=== PATIENT | female | born 1950 | race Caucasian/White ===

== ENCOUNTER → 2018-02-06 10:18 | Outpatient (CLI) | payer MEDICARE, BC, SELFPAY ==
--- NOTE | 2018-02-06 10:29 | XR_ITS ---
XR foot RT min 3V HISTORY: ITS.REASON: RIGHT FOOT PAIN ORDERING PHYSICIAN: Tj Sweeney MD PATIENT AGE: 67 years COMPARISON: None FINDINGS: No fracture or dislocation. No lytic or blastic change. There is normal mineralization.. The joint spaces are well-preserved. No significant degenerative/arthritic changes. No erosive changes evident. There is mild generalized osteopenia. There is a small accessory navicular bone. There is a tiny spur of the calcaneus at insertion of plantar tendon. IMPRESSION: Negative, no acute finding
== END ==
PROVIDERS: PCP Family Medicine; Visit Provider Family Medicine
DX: M79.671 Pain in right foot (principal)
CPT/HCPCS: 73630

== ENCOUNTER → 2018-04-29 09:22 | Outpatient (POV) | payer MEDICARE, BC, SELFPAY | PROVIDERS: Family Provider Family Medicine; PCP Family Medicine; Visit Provider Dermatology | DX: Z00.00 Encounter for general adult medical examination without abnormal findings (principal) ==

== ENCOUNTER → 2018-10-14 14:29 | Outpatient (CLI) | payer MEDICARE, BC, SELFPAY ==
--- NOTE | 2018-10-14 14:48 | XR_ITS ---
XR chest 2V HISTORY: Shortness of breath ITS.REASON: SOB ORDERING PHYSICIAN: Christianne Rios PATIENT AGE: 67 years COMPARISON: 09/06/2008 FINDINGS: Unremarkable cardiovascular structures. There is some increased density in the right hilum may be related to overlapping vessel and may be confirmed with follow-up as the patient is slightly rotated. The remaining lungs are clear. No acute bony anomalies. IMPRESSION: Mild prominence of the right hilum possibly due to vascular overlap. Consider follow-up chest radiograph to confirm otherwise negative
== END ==
PROVIDERS: PCP Family Medicine; Visit Provider Nurse Practitioner
DX: R07.89 Other chest pain (principal); R06.02 Shortness of breath
CPT/HCPCS: 71046; 93005

== ENCOUNTER → 2019-01-28 12:41 | Outpatient (CLI) | payer MEDICARE, BC, SELFPAY ==
--- NOTE | 2019-01-28 12:49 | CA_ITS ---
PROCEDURE: 2-D M-mode and color Doppler study INDICATIONS FOR THE TEST: Chest pain COPD Heart Murmur Tobacco Smokingex Palpitations Fatigue Syncope Edema+ Hypertension Diabetes Mellitus+ Rheumatic Fever SOB CROWLEY+Obesity+Hyperlipidemia Family History HD Additional History TDS R/T BODY HABITUS PATIENT INFORMATION HEIGHT: 67 WEIGHT:239 GENDER: Female B/P:130/70 2-D/M-MODE INTERPRETATION: 2-D MEASUREMENTS OBSERVED VALUES IN CMS Right Ventricular Dimension (RVDd) 2.8 Interventricular Septum (Thickness)(IVsd) 1.0 Left Ventricular Internal Dimensions(LVIDd) 4.8 Left Ventricular Posterior Wall (Thickness)(LVPWd) 1.0 Aortic Root 2.4 Aortic Cusp Separation 2.1 Left Atrial Dimensions (LAD) 3.7 2D 1. Left atrium is mildly enlarged, left ventricle is normal size, left ventricle wall thickness is upper limit of the normal, there is preserved left ventricular systolic function, visually estimated ejection fraction 55% with no regional wall motion abnormality. 2. The right atrium and right ventricle are mildly enlarged with normal contractility. 3. The aortic valve is minimally thickened and fibrosed. 4. The mitral valve has mitral calcification, leaflets are minimally thickened. 5. The pulmonic valve is poorly visualized. 6. The tricuspid valve is grossly normal. 7. No significant pericardial effusion noted. DOPPLER INTERROGATION: Doppler interrogation of the aortic, mitral and tricuspid valvular presence of mild mitral and tricuspid regurgitation, tricuspid regurgitation jet velocity is inadequate for calculation of the right ventricular systolic pressure, grade 1 diastolic dysfunction seen with tissue Doppler evidence of raised left atrial pressure. Inferior vena cava is not well visualized. CONCLUSION: 1. Mildly enlarged left atrium, normal left ventricular size, visually estimated ejection fraction 55% with no regional wall motion abnormality, grade 1 diastolic dysfunction seen with tissue Doppler evidence of raised left atrial pressure. 2. Mildly enlarged right ventricle with normal contractility. 3. Mild mitral and tricuspid regurgitation. 4. No significant pericardial effusion noted.
== END ==
PROVIDERS: PCP Family Medicine; Visit Provider Physician Assistant
DX: R06.09 Other forms of dyspnea (principal)
CPT/HCPCS: 93306

== ENCOUNTER → 2019-05-11 08:27 | Outpatient (POV) | payer MEDICARE, BC, SELFPAY | PROVIDERS: PCP Physician Assistant; Visit Provider Nurse Practitioner Family | DX: Z00.00 Encounter for general adult medical examination without abnormal findings (principal) ==

== ENCOUNTER → 2019-06-09 08:40 | Outpatient (POV) | payer MEDICARE, BC, SELFPAY | PROVIDERS: Visit Provider Dermatology | DX: Z00.00 Encounter for general adult medical examination without abnormal findings (principal) ==

== ENCOUNTER → 2019-07-29 11:42 | Outpatient (CLI) | payer MEDICARE, BC, SELFPAY ==
--- NOTE | 2019-07-29 11:47 | XR_ITS ---
PROCEDURE: XR ORTHOPANTOGRAM CLINICAL INDICATION: JAW PAIN Right jaw pain COMPARISON: None FINDINGS: No fracture or dislocation. No lytic or blastic change. No evidence of TMJ dislocation. There is some decrease in the TMJ joint space on the right. It is uncertain whether this is technical or a true finding. Early osteoarthritic change is a consideration and may be confirmed with CT. IMPRESSION: Slight decrease in the TMJ joint space on the right which could be due to early osteoarthritic change in may be confirmed with CT Dictated by: Sabino Burdick MD 07/29/2019 13:21 Electronically signed by Sabino Burdick MD in [place] 07/29/2019 13:21
== END ==
PROVIDERS: PCP Family Medicine; Visit Provider Physician Assistant
DX: R68.84 Jaw pain (principal)
CPT/HCPCS: 70355

== ENCOUNTER → 2021-05-13 15:45 | Outpatient (REF) | payer MEDICARE, BC, SELFPAY | LOC: LAB 15:45 | PROVIDERS: Visit Provider Family Medicine | DX: N39.0 Urinary tract infection, site not specified (principal) | CPT/HCPCS: 87086 ==

== ENCOUNTER → 2021-07-10 11:10 | Outpatient (CLI) | payer MEDICARE, BC, SELFPAY ==
--- NOTE | 2021-07-10 11:22 | XR_ITS ---
PROCEDURE: XR SACRUM COCCYX MIN 2V CLINICAL INDICATION: SORE TO SIT COMPARISON: No exams were available for comparison FINDINGS: No fracture or dislocation. No lytic or blastic change. There is normal mineralization. There is osteosclerosis of the inferior aspect of the SI joints with spurring consistent with osteoarthritic change. No obvious effusion. Mild osteoarthritis of the hips. Other findings:None. 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
== END ==
PROVIDERS: PCP Family Medicine; Visit Provider Family Medicine
DX: M53.3 Sacrococcygeal disorders, not elsewhere classified (principal)
CPT/HCPCS: 72220

== ENCOUNTER → 2021-10-09 14:04 | Outpatient (CLI) | payer MEDICARE, BC, SELFPAY ==
--- NOTE | 2021-10-09 14:21 | US_ITS ---
FINAL REPORT TECHNIQUE: Limited sonographic imaging of the back soft tissues was obtained. CLINICAL HISTORY: MASS-- small palp areas -- prob lipomas FINDINGS: Multiple, well-circumscribed, hypoechoic foci are seen in the subcutaneous fat of the back measuring up to 3 cm in greatest dimension favored to represent lipomas. IMPRESSION: Probable subcutaneous lipomas. Reviewed, Interpreted and Dictated by Juanjose Cano MD Transcribed by Modesta Spain Authenticated by Juanjose Cano MD on 10/09/2021 04:28:02 PM [facility]
== END ==
PROVIDERS: PCP Family Medicine; Visit Provider Physician Assistant
DX: M79.89 Other specified soft tissue disorders (principal)
CPT/HCPCS: 76800

== ENCOUNTER → 2021-10-21 08:10 | Outpatient (CLI) | payer MEDICARE, BC, SELFPAY ==
[2021-10-21 09:35] LABS: Chloride 106 mmol/L (98-107); Sodium 140 mmol/L (136-145)
[2021-10-21 09:36] LABS: Potassium 4.1 mmoL/L (3.5-5.1)
[2021-10-21 09:38] LABS: Blood Urea Nitrogen 19 mg/dl (7-17); Estimated Glomerular Filt Rate 62 ml/min (>60); GFR (African American) 75 ML/MIN (>60)
[2021-10-21 09:39] LABS: Anion Gap 11.1 mEq/L (5-15); Calcium 8.3 mg/dl (8.4-10.2); Carbon Dioxide 27 mmol/L (22.0-30.0); Glucose 127 mg/dl (74-100)
== END ==
PROVIDERS: Visit Provider Surgery
DX: D17.1 Benign lipomatous neoplasm of skin and subcutaneous tissue of trunk (principal); Z01.812 Encounter for preprocedural laboratory examination; Z11.52 Encounter for screening for COVID-19
CPT/HCPCS: 36415; 80048; C9803; U0003; U0005

== ENCOUNTER 2021-10-23 05:58 | Day surgery (SDC) | payer MEDICARE, BC, SELFPAY ==
[2021-10-20 08:34] VITALS: BMI 37.3
[2021-10-23] VITALS (9 sets, daily range): BP systolic 153–202; BP diastolic 71–97; PULSE 71–88; RESP 14–18; TEMP 36.3–36.7; O2SAT 94–98
--- NOTE | 2021-10-23 07:08 | HMH.ANESCL ---
[facility] Anesthesia Checklist - Patient Identification Patient Identification: Arm Band - Structural Data Admitted From: Home Planned Operative Procedure/s: Excision lipoma L. flank Consent for Planned Operative Procedure(s) Verified: Yes - NPO Status Verified Time NPO: 00:00 - Additional verifications Anesthesia Reactions: No Hx Blood Transfusions: No Blood Transfusion Reaction: No - Airway Assessment C-Spine Mobility Assessed: Yes TMJ Mobility Assessed: Yes Dentition: Good Dentition - Neurological Assessment Level of Consciousness: Awake Hx Seizures: No Numbness or tingling in extremities: No - Anesthesia Plan Anesthesia Risk discussed: Yes Anesthesia Plan: Verified ASA Class: III Anesthesia Type: General [facility] History I have reviewed the patient's past medical history: Yes Medical History: Reports:: Cancer (skin), Diabetes Mellitus Type 2, Hyperlipidemia, Hypertension Denies:: Diabetes Mellitus Type 1, Internal Pacemaker, MRSA, Seizures *Have you ever received a pneumonia vaccine?: Yes *Have you received a flu vaccine this season?: No Other Medical History: Reports: Hypothyroidism. Denies: Blood Transfusion Reaction Anesthesia experience/problems:: None Laterality Cases: Bilateral: Arthroscopy Knee, Arthroscopy Shoulder Other Surgeries: No: Pacemaker Amputation: No Fractures: Yes - *Social History Last grade of school completed: High school graduate Smoking Status: Never smoker Alcohol Intake: never Substance Use Type: denies use *Occupational Status:: retired Housing: house Household Members: spouse *Travel in the last 8 weeks: None Family Hx:: No significant family history
--- NOTE | 2021-10-23 08:19 | P.OP_ITS ---
Date of procedure: 10/23/21 Pre-op Diagnosis:: Lipomas on the right lower back Post-op Diagnosis:: Same Procedure performed:: Excision of lipomas, subcutaneous, from the right lower back (excisional length approximately 3 to 4 cm) with intermediate complex closure Surgeon:: Scott Steele MD CAPPER MACHINE OPERATOR:: Stacy Wilkerson, Other Anesthesia: LMA Estimated blood loss (mL): 5 Clinical Note:: Patient is a 70-year-old female referred by Rosa Souza for lipoma on the back. Patient states that she has had multiple lipomas in various locations. These have usually been asymptomatic. She has had lipoma on the right lower back near the lumbar area for about 5 or 6 years. Initially this had been asymptomatic but has increased in size and becomes symptomatic. She underwent ultrasound which reveals findings of multiple well-circumscribed hypoechoic foci in the subcutaneous fat measuring up to 3 cm favored to represent lipomas. She was seen and examined in the office. On the right lower back there was a palpable somewhat tender small lipoma measuring about 3 cm. Initially I was unable to identify any additional lipomas. She wished to have at least this area excised. In the preoperative area I reexamined her and there were a couple of other probable lipomas which she wished to have excised. These were marked in the preoperative area. Operative findings:: The mid lipoma was relatively well-circumscribed but small. The other 2, lateral and medial were consistent with very subtle subcutaneous lipomas. Operative note:: Patient was taken to the operating room. She was positioned in supine position. General anesthesia was induced via LMA. She was positioned in left lateral decubitus position. The area was prepped and draped. Attention was first turned to the mid lipoma which was most symptomatic and most palpable. Skin was marked with a skin marker. Transverse incision was made. Dissection was carried down through subcutaneous tissues. Relatively well-circumscribed lipoma fatty tissue was encountered. This was dissected free from surrounding structures using mostly blunt dissection with some use of electrocautery. It was sent off as specimen. Similar incision was made in the more lateral lesion. Dissection was carried down through subcutaneous tissues. Somewhat poorly differentiated lipomatous tissue was encountered and dissected free. Wound exploration revealed no evidence of any definite residual lipoma. Similarly in the more medial location there was a subtle palpable irregularity. Incision was made. Dissection was carried down through subcutaneous tissues. A small nodule of relatively well-circumscribed lipomatous tissue was encountered. This was dissected free. This was however somewhat subtle and appeared similar to the surrounding adipose tissue. There is no residual palpable lesion. This sent off as a specimen. Local anesthetic was infiltrated. Electrocautery was used for hemostasis in the 3 small incisions. Incisions were closed with interrupted subdermal 3-0 Vicryl followed by 4-0 Monocryl in a running subcuticular fashion. Steri-Strips and dressings were applied. Condition: stable Disposition: PACU Complications:: None immediately apparent
--- NOTE | 2021-10-23 08:21 | HMH.ANESI ---
[facility] Anesthesia Record Part I Intake, IV Amount: 450 Estimated blood loss (mL): 2 Urine output (mL): 0 Blood Pressure: 186/96 SaO2: 94 Pulse Rate: 77 Respiratory Rate: 18 Temperature: 98.1 F Patient is:: Drowsy Stable to PACU at:: 08:20
[2021-10-23 08:44] LABS: POC Glucose,Bedside 131 (70-110)
--- NOTE | 2021-10-23 08:57 | SUR.PHASEI ---
0849- detailed report called to ben louie in post op at this time. 0851- pt left in stable condition with ben fulton in post op.
[2022-04-19 10:58] LABS: POC Glucose,Bedside 137 (70-110)
== END 2021-10-23 09:21 | disposition home or self-care (01) ==
LOC: OR 05:59
PROVIDERS: PCP Family Medicine; Visit Provider Surgery
DX: D17.1 Benign lipomatous neoplasm of skin and subcutaneous tissue of trunk (principal); Z85.828 Personal history of other malignant neoplasm of skin; E11.9 Type 2 diabetes mellitus without complications; E78.5 Hyperlipidemia, unspecified; I10 Essential (primary) hypertension; E03.9 Hypothyroidism, unspecified; Z88.0 Allergy status to penicillin; Z88.8 Allergy status to other drugs, medicaments and biological substances; Z79.84 Long term (current) use of oral hypoglycemic drugs; Z79.899 Other long term (current) drug therapy
CPT/HCPCS: 11404; 12031; 82962; 88304; 96374

== ENCOUNTER → 2022-09-13 12:00 | Outpatient (CLI) | payer MEDICARE, BC, SELFPAY ==
--- NOTE | 2022-09-13 12:06 | XR_ITS ---
FINAL REPORT CLINICAL HISTORY: bron, concern for pneumonia, soa, productive cough COMPARISON: 10/14/2018 FINDINGS: TWO-VIEW CHEST The heart size is normal. The mediastinum is normal. There is a left base opacity consistent with pneumonia. There is no pneumothorax. IMPRESSION: Left base pneumonia. Reviewed, Interpreted and Dictated by Scott Davies III, MD Transcribed by Emelina Ayala Authenticated and [facility]
== END ==
PROVIDERS: PCP Family Medicine; Visit Provider Physician Assistant
DX: J40 Bronchitis, not specified as acute or chronic (principal)
CPT/HCPCS: 71046

== ENCOUNTER 2022-09-14 02:18 | Emergency (ER) | payer MEDICARE, BC, SELFPAY ==
[2022-09-14 02:19] VITALS: BP 194/102; PULSE 100; RESP 20; TEMP 36.6; O2SAT 95; BMI 33.3
[2022-09-14 02:29] VITALS: BP 194/102; PULSE 96; O2SAT 95
--- NOTE | 2022-09-14 02:39 | XR_ITS ---
PROCEDURE INFORMATION: Exam: XR Chest Exam date and time: 09/14/2022 2:59 AM Age: 71 years old Clinical indication: Shortness of breath; Additional info: SOA TECHNIQUE: Imaging protocol: Radiologic exam of the chest. Views: 1 view. COMPARISON: CR XR CHEST 2V 09/13/2022 12:11 PM FINDINGS: Lungs: There is mild elevation of the right hemidiaphragm, as before. There is improved clearing to the left lower lobe. A few minor streaky markings bilaterally are stable. The lungs appear otherwise clear. No focal areas of consolidation. Pleural spaces: No pleural effusions or appreciable adenopathy. Negative for pneumothorax. Heart/Mediastinum: Cardiac silhouette and pulmonary vasculature are within range of normal. Bones/joints: There is no evidence of acute fracture. IMPRESSION: Mild improved aeration to the left lower lobe since prior exam.
--- NOTE | 2022-09-14 02:40 | HMH.EDGENADL ---
Discharge Plan Disposition Patient Disposition: Home, Self-Care Condition: Good Prescriptions Prescriptions: New avqhrhjvwcvdkhq-uffelsvsn-LI [Bromfed DM] 2-30-10 mg/5 mL syrup 5 ml PO Q6H PRN (Reason: cold symptoms) Qty: 118 0RF No Action fluconazole 100 MG tablet 100 mg PO DAILY Rx Instructions: metoprolol succinate 50 MG tablet extended release 24 hr 50 mg PO DAILY Rx Instructions: levothyroxine 25 MCG tablet 25 mcg PO DAILY metformin 1,000 MG tablet 1,000 mg PO DAILY Rx Instructions: montelukast 10 MG tablet 10 mg PO PM lisinopril 40 MG tablet 40 mg PO DAILY rosuvastatin 5 MG tablet 5 mg PO DAILY levocetirizine 5 MG tablet 5 mg PO DAILY cholecalciferol (vitamin D3) 2,000 UNIT capsule 2,000 unit PO DAILY dulaglutide 1.5 MG/0.5 ML pen injector 1.5 mg SQ WEEKLY Referrals Follow up/Referrals: Tj Sweeney MD [Primary Care Provider] - See instructions Activity Restrictions/Add. Instructions Additional Instructions/Restrictions: Return for worsening difficulty breathing chest pain or any other concerns within the next 8 hours. Otherwise follow-up with Dr. Sweeney in the next few days Clinical Impressions Clinical Impression: Pneumonia Instructions Patient Instructions: Pneumonia-Adult Discharge ED Provider: Zeke Bonilla General Adult HPI General Chief complaint: Shortness of Breath/Dyspnea Stated complaint: SOA,cough,has pneumonia Time Seen by Provider: 09/14/22 02:20 Mode of Arrival: Ambulatory Source of Information: Patient Limitations: No Limitations Description of Symptoms (Recalled from ER Triage Doc. by RN): pt c/o SOA and coughing. pt diagnosed with pneumonia yesterday by pcp History of Present Illness HPI narrative: 71-year-old female presents with cough for 1 week. She was at her primary care physician Dr. Sweeney earlier today for persistent cough and hear crackles and diagnosed her with pneumonia. She has taken 1 dose of Levaquin today. No fever no chills. No abdominal pain nausea vomiting diarrhea. She recently took 1 week of steroids. Related Data Home Medications Medication Instructions Recorded Confirmed cholecalciferol (vitamin D3) 50 2,000 unit PO DAILY Supplement 05/26/19 11/14/21 mcg (2,000 unit) capsule dulaglutide 1.5 mg/0.5 mL 1.5 mg SQ WEEKLY Diabetes 05/26/19 11/14/21 subcutaneous pen injector fluconazole 100 mg tablet 100 mg PO DAILY Infection 05/26/19 11/14/21 levocetirizine 5 mg tablet 5 mg PO DAILY ALLERGIES 05/26/19 11/14/21 levothyroxine 25 mcg tablet 25 mcg PO DAILY HYPOTHYROIDISM 05/26/19 11/14/21 lisinopril 40 mg tablet 40 mg PO DAILY BLOOD PRESSURE 05/26/19 11/14/21 metformin 1,000 mg tablet 1,000 mg PO DAILY Diabetes 05/26/19 11/14/21 metoprolol succinate 50 mg 50 mg PO DAILY BLOOD PRESSURE 05/26/19 11/14/21 tablet,extended release 24 hr montelukast 10 mg tablet 10 mg PO PM ALLERGIES 05/26/19 11/14/21 rosuvastatin 5 mg tablet 5 mg PO DAILY Cholesterol 05/26/19 11/14/21 Previous Rx's Medication Instructions Recorded wbdobytemlvrghp-mgeydaauvqkzgwt-VB 5 ml PO Q6H PRN cold symptoms #118 09/14/22 2 mg-30 mg-10 mg/5 mL oral syrup mL (Bromfed DM) Allergies Allergy/AdvReac Type Severity Reaction Status Date / Time iodine [IODINE] Allergy Unknown Verified 11/14/21 10:43 Penicillins [PENICILLINS] Allergy Unknown Verified 11/14/21 10:43 theophylline [THEOPHYLLINE] Allergy Unknown Verified 11/14/21 10:43 valdecoxib [From Bextra] Allergy Verified 11/14/21 10:43 [facility] Disclaimer: The information contained in this section may have been updated after the patient was seen, as this information can be updated by other users. Social History Smoking Status: Never smoker alcohol intake: never substance use type: denies use current occupational status: retired Travel in the last 8 weeks: None household m
[2022-09-14 02:55] LABS: Basophils # 0.2 K/mm3 (0-0.2); Basophils % 1.1 % (0.1-2.0); Eosinophils # 0.9 K/mm3 (0.0-0.4); Eosinophils % 5.8 % (0.1-12.0); Hematocrit 41.6 % (37.0-47.0); Hemoglobin 12.8 g/dL (12.2-16.2); Lymphocytes # 4.2 K/mm3 (0.7-4.5); Lymphocytes % 27.2 % (10-50); Mean Corpuscular HGB Conc 30.9 g/dL (31.8-35.4); Mean Corpuscular Hemoglobin 27.6 pg (27.0-31.2); Mean Corpuscular Volume 89.3 fl (81-99); Mean Platelet Volume 7.6 fl (7.4-10.4); Monocytes # 0.8 K/mm3 (0.1-1.0); Monocytes % 5.2 % (1.7-9.3); Neutrophils # 9.2 K/mm3 (1.8-7.8); Neutrophils % 60.6 % (37.0-80.0); Platelet Count 574 K/mm3 (142-424); Red Blood Count 4.66 M/mm3 (4.20-5.40); Red Cell Distribution Width 14.6 % (11.5-17.5); White Blood Count 15.2 K/mm3 (4.8-10.8)
[2022-09-14 02:58] VITALS: BP 168/99; PULSE 94; O2SAT 95
[2022-09-14 02:58] LABS: VBG Base Excess -5.7 mmol/L (-2.4-2.3); VBG HCO3 20.8 mmol/L (23-30); VBG Oxygen Saturation 73.6 % (50-70); VBG PCO2 43.4 mmol/L (35-51); VBG PO2 41.7 mmol/L (28-40); VBG Total CO2 22.1 mmol/L (23-27)
[2022-09-14 03:00] LABS: Alanine Aminotransferase 30 U/L (12-78); Albumin Level 4.2 g/dl (3.5-5.0); Albumin/Globulin Ratio 1.4 (1.1-1.8); Alkaline Phosphatase 113 U/L (38-126); Anion Gap 7.2 mEq/L (5-15); Aspartate Amino Transferase 32 U/L (14-36); Bilirubin,Total 0.7 mg/dl (0.2-1.3); Blood Urea Nitrogen 16 mg/dl (7-17); Calcium 9.4 mg/dl (8.4-10.2); Carbon Dioxide 24 mmol/L (22.0-30.0); Chloride 107 mmol/L (98-107); Creatinine Clearance Estimated 76 mL/min (50-200); Estimated Glomerular Filt Rate 62 ml/min (>60); GFR (African American) 75 ML/MIN (>60); Globulin 2.9 g/dL (1.3-3.2); Glucose 204 mg/dl (74-100); Magnesium 1.6 mg/dl (1.6-2.3); Potassium 4.2 mmoL/L (3.5-5.1); Sodium 134 mmol/L (136-145); Total Protein,Serum 7.1 g/dl (6.3-8.2)
[2022-09-14 03:01] VITALS: PULSE 92; PULSE 95
[2022-09-14 03:03] LABS: MANUAL DIFFERENTIAL MANUAL DIFFERENTIAL (MANUAL DIFF)
[2022-09-14 03:10] LABS: NT Pro Brain Natriuretic Pep. 94.4 pg/mL (0-125)
[2022-09-14 03:51] VITALS: BP 178/101; PULSE 89; RESP 21; TEMP 36.7; O2SAT 93
[2022-09-14 04:05] LABS: Eosinophils % 5 % (0-3); Lymphocytes % 25 % (10-50); Monocytes % 6 % (2-9); Neutrophils % 62 % (42-76); Total Cells Counted 100
[2022-09-14 04:06] LABS: Platelet Estimate Normal; RBC Morphology Normal
== END 2022-09-14 03:56 | disposition home or self-care (01) ==
PROVIDERS: Emergency Provider Emergency Medicine; PCP Family Medicine
DX: J18.9 Pneumonia, unspecified organism (principal)
CPT/HCPCS: 71045; 80053; 82803; 83735; 83880; 85007; 85025; 96374; 99285

== ENCOUNTER → 2022-09-20 09:39 | Outpatient (CLI) | payer MEDICARE, BC, SELFPAY ==
--- NOTE | 2022-09-20 09:43 | XR_ITS ---
FINAL REPORT CLINICAL HISTORY: PNEUMONIA COMPARISON: 09/13/2022 FINDINGS: PA and lateral views of the chest were obtained. The cardiac and mediastinal silhouettes are within normal limits. The lungs are clear. There is no pleural effusion or pneumothorax. No acute osseous abnormality is identified. IMPRESSION: No radiographic evidence of acute cardiac or pulmonary disease. Reviewed, Interpreted and Dictated by Deepika Winston MD Transcribed by Brittany Gabriel Authenticated and [facility]
== END ==
PROVIDERS: PCP Family Medicine; Visit Provider Physician Assistant
DX: J18.9 Pneumonia, unspecified organism (principal)
CPT/HCPCS: 71046

== ENCOUNTER → 2022-11-20 08:06 | Outpatient (POV) | payer MEDICARE, BC, SELFPAY | PROVIDERS: Visit Provider Dermatology | DX: Z00.00 Encounter for general adult medical examination without abnormal findings (principal) ==

== ENCOUNTER → 2022-12-04 08:27 | Outpatient (POV) | payer MEDICARE, BC, SELFPAY | PROVIDERS: Visit Provider Dermatology | DX: Z00.00 Encounter for general adult medical examination without abnormal findings (principal) ==

== ENCOUNTER → 2022-12-10 15:23 | Outpatient (CLI) | payer MEDICARE, BC, SELFPAY ==
[2022-12-10 17:51] LABS: Basophils # 0.1 K/mm3 (0-0.2); Basophils % 0.6 % (0.1-2.0); Chloride 106 mmol/L (98-107); Eosinophils # 0.2 K/mm3 (0.0-0.4); Eosinophils % 2.3 % (0.1-12.0); Hematocrit 33.5 % (37.0-47.0); Hemoglobin 10.6 g/dL (12.2-16.2); Lymphocytes # 2.5 K/mm3 (0.7-4.5); Lymphocytes % 29.1 % (10-50); Mean Corpuscular HGB Conc 31.6 g/dL (31.8-35.4); Mean Corpuscular Hemoglobin 28.2 pg (27.0-31.2); Mean Corpuscular Volume 89.2 fl (81-99); Mean Platelet Volume 8.9 fl (7.4-10.4); Monocytes # 0.5 K/mm3 (0.1-1.0); Monocytes % 5.6 % (1.7-9.3); Neutrophils # 5.4 K/mm3 (1.8-7.8); Neutrophils % 62.5 % (37.0-80.0); Platelet Count 509 K/mm3 (142-424); Potassium 3.8 mmoL/L (3.5-5.1); Red Blood Count 3.76 M/mm3 (4.20-5.40); Red Cell Distribution Width 15.1 % (11.5-17.5); Sodium 141 mmol/L (136-145); White Blood Count 8.6 K/mm3 (4.8-10.8)
[2022-12-10 17:54] LABS: Alanine Aminotransferase 21 U/L (12-78); Albumin Level 3.8 g/dl (3.5-5.0); Albumin/Globulin Ratio 1.5 (1.1-1.8); Alkaline Phosphatase 102 U/L (38-126); Anion Gap 12.8 mEq/L (5-15); Aspartate Amino Transferase 32 U/L (14-36); Bilirubin,Total 0.2 mg/dl (0.2-1.3); Blood Urea Nitrogen 18 mg/dl (7-17); Calcium 8.6 mg/dl (8.4-10.2); Carbon Dioxide 26 mmol/L (22.0-30.0); Estimated Glomerular Filt Rate 62 ml/min (>60); GFR (African American) 75 ML/MIN (>60); Globulin 2.6 g/dL (1.3-3.2); Glucose 137 mg/dl (74-100); Total Protein,Serum 6.4 g/dl (6.3-8.2)
[2022-12-12 14:26] LABS: Anti-Centromere B Antibodies <0.2 AI (0.0-0.9); Anti-DNA (DS) Ab Qn 1 IU/mL (0-9); Anti-Jo-1 <0.2 AI (0.0-0.9); Anti-Smith Antibody <0.2 AI (0.0-0.9); Antichromatin Antibodies <0.2 AI (0.0-0.9); Antiscleroderma-70 Antibodies <0.2 AI (0.0-0.9); RNP Antibodies 0.2 AI (0.0-0.9); Sjogren's Anti-SS-A <0.2 AI (0.0-0.9); Sjogren's Anti-SS-B <0.2 AI (0.0-0.9)
== END ==
PROVIDERS: PCP Family Medicine; Visit Provider Student in an Organized Health Care Education/Training Program
DX: I77.6 Arteritis, unspecified (principal); R30.0 Dysuria; R21 Rash and other nonspecific skin eruption
CPT/HCPCS: 80053; 85025; 86225; 86235; 87086

== ENCOUNTER 2023-01-29 09:14 | Day surgery (SDC) | payer MEDICARE, BC, SELFPAY ==
[2023-01-25 14:27] VITALS: BMI 37.2
[2023-01-29 09:53] VITALS: BP 181/91; PULSE 74; RESP 17; TEMP 36.3; O2SAT 97
[2023-01-29 10:15] LABS: POC Glucose,Bedside 138 (70-110)
[2023-01-29 11:01] VITALS: BP 190/88; PULSE 80; RESP 18; O2SAT 100
[2023-01-29 11:06] VITALS: BP 182/86; PULSE 78; RESP 18; O2SAT 100
[2023-01-29 11:10] VITALS: BP 185/84; PULSE 77; RESP 18; O2SAT 100
[2023-01-29 11:29] VITALS: BP 168/81; PULSE 70; RESP 19; TEMP 36.2; O2SAT 98
== END 2023-01-29 11:35 | disposition home or self-care (01) ==
PROVIDERS: PCP Family Medicine; Visit Provider Ophthalmology
DX: E11.36 Type 2 diabetes mellitus with diabetic cataract (principal); H25.9 Unspecified age-related cataract
CPT/HCPCS: 66984; 82962; V2632

== ENCOUNTER 2023-02-12 07:19 | Day surgery (SDC) | payer MEDICARE, BC, SELFPAY ==
[2023-02-07 09:42] VITALS: BMI 36.1
[2023-02-12] VITALS (7 sets, daily range): BP systolic 136–153; BP diastolic 82–96; PULSE 73–78; RESP 16–18; TEMP 36.5; O2SAT 97–100
[2023-02-12 08:08] LABS: POC Glucose,Bedside 174 (70-110)
== END 2023-02-12 09:20 | disposition home or self-care (01) ==
PROVIDERS: PCP Family Medicine; Visit Provider Ophthalmology
DX: E11.36 Type 2 diabetes mellitus with diabetic cataract (principal); H25.9 Unspecified age-related cataract
CPT/HCPCS: 66982; 82962; V2632

== ENCOUNTER → 2023-04-30 10:06 | Outpatient (CLI) | payer MEDICARE, BC, SELFPAY ==
--- NOTE | 2023-04-30 10:16 | XR_ITS ---
FINAL REPORT CLINICAL HISTORY: ACUTE PAIN x 2 weeks FINDINGS: Three views of the right knee reveal no evidence of fracture or dislocation. The bony alignment is normal. There are mild degenerative changes. There is no evidence of joint effusion. No localized soft tissue abnormality is identified. IMPRESSION: Degenerative changes with no acute abnormality identified. Reviewed, Interpreted and Dictated by Scott Davies III, MD Transcribed by Maria Luisa Monreal Authenticated and [facility]
== END ==
PROVIDERS: PCP Family Medicine; Visit Provider Family Medicine
DX: M25.561 Pain in right knee (principal)
CPT/HCPCS: 73562

== ENCOUNTER → 2023-05-07 10:19 | Outpatient (CLI) | payer MEDICARE, BC, SELFPAY ==
--- NOTE | 2023-05-07 10:23 | MM_ITS ---
PROCEDURE INFORMATION: Exam: MG Bilateral Screening 3D Mammography Exam date and time: 05/07/2023 10:15 AM Age: 72 years old Clinical indication: Screening examination; No personal or family history of breast cancer TECHNIQUE: Imaging protocol: Bilateral Screening tomosynthesis and 2D mammography including computer-aided detection (CAD) when performed. COMPARISON: 1. MG DMDXUAVL DIG MAMM-DX UNI ADD VIEWS-LT 04/10/2016 2:39 PM 2. MG DMSB DIG MAMM-SCREEN KEEGAN 02/02/2016 8:41 AM FINDINGS: MAMMOGRAPHY: Breast composition: There are scattered areas of fibroglandular density. Mass: None. Architectural distortion: No new or suspicious distortion. Calcifications: No suspicious calcifications. Asymmetric density: None. Skin thickening: None. Axillary adenopathy: None. IMPRESSION: No mammographic evidence of malignancy. Annual screening is recommended unless otherwise clinically indicated. ASSESSMENT: BI-RADS Category 1: Negative
== END ==
PROVIDERS: PCP Family Medicine; Visit Provider Family Medicine
DX: Z12.31 Encounter for screening mammogram for malignant neoplasm of breast (principal)
CPT/HCPCS: 77063; 77067

== ENCOUNTER 2023-08-06 14:15 | Outpatient (POV) | payer MEDICARE, BC, SELFPAY | END 2023-08-06 23:59 | disposition home or self-care (01) | LOC: SC 14:15 | PROVIDERS: PCP Family Medicine; Visit Provider Dermatology | DX: Z00.00 Encounter for general adult medical examination without abnormal findings (principal) ==

== ENCOUNTER 2023-11-19 11:41 | Outpatient (CLI) | payer MEDICARE, BC, SELFPAY ==
--- NOTE | 2023-11-19 11:58 | ECG_ITS ---
APPROVED REPORT Exam: Resting ECG HR:69 bpm ECG Measurements Heart Rate 69 AXES WI 193 P 29 QRSd 90 QRS 2 QT 380 T 61 QTc 399 Conclusion SINUS RHYTHM LOW QRS VOLTAGE IN PRECORDIAL LEADS [QRS DEFLECTION < 1.0 mV IN CHEST LEADS] NONSPECIFIC ST & T-WAVE ABNORMALITY BORDERLINE ECG UNCONFIRMED REPORT Electronically signed by : Braydon Parikh MD 11/19/2023 20:37:51
[2023-11-19 13:05] LABS: Alanine Aminotransferase 20 U/L (12-78); Albumin Level 3.7 g/dl (3.5-5.0); Albumin/Globulin Ratio 1.5 (1.1-1.8); Alkaline Phosphatase 105 U/L (38-126); Anion Gap 10.3 mEq/L (5-15); Aspartate Amino Transferase 27 U/L (14-36); Bilirubin,Total 0.3 mg/dl (0.2-1.3); Blood Urea Nitrogen 20 mg/dl (7-17); Calcium 9.1 mg/dl (8.4-10.2); Carbon Dioxide 27 mmol/L (22.0-30.0); Chloride 108 mmol/L (98-107); Estimated Glomerular Filt Rate 62 ml/min (>60); GFR (African American) 75 ML/MIN (>60); Globulin 2.5 g/dL (1.3-3.2); Glucose 167 mg/dl (74-100); Potassium 4.3 mmoL/L (3.5-5.1); Sodium 141 mmol/L (136-145); Total Protein,Serum 6.2 g/dl (6.3-8.2)
[2023-11-19 13:41] LABS: 25-OH Vitamin D, Total 51.4 ng/mL (30-100)
[2023-11-19 14:02] LABS: Hemoglobin A1C 7.6 % (4.0-6.0)
== END 2023-11-19 23:59 | disposition home or self-care (01) ==
LOC: LAB 11:42
PROVIDERS: PCP Family Medicine; Visit Provider Family Medicine
DX: Z01.818 Encounter for other preprocedural examination (principal); E11.9 Type 2 diabetes mellitus without complications; E55.9 Vitamin D deficiency, unspecified; E78.2 Mixed hyperlipidemia; I10 Essential (primary) hypertension; Z68.36 Body mass index [BMI] 36.0-36.9, adult; Z79.84 Long term (current) use of oral hypoglycemic drugs; Z79.85 Long-term (current) use of injectable non-insulin antidiabetic drugs
CPT/HCPCS: 36415; 80053; 82306; 83036; 93005

== ENCOUNTER 2024-04-08 08:43 | Outpatient (CLI) | payer MEDICARE, SELFPAY | END 2024-04-08 23:59 | disposition home or self-care (01) | LOC: RAD 08:43 | PROVIDERS: PCP Family Medicine; Visit Provider Family Medicine | DX: M54.50 Low back pain, unspecified (principal) ==

== ENCOUNTER 2024-05-27 13:38 | Outpatient (POV) | payer MEDICARE, SELFPAY ==
--- NOTE | 2024-05-27 14:59 | A.OFFVIS_ITS ---
HPI Data of Consult Patient: new to practice Consult date: 05/27/24 Requesting Physician: Venecia Davidson APRN Primary Care Provider: Tj Sweeney MD Consult Narrative Reason for consult: Low back pain, right buttocks pain, leg pain History of present illness: Ms. Montes is a 73 year old female who presents today as a new patient. Today she rates her pain a 5 out of 10. Patient states she has pain throughout her low back, right buttocks area as well as legs and ankle. Patient states that she has been experiencing more pain in the right buttocks area since around August unrelated to any specific injury or trauma. Patient does state that it is worse with prolonged positioning such as sitting in certain chairs. She states it is right around her tailbone and describes it as an aching sensation. Patient does state this pain is more problematic than her overall low back and leg symptoms. Patient states that pain is worse with increased activity that she does have to stop and take breaks. Patient has tried conservative treatment including oral medications, heat and ice and topicals such as Voltaren. Patient states she has continued at home stretching exercise for longer than 12 weeks with no additional relief. Patient is interested in any help we may be able to provide. Patient does state that she has a history of fatty tumors and questions whether or not in her buttocks area of this is 1 of those. Her Rg has been reviewed and is appropriate. CC: Venecia Davidson APRN [facility] Disclaimer: The information contained in this section may have been updated after the patient was seen, as this information can be updated by other users. Medical History History of gastroesophageal reflux (GERD) Hyperlipidemia Hypertension Hypothyroid Skin cancer Type 2 diabetes mellitus Surgical History H/O tubal ligation History of arthroscopy of both knees History of cholecystectomy History of hysterectomy Hx of shoulder surgery Family History Other Family history of cerebral hemorrhage Family history of diabetes mellitus type II Family history of hypertension Family history of myocardial infarction Family hx of colon cancer Lung cancer Social History Smoking Status: Never smoker alcohol intake: never substance use type: denies use current occupational status: retired Travel in the last 8 weeks: None household members: spouse housing: house lives independently: No marital status: education level: high school service: No current occupational exposures/hazards: No caffeine: No special gerson needs: No agree to transfusion: No do you feel safe at home: Yes victim of physical abuse: No victim of emotional abuse: No victim of sexual abuse: No would you like helpful sources: No Review of Systems Review of Systems Review of systems:: pertinent systems reviewed and negative unless documented below Review of systems (narrative): Review of Systems: General: No recent weight changes, no fever, no sleep disturbances Respiratory: No cough, no shortness of air, no recurring pulmonary infections Cardiovascular/peripheral vascular: No chest pain, no palpitations, no edema, no shortness of breath Gastrointestinal: No new onset incontinence, normal bowel movements reported Genitourinary: No new onset incontinence Musculoskeletal: Low back pain, leg pain, ankle pain, right buttocks pain/tailbone pain Psychiatric: [Normal mood/affect] Neurological: [Denies weakness in extremities], [denies balance issues] Meds Home Medications and Allergies Home Medications ?Medication ?Instructions ?Recorded ?Confirmed ?Type cholecalciferol (vitamin D3) 50 2,000 unit PO DAILY Supplement 05/26/19 08/22/23 History mcg (2,000 unit) capsule dulaglutide 1.5 mg/0.5 mL 1.5 mg SQ WEEKLY Diabetes 05/26/19 08/22/23 History subcutaneous pen injector levocetirizine 5 mg tablet (Xyzal) 5 mg PO DAILY ALLERGIES 05/26/19 08/22/23 History levothyroxine 25 mcg tablet 25 mcg PO DAILY HYPOTHYROIDISM 05/26/19 08/22/23 History lisinopril 40 mg tablet 40 mg PO DAILY BLOOD PRESSURE 05/26/19 08/22/23 History montelukast 10 mg tablet 10 mg PO PM ALLERGIES 05/26/19 08/22/23 History (Singulair) amlodipine 5 mg tablet 5 mg PO DAILY bp 02/12/23 08/22/23 History Lactobacillus 1 cap PO DAILY 05/29/23 08/22/23 History acidophilus-Bifidobac.animalis 2.5 billion cell capsule (Daily Probiotic) metformin 500 mg tablet,extended 1,000 mg PO BID 05/29/23 08/22/23 History release 24 hr metoprolol succinate 200 mg mg PO 05/29/23 08/22/23 History tablet,extended release 24 hr prasterone (dhea) 25 mg capsule 25 mg PO DAILY #30 caps 05/29/23 08/22/23 Rx (DHEA) rosuvastatin 5 mg tablet (Crestor) 5 mg PO DAILY Cholesterol 05/29/23 08/22/23 History cefdinir 300 mg capsule 300 mg PO BID #20 caps 08/22/23 08/22/23 Rx triamcinolone acetonide 0.1 % 1 applic topical BID #15 grams 08/22/23 08/22/23 Rx topical cream New Prescriptions to Start Prescriptions: Allergies Allergy/AdvReac Type Severity Reaction Status Date / Time iodine [IODINE] Allergy Unknown Verified 08/22/23 15:25 Penicillins [PENICILLINS] Allergy Unknown Verified 08/22/23 15:25 theophylline [THEOPHYLLINE] Allergy Unknown Verified 08/22/23 15:25 valdecoxib [From Bextra] Allergy Verified 08/22/23 15:25 Objective Narrative: Physical Exam: General: Alert and oriented x3, no acute distress, pleasant and cooperative Lungs: Respirations even and unlabored, symmetrical chest expansion Eyes: PERRL Musculoskeletal: Flexion and extension of lumbar [spine] somewhat guarded secondary to pain, [antalgic gait noted] point tenderness along right sacrum/glute Neurological: Speech clear, no gross sensory deficit Assessment and Plan *Assessment and plan (1) Degenerative disc disease, lumbar: Status: Acute Category: Medical Code(s): M51.369 - Other intervertebral disc degeneration, lumbar region without mention of lumbar back pain or lower extremity pain (2) Lumbar radiculopathy: Status: Acute Category: Medical Code(s): M54.16 - Radiculopathy, lumbar region (3) Chronic buttock pain: Status: Acute Category: Medical Code(s): M79.18 - Myalgia, other site; G89.29 - Other chronic pain (4) Myofascial pain on right side: Status: Acute Category: Medical Code(s): M79.18 - Myalgia, other site (5) Spinal stenosis, lumbar region with neurogenic claudication: Status: Acute Category: Medical Code(s): M48.062 - Spinal stenosis, lumbar region with neurogenic claudication Plan Patient is experiencing significant pain in and around her right gluteal muscle with point tenderness with palpation. I did discuss with the patient that we can do a trigger point injection at this location. Risk and benefits were discussed with patient and she would like to proceed forward with this plan of care. Patient has tried and failed conservative therapy including continued at home stretching exercise for longer than 12 weeks. I did also discuss with patient I will order her compounded cream and in future she does have symptoms consistent with spinal stenosis with neurogenic claudication symptoms and she may be a beneficial candidate of a minimally invasive lumbar decompression procedure. We will follow-up with this at future visits. Patient will be scheduled for a trigger point injection of her right glute. This will be done without fluoroscopic guidance or ultrasound. Patient has been instructed to contact the clinic with any concerns before the next appointment. Dr. Landry has reviewed this note and agrees with this plan of care. This note was dictated using voice recognition software and make contain errors or omissions. All injections are used with Lidocaine or Bupivacaine and Depo Medrol.
[2024-05-27 15:51] VITALS: BP 144/73; PULSE 84; RESP 18; O2SAT 95; BMI 36.2
== END 2024-05-27 23:59 | disposition home or self-care (01) ==
LOC: SC.PAIN 13:39
PROVIDERS: PCP Family Medicine; Visit Provider Nurse Practitioner Family
DX: M79.18 Myalgia, other site; G89.29 Other chronic pain; M48.062 Spinal stenosis, lumbar region with neurogenic claudication; M51.16 Intervertebral disc disorders with radiculopathy, lumbar region
CPT/HCPCS: 99202; G0463

== ENCOUNTER 2024-06-26 08:33 | Day surgery (SDC) | payer MEDICARE, BC, SELFPAY ==
[2024-06-26 08:53] VITALS: BP 152/91; PULSE 80; RESP 16; TEMP 36.2; O2SAT 97; BMI 35.6
[2024-06-26] MEDS: BUPIVACAINE 0.25% 10ML INJ 25 MG IJ (08:55)
[2024-06-26] MEDS: LIDOCAINE 1% 5ML PF VIAL 5 ML (08:56)
[2024-06-26] MEDS: methylPREDNISolone ACETATE 80MG/ML VIAL 80 MG (08:56)
[2024-06-26 08:57] VITALS: BP 148/97; PULSE 86; RESP 18; O2SAT 96
[2024-06-26 08:58] VITALS: BP 148/97; PULSE 86; RESP 18; O2SAT 96
[2024-06-26 09:02] LABS: POC Glucose,Bedside 112 (70-110)
--- NOTE | 2024-06-26 09:02 | EXP.PAIN.PRO ---
Procedure Date: 06/26/24 Time: 09:02 Anesthesiologist:: Venecia Davidson APRN Complications:: None Pre-procedure Diagnosis:: Myofascial pain of sacrum and glutes, low back pain Post-procedure Diagnosis:: Same Indications for Procedure:: Patient is a pleasant 73-year-old female who presents today for trigger point injections of sacrum and glutes. Today she rates her pain an 8 out of 10. Patient denies any new trauma or injury. She does state that she has started to have a little bit more pain that does radiate up into her low back. She describes it as an aching, throbbing sensation. Patient states she is just been getting out her [employer] decorations. She does still state that she has significant pain in and around her buttocks area that is very tender to touch. Patient does states she has been using a roll-on topical and it does seem to help. Her Rg has been reviewed and is appropriate. Physical Exam: General: Alert and oriented x3, no acute distress, pleasant and cooperative Lungs: Respirations even and unlabored, symmetrical chest expansion Eyes: PERRL Musculoskeletal: Flexion and extension of lumbar [spine] somewhat guarded secondary to pain, [antalgic gait noted] extreme point tenderness around sacrum and bilateral glutes Neurological: Speech clear, no gross sensory deficit Procedure Details:: Patient did have noninvasive blood pressure monitor and pulse ox applied. Patient was laid in a prone position with a pillow under her abdomen and upper chest. The area around her sacrum was cleansed with chlorhexidine. With palpation areas of point tenderness were incrementally marked and then injected with a total of 10 mL of solution consisting of 2 ml Depo-Medrol 80 mg and 8 mL of lidocaine 1%. These were injected using a 25-gauge sterile needle. Needle was removed. Patient tolerated the procedure well with no complications. Plan and Disposition:: Patient tolerated her trigger point injections well with no complications and was discharged neurologically intact. Patient will return to clinic in 2 weeks for reevaluation of symptoms and plan of care. Patient has been instructed to contact the clinic with any concerns before the next appointment. Dr. Landry has reviewed this note and agrees with this plan of care. This note was dictated using voice recognition software and make contain errors or omissions. All injections are used with Lidocaine or Bupivacaine and Depo Medrol.
[2024-06-26 09:03] VITALS: BP 157/89; PULSE 78; RESP 16; O2SAT 97
== END 2024-06-26 09:03 | disposition home or self-care (01) ==
PROVIDERS: PCP Family Medicine; Visit Provider Nurse Practitioner Family
DX: M79.18 Myalgia, other site (principal); M54.50 Low back pain, unspecified
CPT/HCPCS: 20552; 82962; J1010

== ENCOUNTER 2024-07-10 15:24 | Outpatient (POV) | payer MEDICARE, BC, SELFPAY ==
[2024-07-10 15:26] VITALS: BP 194/95; PULSE 81; RESP 16; O2SAT 99; BMI 34.7
--- NOTE | 2024-07-10 16:08 | EXP.PAIN.SOA ---
[facility] Disclaimer: The information contained in this section may have been updated after the patient was seen, as this information can be updated by other users. Medical History History of gastroesophageal reflux (GERD) Hyperlipidemia Hypertension Hypothyroid Skin cancer Type 2 diabetes mellitus Surgical History H/O tubal ligation History of arthroscopy of both knees History of cholecystectomy History of hysterectomy Hx of shoulder surgery Family History Other Family history of cerebral hemorrhage Family history of diabetes mellitus type II Family history of hypertension Family history of myocardial infarction Family hx of colon cancer Lung cancer Social History Smoking Status: Never smoker alcohol intake: never substance use type: denies use current occupational status: other Travel in the last 8 weeks: None household members: spouse housing: house lives independently: No marital status: education level: high school service: No current occupational exposures/hazards: No caffeine: No special gerson needs: No agree to transfusion: No do you feel safe at home: Yes victim of physical abuse: No victim of emotional abuse: No victim of sexual abuse: No would you like helpful sources: No PM Subjective & Objective Subjective Subjective:: Patient is a pleasant 73-year-old female who presents today for follow-up of trigger point injections of her sacrum and glutes on 06/26/2024. Today she rates her pain a 6 out of 10. She states that she did have at least 50% improvement following these injections and feels like it is still helping. She does state that she has been able to sit now for longer periods of time on her tailbone without having the severe pain like what it had been. Today she does state that most of her pain is all related to her upper low back. She describes it as an aching, throbbing sensation that is worse with certain movements. She does state that pain does interfere with her ability perform activities of daily living such as cooking and cleaning. Patient is interested in additional injection therapy. Patient has tried and failed conservative therapy including continued at home stretching exercise for longer than 12 weeks. Patient does state that the methocarbamol that she got from her doctor did cause itching and rash so she did discontinue this. Her Rg has been reviewed and is appropriate. Review of Systems: General: No recent weight changes, no fever, no sleep disturbances Respiratory: No cough, no shortness of air, no recurring pulmonary infections Cardiovascular/peripheral vascular: No chest pain, no palpitations, no edema, no shortness of breath Gastrointestinal: No new onset incontinence, normal bowel movements reported Genitourinary: No new onset incontinence Musculoskeletal: Low back pain Psychiatric: [Normal mood/affect] Neurological: [Denies weakness in extremities], [denies balance issues] Pain at rest (0-10 scale): 6 Objective Objective:: Physical Exam: General: Alert and oriented x3, no acute distress, pleasant and cooperative Lungs: Respirations even and unlabored, symmetrical chest expansion Eyes: PERRL Musculoskeletal: Flexion and extension of lumbar [spine] somewhat guarded secondary to pain, [antalgic gait noted] positive Kemps test Neurological: Speech clear, no gross sensory deficit Has patient had previous pain injection?: Yes Percent improvement in pain since last injection: 50% Conservative treatment options previously tried: Home exercise plan Length of treatment: Longer than 12 weeks Meds Home Medications and Allergies Home Medications ?Medication ?Instructions ?Recorded ?Confirmed ?Type cholecalciferol (vitamin D3) 50 2,000 unit PO DAILY Supplement 05/26/19 07/10/24 History mcg (2,000 unit) capsule dulaglutide 1.5 mg/0.5 mL 1.5 mg SQ WEEKLY Diabetes 05/26/19 07/10/24 History subcutaneous pen injector levocetirizine 5 mg tablet (Xyzal) 5 mg PO DAILY ALLERGIES 05/26/19 07/10/24 History levothyroxine 25 mcg tablet 25 mcg PO DAILY HYPOTHYROIDISM 05/26/19 07/10/24 History lisinopril 40 mg tablet 40 mg PO DAILY BLOOD PRESSURE 05/26/19 07/10/24 History montelukast 10 mg tablet 10 mg PO PM ALLERGIES 05/26/19 07/10/24 History (Singulair) amlodipine 5 mg tablet 5 mg PO DAILY bp 02/12/23 07/10/24 History Lactobacillus 1 cap PO DAILY 05/29/23 07/10/24 History acidophilus-Bifidobac.animalis 2.5 billion cell capsule (Daily Probiotic) metformin 500 mg tablet,extended 1,000 mg PO BID 05/29/23 07/10/24 History release 24 hr metoprolol succinate 200 mg 200 mg PO DAILY BLOOD PRESSURE 05/29/23 07/10/24 History tablet,extended release 24 hr prasterone (dhea) 25 mg capsule 25 mg PO DAILY #30 caps 05/29/23 07/10/24 Rx (DHEA) rosuvastatin 5 mg tablet (Crestor) 5 mg PO DAILY Cholesterol 05/29/23 07/10/24 History cefdinir 300 mg capsule 300 mg PO BID #20 caps 08/22/23 07/10/24 Rx triamcinolone acetonide 0.1 % 1 applic topical BID #15 grams 08/22/23 07/10/24 Rx topical cream New Prescriptions to Start Prescriptions: Allergies Allergy/AdvReac Type Severity Reaction Status Date / Time iodine (IODINE) Allergy Unknown Verified 08/22/23 15:25 Penicillins (PENICILLINS) Allergy Unknown Verified 08/22/23 15:25 theophylline (THEOPHYLLINE) Allergy Unknown Verified 08/22/23 15:25 valdecoxib (From Bextra) Allergy Verified 08/22/23 15:25 Assessment and Plan *Assessment and plan (1) Degenerative disc disease, lumbar: Status: Acute Category: Medical Code(s): M51.369 - Other intervertebral disc degeneration, lumbar region without mention of lumbar back pain or lower extremity pain (2) Lumbar facet arthropathy: Status: Acute Category: Medical Code(s): M47.816 - Spondylosis without myelopathy or radiculopathy, lumbar region Plan Patient is experiencing worsening pain in her low back with limited range of motion and a positive Kemps test. I did discuss with patient that I do believe she would benefit from lumbar medial branch block bilaterally. Risk and benefits were discussed with the patient and she would like to proceed forward with this plan of care. Patient has tried and failed conservative therapy including oral medications, heat and ice, topicals, at home stretching exercise for longer than 12 weeks in between injections. Patient will be scheduled for her first lumbar medial branch block. I did counselor supervisor her if she does get significant relief with this diagnostic block we will plan on repeating it with the plan to proceed forward with a lumbar RFA at a later date. Patient agrees with this plan of care. Patient will be submitted for her first lumbar diagnostic medial branch block bilaterally L4-L5 and L5-S1 under fluoroscopy. Patient did have her latest lumbar MRI at [facility] and we will send for a copy of this. MRI lumbar spine [facility] May 11, 2024 Findings: There is degenerative grade 1 L4-L5 and L5-S1 anterolisthesis T12-L1: No canal or foraminal stenosis. L1-L2: Maintained disc height without herniation or bulge. No canal or foraminal stenosis. Mild facet arthrosis L2-L3: Maintained disc height and symmetric disc bulge results in mild bilateral foraminal stenosis. No canal stenosis. Mild facet arthrosis. L3-L4: Maintained disc height with annular fissuring and asymmetric right disc bulge resulting in mild to moderate right and mild left foraminal stenosis. No canal stenosis. Mild facet arthrosis. L4-L5: Maintained disc height with disc space unroofing due to anterior listhesis and asymmetric left disc bulge. Moderate facet arthrosis with ligamentum flavum thickening and bony hypertrophy. Disc and facet hypertrophic change result in mild bilateral foraminal stenosis no canal stenosis. L5-S1 maintained disc height with disc space unroofing due to anterior listhesis. Superimposed right foraminal disc herniation with possible contact of the exiting right L5 nerve with no roots displacement/deformity. Advanced right and moderate left facet arthrosis with ligamentum flavum thickening and bony hypertrophy. Disc and facet hypertrophic changes result in mild right foraminal stenosis. No canal or left foraminal stenosis. Patient has been instructed to contact the clinic with any concerns before the next appointment. Dr. Landry has reviewed this note and agrees with this plan of care. This note was dictated using voice recognition software and make contain errors or omissions. All injections are used with Lidocaine, Bupivacaine and Depo Medrol. Occasionally urine drug screen is needed to verify patient's compliance with our office pain contract. This is ordered based off specific treatments related to chronic pain with the potential to abuse certain medications.
== END 2024-07-10 23:59 | disposition home or self-care (01) ==
LOC: SC.PAIN 15:25
PROVIDERS: PCP Family Medicine; Visit Provider Nurse Practitioner Family
DX: M51.369 Other intervertebral disc degeneration, lumbar region without mention of lumbar back pain or lower extremity pain (principal); M47.816 Spondylosis without myelopathy or radiculopathy, lumbar region; Z73.89 Other problems related to life management difficulty; Z79.899 Other long term (current) drug therapy
CPT/HCPCS: 99212; G0463

== ENCOUNTER 2024-08-04 09:33 | Day surgery (SDC) | payer MEDICARE, BC, SELFPAY ==
[2024-08-04 09:49] VITALS: BP 192/88; PULSE 84; RESP 18; TEMP 36.9; O2SAT 98; BMI 34.8
[2024-08-04] MEDS: methylPREDNISolone ACETATE 80MG/ML VIAL 80 MG (09:59)
[2024-08-04] MEDS: BUPIVACAINE 0.25% 10ML INJ 25 MG IJ (09:59)
[2024-08-04] MEDS: LIDOCAINE 1% 5ML PF VIAL 5 ML (09:59)
--- NOTE | 2024-08-04 10:42 | P.PCN_ITS ---
Procedure Date: 08/04/24 Time: 09:10 Anesthesiologist:: Zack Mackey CRNA Complications:: None Pre-procedure Diagnosis:: Degenerative disc lumbar spine multilevels. Lumbar radiculopathy. Lumbar facet arthropathy. Lumbar spondylosis. Post-procedure Diagnosis:: Same. Indications for Procedure:: Patient is a very pleasant 73-year-old female who comes our clinic today for ROUND ONE of lumbar medial branch blocks/facet injections bilateral L4-5, L5-S1 level. Patient describes low lumbar back pain as constant, dull, aching. She reports having difficulty with lumbar flexion, extension, left and right rotation. She rates her pain 7/10. Procedure Details:: Informed consent was obtained and the risk and benefits of the procedure was explained to the patient. Patient was taken to the procedure room where noninvasive monitors were placed, including noninvasive blood pressure cuff as well as pulse oximeter. The area over the lumbar spine was cleansed using chlorhexidine as a cleansing solution. I anesthetized the skin and subcutaneous tissues with 1% Lidocaine. I placed 22-gauge spinal needles into the facet joint/ medial branches of L4-L5, and L5-S1] bilaterally. Needle placement was confirmed with fluoroscopy. After confirmation of needle placement, each site was injected with 1 mL of 1% lidocaine and 0.25 % Marcaine and 10 mg of Depo- Medrol. A total of 80 mg of depo medrol was used for bilateral medial branch blocks of L4-L5, and L5-S1] bilaterally. Patient tolerated the procedure without difficulty. There were no complications. Plan and Disposition:: Patient was discharged without incident.
[2024-08-04 10:49] VITALS: BP 156/85; PULSE 79; RESP 18; O2SAT 97
== END 2024-08-04 10:50 | disposition home or self-care (01) ==
PROVIDERS: PCP Family Medicine; Visit Provider Nurse Anesthetist, Certified Registered
DX: M47.816 Spondylosis without myelopathy or radiculopathy, lumbar region (principal); M51.362 Other intervertebral disc degeneration, lumbar region with discogenic back pain and lower extremity pain
CPT/HCPCS: 64493; 64494; J1010

== ENCOUNTER 2024-08-17 08:38 | Outpatient (POV) | payer MEDICARE, BC, SELFPAY ==
--- NOTE | 2024-08-17 09:06 | A.OFFVIS_ITS ---
[facility] Disclaimer: The information contained in this section may have been updated after the patient was seen, as this information can be updated by other users. Medical History History of gastroesophageal reflux (GERD) Hyperlipidemia Hypertension Hypothyroid Skin cancer Type 2 diabetes mellitus Surgical History H/O tubal ligation History of arthroscopy of both knees History of cholecystectomy History of hysterectomy Hx of shoulder surgery Family History Other Family history of cerebral hemorrhage Family history of diabetes mellitus type II Family history of hypertension Family history of myocardial infarction Family hx of colon cancer Lung cancer Social History Smoking Status: Never smoker alcohol intake: never substance use type: denies use current occupational status: other Travel in the last 8 weeks: None household members: spouse housing: house lives independently: No marital status: education level: high school service: No current occupational exposures/hazards: No caffeine: No special gerson needs: No agree to transfusion: No do you feel safe at home: Yes victim of physical abuse: No victim of emotional abuse: No victim of sexual abuse: No would you like helpful sources: No Have you lived/traveled outside [place] in past 30 days?: No Contact w/someone who lives/traveled outside [place] past 30 days?: No Exposure to someone with infectious disease in past 14 days?: No Do you have a fever (greater than 100.4 F or 38 C)?: No Have you tested positive for COVID-19: No Exposed to someone with COVID-19 in past 14 days?: No Do you have a sore throat?: No Do you have a cough?: No Do you have any weakness?: No Do you have any diarrhea?: No Are you experiencing any unusual bleeding?: No Do you have any muscle aches/pain?: No Do you have any abdominal pain?: No Are you experiencing loss of taste or smell?: No PM Subjective & Objective Subjective Subjective:: Patient is a pleasant 73-year-old female who presents today for follow-up of her first lumbar medial branch block L4-L5 and L5-S1 on 08/04/2024. Today she rates her pain a 0 out of 10. Patient denies any new trauma or injury. She does state that she has had at least 80% improvement following This injection and feels like it still helping. She states she has been able to move around easier with overall decreased pain and improved function. Her Rg has been reviewed and is appropriate. Review of Systems: General: No recent weight changes, no fever, no sleep disturbances Respiratory: No cough, no shortness of air, no recurring pulmonary infections Cardiovascular/peripheral vascular: No chest pain, no palpitations, no edema, no shortness of breath Gastrointestinal: No new onset incontinence, normal bowel movements reported Genitourinary: No new onset incontinence Musculoskeletal: Low back pain Psychiatric: [Normal mood/affect] Neurological: [Denies weakness in extremities], [denies balance issues] Pain at rest (0-10 scale): 0 Objective Objective:: Physical Exam: General: Alert and oriented x3, no acute distress, pleasant and cooperative Lungs: Respirations even and unlabored, symmetrical chest expansion Eyes: PERRL Musculoskeletal: Flexion and extension of lumbar [spine] somewhat guarded secondary to pain, [antalgic gait noted] Neurological: Speech clear, no gross sensory deficit Has patient had previous pain injection?: Yes Percent improvement in pain since last injection: 80% Conservative treatment options previously tried: Home exercise plan Length of treatment: Longer than 12 weeks Meds Home Medications and Allergies Home Medications ?Medication ?Instructions ?Recorded ?Confirmed ?Type cholecalciferol (vitamin D3) 50 2,000 unit PO DAILY Supplement 05/26/19 08/04/24 History mcg (2,000 unit) capsule dulaglutide 1.5 mg/0.5 mL 1.5 mg SQ WEEKLY Diabetes 05/26/19 08/04/24 History subcutaneous pen injector levocetirizine 5 mg tablet (Xyzal) 5 mg PO DAILY ALLERGIES 05/26/19 08/04/24 History levothyroxine 25 mcg tablet 25 mcg PO DAILY HYPOTHYROIDISM 05/26/19 08/04/24 History lisinopril 40 mg tablet 40 mg PO DAILY BLOOD PRESSURE 05/26/19 08/04/24 History montelukast 10 mg tablet 10 mg PO PM ALLERGIES 05/26/19 08/04/24 History (Singulair) amlodipine 5 mg tablet 5 mg PO DAILY bp 02/12/23 08/04/24 History Lactobacillus 1 cap PO DAILY 05/29/23 08/04/24 History acidophilus-Bifidobac.animalis 2.5 billion cell capsule (Daily Probiotic) metformin 500 mg tablet,extended 1,000 mg PO BID 05/29/23 08/04/24 History release 24 hr metoprolol succinate 200 mg 200 mg PO DAILY BLOOD PRESSURE 05/29/23 08/04/24 History tablet,extended release 24 hr prasterone (dhea) 25 mg capsule 25 mg PO DAILY #30 caps 05/29/23 08/04/24 Rx (DHEA) rosuvastatin 5 mg tablet (Crestor) 5 mg PO DAILY Cholesterol 05/29/23 08/04/24 History New Prescriptions to Start Prescriptions: Allergies Allergy/AdvReac Type Severity Reaction Status Date / Time iodine (IODINE) Allergy Unknown Rash Verified 08/04/24 09:48 Penicillins (PENICILLINS) Allergy Unknown Rash Verified 08/04/24 09:48 theophylline (THEOPHYLLINE) Allergy Unknown Anaphylaxis Verified 08/04/24 09:48 valdecoxib (From Bextra) Allergy Anaphylaxis Verified 08/04/24 09:48 Assessment and Plan *Assessment and plan (1) Lumbar facet arthropathy: Status: Acute Category: Medical Code(s): M47.816 - Spondylosis without myelopathy or radiculopathy, lumbar region (2) Degenerative disc disease, lumbar: Status: Acute Category: Medical Code(s): M51.369 - Other intervertebral disc degeneration, lumbar region without mention of lumbar back pain or lower extremity pain Plan Patient has had significant improvement following this injection and does not require any additional injection therapy at this time. Patient will return to clinic in 1 month. Patient has been instructed to contact the clinic with any concerns before the next appointment. Dr. Landry has reviewed this note and agrees with this plan of care. This note was dictated using voice recognition software and make contain errors or omissions. All injections are used with Lidocaine, Bupivacaine and Depo Medrol. Occasionally urine drug screen is needed to verify patient's compliance with our office pain contract. This is ordered based off specific treatments related to chronic pain with the potential to abuse certain medications.
[2024-08-17 09:25] VITALS: BP 168/80; PULSE 73; RESP 18; O2SAT 98; BMI 34.8
== END 2024-08-17 23:59 | disposition home or self-care (01) ==
LOC: SC.PAIN 08:41
PROVIDERS: PCP Family Medicine; Visit Provider Nurse Practitioner Family
DX: M47.816 Spondylosis without myelopathy or radiculopathy, lumbar region (principal); M51.369 Other intervertebral disc degeneration, lumbar region without mention of lumbar back pain or lower extremity pain
CPT/HCPCS: 99212; G0463

== ENCOUNTER 2024-09-18 14:30 | Outpatient (POV) | payer MEDICARE, BC, SELFPAY ==
--- NOTE | 2024-09-18 14:52 | A.OFFVIS_ITS ---
[facility] Disclaimer: The information contained in this section may have been updated after the patient was seen, as this information can be updated by other users. Medical History History of gastroesophageal reflux (GERD) Hyperlipidemia Hypertension Hypothyroid Skin cancer Type 2 diabetes mellitus Surgical History H/O tubal ligation History of arthroscopy of both knees History of cholecystectomy History of hysterectomy Hx of shoulder surgery Family History Other Family history of cerebral hemorrhage Family history of diabetes mellitus type II Family history of hypertension Family history of myocardial infarction Family hx of colon cancer Lung cancer Social History Smoking Status: Never smoker alcohol intake: never substance use type: denies use current occupational status: other Travel in the last 8 weeks: None household members: spouse housing: house lives independently: No marital status: education level: high school service: No current occupational exposures/hazards: No caffeine: No special gerson needs: No agree to transfusion: No do you feel safe at home: Yes victim of physical abuse: No victim of emotional abuse: No victim of sexual abuse: No would you like helpful sources: No PM Subjective & Objective Subjective Subjective:: Patient is a pleasant 73-year-old female who presents today for 1 month follow- up. Today she rates her pain a 0 out of 10. She states that she is still done extremely well following her first lumbar medial branch block. She does make mention however that she did have a fall in [facility] about 2 weeks ago. Patient states that she was walking to their vehicle however felt like her brain was acting as if she was running and then when she went to reach out for the car mirror she had missed gauged causing her to fall. She states that she ended up hitting her head and had a knot that formed. Patient states that she did not end up going and being checked out and that it has decreased in size and that she does not feel like she has had any significant injury however she does state that having that sensation that her mind and body or acting differently has happened on another occasion as well. Patient states that she is not seeing any neurologist in the past. Her Rg has been reviewed and is appropriate. Pain at rest (0-10 scale): 0 Objective Objective:: Physical Exam: General: Alert and oriented x3, no acute distress, pleasant and cooperative Lungs: Respirations even and unlabored, symmetrical chest expansion Eyes: PERRL Musculoskeletal: Flexion and extension of lumbar [spine] within normal limits Neurological: Speech clear, no gross sensory deficit Has patient had previous pain injection?: No Conservative treatment options previously tried: Home exercise plan Length of treatment: Longer than 12 weeks Meds Home Medications and Allergies Home Medications ?Medication ?Instructions ?Recorded ?Confirmed ?Type cholecalciferol (vitamin D3) 50 2,000 unit PO DAILY Supplement 05/26/19 08/17/24 History mcg (2,000 unit) capsule dulaglutide 1.5 mg/0.5 mL 1.5 mg SQ WEEKLY Diabetes 05/26/19 08/17/24 History subcutaneous pen injector levocetirizine 5 mg tablet (Xyzal) 5 mg PO DAILY ALLERGIES 05/26/19 08/17/24 History levothyroxine 25 mcg tablet 25 mcg PO DAILY HYPOTHYROIDISM 05/26/19 08/17/24 History lisinopril 40 mg tablet 40 mg PO DAILY BLOOD PRESSURE 05/26/19 08/17/24 History montelukast 10 mg tablet 10 mg PO PM ALLERGIES 05/26/19 08/17/24 History (Singulair) amlodipine 5 mg tablet 5 mg PO DAILY bp 02/12/23 08/17/24 History Lactobacillus 1 cap PO DAILY 05/29/23 08/17/24 History acidophilus-Bifidobac.animalis 2.5 billion cell capsule (Daily Probiotic) metformin 500 mg tablet,extended 1,000 mg PO BID 05/29/23 08/17/24 History release 24 hr metoprolol succinate 200 mg 200 mg PO DAILY BLOOD PRESSURE 05/29/23 08/17/24 History tablet,extended release 24 hr prasterone (dhea) 25 mg capsule 25 mg PO DAILY #30 caps 05/29/23 08/17/24 Rx (DHEA) rosuvastatin 5 mg tablet (Crestor) 5 mg PO DAILY Cholesterol 05/29/23 08/17/24 History New Prescriptions to Start Prescriptions: Allergies Allergy/AdvReac Type Severity Reaction Status Date / Time iodine (IODINE) Allergy Unknown Rash Verified 08/04/24 09:48 Penicillins (PENICILLINS) Allergy Unknown Rash Verified 08/04/24 09:48 theophylline (THEOPHYLLINE) Allergy Unknown Anaphylaxis Verified 08/04/24 09:48 valdecoxib (From Bextra) Allergy Anaphylaxis Verified 08/04/24 09:48 Assessment and Plan *Assessment and plan (1) Lumbar facet arthropathy: Status: Acute Category: Medical Code(s): M47.816 - Spondylosis without myelopathy or radiculopathy, lumbar region (2) Spinal stenosis, lumbar region with neurogenic claudication: Status: Acute Category: Medical Code(s): M48.062 - Spinal stenosis, lumbar region with neurogenic claudication (3) Degenerative disc disease, lumbar: Status: Acute Category: Medical Code(s): M51.369 - Other intervertebral disc degeneration, lumbar region without mention of lumbar back pain or lower extremity pain Plan Patient continues to do well with her first lumbar medial branch block and does not require any additional interventions. I did review over with the patient regarding any increased pressure or vision changes following her injury. She denied both however does state that she has had headaches however they have not been as severe compared to the day of the fall. Due to the fact that she has had these sensations before and feeling like something may be going I will send her for referral to Dr. Mcneal for evaluation. I did family and marriage counsellor her that most likely they will be looking at doing some advanced imaging. Patient acknowledges understanding agrees with plan of care. Patient will return to clinic in 3 months for reevaluation of symptoms and plan of care. Patient has been instructed to contact the clinic with any concerns before the next appointment. Dr. Landry has reviewed this note and agrees with this plan of care. This note was dictated using voice recognition software and make contain errors or omissions. All injections are used with Lidocaine, Bupivacaine and Depo Medrol. Occasionally urine drug screen is needed to verify patient's compliance with our office pain contract. This is ordered based off specific treatments related to chronic pain with the potential to abuse certain medications.
[2024-09-18 15:20] VITALS: BP 150/79; PULSE 78; RESP 18; O2SAT 94; BMI 36.0
== END 2024-09-18 23:59 | disposition home or self-care (01) ==
LOC: SC.PAIN 14:32
PROVIDERS: PCP Family Medicine; Visit Provider Nurse Practitioner Family
DX: M47.816 Spondylosis without myelopathy or radiculopathy, lumbar region (principal); M48.062 Spinal stenosis, lumbar region with neurogenic claudication; M51.369 Other intervertebral disc degeneration, lumbar region without mention of lumbar back pain or lower extremity pain
CPT/HCPCS: 99212; G0463

== ENCOUNTER 2024-11-02 09:42 | Outpatient (CLI) | payer MEDICARE, BC, SELFPAY ==
--- OUTSIDE RECORDS SUMMARY | 2024-11-02 09:45 | XMS_ITS ---
Author Organization Unknown Allergies, Adverse Reactions and Alerts Date IsAllergic OnsetDate Allergen Reaction Type Severity Alessandro rgyCode Legacyallergictoid ReactionCode ReactionCodeSystemID 08/19 00:00 :00 1 BEXTRA hypervent ilate Side Effec ts 08/19 00:00 :00 1 SLO-BID GYROCAPS 08/19 00:00 :00 1 Penicilli n 08/17 00:00 :00 1 BEXTRA hypervent ilate Side Effec ts 08/17 00:00 :00 1 SLO-BID GYROCAPS 08/17 00:00 :00 1 Penicilli n 07/17 00:00 :00 1 BEXTRA hypervent ilate Side Effec ts 07/17 00:00 :00 1 SLO-BID GYROCAPS 07/17 00:00 :00 1 Penicilli n 07/13 00:00 :00 1 BEXTRA hypervent ilate Side Effec ts 07/13 00:00 :00 1 SLO-BID GYROCAPS 07/13 00:00 :00 1 Penicilli n 07/09 00:00 :00 1 BEXTRA hypervent ilate Side Effec ts 07/09 00:00 :00 1 SLO-BID GYROCAPS 07/09 00:00 :00 1 Penicilli n 06/26 00:00 :00 1 BEXTRA hypervent ilate Side Effec ts 06/26 00:00 :00 1 SLO-BID GYROCAPS 06/26 00:00 :00 1 Penicilli n 06/26 00:00 :00 1 BEXTRA hypervent ilate Side Effec ts 06/26 00:00 :00 1 SLO-BID GYROCAPS 06/26 00:00 :00 1 Penicilli n 06/26 00:00 :00 1 BEXTRA hypervent ilate Side Effec ts 06/26 00:00 :00 1 SLO-BID GYROCAPS 06/26 00:00 :00 1 Penicilli n 05/18 00:00 :00 1 BEXTRA hypervent ilate Side Effec ts 05/18 00:00 :00 1 SLO-BID GYROCAPS 05/18 00:00 :00 1 Penicilli n 05/11 00:00 :00 1 BEXTRA hypervent ilate Side Effec ts 05/11 00:00 :00 1 SLO-BID GYROCAPS 05/11 00:00 :00 1 Penicilli n 05/06 00:00 :00 1 BEXTRA hypervent ilate Side Effec ts 05/06 00:00 :00 1 SLO-BID GYROCAPS 05/06 00:00 :00 1 Penicilli n 04/28 00:00 :00 1 BEXTRA hypervent ilate Side Effec ts 04/28 00:00 :00 1 SLO-BID GYROCAPS 04/28 00:00 :00 1 Penicilli n 04/11 00:00 :00 1 BEXTRA hypervent ilate Side Effec ts 04/11 00:00 :00 1 SLO-BID GYROCAPS 04/11 00:00 :00 1 Penicilli n 03/31 00:00 :00 1 BEXTRA hypervent ilate Side Effec ts 03/31 00:00 :00 1 SLO-BID GYROCAPS 03/31 00:00 :00 1 Penicilli n 03/19 00:00 :00 1 BEXTRA hypervent ilate Side Effec ts 03/19 00:00 :00 1 SLO-BID GYROCAPS 03/19 00:00 :00 1 Penicilli n 03/17 00:00 :00 1 BEXTRA hypervent ilate Side Effec ts 03/17 00:00 :00 1 SLO-BID GYROCAPS 03/17 00:00 :00 1 Penicilli n 01/23 00:00 :00 1 BEXTRA hypervent ilate Side Effec ts 01/23 00:00 :00 1 SLO-BID GYROCAPS 01/23 00:00 :00 1 Penicilli n 01/23 00:00 :00 1 BEXTRA hypervent ilate Side Effec ts 01/23 00:00 :00 1 SLO-BID GYROCAPS 01/23 00:00 :00 1 Penicilli n 01/23 00:00 :00 1 BEXTRA hypervent ilate Side Effec ts 01/23 00:00 :00 1 SLO-BID GYROCAPS 01/23 00:00 :00 1 Penicilli n 01/19 00:00 :00 1 BEXTRA hypervent ilate Side Effec ts 01/19 00:00 :00 1 SLO-BID GYROCAPS 01/19 00:00 :00 1 Penicilli n 01/16 00:00 :00 1 BEXTRA hypervent ilate Side Effec ts 01/16 00:00 :00 1 SLO-BID GYROCAPS 01/16 00:00 :00 1 Penicilli n 01/12 00:00 :00 1 BEXTRA hypervent ilate Side Effec ts 01/12 00:00 :00 1 SLO-BID GYROCAPS 01/12 00:00 :00 1 Penicilli n 01/12 00:00 :00 1 BEXTRA hypervent ilate Side Effec ts 01/12 00:00 :00 1 SLO-BID GYROCAPS 01/12 00:00 :00 1 Penicilli n 01/12 00:00 :00 1 BEXTRA hypervent ilate Side Effec ts 01/12 00:00 :00 1 SLO-BID GYROCAPS 01/12 00:00 :00 1 Penicilli n 11/20 00:00 :00 1 BEXTRA hypervent ilate Side Effec ts 11/20 00:00 :00 1 SLO-BID GYROCAPS 11/20 00:00 :00 1 Penicilli n 11/18 00:00 :00 1 BEXTRA hypervent ilate Side Effec ts 11/18 00:00 :00 1 SLO-BID GYROCAPS 11/18 00:00 :00 1 Penicilli n 11/17 00:00 :00 1 BEXTRA hypervent ilate Side Effec ts 11/17 00:00 :00 1 SLO-BID GYROCAPS 11/17 00:00 :00 1 Penicilli n 10/31 00:00 :00 1 BEXTRA hypervent ilate Side Effec ts 10/31 00:00 :00 1 SLO-BID GYROCAPS 10/31 00:00 :00 1 Penicilli n 10/30 00:00 :00 1 BEXTRA hypervent ilate Side Effec ts 10/30 00:00 :00 1 SLO-BID GYROCAPS 10/30 00:00 :00 1 Penicilli n 10/29 00:00 :00 1 BEXTRA hypervent ilate Side Effec ts 10/29 00:00 :00 1 SLO-BID GYROCAPS 10/29 00:00 :00 1 Penicilli n
--- NOTE | 2024-11-02 09:59 | ECG_ITS ---
APPROVED REPORT Exam: Resting ECG HR:82 bpm ECG Measurements Heart Rate 82 AXES OH 325 P 240 QRSd 91 QRS -9 QT 384 T 47 QTc 422 Conclusion ELECTRONIC ATRIAL PACEMAKER LOW QRS VOLTAGE IN PRECORDIAL LEADS [QRS DEFLECTION < 1.0 mV IN CHEST LEADS] POSSIBLE ANTERIOR MYOCARDIAL INFARCTION , PROBABLY OLD [30 ms Q WAVE IN V3/V4, OR R < 0.2 mV IN V4] ABNORMAL RHYTHM ECG UNCONFIRMED REPORT Electronically signed by : Braydon Parikh MD 11/03/2024 08:49:31
[2024-11-02 10:31] LABS: Basophils # 0.1 K/mm3 (0-0.2); Basophils % 0.7 % (0.1-2.0); Eosinophils # 0.2 K/mm3 (0.0-0.4); Eosinophils % 1.8 % (0.1-12.0); Hematocrit 36.4 % (37.0-47.0); Hemoglobin 11.2 g/dL (12.2-16.2); Lymphocytes # 2.8 K/mm3 (0.7-4.5); Lymphocytes % 34.3 % (10-50); Mean Corpuscular HGB Conc 30.8 g/dL (31.8-35.4); Mean Corpuscular Hemoglobin 27.3 pg (27.0-31.2); Mean Corpuscular Volume 88.6 fl (81-99); Mean Platelet Volume 8.2 fl (7.4-10.4); Monocytes # 0.5 K/mm3 (0.1-1.0); Monocytes % 6.3 % (1.7-9.3); Neutrophils # 4.7 K/mm3 (1.8-7.8); Neutrophils % 56.5 % (37.0-80.0); Nucleated Red Blood Cells # 0 10^3/uL; Nucleated Red Blood Cells % 0 %; Platelet Count 481 K/mm3 (142-424); Red Blood Count 4.11 M/mm3 (4.20-5.40); Red Cell Distribution Width 13.7 % (11.5-17.5); Red Cell Distribution Width-SD 44.5 fL; White Blood Count 8.3 K/mm3 (4.8-10.8)
[2024-11-02 10:49] LABS: Albumin Level 3.7 g/dl (3.5-5.0); Chloride 103 mmol/L (98-107); Potassium 3.7 mmoL/L (3.5-5.1); Sodium 142 mmol/L (136-145)
[2024-11-02 10:52] LABS: Alanine Aminotransferase 25 U/L (12-78); Albumin/Globulin Ratio 1.3 (1.1-1.8); Alkaline Phosphatase 117 U/L (38-126); Aspartate Amino Transferase 35 U/L (14-36); Bilirubin,Total 0.3 mg/dl (0.2-1.3); Blood Urea Nitrogen 11 mg/dl (7-17); Estimated Glomerular Filt Rate 71 ml/min (>60); GFR (African American) 85 ML/MIN (>60); Globulin 2.9 g/dL (1.3-3.2); Glucose 125 mg/dl (74-100); Total Protein,Serum 6.6 g/dl (6.3-8.2)
[2024-11-02 10:53] LABS: Calcium 8.8 mg/dl (8.4-10.2)
[2024-11-02 11:09] LABS: Anion Gap 14.7 mEq/L (5-15); Carbon Dioxide 28 mmol/L (22.0-30.0)
== END 2024-11-02 23:59 | disposition home or self-care (01) ==
LOC: RT 09:43
PROVIDERS: PCP Family Medicine; Visit Provider Family Medicine
DX: Z01.818 Encounter for other preprocedural examination (principal); R94.31 Abnormal electrocardiogram [ECG] [EKG]
CPT/HCPCS: 36415; 80053; 85025; 93005

== ENCOUNTER 2024-11-09 15:17 | Outpatient (CLI) | payer MEDICARE, BC, SELFPAY ==
--- NOTE | 2024-11-09 15:29 | ECG_ITS ---
APPROVED REPORT Exam: Resting ECG HR:84 bpm ECG Measurements Heart Rate 84 AXES MN 184 P 36 QRSd 90 QRS 21 QT 378 T 67 QTc 420 Conclusion SINUS RHYTHM LOW QRS VOLTAGE IN PRECORDIAL LEADS [QRS DEFLECTION < 1.0 mV IN CHEST LEADS] NONSPECIFIC ST & T-WAVE ABNORMALITY BORDERLINE ECG UNCONFIRMED REPORT Electronically signed by : Braydon Parikh MD 11/10/2024 08:41:43
== END 2024-11-09 23:59 | disposition home or self-care (01) ==
LOC: RT 15:19
PROVIDERS: PCP Family Medicine; Visit Provider Family Medicine
DX: R94.31 Abnormal electrocardiogram [ECG] [EKG] (principal)
CPT/HCPCS: 93005

== ENCOUNTER 2024-12-13 09:13 | Emergency (ER) | payer MEDICARE, BC, SELFPAY ==
[2024-12-13] VITALS (12 sets, daily range): BP systolic 124–165; BP diastolic 67–118; PULSE 76–86; RESP 16–17; TEMP 36.4–36.9; O2SAT 91–99; BMI 34.3
--- NOTE | 2024-12-13 09:22 | ECG_ITS ---
APPROVED REPORT Exam: Resting ECG HR:84 bpm ECG Measurements Heart Rate 84 AXES ID 83 P 222 QRSd 97 QRS 13 QT 386 T 167 QTc 426 Conclusion Sinus rhythm with some motion artifact, no acute STEMI - nonspecific ST changes not changed from prior Electronically signed by : NUBIA GARZA, 12/15/2024 19:58:27
--- NOTE | 2024-12-13 09:33 | HMH.EDGENADL ---
Discharge Plan Disposition Patient Disposition: Home, Self-Care Condition: Good Prescriptions Prescriptions: New ondansetron 4 mg tablet,disintegrating 4 mg PO Q8H PRN (Reason: nausea and vomiting) 4 Days Qty: 12 0RF cefdinir 300 mg capsule 300 mg PO BID 10 Days Qty: 20 0RF fluconazole 150 mg tablet 150 mg PO Q3D Qty: 2 0RF Rx Instructions: may repeat second dose 72 hrs after first dose if symptoms persist No Action metoprolol succinate 200 mg tablet extended release 24 hr 200 mg PO DAILY metformin 500 mg tablet extended release 24 hr 1,000 mg PO BID Daily Probiotic 2.5 billion cell capsule 1 cap PO DAILY prasterone (DHEA) [DHEA] 25 mg capsule 25 mg PO DAILY Qty: 30 6RF levothyroxine 25 MCG tablet 25 mcg PO DAILY montelukast [Singulair] 10 MG tablet 10 mg PO PM lisinopril 40 MG tablet 40 mg PO DAILY levocetirizine [Xyzal] 5 MG tablet 5 mg PO DAILY cholecalciferol (vitamin D3) 2,000 UNIT capsule 2,000 unit PO DAILY dulaglutide 1.5 MG/0.5 ML pen injector 1.5 mg SQ WEEKLY rosuvastatin [Crestor] 5 mg tablet 5 mg PO DAILY amlodipine 5 mg tablet 5 mg PO DAILY Referrals Follow up/Referrals: Tj Sweeney MD [Primary Care Provider] - See instructions Clinical Impressions Clinical Impression: Gastroenteritis, Hypomagnesemia, MEGHAN (acute kidney injury), UTI (urinary tract infection) Stand Alone Forms Stand Alone Forms: Work/School Release Instructions Patient Instructions: DI for Diarrhea and Traveler's Diarrhea -- Adult, DI for Nausea -- Adult Print Language Print Language: [place] Discharge ED Provider: Venecia Ye General Adult HPI General Chief complaint: Nausea/Vomiting/Diarrhea Stated complaint: V/D, Weakness Time Seen by Provider: 12/13/24 09:23 Mode of Arrival: Ambulatory Source of Information: Patient Description of Symptoms (Recalled from ER Triage Doc. by RN): pt presents to the ED with vomiting and diarrhea that's been going on for the past 2 days. pt reports when she goes to the bathroom it's nothing but water . pt denies any abdominal pain. History of Present Illness HPI narrative: This patient is a 74-year-old female with a history of hypertension, hyperlipidemia, diabetes, GERD, hypothyroidism presenting to the emergency department for evaluation with concern for nausea, vomiting, and diarrhea for the last 2 days. Emesis is nonbloody and nonbilious, diarrhea is nonbloody and melanotic. She states there is nothing but water. She denies any associated pain. No fevers, cough, congestion, shortness of breath, or urinary symptoms. She is on the Ozempic but notes she has been on that for very long time without any recent changes Related Data Home Medications ?Medication ?Instructions ?Recorded ?Confirmed cholecalciferol (vitamin D3) 50 2,000 unit PO DAILY Supplement 05/26/19 09/18/24 mcg (2,000 unit) capsule dulaglutide 1.5 mg/0.5 mL 1.5 mg SQ WEEKLY Diabetes 05/26/19 09/18/24 subcutaneous pen injector levocetirizine 5 mg tablet (Xyzal) 5 mg PO DAILY ALLERGIES 05/26/19 09/18/24 levothyroxine 25 mcg tablet 25 mcg PO DAILY HYPOTHYROIDISM 05/26/19 09/18/24 lisinopril 40 mg tablet 40 mg PO DAILY BLOOD PRESSURE 05/26/19 09/18/24 montelukast 10 mg tablet 10 mg PO PM ALLERGIES 05/26/19 09/18/24 (Singulair) amlodipine 5 mg tablet 5 mg PO DAILY bp 02/12/23 09/18/24 Lactobacillus 1 cap PO DAILY 05/29/23 09/18/24 acidophilus-Bifidobac.animalis 2.5 billion cell capsule (Daily Probiotic) metformin 500 mg tablet,extended 1,000 mg PO BID 05/29/23 09/18/24 release 24 hr metoprolol succinate 200 mg 200 mg PO DAILY BLOOD PRESSURE 05/29/23 09/18/24 tablet,extended release 24 hr rosuvastatin 5 mg tablet (Crestor) 5 mg PO DAILY Cholesterol 05/29/23 09/18/24 Previous Rx's ?Medication ?Instructions ?Recorded prasterone (DHEA) 25 mg capsule 25 mg PO DAILY #30 caps 05/29/23 (DHEA) cefdinir 300 mg capsule 300 mg PO BID 10 days #20 caps 12/13/24 fluconazole 150 mg tablet 150 mg PO Q3D 2 doses #2 tabs 12/13/24 ondansetron 4 mg disintegrating 4 mg PO Q8H PRN nausea and 12/13/24 tablet vomiting 4 days #12 tabs Allergies Allergy/AdvReac Type Severity Reaction Status Date / Time iodine (IODINE) Allergy Unknown Rash Verified 08/04/24 09:48 Penicillins (PENICILLINS) Allergy Unknown Rash Verified 08/04/24 09:48 theophylline (THEOPHYLLINE) Allergy Unknown Anaphylaxis Verified 08/04/24 09:48 valdecoxib (From Bextra) Allergy Anaphylaxis Verified 08/04/24 09:48 [facility] Disclaimer: The information contained in this section may have been updated after the patient was seen, as this information can be updated by other users. Medical History Type 2 diabetes mellitus History of gastroesophageal reflux (GERD) Hypothyroid Skin cancer Hyperlipidemia Hypertension Surgical History H/O tubal ligation History of arthroscopy of both knees Hx of shoulder surgery History of hysterectomy History of cholecystectomy Family History Other Family history of cerebral hemorrhage Family history of diabetes mellitus type II Family history of hypertension Family history of myocardial infarction Family hx of colon cancer Lung cancer Social History Smoking Status: Never smoker alcohol intake: never substance use type: denies use current occupational status: other Travel in the last 8 weeks?: None household members: spouse housing: house lives independently: No marital status: education level: high school service: No current occupational exposures/hazards: No caffeine: No special gerson needs: No agree to transfusion: No do you feel safe at home: Yes victim of physical abuse: No victim of emotional abuse: No victim of sexual abuse: No would you like helpful sources: No Have you lived/traveled outside [place] in past 30 days?: No Contact w/someone who lives/traveled outside [place] past 30 days?: No Exposure to someone with infectious disease in past 14 days?: No Do you have a fever (greater than 100.4 F or 38 C)?: No Have you tested positive for COVID-19?: No Exposed to someone with COVID-19 in past 14 days?: No Do you have a sore throat?: No Do you have a cough?: No Do you have any weakness?: Yes Do you have any diarrhea?: Yes Are you experiencing any unusual bleeding?: No Do you have any muscle aches/pain?: No Do you have any abdominal pain?: No Are you experiencing loss of taste or smell?: No Other Medical History Have you received the Flu Vaccine for this season: No Have you received the Pneumonia Vaccine: Yes ROS Obtained: Yes All systems reviewed & no additional complaints except as documented Physical Exam General General appearance: alert and in no apparent distress Head Head exam: atraumatic and normocephalic Eye Eye exam: Present normal appearance, PERRL and EOMI ENT ENT exam: Present normal exam, normal oropharynx, mucous membranes moist and normal external ear exam Neck Neck exam: Present normal inspection, full ROM and trachea midline; Absent tenderness Chest Chest inspection: Present normal inspection and symmetric chest wall rise; Absent tenderness Respiratory Respiratory exam: Present normal lung sounds bilaterally; Absent respiratory distress, wheezes, stridor or accessory muscle use Cardiovascular Cardiovascular exam: Present regular rate and normal rhythm Abdominal Exam Abdominal exam: Present soft; Absent distention, tenderness or guarding Extremities Exam Extremities exam: Present normal inspection, full ROM and normal capillary refill; Absent tenderness or edema Back Exam Back exam: Present normal inspection and full ROM; Absent tenderness Neurological Exam Neurological exam: Present alert, oriented X3, CN II-XII intact and normal gait; Absent motor sensory deficit Psychiatric Psychiatric exam: Present normal affect and normal mood Skin Skin exam: Present warm and dry Medical Decision Making Medical Records Medical records reviewed: Yes I reviewed the patient's medical records. Screening: Per USPSTF and CDC recommendations, given the prevalence of disease in our region, it is our hospital?s policy to screen for HIV and viral Hepatitis for all patients aged 18 and over and those with ongoing risk factors. Rg Inquiry Pt receiving controlled substance: No Vital Signs: 12/13/24 09:18 12/13/24 09:21 12/13/24 09:21 Temperature 97.6 F Temperature Source Oral Pulse Rate 84 82 Pulse Rate [Right] 84 Respiratory Rate 17 Blood Pressure 163/97 H 165/94 H Blood Pressure [Right Arm] 163/97 H Blood Pressure Mean [Right Arm] 119 Blood Pressure Source Blood Pressure Source [Right Arm] Automatic Cuff Blood Pressure Position Blood Pressure Position [Right Arm] Supine 02 Sat by Pulse Oximetry 97 96 99 Oxygen Delivery Method Room Air 12/13/24 09:25 12/13/24 09:30 12/13/24 09:30 Temperature 97.6 F Temperature Source Oral Pulse Rate 84 86 Pulse Rate [Right] Respiratory Rate 17 Blood Pressure 163/97 H 124/83 Blood Pressure [Right Arm] Blood Pressure Mean [Right Arm] Blood Pressure Source Automatic Cuff Blood Pressure Source [Right Arm] Blood Pressure Position Supine Blood Pressure Position [Right Arm] 02 Sat by Pulse Oximetry 96 96 96 Oxygen Delivery Method Room Air Room Air 12/13/24 10:00 12/13/24 10:30 12/13/24 11:00 Temperature Temperature Source Pulse Rate 79 86 80 Pulse Rate [Right] Respiratory Rate Blood Pressure 136/70 140/75 148/82 H Blood Pressure [Right Arm] Blood Pressure Mean [Right Arm] Blood Pressure Source Blood Pressure Source [Right Arm] Blood Pressure Position Blood Pressure Position [Right Arm] 02 Sat by Pulse Oximetry 91 L 96 91 L Oxygen Delivery Method Room Air 12/13/24 11:30 12/13/24 11:54 12/13/24 12:00 Temperature Temperature Source Pulse Rate 77 79 78 Pulse Rate [Right] Respiratory Rate Blood Pressure 135/118 H 136/72 128/67 Blood Pressure [Right Arm] Blood Pressure Mean [Right Arm] Blood Pressure Source Blood Pressure Source [Right Arm] Blood Pressure Position Blood Pressure Position [Right Arm] 02 Sat by Pulse Oximetry 98 97 95 Oxygen Delivery Method 12/13/24 12:30 12/13/24 13:38 Temperature 98.4 F Temperature Source Oral Pulse Rate 78 76 Pulse Rate [Right] Respiratory Rate 16 Blood Pressure 136/74 125/86 Blood Pressure [Right Arm] Blood Pressure Mean [Right Arm] Blood Pressure Source Automatic Cuff Blood Pressure Source [Right Arm] Blood Pressure Position Supine Blood Pressure Position [Right Arm] 02 Sat by Pulse Oximetry 92 L Oxygen Delivery Method Room Air Room Air Lab Data Lab results reviewed: Yes I reviewed the patient's lab results. Lab Results 12/13/24 09:24: WBC 11.2 H, RBC 4.72, Hgb 12.9, Hct 40.8, MCV 86.4, MCH 27.3, MCHC 31.6 L, RDW 14.1, Plt Count 456 H, MPV 9.0, Neut % (Auto) 65.2, Lymph % (Auto) 25.2, [place] % (Auto) 8.4, Eos % (Auto) 0.4, Baso % (Auto) 0.4, Neut # (Auto) 7.3, Lymph # (Auto) 2.8, [place] # (Auto) 0.9, Eos # (Auto) 0.0, Baso # (Auto) 0.1, Sodium 136, Potassium 4.4, Chloride 104, Carbon Dioxide 19 L, Anion Gap 17.4 H, BUN 16, Creatinine 1.10 H, Estimated Creat Clear 66, Estimated GFR 49 L, Est GFR ( Amer) 59, Glucose 213 H, Calcium 8.9, Magnesium 1.3 L, Total Bilirubin 0.8, AST 68 H, ALT 33, Alkaline Phosphatase 66, Total Protein 8.1, Albumin 4.8, Globulin 3.3 H, Albumin/Globulin Ratio 1.5, Lipase 145 12/13/24 10:18: Urine Color Dark yellow, Urine Appearance Cloudy, Urine pH 6.0, Ur Specific [place] >= 1.030, Urine Protein 3+ A, Urine Glucose (UA) Negative, Urine Ketones Negative, Urine Blood Trace-i, Urine Nitrate Positive A, Urine Bilirubin 2+ A, Urine Urobilinogen 0.2, Ur Leukocyte Esterase Negative, Urine RBC Occasional, Urine WBC 5-10, Ur Squamous Epith Cells 5-10, Urine Bacteria 4+, Urine Mucus 3+ 12/13/24 09:24 12/13/24 09:24 Orders (Tests/Meds): ED MEDICATIONS Discontinued Medications Generic Name Dose Route Start Last Admin Trade Name Freq PRN Reason Stop Dose Admin Lactated Ringer's 1,000 mls @ 999 mls/hr 12/13/24 09:32 12/13/24 09:42 Lactated Ringer's 1000 Ml Bag IV 12/13/24 10:32 999 mls/hr .Q1H1M ONE Administration Magnesium Sulfate 2 gm in 50 mls @ 50 mls/hr 12/13/24 10:28 12/13/24 10:36 Magnesium Sulfate 2gm/50ml Premix IV 12/13/24 11:27 50 mls/hr ONCE ONE Administration Ceftriaxone Sodium 2 gm/ 100 mls @ 200 mls/hr 12/13/24 12:38 12/13/24 13:11 Sodium Chloride IV 12/13/24 13:07 200 mls/hr ONCE ONE Administration Iopamidol 75 ml 12/13/24 11:11 12/13/24 11:12 Iopamidol-370 (76%);100ml Bottle IV 12/13/24 11:12 75 ml ONCE ONE Administration Ondansetron HCl 4 mg 12/13/24 09:32 12/13/24 09:42 Ondansetron 4mg/2ml Vial IV 12/13/24 09:33 4 mg ONCE ONE Administration Sodium Chloride 10 ml 12/13/24 11:11 12/13/24 11:12 Sodium Chloride 0.9% 10ml Syr (Rad Only) IV 01/12/25 11:10 10 ml NEEDED PRN Administration Maintain IV Site ORDERS Category Date Time Status CT abdomen pelvis w con Stat Cat Scan 12/13/24 10:36 Completed Complete Blood Count Auto Diff Stat Lab 12/13/24 09:24 Completed Comprehensive Metabolic Panel Stat Lab 12/13/24 09:24 Completed Lipase Stat Lab 12/13/24 09:24 Completed MAG [Magnesium] Stat Lab 12/13/24 09:24 Completed UA [Urinalysis and Microscopic] Stat Lab 12/13/24 10:18 Completed Urine Culture Stat Micro 12/13/24 10:18 Results ECG Data Tracing #1: I reviewed this ECG and interpreted as documented below: Normal sinus rhythm with a ventricular rate of [address] changes concerning for ischemia. No significant change from prior ECG. Normal intervals ECG initial impression date: 12/13/24 ECG initial impression time: 09:28 Medical Decision Narrative: In summary, this patient is a 74-year-old female presenting to the Emergency Department for evaluation of nausea, vomiting, and diarrhea for 2 days. Differential diagnoses considered include but are not limited to bacterial gastroenteritis, viral gastroenteritis, colitis, dehydration, electrolyte derangements, MEGHAN. Ruling out the most morbid conditions drove assessment. It should be noted patient's history includes obesity, hypertension hyperlipidemia, diabetes which may or may not be at goal therapy. This complicates all aspects of care by increasing patient's risk for morbidity. I reviewed patient's past medical records and noted evaluations by pain management for degenerative disc disease as well as prior history of hysterectomy and cholecystectomy. On exam, the patient is lying in bed in no acute distress. She is nontoxic-appearing with reassuring vital signs and cardiac telemetry. Abdominal exam is benign with no localizable tenderness. Doubt surgical intra-abdominal pathology. I favor infectious gastroenteritis based on history and symptoms. Workup included CBC, CMP, lipase, magnesium, diarrhea panel, urinalysis, EKG, CT scan of the abdomen and pelvis with IV contrast. Patient was given a bolus of IV fluids as well as IV Zofran. I independently interpreted CT prior to the radiologist read and noted fluid filled bowel without obstruction, likely enteritis. Please see their read for final interpretation. Labs were obtained that demonstrated mild leukocytosis, very mild MEGHAN, hypomagnesemia for which IV replacement was ordered. Patient was also given IV fluid resuscitation. she was closely monitored on cardiac telemetry while receiving IV magmesium repletion. Urinalysis is concerning for infection, but vital signs are all normal so I do not feel that she needs any concern for sepsis criteria at this time. She was treated with IV Rocephin. Patient tolerated this well. On multiple subsequent reassessments, she is feeling better and is able to tolerate oral intake and symptoms are overall very improved. She is unable to provide a stool sample here in the emergency department because diarrhea has seemingly resolved. It felt she is appropriate for discharge home with prescription for Zofran and cefdinir to treat UTI and nausea/vomiting. Strict return precautions were given as well as instructions for close follow-up with her PCP for recheck of her labs and for monitoring Critical Care Critical Care Time Critical Care Time: Yes Attestation: On 12/13/24, the high probability of a clinically significant, sudden or life threatening deterioration of the following system(s) required my full and direct attention, intervention and personal management. The time I documented below is in addition to time spent performing reported procedures but includes the following listed in this critical care notation. Total Time Total Critical Care Time: 35
[2024-12-13] MEDS: LACTATED RINGERS 1000ML 1,000 ML 999 ML IV (09:42)
[2024-12-13] MEDS: ONDANSETRON 4MG/2ML VIAL 4 MG IV (09:42)
[2024-12-13 09:59] LABS: Basophils # 0.1 K/mm3 (0-0.2); Basophils % 0.4 % (0.1-2.0); Eosinophils % 0.4 % (0.1-12.0); Hematocrit 40.8 % (37.0-47.0); Hemoglobin 12.9 g/dL (12.2-16.2); Immature Granulocytes # 0.05 10^3uL; Immature Granulocytes % 0.4 %; Lymphocytes # 2.8 K/mm3 (0.7-4.5); Lymphocytes % 25.2 % (10-50); Mean Corpuscular HGB Conc 31.6 g/dL (31.8-35.4); Mean Corpuscular Hemoglobin 27.3 pg (27.0-31.2); Mean Corpuscular Volume 86.4 fl (81-99); Monocytes # 0.9 K/mm3 (0.1-1.0); Monocytes % 8.4 % (1.7-9.3); Neutrophils # 7.3 K/mm3 (1.8-7.8); Neutrophils % 65.2 % (37.0-80.0); Nucleated Red Blood Cells # 0 10^3/uL; Nucleated Red Blood Cells % 0 %; Platelet Count 456 K/mm3 (142-424); Red Blood Count 4.72 M/mm3 (4.20-5.40); Red Cell Distribution Width 14.1 % (11.5-17.5); Red Cell Distribution Width-SD 44.8 fL; White Blood Count 11.2 K/mm3 (4.8-10.8)
[2024-12-13 10:07] LABS: Albumin Level 4.8 g/dl (3.5-5.0); Chloride 104 mmol/L (98-107); Potassium 4.4 mmoL/L (3.5-5.1); Sodium 136 mmol/L (136-145)
[2024-12-13 10:09] LABS: Alanine Aminotransferase 33 U/L (12-78); Anion Gap 17.4 mEq/L (5-15); Aspartate Amino Transferase 68 U/L (14-36); Blood Urea Nitrogen 16 mg/dl (7-17); Carbon Dioxide 19 mmol/L (22.0-30.0); Creatinine Clearance Estimated 66 mL/min (50-200); Estimated Glomerular Filt Rate 49 ml/min (>60); GFR (African American) 59 ML/MIN (>60)
[2024-12-13 10:10] LABS: Albumin/Globulin Ratio 1.5 (1.1-1.8); Alkaline Phosphatase 66 U/L (38-126); Bilirubin,Total 0.8 mg/dl (0.2-1.3); Calcium 8.9 mg/dl (8.4-10.2); Globulin 3.3 g/dL (1.3-3.2); Glucose 213 mg/dl (74-100); Lipase 145 U/L (23-300); Magnesium 1.3 mg/dl (1.6-2.3); Total Protein,Serum 8.1 g/dl (6.3-8.2)
[2024-12-13 10:26] LABS: Microscopic, Urine URINE MICROSCOPIC (MICROSCOPIC)
[2024-12-13 10:28] LABS: Blood, Urine TRACE-I (Negative); Glucose,Urine (UA) Negative (Negative); Ketones,Urine Negative (Negative); Leukocyte Esterase,Urine Negative (Negative); Nitrate,Urine POSITIVE (Negative); Protein,Urine 3+ (Negative); Specific Gravity, Urine >= 1.030 (1.005-1.030); Urobilinogen,Urine 0.2 EU/dl (0.2)
[2024-12-13 10:32] LABS: Appearance,Urine Cloudy (Clear); Bilirubin,Urine 2+ (Negative); Color,Urine Dark Yellow (Yellow)
[2024-12-13] MEDS: MAGNESIUM SULFATE IN WATER 2 GM/50 ML PIGGYBACK IV (10:36)
--- NOTE | 2024-12-13 10:36 | CT_ITS ---
PROCEDURE INFORMATION: Exam: CT Abdomen And Pelvis With Contrast Exam date and time: 12/13/2024 11:10 AM Age: 74 years old Clinical indication: Nausea and vomiting; Additional info: Nausea/vomiting/diarrhea TECHNIQUE: Imaging protocol: Computed tomography of the abdomen and pelvis with contrast. Radiation optimization: All CT scans at this facility use at least one of these dose optimization techniques: automated exposure control; mA and/or kV adjustment per patient size (includes targeted exams where dose is matched to clinical indication); or iterative reconstruction. Contrast material: ISOVUE; Contrast volume: 75 ml; Contrast route: IV; COMPARISON: CT ABDOMEN PELVIS W CON 05/01/2019 1:21 PM FINDINGS: Lungs: Lung bases are unremarkable. Coronary arteries: There is mild atherosclerotic calcification of the coronary arteries. Liver: No focal hepatic lesions. Gallbladder and biliary ducts: There has been a cholecystectomy. Pancreas: No peripancreatic fluid stranding. No main pancreatic ductal dilation. Spleen: Multiple splenic granulomas. No splenomegaly. Adrenal glands: The adrenal glands are normal. Kidneys and ureters: Nephrograms are symmetric. No nephrolithiasis or hydroureteronephrosis on either side. No solid lesions Stomach and bowel: Scattered colonic diverticula without acute inflammatory change. There is mild fluid distension of small bowel loops and ascending colon without discrete transition point. Findings can be attributable to enterocolitis in the appropriate clinical context. Appendix: A normal appendix is identified. Intraperitoneal space: There is no evidence of free intraperitoneal or pelvic fluid. Vasculature: Portal vein is patent. The aorta demonstrates mild atherosclerotic calcification. Major aortic branches are patent. Lymph nodes: Calcified mediastinal and hilar lymph nodes suggest prior granulomatous exposure. No evidence of retroperitoneal or mesenteric lymphadenopathy. Urinary bladder: Urinary bladder is unremarkable. Reproductive: Status post hysterectomy. Bones/joints: No acute osseous abnormality. Soft tissues: There is near simulated lead terminating in the left piriformis muscle. IMPRESSION: There is mild fluid distension of small bowel loops and ascending colon without discrete transition point. Findings can be attributable to enterocolitis in the appropriate clinical context.
[2024-12-13] MEDS: SODIUM CHLORIDE 0.9% 10ML SYR (RAD ONLY) 10 ML IV (11:12)
[2024-12-13] MEDS: IOPAMIDOL-370 (76%);100ML BOTTLE 75 ML IV (11:12)
[2024-12-13 12:23] LABS: RBC,Urine Occasional #/hpf (0-3)
[2024-12-13 12:24] LABS: Bacteria,Urine 4+ /lpf; Mucus,Urine 3+ /lpf
--- NOTE | 2024-12-13 12:51 | PC.NURSE ---
per no blood cultures needed for pt prior to abx administration
[2024-12-13] MEDS: CEFTRIAXONE SODIUM 2 GM in 0.9 % SODIUM CHLORIDE 100 ML IV (13:11)
== END 2024-12-13 13:39 | disposition home or self-care (01) ==
PROVIDERS: Emergency Provider Emergency Medicine; PCP Family Medicine
DX: N39.0 Urinary tract infection, site not specified (principal); R11.2 Nausea with vomiting, unspecified; K52.9 Noninfective gastroenteritis and colitis, unspecified; E83.42 Hypomagnesemia; N17.9 Acute kidney failure, unspecified; E11.65 Type 2 diabetes mellitus with hyperglycemia; Z79.85 Long-term (current) use of injectable non-insulin antidiabetic drugs; Z79.84 Long term (current) use of oral hypoglycemic drugs
CPT/HCPCS: 74177; 80053; 81001; 83690; 83735; 85025; 87086; 87088; 87186; 93005; 96361; 96365; 96367; 96375; 99285; J0696; J2405; J3475; J7120; Q9967

== ENCOUNTER 2024-12-17 21:10 | Emergency (ER) | payer MEDICARE, BC, SELFPAY ==
[2024-12-17 21:32] VITALS: BP 133/59; PULSE 63; RESP 18; TEMP 36.5; O2SAT 98; BMI 33.1
--- NOTE | 2024-12-17 21:33 | CT_ITS ---
PROCEDURE INFORMATION: Exam: CT Abdomen And Pelvis Without Contrast Exam date and time: 12/17/2024 9:48 PM Age: 74 years old Clinical indication: Other: Eval bladder distention/hydro TECHNIQUE: Imaging protocol: Computed tomography of the abdomen and pelvis without contrast. Radiation optimization: All CT scans at this facility use at least one of these dose optimization techniques: automated exposure control; mA and/or kV adjustment per patient size (includes targeted exams where dose is matched to clinical indication); or iterative reconstruction. COMPARISON: 1. CT ABDOMEN PELVIS W CON 12/13/2024 11:[address] ABDOMEN PELVIS W CON 05/01/2019 1:21 PM FINDINGS: Lungs: Lung bases are clear. Liver: Normal. No mass. Gallbladder and biliary ducts: Status post cholecystectomy. No evident bile duct dilatation allowing for prior cholecystectomy. Pancreas: Normal. No ductal dilation. Spleen: Normal. No splenomegaly. Adrenal glands: Normal. No mass. Kidneys and ureters: Normal. No hydronephrosis. Stomach and bowel: Unremarkable. No obstruction. No mucosal thickening. Appendix: Appendix is normal. No evidence of appendicitis. Intraperitoneal space: Unremarkable. No free air. No significant fluid collection. Vasculature: Unremarkable. No abdominal aortic aneurysm. Lymph nodes: Unremarkable. No enlarged lymph nodes. Urinary bladder: Bladder is completely collapsed which limits assessment. Reproductive: Hysterectomy. Bones/joints: Unremarkable. No acute fracture. Soft tissues: Unremarkable. IMPRESSION: No acute findings.
--- NOTE | 2024-12-17 21:40 | PC.NURSE ---
attempted bladded scan at bed side. Unable to view bladder.
--- NOTE | 2024-12-17 22:00 | ED_ITS ---
Discharge Plan Disposition Patient Disposition: Xfer Short-Term Hosp Prescriptions Prescriptions: No Action metoprolol succinate 200 mg tablet extended release 24 hr 200 mg PO DAILY metformin 500 mg tablet extended release 24 hr 1,000 mg PO BID Daily Probiotic 2.5 billion cell capsule 1 cap PO DAILY prasterone (DHEA) [DHEA] 25 mg capsule 25 mg PO DAILY Qty: 30 6RF levothyroxine 25 MCG tablet 25 mcg PO DAILY montelukast [Singulair] 10 MG tablet 10 mg PO PM lisinopril 40 MG tablet 40 mg PO DAILY levocetirizine [Xyzal] 5 MG tablet 5 mg PO DAILY cholecalciferol (vitamin D3) 2,000 UNIT capsule 2,000 unit PO DAILY dulaglutide 1.5 MG/0.5 ML pen injector 1.5 mg SQ WEEKLY rosuvastatin [Crestor] 5 mg tablet 5 mg PO DAILY ondansetron 4 mg tablet,disintegrating 4 mg PO Q8H PRN (Reason: nausea and vomiting) 4 Days Qty: 12 0RF cefdinir 300 mg capsule 300 mg PO BID 10 Days Qty: 20 0RF fluconazole 150 mg tablet 150 mg PO Q3D Qty: 2 0RF Rx Instructions: may repeat second dose 72 hrs after first dose if symptoms persist amlodipine 5 mg tablet 5 mg PO DAILY Referrals Follow up/Referrals: Tj Sweeney MD [Primary Care Provider, Medical] - See instructions Clinical Impressions Clinical Impression: Anuria Acute renal failure Qualifiers: Acute renal failure type: unspecified Qualified Code(s): N17.9 - Acute kidney failure, unspecified Stand Alone Forms Stand Alone Forms: Transfer Record - ED Instructions Patient Instructions: DI for Urinary Tract Infection (UTI), DI for Urinary Tract Infection in Children Print Language Print Language: Mongolian Discharge ED Provider: Issa Flores General Adult HPI <Issa Flores MD - Last Filed: 12/18/24 00:10> General Chief complaint: Urogenital-Female Stated complaint: V/D,weakness,Unable to pee for 3 days Time Seen by Provider: 12/17/24 21:14 Mode of Arrival: Ambulatory Source of Information: Patient Description of Symptoms (Recalled from ER Triage Doc. by RN): Pt presents to the ed for evaluation of c/o unable to urinate for three days. PT states she was recently dx with an MEGHAN and stomach bug on 12/13/2024. Pt stated that she had a bowel movement this am, feces was formed and normal for her just a small amount. PT stated she had bladder surgery 3 weeks ago and they removed mesh and sling from her bladder. PT stated her PCP advised her to stop her HTN meds. PT walked into room per self with daughter present. PT denies pain in abd or back. History of Present Illness HPI narrative: This is a 74-year-old female with a history of recurrent UTIs and recent bladder surgery 3 weeks ago where mesh and sling were removed. States that she was also diagnosed with an MEGHAN and a GI bug on 12/13. States that she has not urinated in the last 3 days. States that she has been eating and drinking normally. States that she is being currently treated for UTI but cannot remember the name of the antibiotic. Related Data Home Medications ?Medication ?Instructions ?Recorded ?Confirmed cholecalciferol (vitamin D3) 50 2,000 unit PO DAILY Espino pplement 05/26/19 09/18/24 mcg (2,000 unit) capsule dulaglutide 1.5 mg/0.5 mL 1.5 mg SQ WEEKLY Diabetes 09/18/24 subcutaneous pen injector levocetirizine 5 mg tablet (Xyzal) 5 mg PO DAILY ALLER GIES 05/26/19 09/18/24 levothyroxine 25 mcg tablet 25 mcg PO DAILY HYPOTHYROI DISM 05/26/19 09/18/24 lisinopril 40 mg tablet 40 mg PO DAILY BLOOD PRESSUR E 05/26/19 09/18/24 montelukast 10 mg tablet 10 mg PO PM ALLERGIES 09/18/24 (Singulair) amlodipine 5 mg tablet 5 mg PO DAILY bp 02/12/23 Lactobacillus 1 cap PO DAILY 05/29/2308/23 acidophilus-Bifidobac.animalis 2.5 billion cell capsule (Daily Probiotic) metformin 500 mg tablet,extended 1,000 mg PO BID 05/2909/18/24 release 24 hr metoprolol succinate 200 mg 200 mg PO DAILY BLOOD PRES SURE 05/29/23 09/18/24 tablet,extended release 24 hr rosuvastatin 5 mg tablet (Crestor) 5 mg PO DAILY Jaclyn sterol 05/29/23 09/18/24 Previous Rx's ?Medication ?Instructions ?Recorded prasterone (DHEA) 25 mg capsule 25 mg PO DAILY #30 cap s 05/29/23 (DHEA) cefdinir 300 mg capsule 300 mg PO BID 10 days #20 ca ps 12/13/24 fluconazole 150 mg tablet 150 mg PO Q3D 2 doses #2 tab s 12/13/24 ondansetron 4 mg disintegrating 4 mg PO Q8H PRN nausea and 12/13/24 tablet vomiting 4 days #12 tabs Allergies Allergy/AdvReac Type Severity Reaction Status Date / Time iodine (IODINE) Allergy Unknown Rash Verified 08/04/24 09:48 Penicillins (PENICILLINS) Allergy Unknown Rash Verified 08/04/24 09:48 theophylline (THEOPHYLLINE) Allergy Unknown Anaphylaxis Verified 08/04/24 09:48 valdecoxib (From Bextra) Allergy Anaphylaxis Verified 08/04/24 09:48 PFS <Issa Flores MD - Last Filed: 12/18/24 00:10> [facility] Disclaimer: The information contained in this section may have been updated after the patient was seen, as this information can be updated by other users. Medical History Type 2 diabetes mellitus History of gastroesophageal reflux (GERD) Hypothyroid Skin cancer Hyperlipidemia Hypertension Surgical History H/O tubal ligation History of arthroscopy of both knees Hx of shoulder surgery History of hysterectomy History of cholecystectomy Family History Other Family history of cerebral hemorrhage Family history of diabetes mellitus type II Family history of hypertension Family history of myocardial infarction Family hx of colon cancer Lung cancer Social History Smoking Status: Never smoker alcohol intake: never substance use type: denies use current occupational status: other Travel in the last 8 weeks?: None household members: spouse housing: house lives independently: No marital status: education level: high school service: No current occupational exposures/hazards: No caffeine: No special gerson needs: No agree to transfusion: No do you feel safe at home: Yes victim of physical abuse: No victim of emotional abuse: No victim of sexual abuse: No would you like helpful sources: No Have you lived/traveled outside [place] in past 30 days?: No Contact w/someone who lives/traveled outside US past 30 days?: No Exposure to someone with infectious disease in past 14 days?: No Do you have a fever (greater than 100.4 F or 38 C)?: No Have you tested positive for COVID-19?: No Exposed to someone with COVID-19 in past 14 days?: No Do you have a sore throat?: No Do you have a cough?: No Do you have any weakness?: Yes Do you have any diarrhea?: Yes Are you experiencing any unusual bleeding?: No Do you have any muscle aches/pain?: No Do you have any abdominal pain?: No Are you experiencing loss of taste or smell?: No Other Medical History Have you received the Flu Vaccine for this season: No Have you received the Pneumonia Vaccine: Yes <Issa Flores MD - Last Filed: 12/18/24 00:10> ROS Obtained: Yes All systems reviewed & no additional complaints except as documented Physical Exam <Issa Flores MD - Last Filed: 12/18/24 00:10> General General appearance: alert and in no apparent distress Head Head exam: atraumatic Eye Eye exam: Present normal appearance, PERRL and EOMI Neck Neck exam: Present normal inspection and full ROM Chest Chest inspection: Present symmetric chest wall rise Respiratory Respiratory exam: Present normal lung sounds bilaterally; Absent respiratory distress Cardiovascular Cardiovascular exam: Present regular rate and normal rhythm Abdominal Exam Abdominal exam: Present soft; Absent distention Extremities Exam Extremities exam: Present normal inspection Neurological Exam Neurological exam: Present alert and oriented X3 Psychiatric Psychiatric exam: Present normal affect and normal mood Skin Skin exam: Present warm and dry Medical Decision Making <Issa Flores MD - Last Filed: 12/18/24 00:10> Medical Records Medical records reviewed: Yes I reviewed the patient's medical records. Screening: Per USPSTF and CDC recommendations, given the prevalence of disease in our region, it is our hospital?s policy to screen for HIV and viral Hepatitis for all patients aged 18 and over and those with ongoing risk factors. MR Comment: Emergency department visit from 12/13/2024 notable for presentation with gastroenteritis and a very mild MEGHAN with a creatinine of 1.1. Also hypomagnesemic. Given IV repletion and urinalysis consistent with UTI. Treated with ceftriaxone and discharged with cefdinir. Rg Inquiry Pt receiving controlled substance: No Vital Signs: 12/17/24 21:32 12/17/24 22:11 12/17/24 22:31 Temperature 97.7 F Temperature Source Oral Pulse Rate 53 L 79 Pulse Rate [Right] 63 Respiratory Rate 18 14 17 Blood Pressure 123/50 L 98/60 L Blood Pressure [Right Arm] 133/59 L Blood Pressure Mean [Right Arm] 83 02 Sat by Pulse Oximetry 98 100 97 Oxygen Delivery Method Room Air Room Air 12/17/24 22:51 12/17/24 23:01 12/17/24 23:30 Temperature Temperature Source Pulse Rate 55 L 79 62 Pulse Rate [Right] Respiratory Rate 25 H 18 16 Blood Pressure 112/59 L 136/65 162/70 H Blood Pressure [Right Arm] Blood Pressure Mean [Right Arm] 02 Sat by Pulse Oximetry 97 99 99 Oxygen Delivery Method Lab Data Lab Results 12/17/24 22:08: WBC 7.2, RBC 4.28, Hgb 11.7 L, Hct 35.7 L, MCV 83.4, MCH 27.3, MCHC 32.8, RDW 14.4, Plt Count 367, MPV 9.3, Neut % (Auto) 34.6 L, Lymph % (Auto) 55.3 H, Christian % (Auto) 7.8, Eos % (Auto) 1.4, Baso % (Auto) 0.6, Neut # (Auto) 2.5, Lymph # (Auto) 4.0, Christian # (Auto) 0.6, Eos # (Auto) 0.1, Baso # (Auto) 0.0, Sodium 136, Potassium 3.2 L, Chloride 106, Carbon Dioxide 11 L, A nion Gap 22.2 H, BUN 43 H, Creatinine 6.80 H, Estimated Creat Clear 10, E stimated GFR 6 L*, Est GFR ( Amer) 7 L*, Glucose 144 H, Calcium 7.9 L, P hosphorus 7.4 H, Magnesium 1.5 L, Total Bilirubin 0.6, AST 65 H, ALT 41, Alkaline Phosphatase 85, Total Protein 7.0, Albumin 3.9, Globulin 3.1, Albumin/Globulin Ratio 1.3 12/17/24 22:08 12/17/24 22:08 Orders (Tests/Meds): ED MEDICATIONS Discontinued Medications Generic Name Dose Route Start Last Admin Trade Name Keke PRN Reason Stop Dose Admin Lactated Ringer's 1,000 mls @ 999 mls/hr 12/17/24 22:48 12/17/24 22:56 Lactated Ringer's 1000 Ml Bag IV 12/17/24 23:48 999 mls/hr .Q1H1M ONE Administration ORDERS Category Date Time Status CT abdomen pelvis wo con Stat Cat Scan 12/17/24 21:33 Completed POCUS Point of Care (ER Only) Stat Exams 12/17/24 21:26 Taken CBC w/Auto Diff [Complete Blood Count Auto Diff] Stat Lab 12/17/24 22:08 Completed CMP [Comprehensive Metabolic Panel] Stat Lab 12/17/24 22:08 Completed Magnesium Stat Lab 12/17/24 22:08 Completed Phosphorous Stat Lab 12/17/24 22:08 Completed Urinalysis and Microscopic Stat Lab 12/17/24 21:34 Ordered ECG Data Tracing #1: I reviewed this ECG and interpreted as documented below: Independently interpreted by me, revealing of normal sinus rhythm at a rate of 80 with frequent PVCs and trigeminy, QTc 404, normal axis, no STEMI Medical Decision Narrative: In summary, this 74-year-old female with a past medical history of recurrent UTIs, recent bladder surgery where mesh and sling removed presents to the emergency department today with no urination for the last 3 days. On initial evaluation patient is afebrile, he medically stable, nontoxic-appearing. Differential diagnosis includes but is not limited to urinary retention, UTI, renal failure. Based on these concerns, I ordered CBC, CMP, urinalysis, CT abdomen pelvis without IV contrast. Considered obtaining it with IV contrast, however given concern for worsening MEGHAN and sole purpose to identify urinary retention, this was felt unnecessary. I had attempted to visualize bladder with [id number] ultrasound however was unable to. EKG was obtained because it appeared patient was throwing PVCs in the pattern of trigeminy on canoe inspector. ECG personally interpreted as noted above. Patient received 1 L of lactated Ringer's for treatment. Labs personally reviewed demonstrate unremarkable CBC, mild hypokalemia at 3.2, worsening MEGHAN with a creatinine of 6.8, hypocalcemia at 7.9, hypomagnesemia at 1.5. CT imaging personally interpreted demonstrates no acute intra-abdominal pathology. Could not visualize bladder. This is highly concerning for acute renal failure. Patient is anuric. Discussed patient's case and presentation with printing equipment mechanic apprentice Dr. Fink with [facility] who agreed the patient should be transferred for further care. At the time of shift change, callback from hospitalist to accept the patient was pending. Care handed off to Dr. Navarro at about 12 AM. See transfer of care below. <Nilsa Navarro MD - Last Filed: 12/18/24 00:53> Vital Signs: 12/17/24 21:32 12/17/24 22:11 12/17/24 22:31 Temperature 97.7 F Temperature Source Oral Pulse Rate 53 L 79 Pulse Rate [Right] 63 Respiratory Rate 18 14 17 Blood Pressure 123/50 L 98/60 L Blood Pressure [Right Arm] 133/59 L Blood Pressure Mean [Right Arm] 83 02 Sat by Pulse Oximetry 98 100 97 Oxygen Delivery Method Room Air Room Air 12/17/24 22:51 12/17/24 23:01 12/17/24 23:30 Temperature Temperature Source Pulse Rate 55 L 79 62 Pulse Rate [Right] Respiratory Rate 25 H 18 16 Blood Pressure 112/59 L 136/65 162/70 H Blood Pressure [Right Arm] Blood Pressure Mean [Right Arm] 02 Sat by Pulse Oximetry 97 99 99 Oxygen Delivery Method Lab Data Lab Results 12/17/24 22:08: WBC 7.2, RBC 4.28, Hgb 11.7 L, Hct 35.7 L, MCV 83.4, MCH 27.3, MCHC 32.8, RDW 14.4, Plt Count 367, MPV 9.3, Neut % (Auto) 34.6 L, Lymph % (Auto) 55.3 H, Christian % (Auto) 7.8, Eos % (Auto) 1.4, Baso % (Auto) 0.6, Neut # (Auto) 2.5, Lymph # (Auto) 4.0, Christian # (Auto) 0.6, Eos # (Auto) 0.1, Baso # (Auto) 0.0, Sodium 136, Potassium 3.2 L, Chloride 106, Carbon Dioxide 11 L, A nion Gap 22.2 H, BUN 43 H, Creatinine 6.80 H, Estimated Creat Clear 10, E stimated GFR 6 L*, Est GFR ( Amer) 7 L*, Glucose 144 H, Calcium 7.9 L, P hosphorus 7.4 H, Magnesium 1.5 L, Total Bilirubin 0.6, AST 65 H, ALT 41, Alkaline Phosphatase 85, Total Protein 7.0, Albumin 3.9, Globulin 3.1, Albumin/Globulin Ratio 1.3 Orders (Tests/Meds): ED MEDICATIONS Discontinued Medications Generic Name Dose Route Start Last Admin Trade Name Freq PRN Reason Stop Dose Admin Lactated Ringer's 1,000 mls @ 999 mls/hr 12/17/24 22:48 12/17/24 22:56 Lactated Ringer's 1000 Ml Bag IV 12/17/24 23:48 999 mls/hr .Q1H1M ONE Administration ORDERS Category Date Time Status CT abdomen pelvis wo con Stat Cat Scan 12/17/24 21:33 Completed POCUS Point of Care (ER Only) Stat Exams 12/17/24 21:26 Taken CBC w/Auto Diff [Complete Blood Count Auto Diff] Stat Lab 12/17/24 22:08 Completed CMP [Comprehensive Metabolic Panel] Stat Lab 12/17/24 22:08 Completed Magnesium Stat Lab 12/17/24 22:08 Completed Phosphorous Stat Lab 12/17/24 22:08 Completed Urinalysis and Microscopic Stat Lab 12/17/24 21:34 Ordered Medical Decision Narrative: In summary, this 74-year-old female with a past medical history of recurrent UTIs, recent bladder surgery where mesh and sling removed presents to the emergency department today with no urination for the last 3 days. On initial evaluation patient is afebrile, he medically stable, nontoxic-appearing. Differential diagnosis includes but is not limited to urinary retention, UTI, renal failure. Based on these concerns, I ordered CBC, CMP, urinalysis, CT abdomen pelvis without IV contrast. Considered obtaining it with IV contrast, however given concern for worsening MEGHAN and sole purpose to identify urinary retention, this was felt unnecessary. I had attempted to visualize bladder with [id number] ultrasound however was unable to. EKG was obtained because it appeared patient was throwing PVCs in the pattern of trigeminy on canoe inspector. ECG personally interpreted as noted above. Patient received 1 L of lactated Ringer's for treatment. Labs personally reviewed demonstrate unremarkable CBC, mild hypokalemia at 3.2, worsening MEGHAN with a creatinine of 6.8, hypocalcemia at 7.9, hypomagnesemia at 1.5. CT imaging personally interpreted demonstrates no acute intra-abdominal pathology. Could not visualize bladder. This is highly concerning for acute renal failure. Patient is anuric. Discussed patient's case and presentation with printing equipment mechanic apprentice Dr. Fink with [facility] who agreed the patient should be transferred for further care. At the time of shift change, callback from hospitalist to accept the patient was pending. Care handed off to Dr. Navarro at about 12 AM. See transfer of care below. Work: Upon my assumption of care patient is currently stable, I agree with the assessment and plan from Dr. Flores. Significant concern for patient's new renal failure and anuria. Patient has still not made any urine in the ER. When I assumed care of this patient, I was awaiting a callback from the [facility] hospitalist. I spoke with Sandee MAGALLANES with the hospitalist service. We reviewed patient's recent course of illness and acute presentation today as well as her current labs and anuria. She graciously accepted the patient for admission to [facility] under Dr. Harvey. Bed assignment was provided. Patient is appropriate for transfer via ALS for continued cardiac monitoring given her PVCs every 4th or 5th beat on the monitor at this time. Blood pressure has improved. She was assessed immediately prior to transfer and air remains patent and patient is hemodynamically stable. Patient transferred in stable condition via ALS ambulance to [facility]. Critical Care <Issa Flores MD - Last Filed: 12/18/24 00:10> Critical Care Time Critical Care Time: No <Nilsa Navarro MD - Last Filed: 12/18/24 00:53> Critical Care Time Critical Care Time: No
--- NOTE | 2024-12-17 22:05 | ECG_ITS ---
APPROVED REPORT Exam: Resting ECG HR:80 bpm ECG Measurements Heart Rate 80 AXES OK 193 P 76 QRSd 101 QRS -4 QT 368 T 143 QTc 404 Conclusion ELECTRONIC ATRIAL PACEMAKER LOW QRS VOLTAGE IN PRECORDIAL LEADS [QRS DEFLECTION < 1.0 mV IN CHEST LEADS] POSSIBLE ANTERIOR MYOCARDIAL INFARCTION , PROBABLY OLD [30 ms Q WAVE IN V3/V4, OR R < 0.2 mV IN V4] MODERATE T-WAVE ABNORMALITY, CONSIDER LATERAL ISCHEMIA [-0.1+ mV T-WAVE IN I/aVL/V5/V6] ABNORMAL ECG Pacemaker with frequent PVCs Electronically signed by : SEDA QUINTERO, 12/19/2024 12:35:34
[2024-12-17 22:11] VITALS: BP 123/50; PULSE 53; RESP 14; O2SAT 100
[2024-12-17 22:18] LABS: Basophils % 0.6 % (0.1-2.0); Eosinophils # 0.1 Kmm3 (0.0-0.4); Eosinophils % 1.4 % (0.1-12.0); Hematocrit 35.7 % (37.0-47.0); Hemoglobin 11.7 g/dL (12.2-16.2); Immature Granulocytes # 0.02 10^3uL; Immature Granulocytes % 0.3 %; Lymphocytes % 55.3 % (10-50); Mean Corpuscular HGB Conc 32.8 g/dL (31.8-35.4); Mean Corpuscular Hemoglobin 27.3 pg (27.0-31.2); Mean Corpuscular Volume 83.4 fl (81-99); Mean Platelet Volume 9.3 fl (7.4-10.4); Monocytes # 0.6 K/mm3 (0.1-1.0); Monocytes % 7.8 % (1.7-9.3); Neutrophils # 2.5 K/mm3 (1.8-7.8); Neutrophils % 34.6 % (37.0-80.0); Nucleated Red Blood Cells # 0 10^3/uL; Nucleated Red Blood Cells % 0 %; Platelet Count 367 K/mm3 (142-424); Red Blood Count 4.28 M/mm3 (4.20-5.40); Red Cell Distribution Width 14.4 % (11.5-17.5); Red Cell Distribution Width-SD 43.7 fL; White Blood Count 7.2 K/mm3 (4.8-10.8)
[2024-12-17 22:31] VITALS: BP 98/60; PULSE 79; RESP 17; O2SAT 97
[2024-12-17 22:34] LABS: Alanine Aminotransferase 41 U/L (12-78); Albumin Level 3.9 g/dl (3.5-5.0); Albumin/Globulin Ratio 1.3 (1.1-1.8); Alkaline Phosphatase 85 U/L (38-126); Anion Gap 22.2 mEq/L (5-15); Aspartate Amino Transferase 65 U/L (14-36); Bilirubin,Total 0.6 mg/dl (0.2-1.3); Blood Urea Nitrogen 43 mg/dl (7-17); Calcium 7.9 mg/dl (8.4-10.2); Carbon Dioxide 11 mmol/L (22.0-30.0); Chloride 106 mmol/L (98-107); Creatinine Clearance Estimated 10 mL/min (50-200); Estimated Glomerular Filt Rate 6 ml/min (>60); GFR (African American) 7 ML/MIN (>60); Globulin 3.1 g/dL (1.3-3.2); Glucose 144 mg/dl (74-100); Magnesium 1.5 mg/dl (1.6-2.3); Potassium 3.2 mmoL/L (3.5-5.1); Sodium 136 mmol/L (136-145)
--- NOTE | 2024-12-17 22:49 | PC.NURSE ---
[id number] MD Mark notified of creatine of 6.8, BUN 43
[2024-12-17 22:51] VITALS: BP 112/59; PULSE 55; RESP 25; O2SAT 97
[2024-12-17] MEDS: LACTATED RINGERS 1000ML 1,000 ML 999 ML IV (22:56)
[2024-12-17 22:58] LABS: Phosphorous 7.4 mg/dl (2.5-4.5)
[2024-12-17 23:01] VITALS: BP 136/65; PULSE 79; RESP 18; O2SAT 99
[2024-12-17 23:30] VITALS: BP 162/70; PULSE 62; RESP 16; O2SAT 99
[2024-12-18 00:59] VITALS: BP 121/58; PULSE 54; RESP 19; O2SAT 100
--- NOTE | 2024-12-18 00:59 | PC.NURSE ---
EMS has been called for transfer.
[2024-12-18 01:00] VITALS: BP 119/54; PULSE 77; RESP 23; O2SAT 100
--- NOTE | 2024-12-18 01:00 | PC.NURSE ---
Report called to Harmony POOL at [facility].
[2024-12-18 01:01] LABS: Appearance,Urine CLOUDY (Clear); Blood, Urine 1+ (Negative); Color,Urine YELLOW (Yellow); Glucose,Urine (UA) Negative (Negative); Ketones,Urine TRACE (Negative); Leukocyte Esterase,Urine 2+ (Negative); Microscopic, Urine URINE MICROSCOPIC (MICROSCOPIC); Nitrate,Urine Negative (Negative); PH,Urine 5.5 (5.0-8.5); Protein,Urine 1+ (Negative); Specific Gravity, Urine >= 1.030 (1.005-1.030); Urobilinogen,Urine 0.2 EU/dl (0.2)
[2024-12-18 01:06] LABS: Bilirubin,Urine 1+ (Negative)
[2024-12-18 01:08] LABS: WBC,Urine TNTC #/hpf (0-3)
[2024-12-18 01:18] VITALS: BP 119/54; PULSE 78; RESP 18; TEMP 36.6; O2SAT 100
--- NOTE | 2024-12-20 09:03 | PC.NURSE ---
urine culture completed, no growth. ntd
== END 2024-12-18 01:19 | disposition short-term general hospital (02) ==
PROVIDERS: Emergency Provider Student in an Organized Health Care Education/Training Program; PCP Family Medicine
DX: N17.9 Acute kidney failure, unspecified (principal); R53.1 Weakness
CPT/HCPCS: 74176; 80053; 81001; 83735; 84100; 85025; 87086; 93005; 96360; 99285; J7120

== ENCOUNTER 2024-12-28 13:23 | Outpatient (POV) | payer MEDICARE, BC, SELFPAY ==
--- OUTSIDE RECORDS SUMMARY | 2024-11-16 09:38 | XMS_ITS | Encounter Summary ---
Author Organization [facility] [place] [address] Care Team Providers Care Architecture Internship Name Role Phone Tj Sweeney MD Primary Care Provider + [phone] Reason for Visit * Auth/Cert/Inpt Specialty Diagnoses / Procedures Referred By Tangela torres Referred To Contact Diagnoses Complication of implanted vaginal mesh, initial encounter Complication of implanted vaginal mesh, initial encounter [T85.9XXA] Procedures LA RMVL/REVJ SLING STRESS INCONTINENCE LA CYSTOURETHROSCOPY Bladder Mesh Excision, Cystoscopy . Referral ID Status Reason Start Date Expiration Date Visits Re quested Visits Authorized [id number] 1 1 Encounter Details Date Type Department Care Team (Latest Contact Info) Description 11/16/2024 9:38 AM EDT - 11/16/2024 4:08 PM EDT Hospital Encounter [facility] SAME DAY SURGERY [address] [place] [address] Shahnaz Hess MD [address] [place] [id number] Complication of implanted vaginal mesh, initial encounter; Exposure of implanted vaginal mesh, subsequent encounter Discharge Disposition: Home or Self Care Social History Tobacco Use Types Packs/Day Years Used Date Smoking Tobacco: Former Cigarettes Smokeless Tobacco: Never Alcohol Use Standard Drinks/Week Comments Not Currently 0 (1 standard drink = 0.6 oz pur e alcohol) Sexually Active Control Partners Comments Not Currently Comments No Sex and Gender Information Value Date Recorded Sex Assigned at Not on file Legal Sex Female 10:23 AM EST Gender Identity Not on file Sexual Orientation Not on file documented as of this encounter Last Filed Vital Signs Vital Sign Reading Time Taken Comments Blood Pressure 167/81 11/16/2024 3:56 PM EDT Pulse 76 11/16/2024 3:56 PM EDT Temperature 36.1 C (96.9 F) 11/16/2024 3:56 PM EDT Respiratory Rate 14 11/16/2024 3:56 PM EDT Oxygen Saturation 95% 11/16/2024 3:56 PM EDT Inhaled Oxygen Concentration - - Weight 94.8 kg (209 lb) 11/16/2024 10:28 AM EDT Height 162.6 cm (5' 4 ) 11/16/2024 10:28 AM EDT Body Mass Index 35.87 11/16/2024 10:28 AM EDT documented in this encounter Discharge Instructions * Discharge Instructions* Omar Davison MD - 11/16/2024 7:39 AM EDT Images from the original note were not included. [facility] Shahnaz Hess MD FACOG Rosa Cook PA-C [address] [place] [address], [phone] Thank you for allowing us to care for you! It was a pleasure taking care of you during [facility] surgery[facility]! Dr. Hodge and her team are always available for any questions or concerns after your surgery. As always, you can reach our staff during normal business hours by using the [employer] experience to send us an email at: [email or web address] FOLLOW UP APPOINTMENTS Upon leaving the hospital, you should call [phone] during normal business hours to schedule follow-up appointments. You will need to be seen for the following: If you go home with a catheter, call to schedule a nurse visit in the office in 2 days (or, if yoursurgery is on a , catheter removal would be the following Saturday) Six-week follow-up with Rosa Cook PA-C (Dr. Hodge's Physician Physical Testing Supervisor) WHAT MEDICATIONS CAN I TAKE? After surgery you may resume your regular home medications. WHAT ARE MY POST SURGERY RESTRICTIONS? You can: Walk up/down steps (hold onto railing to avoid falls) Go for short walks on a smooth surface Light activity/stretches Ride as a passenger in the car Shower Do NOT: (These restrictions apply for 6 weeks post op or until we clear you at your post op exam, unless noted differently below) Do NOT lift anything heavier than 10-15 lbs (a gallon of milk weighs about 9 lbs) No cleaning/no laundry/no vacuuming Do NOT sit in a bath tub/pool/ocean Do NOT have vaginal intercourse until your doctor tells you it is permitted Do NOT insert anything into your vagina or rectum including tampons or suppositories Exception: If you were using vaginal estrogen prior to surgery, please resume this 1 week after surgery (it is safe to insert it into the vagina using a pea- sized amount on your finger; do not use plastic applicator!) Do NOT drive a car or heavy machinery until you are no longer taking narcotic pain medication and your pain is well-controlled so that you can slam on the brake if necessary (typically patients can drive within a week after surgery as long as you meet this criteria) Speak with your physician about any other restrictions and limitations. A FEW THINGS TO REMEMBER: You should discuss with your doctor when to return to work. It is normal to have a vaginal discharge with blood for up to 6 weeks after surgery. The discharge may appear as small amounts of bright red or dark brown blood. It can also become a yellow-green color. The amount of discharge should gradually decrease with time. Some of the stitches will dissolve over time. It is normal to see suture or knots come out of the vagina over the next few weeks as these dissolve and fall out. WHAT SHOULD I EAT? To decrease post-operative nausea, try to eat small frequent meals. Eat foods high in protein such as meat, fish, eggs, and dairy products. Consider taking a single multivitamin, which you can buy [email or web address]. Drink lots of fluids - about EIGHT 8-oz glasses of water each day. CONSTIPATION It is normal not to have a bowel movement for 4-5 days after surgery. However, when you do have a bowel movement, we want you to have a regular, soft daily bowel movement. Upon discharge from the hospital you will be given prescriptions for stool softeners with instructions from your doctor. PLEASECONTINUE MIRALAX TWICE DAILY, AND ADD ADDITIONAL COLACE TWICE DAILY. IF YOU HAVE NOT HAD A BOWEL MOVEMENT IN 4-5 DAYS, ADD SENNA 1-2 TIMES DAILY NEEDED TO MAINTAIN SOFT BOWEL MOVEMENTS. Other waysto help promote soft bowel movements include: Prunes/apple/raisins or other high-fiber foods Metamucil or Citrucel: one heaping tablespoon in 8oz of water twice per day Milk of magnesia, to be taken at bedtime following the directions on the label Be sure to drink at least 8 glasses of water/fluids per day -If you have problems with constipation and no bowel movement for 5-7 days after surgery and you are uncomfortable or concerned-- please call the office. -AVOID the use of rectal suppositories or enemas. -Your first few bowel movements will likely be very runny. If this occurs, slowly decrease the colace to once a day or every other day for a week. Continue to decrease slowly until bowel movements remain soft but not runny. If you stop your stool softeners all at once, you may become very constipated. WHAT ABOUT PAIN MEDICATIONS? You will be sent home with ibuprofen 600 mg tablets (unless contraindicated) and stronger pain medications containing small amounts of narcotic pain killers. Some things to remember: Unless you have a medical condition that prohibits you from taking Motrin (ibuprofen) or NSAIDs (such as kidney disease, stomach ulcers, taking blood thinners, or other condition specified by your PCP) or Tylenol (acetaminophen) (such as active liver disease), pain can often be managed well by taking scheduled doses of Motrin (ibuprofen) and Tylenol rather than waiting for the pain to get worse. If you do not have any medical conditions that prohibit you from taking the above medications, we recommend taking these medications on a scheduled basis for the first week after surgery. For instance: You can take ibuprofen 600 mg every 6 hours and Tylenol 1000 mg every 6 hours (alternate by taking ibuprofen 600 mg, then 3 hours later take tylenol 1000 mg, then 3 hours later take ibuprofen 600 mg, and so on). DO NOT TAKE MORE THAN THE RECOMMENDED DOSES. DO NOT USE MORE THAN ONE NSAID AT A TIME (such as celecoxib (Celebrex), naproxyn (Naprosyn), ibuprofen (Motrin or Advil), aspirin, or other non-steroidal anti-inflammatory medication). If your narcotic pain medication contains acetaminophen (Tylenol), DO NOT take additional tylenol Take your pain medications when you first begin feeling discomfort. Don't wait until your pain is intense to take your medications. When used as directed, you will not become addicted to the pain medications. The narcotic pain medications we send you home with may cause nausea or constipation. As you heal from surgery, you may find that you feel better when you don't take those medications. If Tylenol or Motrin relieves the pain, use those medications instead. Don't drive while taking narcotic pain medications. HOW DO I TAKE CARE OF MY INCISION? Showers (NO tub baths) are preferred for 6 weeks after surgery. If you have an abdominal incision, it is ok for this to get wet, but do not soak in a tub. If the incision appears dirty or caked, you may clean it with hydrogen peroxide on a cotton swab. You may have small plastic bandages called Steri-strips across the incision. There is no need to worry if these fall off. If they begin to curl atthe edges, simply trim with scissors. If you have had vaginal surgery, showers (NO tub baths) are preferred for 6 weeks after surgery. You may use a mild soap (such as Dove sensitive skin) and water to GENTLY clean the OUTSIDE of the vagina. DO NOT douche, insert tampons, insert suppositories, or other vaginal creams/inserts after vaginal surgery. WHAT ABOUT THE BLADDER CATHETER? It is very common to go home from the hospital with a catheter in your bladder. The surgery your doctor performed tends to cause swelling around the opening to the bladder, making it difficult for you to pass urine. If this is the case, you will be given instructions in the hospital on the care of the catheter, and will be told when to come back to the office for catheter removal (usually within 1 to 7 days). It is not unusual for it to take a few weeks for your bladder to return to normal though. The nurse in the hospital will make sure you are comfortable with your catheter before you go home. After the catheter is removed, try to urinate on a regular basis. A good way to do this is to try to urinate every 3-4 hours during the day. By urinating on a scheduled basis you may prevent bladder spasms. You do not have to wake up during the night to do this drill. WHAT SHOULD I WATCH OUT FOR? There are several warning signs you should watch for: FEVER GREATER THAN 100.4??F LEG PAIN OR SWELLING SHORTNESS OF BREATH CHEST PAIN SHAKING CHILLS SEVERE PAIN NAUSEA WITH VOMITING PROBLEMS WITH YOUR INCISION SUCH REDNESS OR DISCHARGE VAGINAL BLEEDING HEAVIER THAN WHAT WAS A HEAVY MENSTRUAL CYCLE INCREASE IN VAGINAL DISCHARGE, ESPECIALLY WITH A STRONG ODOR INABILITY TO URINATE For questions or concerns, please call: (7:30 a.m. to 4:00 p.m. Saturday-Saturday) [facility] For non-life threatening emergencies only outside of normal business hours, please call the above number and follow prompts for the triage nurse. They will forward any urgent matters to the doctor carlos. For any life-threatening emergencies call [phone]. +++++++++++++++++++++++++++++++++++++++++++++++++++++++++++++++++++ [facility] Discharge Instructions - Following Anesthesia We appreciate the opportunity to care for you today! Here are a few reminders as you head home: A responsible adult, 18 years or older must be in attendance until tomorrow morning. Rest quietly today. May resume usual diet as tolerated or as directed by your surgeon. Do not drive or operate any machinery until tomorrow morning or as instructed. Do not make any legal or important decisions for the next 24 hours. Do not drink alcoholic beverages or take sleeping pills for 24 hours unless otherwise directed. If you received a nerve block for post-operative pain control, protect your blocked arm/leg. It maybe numb. Carefully pad your limb to prevent pressure sores and other injuries. Be careful with applying cold/warm to the blocked limb. Numbness will alter the sensation of the limb and could damage your skin if you cannot correctly feel the temperature. If you have questions or concerns regarding your anesthesia experience, please call our office at . Get Well Soon! [facility] +++++++++++++++++++++++++++++++++++++++++++++++++++++++++++++++++++ documented in this encounter Medications at Time of Discharge albuterol (PROVENTIL HFA; VENTOLIN HFA) 90 mcg/actuation Inhl HFA Aerosol Inhaler Inhale 2 Puffs into the lungs as needed for Other. PRN was given when she had pneumonia back in October 12- pt states she has not needed to use it amLODIPine (NORVASC) 5 mg Oral Tablet Take 5 mg by mouth every morning. 06/24/2023 diclofenac (VOLTAREN) 1 % Top Gel Apply 2 g topically 4 times daily. PRN levocetirizine (XYZAL) 5 mg Oral Tablet Take 5 mg by mouth. 05/26/2019 LEVOthyroxine (SYNTHROID) 25 mcg Oral Tablet Take 25 mcg by mouth daily. lisinopriL (PRINIVIL;ZESTR IL) 40 mg Oral Tablet Take 40 mg by mouth. 05/26/2019 metFORMIN (GLUCOPHAGE XR) 500 mg Oral ER 24 hr tablet Take 500 mg by mouth 4 times daily (before meals and nightly). 2 tablets morning 2 tablets bedtime 07/31/2023 metoprolol succinate (TOPROL-XL) 200 mg Oral Tablet Sustained Release 24 hr Take 200 mg by mouth nightly. 08/16/2023 montelukast (SINGULAIR) 10 mg Oral Tablet Take 10 mg by mouth. 05/26/2019 rosuvastatin (CRESTOR) 5 mg Oral Tablet Take 5 mg by mouth. 05/26/2019 acetaminophen (TYLENOL) 500 mg Oral Tablet Take 500 mg by mouth every 4 hours as needed for Pain. clindamycin (CLEOCIN) 2 % Vagl Cream Place 4g intravaginally at night for 3 weeks followed by maintenance therapy twice/week x 6 months. 40 g 5 09/11/2024 clobetasoL (TEMOVATE) 0.05 % Top CreamIndication s:Vulvar dermatitis,Lich en sclerosus Apply fingertip amount to affected areas (outside of vagina on vulvar skin, not inside) nightly for 4 weeks, then every other night for 4 weeks, then 2-3 times per week for 4 weeks. 60 g 1 06/08/2024 docusate sodium (COLACE) 100 mg Oral Capsule Take 1 Capsule by mouth 2 times daily. 60 Capsule 2 11/16/2024 estradioL (ESTRACE) 0.01 % (0.1 mg/gram) Vagl CreamIndication s:Vaginal atrophy Apply pea-sized amount using fingertip into the vagina (or as instructed) nightly x 2 weeks, then use 2-3 x per week. 42.5 g 2 09/08/2024 ondansetron (ZOFRAN-ODT) 4 mg Oral Tablet, Rapid Dissolve Take 1 Tablet by mouth every 6 hours as needed for Nausea. 30 Tablet 11/16/2024 oxyCODONE (ROXICODONE) 5 mg Oral Tablet Take 1 Tablet by mouth every 6 hours as needed for Major Surgery/Trauma (G89.18). 10 Tablet 11/16/2024 OZEMPIC 2 mg/dose (8 mg/3 mL) SubQ Pen Injector INJECT 2MG SUBCUTANEOUSLY ONCE WEEKLY (EVERY 7 DAYS) 07/30/2024 polyethylene glycol (GLYCOLAX) 17 gram/dose Oral Powder Begin Miralax, 17 g (1 capful) PO mixed in your favorite drink once a day beginning 1 week prior to surgery, after surgery drink this twice a day for 2 weeks 595 g 11/11/2024 senna (SENOKOT) 8.6 mg Oral Tablet Take 1 Tablet by mouth daily as needed for Constipation. 30 Tablet 1 11/16/2024 ibuprofen (ADVIL;MOTRIN) 600 mg Oral Tablet Take 1 Tablet by mouth every 6 hours as needed for Pain for up to 30 days. 60 Tablet 1 11/16/2024 documented as of this encounter Ordered Prescriptions Prescription Sig Dispense Quantity Refills Last Filled Start Date End Date ondansetron (ZOFRAN-ODT) 4 mg Oral Tablet, Rapid Dissolve Take 1 Tablet by mouth every 6 hours as needed for Nausea. 30 Tablet 11/16/2024 senna (SENOKOT) 8.6 mg Oral Tablet Take 1 Tablet by mouth daily as needed for Constipation. 30 Tablet 1 11/16/2024 oxyCODONE (ROXICODONE) 5 mg Oral Tablet Take 1 Tablet by mouth every 6 hours as needed for Major Surgery/Traum a (G89.18). 10 Tablet 11/16/2024 docusate sodium (COLACE) 100 mg Oral Capsule Take 1 Capsule by mouth 2 times daily. 60 Capsule 2 11/16/2024 ibuprofen (ADVIL;MOTRIN) 600 mg Oral Tablet Take 1 Tablet by mouth every 6 hours as needed for Pain for up to 30 days. 60 Tablet 1 11/16/2024 documented in this encounter Discharge Disposition Disposition Code Departure Means Destination Comment s Home or Self Care Car Home documented in this encounter H&P Notes * Praneeth Stubbs NP - 11/16/2024 9:[address] [facility] History and Physical Name: [facility] ADDRESS: [address] [place] [address] : 1950 AGE: 74 y.o. Assessment: Complication of implanted vaginal mesh, initial encounter [T85.9XXA] Plan: Procedure(s): Bladder Mesh Excision, Cystoscopy . per Shahnaz Hess MD Admitting Physician: Shahnaz Hess MD Date of Admit: 11/16/2024 Subjective SUBJECTIVE Chief Complaint: Complication of implanted vaginal mesh, initial encounter [T85.9XXA] History of Present Illness: Patient is a 74 y.o. female with Complication of implanted vaginal mesh, initial encounter [T85.9XXA] who presents for surgical intervention. 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 Diabetes mellitus (HCC) Diverticulitis Diverticulosis Fibromyalgia History of colonic polyps Hyperlipidemia Hypertension Irritable bowel syndrome OAB (overactive bladder) Pneumonia Sleep apnea no machine Thyroid disease Urinary incontinence Urinary tract infection Past Surgical History: Procedure Laterality Date BLADDER SURGERY Bladder tuck and Bladder tumor removal BLADDER SURGERY N/A 12/12/2023 Full Interstim Implant; Surgeon: Shahnaz Hess MD; Location: [facility] MA[facility] OR; Service: Urogynecology BREAST SURGERY Left Breast Cyst removal CHOLECYSTECTOMY COLONOSCOPY FOOT SURGERY Bilateral heel spur removal HYSTERECTOMY ovaries left KNEE SURGERY bilateral anthroscopy SHOULDER SURGERY Left broken ball joint, Rt- rotator cuff repair TUBAL LIGATION Prior to Admission medications Medication Sig Start Date End Date Taking? Authorizing Provider albuterol (PROVENTIL HFA; VENTOLIN HFA) 90 mcg/actuation Inhl HFA Aerosol Inhaler Inhale 2 Puffs into the lungs as needed for Other. PRN was given when she had pneumonia back in October 12- pt states she has not needed to use it Yes Provider, Historical amLODIPine (NORVASC) 5 mg Oral Tablet Take 5 mg by mouth every morning. 06/24/23 Yes Provider, Historical diclofenac (VOLTAREN) 1 % Top Gel Apply 2 g topically 4 times daily. PRN Yes Provider, Historical levocetirizine (XYZAL) 5 mg Oral Tablet Take 5 mg by mouth. 05/26/19 Yes Provider, Historical LEVOthyroxine (SYNTHROID) 25 mcg Oral Tablet Take 25 mcg by mouth daily. Yes Provider, Historical lisinopriL (PRINIVIL;ZESTRIL) 40 mg Oral Tablet Take 40 mg by mouth. 05/26/19 Yes Provider, Historical metFORMIN (GLUCOPHAGE XR) 500 mg Oral ER 24 hr tablet Take 500 mg by mouth 4 times daily (before meals and nightly). 2 tablets morning 2 tablets bedtime 07/31/23 Yes Provider, Historical metoprolol succinate (TOPROL-XL) 200 mg Oral Tablet Sustained Release 24 hr Take 200 mg by mouth nightly. 08/16/23 Yes Provider, Historical montelukast (SINGULAIR) 10 mg Oral Tablet Take 10 mg by mouth. 05/26/19 Yes Provider, Historical OZEMPIC 2 mg/dose (8 mg/3 mL) SubQ Pen Injector INJECT 2MG SUBCUTANEOUSLY ONCE WEEKLY (EVERY 7 DAYS) 07/30/24 Yes Provider, Historical rosuvastatin (CRESTOR) 5 mg Oral Tablet Take 5 mg by mouth. 05/26/19 Yes Provider, Historical clindamycin (CLEOCIN) 2 % Vagl Cream Place 4g intravaginally at night for 3 weeks followed by maintenance therapy twice/week x 6 months. Patient not taking: Reported on 11/06/2024 09/11/24 Evangelina Cook PA-C clobetasoL (TEMOVATE) 0.05 % Top Cream Apply fingertip amount to affected areas (outside of vagina on vulvar skin, not inside) nightly for 4 weeks, then every other night for 4 weeks, then 2-3 times per week for 4 weeks. Patient not taking: Reported on 11/06/2024 06/08/24 Evangelina Cook PA-C estradioL (ESTRACE) 0.01 % (0.1 mg/gram) Vagl Cream Apply pea-sized amount using fingertip into thevagina (or as instructed) nightly x 2 weeks, then use 2-3 x per week. Patient not taking: Reported on 11/06/2024 09/08/24 Evangelina Cook PA-C polyethylene glycol (GLYCOLAX) 17 gram/dose Oral Powder Begin Miralax, 17 g (1 capful) PO mixed in your favorite drink once a day beginning 1 week prior to surgery, after surgery drink this twice a day for 2 weeks 11/11/24 Shahnaz Hess MD Allergies Allergen Reactions Cefdinir Hives Iodine Other (See Comments) Penicillins Other (See Comments) Theophylline Other (See Comments) Valdecoxib Other (See Comments) Social History Socioeconomic History Marital status: Spouse name: None Number of children: None Years of education: None Highest education level: None Tobacco Use Smoking status: Former Types: Cigarettes Smokeless tobacco: Never Vaping Use Vaping status: Never Used Substance and Sexual Activity Alcohol use: Not Currently Drug use: Never Sexual activity: Not Currently Family History Problem Relation Age of Onset Other (shingles) Mother Anesth Problems Mother High Blood Pressure Father Aneurysm Father Hypertension Father Cancer Maternal Grandmother Active Hospital Problems Diagnosis *Complication of implanted vaginal mesh, initial encounter Blood pressure 149/90, pulse 105, temperature 97.2 ??F (36.2 ??C), temperature source Forehead, resp. rate 20, height 5' 4 (1.626 m), weight 206 lb (93.4 kg), SpO2 97%, not currently .Pain: 0/10 Review of Systems: The listed systems were reviewed and reveal the following in addition to any already discussed in the HPI: Review of Systems Constitutional: Negative. Negative for chills and fever. HENT: Negative for congestion, ear discharge, ear pain, hearing loss, nosebleeds and sore throat. Eyes: Negative for blurred vision, double vision, pain, discharge and redness. Respiratory: Negative. Negative for cough, hemoptysis, sputum production, shortness of breath and wheezing. Cardiovascular: Negative for chest pain, palpitations, orthopnea and leg swelling. Gastrointestinal: Negative. Genitourinary: Positive for frequency. Negative for dysuria, flank pain, hematuria and urgency. 10/14/[address] Hess. Has persistent OAB/UUI and difficulty emptying her bladder. Denies any pain or changes. 12/11/2024 had Full Interstim Implant per Shahnaz Hess MD Musculoskeletal: Negative. Skin: Negative. Negative for itching and rash. Endo/Heme/Allergies: Negative. Psychiatric/Behavioral: Negative for depression. The patient is nervous/anxious. Objective OBJECTIVE Physical Exam: Body mass index is 35.36 kg/m??. Body surface area is 1.98 meters squared. Physical Exam Vitals and nursing note reviewed. Exam conducted with a senior electrical designer present. Constitutional: General: She is not in acute distress. Appearance: Normal appearance. She is well-developed. She is not ill-appearing, toxic-appearing or diaphoretic. HENT: Head: Normocephalic and atraumatic. Nose: Nose normal. No congestion or rhinorrhea. Mouth/Throat: Mouth: Mucous membranes are moist. Pharynx: Oropharynx is clear. No oropharyngeal exudate or posterior oropharyngeal erythema. Eyes: General: No scleral icterus. Right eye: No discharge. Left eye: No discharge. Conjunctiva/sclera: Conjunctivae normal. Pupils: Pupils are equal, round, and reactive to light. Neck: Thyroid: No thyromegaly. Vascular: No JVD. Trachea: No tracheal deviation. Cardiovascular: Rate and Rhythm: Normal rate and regular rhythm. Pulses: Normal pulses. Heart sounds: Normal heart sounds. No murmur heard. No friction rub. No gallop. Pulmonary: Effort: Pulmonary effort is normal. No respiratory distress. Breath sounds: Normal breath sounds. No stridor. No wheezing, rhonchi or rales. Chest: Chest wall: No tenderness. Abdominal: General: Bowel sounds are normal. There is no distension. Palpations: Abdomen is soft. Tenderness: There is no abdominal tenderness. There is no guarding. Genitourinary: Comments: Deferred Musculoskeletal: General: No tenderness or deformity. Normal range of motion. Cervical back: Normal range of motion and neck supple. Lymphadenopathy: Cervical: No cervical adenopathy. Skin: General: Skin is warm and dry. Capillary Refill: Capillary refill takes less than 2 seconds. Coloration: Skin is not pale. Findings: No erythema or rash. Neurological: General: No focal deficit present. Mental Status: She is alert and oriented to person, place, and time. Mental status is at baseline. Cranial Nerves: No cranial nerve deficit. Sensory: No sensory deficit. Motor: No weakness. Coordination: Coordination normal. Gait: Gait normal. Psychiatric: Mood and Affect: Mood normal. Behavior: Behavior normal. Thought Content: Thought content normal. Labs:Reviewed Radiology: EKG:[facility] Test Date: 2023-12-12 Pat Name: JACKY OCHOA Department: DEPID Room: [facility] Gender: Female Oracle Forms Developer: Nakul : 1950 Requested By: JUAN ADORNO Order Number: [id number] Reading MD: Rogers Moore Measurements Intervals [place] Rate: 68 P: 33 LA: 189 QRS: 6 QRSD: 98 T: 45 QT: 394 QTc: 422 Interpretive Statements SINUS RHYTHM LOW QRS VOLTAGE IN PRECORDIAL LEADS PRWP Electronically Signed On 12-12-2023 10:09:03 EDT by Rogers Stubbs NP 11/16/2024 Cosigned by Sabino Tai MD at 11/17/2024 9:01 AM EDT documented in this encounter Procedure Notes * Shahnaz Hess MD - 11/16/2024 1:00 PM EDT Images from the original note were not included. OPERATIVE NOTE Jacky Ochoa November 16, 2024 Body mass index is 35.87 kg/m??. PRE-OP DIAGNOSIS: Complication of implanted vaginal mesh, initial encounter [T85.9XXA] POST-OP DIAGNOSIS: Complication of implanted vaginal mesh, initial encounter [T85.9XXA] PROCEDURE(S): Procedure(s): Bladder Mesh Excision, Cystoscopy . SURGEON(S): Surgeons and Role: * Shahnaz Hess MD - Primary LOGISTICS OPERATIONS MANAGER(S): OR staff ANESTHESIA: General SPECIMENS: ID Type Source Tests Collected by Time Destination 1 : mesh Arts Administrator Vagina PATHOLOGY TISSUE REQUEST Shahnaz Hess MD 11/16/2024 1248 IMPLANTS: * No implants in log * EBL: 5 mL FINDINGS: Exposed mesh with calcifications present in the bilateral anterolateral vaginal sulci at the level of the bladder neck. The mesh coursed toward the obturator foramina bilaterally in the typical fashion of a transobturator sling. Intra-operative cystoscopy demonstrated normal appearing bladder mucosa and no concerning tumors, stones, lesions or foreign bodies were identified. No injury present within the bladder or urethra. Normal appearing trigone with bilateral ureteral orifices. There was vigorous efflux of urine from the bilateral ureteral orifices. Complications: None DISPOSITION: Taken to PACU in good condition INDICATIONS: Jacky Ochoa is a 74 y.o. female with urinary retention with overflow incontinence and history of mesh sling. Based on UDE findings and prior treatments which were unsuccessful in resolving her retention, I recommended moving forward with excision of her mesh sling. She was counseled on the risks, benefits and alternatives to surgery and written informed consent was obtained in the office. Please see office note for full details of counseling. DESCRIPTION OF PROCEDURE: The patient was brought to the operating room. Oral pyridium was previously administered in the pre-operative bay. General anesthesia was induced without difficulty. A time out was completed and confirmed the correct patient and procedure. She was placed in the dorsal lithotomy position in [facility]. She was prepped and draped in the normal sterile fashion. A Naranjo catheter was placed in the bladder. 1% Lidocaine with dilute epinephrine was injected in the vaginal mucosa around the erosions. A 1 mmmargin of vaginal mucosa was excised around each erosion. A horizontal incision was then made connecting the two areas of erosion. The vaginal epithelium around the erosions was grasped with Allis clamps, elevated and dissected free from the underlying tissue and mesh with sharp and blunt dissection. An Adson was used to bluntly dissect the mesh free from the underlying tissue in the midline. This mesh was then transected to the right of the midline. The right sided mesh was grasped with an Allis clamp and dissected free about 2 cm laterally with sharp and blunt dissection. The mesh was the cut free as laterally as possible. The mesh sling was similarly dissected free 3-4 cm on the left. The Naranjo catheter was removed and cystourethroscopy was performed with the findings noted above. The vaginal epithelium was closed with 2-0 Vicryl in a running-locked fashion. All counts were correct times two. The patient tolerated the procedure without difficulty. She was taken to the recoveryroom in good condition. Shahnaz Hess MD Date: 11/16/2024 * Shahnaz Hess MD - 11/16/2024 12:56 PM EDT [facility] OPERATIVE/PROCEDURE NOTE Jacky Ochoa November 16, 2024 Body mass index is 35.87 kg/m??. PRE-OP DIAGNOSIS: Complication of implanted vaginal mesh, initial encounter [T85.9XXA] POST-OP DIAGNOSIS: Complication of implanted vaginal mesh, initial encounter [T85.9XXA] PROCEDURE(S): Procedure(s): Bladder Mesh Excision, Cystoscopy . SURGEON(S): Surgeons and Role: * Shahnaz Hess MD - Primary LOGISTICS OPERATIONS MANAGER(S): OR staff ANESTHESIA: General SPECIMENS: ID Type Source Tests Collected by Time Destination 1 : mesh Arts Administrator Vagina PATHOLOGY TISSUE REQUEST Shahnaz Hess MD 11/16/2024 1248 ESTIMATED BLOOD LOSS (mls): 5 *EBL MUST be documented as a numeric value FINDINGS: Exposed mesh with calcifications present in the bilateral anterolateral vaginal sulci at the level of the bladder neck. The mesh coursed toward the obturator foramina bilaterally in the typical fashion of a transobturator sling. Intra-operative cystoscopy demonstrated normal appearing bladder mucosa and no concerning tumors, stones, lesions or foreign bodies were identified. No injury present within the bladder or urethra. Normal appearing trigone with bilateral ureteral orifices. There was vigorous efflux of urine from the bilateral ureteral orifices. OTHER INFO: none DISPOSITION/POST PROC COURSE: stable to recovery Shanhaz Hess MD Date: 11/16/2024 documented in this encounter Nursing Notes * Cindy Walker RN - 11/06/2024 10:11 AM EDT Images from the original note were not included. PREPARING FOR YOUR SURGERY Date of Surgery: 11/16/24 Time of Surgery: Your surgeon???s office will notify you of your scheduled arrival time. Medications on the Day of Surgery Take the following medications on the morning of surgery: inhaler, metoprolol, amlodipine, synthroid Medications to hold prior to surgery; Verify with your doctor for possibly discontinuing the following medications: blood thinners, aspirin, anti-inflammatories, or supplements. Do not take any DIMAS inhibitors (ends in PRIL ) or angiotensin receptor blockers (ends in SARTAN )on the day of surgery Hold Dulaglutide (Trulicity), Exenatide ER (Bydureon DCise), Semaglutide (Ozempic, Wegovy), and tirzepatide (Mounjaro or Zepbound) 7 days prior to surgery. [facility] DIABETIC INSTRUCTIONS-ORAL MEDS: Day before Surgery:Take all diabetic meds as usual unless your doctor gives you other instructions. and Do not take any oral medications the morning of surgery. Food, Drinks, Tobacco Do not eat any food after midnight. This includes gum, mints, candy, chewing tobacco, and dip. Unless otherwise instructed by your surgeon, you may consume water, Gatorade, Powerade, black coffee/tea(no milk, no cream/creamers, no sugar) up to two hours prior to your scheduled arrival time. No exceptions or substitutions to these restrictions. Do not smoke, vape, or use any type of tobacco or marijuana products within 24 hours prior to surgery. Smoking will also slow your rate of healing. It is advised that you do not smoke during the healing process. No alcohol 24 hours prior to surgery. Video Manager It is important to have a Video Manager, someone who is 18 years or older, to accompany you and remain in the facility for the duration of your surgery. This person should be available for the Perioperative Team, which includes your surgeon, to communicate with before, during and after your surgery. Because you are receiving anesthesia, someone is needed to drive you home and remain with you for at least 24 hours after surgery to make sure you are safe during that time We also recommend that no children be present on the day of surgery. If you have a concern, please reach out to our department [phone]. Hygiene [place] your teeth and gargle the morning of surgery. Shower the morning of surgery or the night before. Do not wear makeup (including eye makeup) lotion, powder, deodorant, perfume, or cologne. Do not shave the operative extremity or near the operative area. Remove nail togolese prior to surgery. This includes artificial nails and gel nail togolese. Personal Items Wear clean, simple, loose-fitting clothing (no jeans) and sturdy shoes (no flip flops, slides or crocs) to the hospital. Do not bring unnecessary valuables with you. It is policy that [facility] does not assume responsibility for lost, stolen or broken personal items that are brought in. Exceptions may be consideredfor items which are considered necessary for your healthcare. These items will be formally documented. Remove all jewelry prior to surgery to prevent injury. We will not tape wedding rings/bands If you have dentures, they may need to be removed before going into the operating room. We will have a case for them. Glasses and contacts will need to be removed prior to surgery. Please bring a case for them. Bring with You Bring a copy of your Living Will and/or Durable Power of Maternity Floor Supervisor for Healthcare. Notify the Surgeon Notify your surgeon if you develop any illness (fever, cold, cough, sore throat, nausea, vomiting, skin rashes etc.) between now and surgery time Notify your surgeon and Pre-admission testing ([phone]) if you have any changes in your healthconditions or if any new medications are ordered between now and surgery.. Questions or Concerns? If you have any questions or concerns, feel free to call the Pre-Admission testing department at [phone]. We want to make sure you feel safe and have an excellent experience while you are here. Do not reply to this message through [employer] as it may not be answered promptly. Same Day [facility] [place] at [phone]; [facility]: Main Entrance 1A, stop at front end developer designer and you will be sent to [address], [facility] [place] [address]. DOORS OPEN AT 6:00 AM SAT-SAT AND 6:30 AM ON SATURDAY Surgical Site Infections FAQs What is a Surgical Site Infection (SSI)? A surgical site infection is an infection that occurs after surgery in the part of the body where the surgery took place. Most patients who have surgery do not develop an infection. However, infections develop in about 1 to 3 out of every 100 patients who have surgery. Some of the common symptoms of a surgical site infection are: Redness and pain around the area where you had surgery Drainage of cloudy fluid from your surgical wound. Fever Can SSIs be treated? Yes. Most surgical site infections can be treated with antibiotics. The antibiotic given to you depends on the bacteria (germs) causing the infection. Sometimes patients with SSIs also need another surgery to treat the infection. What are some of the things that hospitals are doing to prevent SSIs? To prevent SSIs, doctors, nurses, and other healthcare providers: Clean their hands and arms up to their elbows with an antiseptic agent just before the surgery. Clean their hands with soap and water or an alcohol-based hand rub before and after caring for eachpatient. May remove some of your hair immediately before your surgery using electric clippers if the hair isin the same area where the procedure will occur. They should not shave you with a razor. Wear special hair covers, masks, gowns, and gloves during surgery to keep the surgery area clean. Give you antibiotics before your surgery starts. In most cases, you should get antibiotics within 60 minutes before the surgery starts and the antibiotics should be stopped within 24 hours after surgery. Clean the skin at the site of your surgery with a special soap that kills germs. What can I do to help prevent SSIs? Before your surgery: Tell your doctor about other medical problems you may have. Health problems such as allergies, diabetes, and obesity could affect your surgery and your treatment. Quit smoking. Patients who smoke get more infections. Talk to your doctor about how you can quit before your surgery. Do not shave near where you will have surgery. Shaving with a razor can irritate your skin and makeit easier to develop an infection. At the time of your surgery: Speak up if someone tries to shave you with a razor before surgery. Ask why you need to be shaved and talk with your surgeon if you have any concerns. Ask if you will get antibiotics before surgery. After your surgery: Make sure that your healthcare providers clean their hands before examining you, either with soap and water or an alcohol-based hand rub. If you do not see your providers clean their hands, please ask them to do so. Family and friends who visit you should not touch the surgical wound or dressings. Family and friends should clean their hands with soap and water or an alcohol- based hand rub beforeand after visiting you. If you do not see them clean their hands, ask them to clean their hands. What do I need to do when I go home from the hospital? Before you go home, your doctor or nurse should explain everything you need to know about taking care of your wound. Make sure you understand how to care for your wound before you leave the hospital. Always clean your hands before and after caring for your wound. Before you go home, make sure you know who to contact if you have questions or problems after you get home. If you have any symptoms of an infection, such as redness and pain at the surgery site, drainage, or fever, call your doctor immediately. If you have additional questions, please ask your doctor or nurse. Developed and co-sponsored by The Society for Healthcare Epidemiology of [place] (WELLS); InfectiousDiseases Society of [place] (IDSA); [place] [facility] [employer]; Association for Professionals inInfection Control and Epidemiology (APIC); Centers for Disease Control and Prevention (CDC); and The Joint Commission. This information is not intended to replace advice given to you by your health care provider. Make sure you discuss any questions you have with your health care provider. , ANESTHESIA - COMMON SIDE EFFECTS (if present, these should resolve within 24 hours) TIREDNESS SHIVERING DIZZINESS DRY MOUTH MILD NAUSEA/VOMITING SORE THROAT OR HOARSENESS MILD PAIN OR DISCOMFORT IS NORMAL CALL THE SURGEON DAY OR NIGHT You have nausea or vomiting that doesn???t go away by the next morning. You experience severe pain not relieved by suggested medications. Thank you for letting us care for you. documented in this encounter Plan of Treatment Upcoming Encounters Date Type Department Care Team (Late st Contact Info) Description 12/29/2024 1:00 PM EDT Office Visit [facility] [address] [id number] Evangelina Cook PA-C [address] [place] [address] documented as of this encounter Procedures Procedure Name Priority Date/Time Associated Diagnosis Comments SCANNED RHYTHM STRIPS 11/17/2024 9:05 AM EDT GLUCOSE METER POC Routine 11/16/2024 1:2 5 PM EDT PATHOLOGY TISSUE REQUEST Routine 025 12:48 PM EDT Complication of implanted vaginal mesh, initial encounter LA CYSTOURETHROSCOPY 11/16/2024 12:07 PM EDT Complication of implanted vaginal mesh, initial encounter Special Needs sk [place] RMVL/REVJ SLING STRESS INCONTINENCE 11/16/2024 12:07 PM EDT Complication of implanted vaginal mesh, initial encounter Special Needs sk GLUCOSE METER POC Routine 11/16/2024 10:08 AM EDT documented in this encounter Results * SCANNED RHYTHM STRIPS (11/17/2024 9:05 AM EDT) Anatomical Region Laterality Modality Other 11/17/2024 9:05 AM EDT us Unknown Provider IMG ECG ORDERABLES Final Result * (ABNORMAL) GLUCOSE METER POC (11/16/2024 1:25 PM EDT) Glucose Meter POC 134(H) 70 - 100 mg/dL 11/16/2024 1:27 PM EDT [facility] Sample Type Capillary 11/16/2024 1:27 PM EDT [facility] Patient Status Non-Critical Patient 11/16/2024 1:27 PM EDT [facility] Blood BLOOD SPECIMEN / Unknown 11/16/2024 1:25 PM EDT 11/16/2024 1:27 PM EDT Shahnaz Hess MD POINT OF CARE TEST ORDE JALEELDORIE Final Result [facility] [address] [place] [address] * PATHOLOGY TISSUE REQUEST (11/16/2024 12:48 PM EDT) Pathologist [facility] CASE REPORT Surgical Pathology Case: [id number] Authorizing Provider: Shahnaz Hess MD Collected: 11/16/2024 1248 Ordering Location: [facility] SURGERY Received: 11/16/2024 1937 Pathologist: Jaqueline Huang MD Specimen: Vagina, mesh 11/17/2024 3:45 PM EDT [facility] FINAL DIAGNOSIS Mesh, removal: - Gross examination only. 11/17/2024 3:45 PM EDT [facility] at 1545 EDT GROSS DESCRIPTION The specimen is received in form, labeled with the patient's name, medical record number, and mesh . It consists of 3 irregular fragments of blue mesh material with adherent, embedded pink-purple tissue, ranging from 0.7 x 0.5 x 0.2 cm to 2.4 x 0.6 x 0.2 cm. No sections are submitted for intraoperative consultation. RENETTA Turner PA([facility]) 11/17/2024 11/17/2024 3:45 PM EDT [facility] EMBEDDED IMAGES 11/17/2024 3:45 PM EDT [facility] Arts Administrator VAGINAL STRUCTURE / Unknown 11/16/2024 12:48 PM EDT 11/16/2024 7:37 PM EDT Shahnaz Hess MD PATHOLOGY ORDERABLES Fi nal Result [facility] [address] [place] [id number] * (ABNORMAL) GLUCOSE METER POC (11/16/2024 10:08 AM EDT) Glucose Meter POC 175(H) 70 - 100 mg/dL 11/16/2024 10:09 AM EDT [facility] Sample Type Capillary 11/16/2024 10:09 AM EDT [facility] Patient Status Non-Critical Patient 11/16/2024 10:09 AM EDT [facility] Blood BLOOD SPECIMEN / Unknown 11/16/2024 10:08 AM EDT 11/16/2024 10:09 AM EDT Shahnaz Hess MD POINT OF CARE TEST ORDE RABLES Final Result Performing Organization Address City/[facility] Co de Phone Number [facility] [address] [place] [id number] documented in this encounter Visit Diagnoses Diagnosis Complication of implanted vaginal mesh, initial encounter- Primary Complication of implanted vaginal mesh, initial encounter Exposure of implanted vaginal mesh, subsequent encounter documented in this encounter Admitting Diagnoses Diagnosis Complication of implanted vaginal mesh, initial encounter documented in this encounter Administered Medications Inactive Administered Medications - up to 1 most recent administrations Medication Order MAR Action Action Date Dose Rate Site acetaminophen (TYLENOL) tablet 1,000 mg 1,000 mg, Oral, PREPROCEDURE, 1 dose, Starting on Sat11/16/24 at 1004, Until Sat11/16/24 at 1105, Coanalgesic, Do not give if patient received acetaminophen within the last 6 hours Maximum adult dose of acetaminophen is 4000 mg from all sources in 24 hours., Pre-op (Holding/SDS Meds) Given 11/16/2024 11:05 AM EDT 1,000 mg aprepitant (EMEND) capsule 40 mg 40 mg, Oral, ONCE PREPROCEDURE, 1 dose, On Sat11/16/24 at 1015, Pre-op (Holding/SDS Meds) Given 11/16/2024 11:05 AM EDT 40 mg dimenhyDRINATE (DRAMAMINE) 12.5-25 mg in sodium chloride 0.9% injection 12.5-25 mg, Intravenous, PRN, Starting on Sat11/16/24 at 1257, Until Sat11/16/24 at 2013, Nausea, Third Line Antiemetic, For persistent nausea unrelieved by other antiemetics. Begin with lowest dose unless otherwise directed. Give remainder of dose if nausea unrelieved in 20 minutes. May give total of two doses if needed. dilute each 50 mg with 10 mL 0.9% saline for IV use, PACU droPERidol (INAPSINE) injection 0.625 mg 0.625 mg, Intravenous, PRN, Starting on Sat11/16/24 at 1257, Until Sat11/16/24 at 2013, Nausea, First Line Antiemetic, If unable to give Zofran. Give second dose if nausea unrelieved in 10 minutes. May give total of two doses if needed., PACU fentaNYL (SUBLIMAZE) injection 25 mcg 25 mcg, Intravenous, EVERY 5 MIN PRN, Starting on Sat11/16/24 at 1257, Until Sat11/16/24 at 2013, Pain, For initial pain. Maximum dose not to exceed 100 mcg., PACU Given 11/16/2024 1:41 PM EDT 25 mcg HYDROmorphone (DILAUDID) injection 0.5 mg 0.5 mg, Intravenous, EVERY 10 MIN PRN, 4 doses, Starting on Sat11/16/24 at 1257, Until Sat11/16/24 at 2013, Breakthrough Pain, Do not exceed 2 mg in one hour unless otherwise ordered by the Anesthesia Coordinator For pain unrelieved by fentanyl or oral opioid, PACU Given 11/16/2024 2:32 PM EDT 0.25 mg insulin aspart U-100 (NovoLOG) injection 1-10 Units 1-10 Units, Subcutaneous, PREPROCEDURE, 1 dose, Starting on Sat11/16/24 at 1030, Until Sat11/16/24 at 1105, Other, Pre-op Hyperglycemia Correction, Type 2 DM weighing at least 80kg: FSBS Correction 121-149 1 unit 150-199 2 units 200-250 4 units 251-300 6 units 301-350 8 units 351-400 10 units Greater than 400___notify anesthesiologist Waste Sort Code = BLACK RCRA Hazardous Waste Container, Pre-op (Holding/SDS Meds) Given 11/16/2024 11:05 AM EDT 2 Units Left Arm lactated ringers infusion Intravenous, at 50 mL/hr, PREPROCEDURE CONTINUOUS, Starting on Sat11/16/24 at 1004, Until Sat11/16/24 at 2013, To be given in SDS/Pre-op Holding Area, Pre-op (Holding/SDS Meds) New Bag 11/16/2024 12:11 PM EDT meperidine (DEMEROL) injection (PF) 12.5 mg 12.5 mg, Intravenous, ONCE PRN, 1 dose, Starting on Sat11/16/24 at 1257, Until Sat11/16/24 at 2013, Shivering, Shivering, unless otherwise ordered by Anesthesia Coordinator, PACU metoprolol succinate ER (TOPROL-XL) XL tablet 200 mg 200 mg, Oral, DAILY, 1 dose, First dose on Sat11/16/24 at 1330, May divide tablets in half; do not crush or chew., PACU Given 11/16/2024 1:28 PM EDT 200 mg ondansetron (ZOFRAN) injection 4 mg 4 mg, Intravenous, ONCE PRN, 1 dose, Starting on Sat11/16/24 at 1257, Until Sat11/16/24 at 2013, Nausea, First Line Antiemetic, Do not give if patient received granisetron (Kytril) or ondansetron (Zofran) within 4 hours., PACU ondansetron (ZOFRAN-ODT) disintegrating tablet 8 mg 8 mg, Oral, ONCE PRN, 1 dose, Starting on Sat11/16/24 at 1257, Until Sat11/16/24 at 2013, Nausea, First Line Antiemetic, Do not give if patient received granisetron (Kytril) or ondansetron (Zofran) within 4 hours., PACU oxyCODONE (ROXICODONE) immediate release tablet 5 mg 5 mg, Oral, EVERY 1 HOUR PRN, Starting on Sat11/16/24 at 1257, Until Sat11/16/24 at 2013, Pain, When tolerating oral intake. Maximum dose not to exceed 10 mg unless otherwise directed by the Anesthesia Coordinator., PACU Given 11/16/2024 2:35 PM EDT 5 mg phenazopyridine (PYRIDIUM) tablet 200 mg 200 mg, Oral, ONCE, 1 dose, On Sat11/16/24 at 1015, 1 tab po when patient is checked in with small sip of water., Pre-op (Nursing), Dx: 1. Complication of implanted vaginal mesh, initial encounter 2. Exposure of implanted vaginal mesh, subsequent encounterIndications:Complicati on of implanted vaginal mesh, initial encounter,Exposure of implanted vaginal mesh, subsequent encounter Given 11/16/2024 11:05 AM EDT 200 mg promethazine (PHENERGAN) 12.5 mg in sodium chloride 0.9% 10 mL injection 12.5 mg, Intravenous, PRN, Starting on Sat11/16/24 at 1257, Until Sat11/16/24 at 2013, Nausea, Second Line Antiemetic, For nausea unrelieved by droperidol or pre-op antiemetic. Begin with lowest dose unless otherwise directed. Give remainder of dose if nausea unrelieved in 20 minutes. Not to exceed 25 mg in one hour unless otherwise ordered by Anesthesia Coordinator. VESICANT , PACU promethazine (PHENERGAN) 6.25 mg in sodium chloride 0.9% 10 mL injection 6.25 mg, Intravenous, PRN, Starting on Sat11/16/24 at 1257, Until Sat11/16/24 at 2013, Nausea, Second Line Antiemetic, For nausea unrelieved by droperidol or pre-op antiemetic. Begin with lowest dose unless otherwise directed. Give remainder of dose if nausea unrelieved in 20 minutes. Not to exceed 25 mg in one hour unless otherwise ordered by Anesthesia Coordinator. VESICANT , PACU documented in this encounter Discontinued Medications Medication Sig Discontinue Reason Start Date End Da te fluconazole (DIFLUCAN) 100 mg Oral Tablet Take 100 mg by mouth. DELETE-Therapy completed 05/26/2019 11/06/2024 TRULICITY 1.5 mg/0.5 mL SubQ Pen Injector INJECT CONTENTS OF 1 SYRINGE WEEKLY DIRECTED DELETE-Therapy completed 11/06/2024 cefUROXime (CEFTIN) 500 mg Oral Tablet DELETE-Therapy completed 08/06/2023 11/06/2024 cefdinir (OMNICEF) 300 mg Oral Capsule DELETE-Therapy completed 08/22/2023 11/06/2024 ibuprofen (ADVIL;MOTRIN) 600 mg Oral Tablet DELETE-Therapy completed 06/17/2023 11/06/2024 ciprofloxacin HCl (CIPRO) 250 mg Oral Tablet DELETE-Therapy completed 06/04/2023 11/06/2024 triamcinolone (KENALOG) 0.1 % Top Cream DELETE-Therapy completed 08/22/2023 11/06/2024 Cholecalciferol, Vitamin D3, 50 mcg (2,000 unit) Oral Capsule Take 2,000 Units by mouth. DELETE-Therapy completed 05/26/2019 11/06/2024 documented as of this encounter Historical Medications * This list may reflect changes made after this encounter. acetaminophen (TYLENOL) 500 mg Oral Tablet Take 500 mg by mouth every 4 hours as needed for Pain. added in this encounter Active and Recently Administered Medications Times are shown in EDT. Scheduled Medication Order 11/14/2024 11/15/2024 11/16/2024 acetaminophen (TYLENOL) tablet 1,000 mg 1,000 mg, Oral, ONCE, 1 dose, On Sat11/16/24 at 1300, Do not give if patient received acetaminophen within the last 6 hours Maximum adult dose of acetaminophen is 4000 mg from all sources in 24 hours., PACU 1300 (Not Given - Pr ovider: Allyson Clay RN - Reason: Contraindicated - Comment: Pt recieved pre-op) aprepitant (EMEND) capsule 40 mg (COMPLETED) 40 mg, Oral, ONCE PREPROCEDURE, 1 dose, On Sat11/16/24 at 1015, Pre-op (Holding/SDS Meds) 1105 (Given - Provid er: Brenna Griffith RN) clindamycin in 5 % dextrose (CLEOCIN) IVPB 900 mg (COMPLETED) 900 mg, Intravenous, ONCE, 1 dose, On Sat11/16/24 at 1015, Administer over 60 Minutes, Reason for Therapy: Surgical Prophylaxis 1211 (Given - Provid er: Mario Vazquez CRNA) gentamicin (GARAMYCIN) 360 mg in dextrose 5% 100 mL IVPB (COMPLETED) 360 mg (rounded from 351 mg = 5 mg/kg 70.2 kg Adjusted weight), Intravenous, ONCE, 1 dose, On Sat11/16/24 at 1015, Administer over 60 Minutes, Reason for Therapy: Surgical Prophylaxis 1224 (New Bag - Prov ider: Mario Vazquez CRNA) metoprolol succinate ER (TOPROL-XL) XL tablet 200 mg (COMPLETED) 200 mg, Oral, DAILY, 1 dose, First dose on Sat11/16/24 at 1330, May divide tablets in half; do not crush or chew., PACU 1328 (Given - Provid er: Allyson Clay RN) phenazopyridine (PYRIDIUM) tablet 200 mg (COMPLETED) 200 mg, Oral, ONCE, 1 dose, On Sat11/16/24 at 1015, 1 tab po when patient is checked in with small sip of water., Pre-op (Nursing), Dx: 1. Complication of implanted vaginal mesh, initial encounter 2. Exposure of implanted vaginal mesh, subsequent encounter 1105 (Given - Provid er: Brenna Griffith RN) PRN Medication Order 11/14/2024 11/15/2024 11/16/2024 acetaminophen (TYLENOL) tablet 1,000 mg (COMPLETED) 1,000 mg, Oral, PREPROCEDURE, 1 dose, Starting on Sat11/16/24 at 1004, Until Sat11/16/24 at 1105, Coanalgesic, Do not give if patient received acetaminophen within the last 6 hours Maximum adult dose of acetaminophen is 4000 mg from all sources in 24 hours., Pre-op (Holding/SDS Meds) 1105 (Given - Provid er: Brenna Griffith RN) dimenhyDRINATE (DRAMAMINE) 12.5-25 mg in sodium chloride 0.9% injection 12.5-25 mg, Intravenous, PRN, Starting on Sat11/16/24 at 1257, Until Sat11/16/24 at 2013, Nausea, Third Line Antiemetic, For persistent nausea unrelieved by other antiemetics. Begin with lowest dose unless otherwise directed. Give remainder of dose if nausea unrelieved in 20 minutes. May give total of two doses if needed. dilute each 50 mg with 10 mL 0.9% saline for IV use, PACU droPERidol (INAPSINE) injection 0.625 mg 0.625 mg, Intravenous, PRN, Starting on Sat11/16/24 at 1257, Until Sat11/16/24 at 2013, Nausea, First Line Antiemetic, If unable to give Zofran. Give second dose if nausea unrelieved in 10 minutes. May give total of two doses if needed., PACU fentaNYL (SUBLIMAZE) injection 25 mcg 25 mcg, Intravenous, EVERY 5 MIN PRN, Starting on Sat11/16/24 at 1257, Until Sat11/16/24 at 2013, Pain, For initial pain. Maximum dose not to exceed 100 mcg., PACU 1320 (Given - Provid er: Allyson Clay RN)1330 (Given - Provider: Allyson Clay RN)1336 (Given - Provider: Allyson Clay RN)1341 (Given - Provider: Allyson Clay RN) HYDROmorphone (DILAUDID) injection 0.5 mg 0.5 mg, Intravenous, EVERY 10 MIN PRN, 4 doses, Starting on Sat11/16/24 at 1257, Until Sat11/16/24 at 2013, Breakthrough Pain, Do not exceed 2 mg in one hour unless otherwise ordered by the Anesthesia Coordinator For pain unrelieved by fentanyl or oral opioid, PACU 1405 (Given - Provid er: Allyson Clay RN)1432 (Given - Provider: Nahomi Madison RN - Comment: Guarded spo2) insulin aspart U-100 (NovoLOG) injection 1-10 Units (COMPLETED) 1-10 Units, Subcutaneous, PREPROCEDURE, 1 dose, Starting on Sat11/16/24 at 1030, Until Sat11/16/24 at 1105, Other, Pre-op Hyperglycemia Correction, Type 2 DM weighing at least 80kg: FSBS Correction 121-149 1 unit 150-199 2 units 200-250 4 units 251-300 6 units 301-350 8 units 351-400 10 units Greater than 400___notify anesthesiologist Waste Sort Code = BLACK RCRA Hazardous Waste Container, Pre-op (Holding/SDS Meds) 1105 (Given - Provid er: Brenna Griffith RN) labetaloL (NORMODYNE) injection 10 mg 10 mg, Intravenous, EVERY 10 MIN PRN, 2 doses, Starting on Sat11/16/24 at 1314, Until Sat11/16/24 at 2013, High Blood Pressure, for SBP >180 or DBP > 100, Blood Pressure options: SBP greater than (>) 180, PACU lactated ringers infusion Intravenous, at 50 mL/hr, PREPROCEDURE CONTINUOUS, Starting on Sat11/16/24 at 1004, Until Sat11/16/24 at 2013, To be given in SDS/Pre-op Holding Area, Pre-op (Holding/SDS Meds) 1104 (New Bag - Prov ider: Brenna Griffith RN)1210 (IV Paused - Provider: Mario Vazquez CRNA - Comment: Switch to gravity)1211 (New Bag - Provider: Mario Vazquez CRNA)1258 (Anesthesia Volume Adjustment - Provider: Mario Vazquez CRNA)1552 (Stopped - Provider: Marsha Day RN - Comment: [Order ends at this time. Document the following action when infusion is complete: Stopped]) lidocaine-EPINEPHrine 1 %-1:100,000 injection (CANCELED) INTRAPROCEDURE, Starting on Sat11/16/24 at 1248, Until Sat11/16/24 at 1614, Intra-op 1248 (Given - Provid er: Shahnaz Hess MD) meperidine (DEMEROL) injection (PF) 12.5 mg 12.5 mg, Intravenous, ONCE PRN, 1 dose, Starting on Sat11/16/24 at 1257, Until Sat11/16/24 at 2014, Shivering, Shivering, unless otherwise ordered by Anesthesia Coordinator, PACU ondansetron (ZOFRAN) injection 4 mg(Linked Group 1) 4 mg, Intravenous, ONCE PRN, 1 dose, Starting on Sat11/16/24 at 1257, Until Sat11/16/24 at 2013, Nausea, First Line Antiemetic, Do not give if patient received granisetron (Kytril) or ondansetron (Zofran) within 4 hours., PACU ondansetron (ZOFRAN-ODT) disintegrating tablet 8 mg(Linked Group 1) 8 mg, Oral, ONCE PRN, 1 dose, Starting on Sat11/16/24 at 1257, Until Sat11/16/24 at 2013, Nausea, First Line Antiemetic, Do not give if patient received granisetron (Kytril) or ondansetron (Zofran) within 4 hours., PACU oxyCODONE (ROXICODONE) immediate release tablet 5 mg 5 mg, Oral, EVERY 1 HOUR PRN, Starting on Sat11/16/24 at 1257, Until Sat11/16/24 at 2013, Pain, When tolerating oral intake. Maximum dose not to exceed 10 mg unless otherwise directed by the Anesthesia Coordinator., PACU 1335 (Given - Provid er: Allyson Clay RN)1435 (Given - Provider: Nahomi Madison RN) promethazine (PHENERGAN) 12.5 mg in sodium chloride 0.9% 10 mL injection(Linked Group 2) 12.5 mg, Intravenous, PRN, Starting on Sat11/16/24 at 1257, Until Sat11/16/24 at 2013, Nausea, Second Line Antiemetic, For nausea unrelieved by droperidol or pre-op antiemetic. Begin with lowest dose unless otherwise directed. Give remainder of dose if nausea unrelieved in 20 minutes. Not to exceed 25 mg in one hour unless otherwise ordered by Anesthesia Coordinator. VESICANT , PACU promethazine (PHENERGAN) 6.25 mg in sodium chloride 0.9% 10 mL injection(Linked Group 2) 6.25 mg, Intravenous, PRN, Starting on Sat11/16/24 at 1257, Until Sat11/16/24 at 2013, Nausea, Second Line Antiemetic, For nausea unrelieved by droperidol or pre-op antiemetic. Begin with lowest dose unless otherwise directed. Give remainder of dose if nausea unrelieved in 20 minutes. Not to exceed 25 mg in one hour unless otherwise ordered by Anesthesia Coordinator. VESICANT , PACU Linked Groups Order Group 1: ondansetron (ZOFRAN) injection 4 mgJump to med 4 mg, Intravenous, ONCE PRN, 1 dose, Starting on Sat11/16/24 at 1257, Until Sat11/16/24 at 2013, Nausea, First Line Antiemetic, Do not give if patient received granisetron (Kytril) or ondansetron (Zofran) within 4 hours., PACU Or ondansetron (ZOFRAN-ODT) disintegrating tablet 8 mgJump to med 8 mg, Oral, ONCE PRN, 1 dose, Starting on Sat11/16/24 at 1257, Until Sat11/16/24 at 2013, Nausea, First Line Antiemetic, Do not give if patient received granisetron (Kytril) or ondansetron (Zofran) within 4 hours., PACU Group 2: promethazine (PHENERGAN) 6.25 mg in sodium chloride 0.9% 10 mL injectionJump to med 6.25 mg, Intravenous, PRN, Starting on Sat11/16/24 at 1257, Until Sat11/16/24 at 2013, Nausea, Second Line Antiemetic, For nausea unrelieved by droperidol or pre-op antiemetic. Begin with lowest dose unless otherwise directed. Give remainder of dose if nausea unrelieved in 20 minutes. Not to exceed 25 mg in one hour unless otherwise ordered by Anesthesia Coordinator. VESICANT , PACU Or promethazine (PHENERGAN) 12.5 mg in sodium chloride 0.9% 10 mL injectionJump to med 12.5 mg, Intravenous, PRN, Starting on Sat11/16/24 at 1257, Until Sat11/16/24 at 2013, Nausea, Second Line Antiemetic, For nausea unrelieved by droperidol or pre-op antiemetic. Begin with lowest dose unless otherwise directed. Give remainder of dose if nausea unrelieved in 20 minutes. Not to exceed 25 mg in one hour unless otherwise ordered by Anesthesia Coordinator. VESICANT , PACU documented in this encounter Orders Medications Ordered That Calos ht Not Have Been Administered Count Last Ordered Date First Ordered Date acetaminophen (TYLENOL) tablet 1,000 mg 1 0 11/16/2024 ceFAZolin (ANCEF) IVPB 2 g 1 11/16/2024 clindamycin in 5 % dextrose (CLEOCIN) IVPB 900 mg 1 11/16/2024 dimenhyDRINATE (DRAMAMINE) 1 2.5-25 mg in sodium chloride 0.9% injection 1 11/16/2024 droPERidol (INAPSINE) injection 0.625 mg 1 11/16/2024 gentamicin (GARAMYCIN) 360 m g in dextrose 5% 100 mL IVPB 1 11/16/2024 labetaloL (NORMODYNE) injection 10 mg 1 lidocaine-EPINEPHrine 1 %-1: 100,000 injection 1 11/16/2024 meperidine (DEMEROL) injecti on (PF) 12.5 mg 1 11/16/2024 ondansetron (ZOFRAN) injection 4 mg 1 11/16 ondansetron (ZOFRAN-ODT) dis integrating tablet 8 mg 1 11/16/2024 promethazine (PHENERGAN) 12. 5 mg in sodium chloride 0.9% 10 mL injection 1 11/16/2024 promethazine (PHENERGAN) 6.2 5 mg in sodium chloride 0.9% 10 mL injection 1 11/16/2024 Discharge Count Last Ordered Date First Orde red Date DISCHARGE PATIENT 1 11/16/2024 documented in this encounter Care Teams Architecture Internship Relationship Specialty Start Date End Date Tj Sweeney MD [address] [place] [id number] PCP - General Family Medicine 12/05/23 documented as of this encounter
--- OUTSIDE RECORDS SUMMARY | 2024-11-16 12:00 | XMS_ITS | Encounter Summary ---
Author Organization [place] [address] Care Team Providers Care Deputy Program Manager Name Role Phone Tj Sweeney MD Primary Care Provider + [phone] Reason for Visit * Auth/Cert/Inpt Specialty Diagnoses / Procedures Referred By Tangela torres Referred To Contact Diagnoses Complication of implanted vaginal mesh, initial encounter Complication of implanted vaginal mesh, initial encounter [T85.9XXA] Procedures [place] RMVL/REVJ SLING STRESS INCONTINENCE [place] CYSTOURETHROSCOPY Bladder Mesh Excision, Cystoscopy . Referral ID Status Reason Start Date Expiration Date Visits Re quested Visits Authorized [id number] 1 1 Encounter Details Date Type Department Care Team (Late st Contact Info) Description 11/16/2024 12:00 PM EDT - 11/16/2024 1:05 PM EDT Surgery [facility] PERIOP [address] [place] [address] Shahnaz Hess MD [address] [place] [address] [id number] REMOVAL OF VAGINAL SLING OR MESH (TOT-TRANSOBTURATOR [...] from the original note were not included. [facility] Shahnaz Hess MD [facility] PA-C [address] [place] [address], [id number] Thank you for allowing us to care for you! It was a [facility] taking care of you during [facility]! Dr. Hodge and her team are always available for any questions or concerns after your surgery. As always, you can reach our staff during normal business hours by using the [employer] experience to send us an email at: [email or web address] FOLLOW UP APPOINTMENTS Upon leaving the hospital, you should call [phone] during normal business hours to schedule follow-up appointments. You will need to be seen for the following: If you go home with a catheter, call to schedule a nurse visit in the office in 2 days (or, if yoursurgery is on a , catheter removal would be the following Saturday) Six-week follow-up with Rosa Cook PA-C (Dr. Hodge's Physician Clinical Engineer) WHAT MEDICATIONS CAN I TAKE? After surgery [...] a single multivitamin, which you can buy [employer]. Drink lots of fluids - about EIGHT [...] call: (7:30 a.m. to 4:00 p.m. Saturday-Saturday) [facility] For non-life threatening emergencies only outside of normal business hours, please call the above number and follow prompts for the triage nurse. They will forward any urgent matters to the doctor carlos. For any life-threatening emergencies call [phone]. +++++++++++++++++++++++++++++++++++++++++++++++++++++++++++++++++++ [facility] Discharge Instructions - Following Anesthesia We [...] our office at . Get Well Soon! [place] Anesthesia +++++++++++++++++++++++++++++++++++++++++++++++++++++++++++++++++++ documented in this encounter Medications [...] NP - 11/16/2024 9:[address] [facility] History and Physical Name: [facility] ADDRESS: [address] [place] [address] [place] [address] : 1950 AGE: 74 y.o. Assessment: Complication [...] nursing note reviewed. Exam conducted with a ammunition officer present. Constitutional: General: She is not in [...] Thought Content: Thought content normal. Labs:Reviewed Radiology: EKG:[facility] Test Date: 2023-12-12 Pat Name: [facility] Department: DEPID Room: [facility] Gender: Female Nutrition Therapist: Nakul : 1950 Requested By: JUAN ADORNO Order Number: [id number] Reading MD: Rogers Moore Measurements Intervals Aurora Rate: 68 P: 33 TN: 189 QRS: 6 QRSD: 98 T: 45 [...] Role: * Shahnaz Hess MD - Primary TAX MANAGER CPA(S): OR staff ANESTHESIA: General SPECIMENS: ID Type Source Tests Collected by Time Destination 1 : mesh Belt Worker Vagina PATHOLOGY TISSUE REQUEST Shahnaz Hess MD [...] placed in the dorsal lithotomy position in [facility]. She was prepped and draped in the [...] Hess MD - 11/16/2024 12:56 PM EDT [facility] OPERATIVE/PROCEDURE NOTE Randi Montes November 16, 2024 Body mass index is 35.87 kg/m??. PRE-OP DIAGNOSIS: Complication of implanted vaginal mesh, initial encounter [T85.9XXA] POST-OP DIAGNOSIS: Complication of implanted vaginal mesh, initial encounter [T85.9XXA] PROCEDURE(S): Procedure(s): Bladder Mesh Excision, Cystoscopy . SURGEON(S): Surgeons and Role: * Shahnaz Hess MD - Primary TAX MANAGER CPA(S): OR staff ANESTHESIA: General SPECIMENS: ID Type Source Tests Collected by Time Destination 1 : mesh Belt Worker Vagina PATHOLOGY TISSUE REQUEST Shahnaz Hess MD [...] or Zepbound) 7 days prior to surgery. [facility] DIABETIC INSTRUCTIONS-ORAL MEDS: Day before Surgery:Take [...] No alcohol 24 hours prior to surgery. Whizzer It is important to have a Whizzer, someone who is 18 years or older, [...] concern, please reach out to our department [phone]. Hygiene [place] your teeth and gargle the morning of surgery. Shower the morning of surgery or the night before. Do not wear makeup (including eye makeup) lotion, powder, deodorant, perfume, or cologne. Do not shave the operative extremity or near the operative area. Remove nail portuguese prior to surgery. This includes artificial nails and gel nail portuguese. Personal Items Wear clean, simple, loose-fitting clothing (no jeans) and sturdy shoes (no flip flops, slides or crocs) to the hospital. Do not bring unnecessary valuables with you. It is policy that [facility] does not assume responsibility for lost, stolen [...] your Living Will and/or Durable Power of Dividend Deposit Entry Clerk for Healthcare. Notify the Surgeon Notify your surgeon if you develop any illness (fever, cold, cough, sore throat, nausea, vomiting, skin rashes etc.) between now and surgery time Notify your surgeon and Pre-admission testing ([phone]) if you have any changes in your healthconditions or if any new medications are ordered between now and surgery.. Questions or Concerns? If you have any questions or concerns, feel free to call the Pre-Admission testing department at [phone]. We want to make sure you feel safe and have an excellent experience while you are here. Do not reply to this message through [employer] as it may not be answered promptly. Same Day Surgery Unit - [facility] at [phone]; FTT: Main Entrance 1A, stop at manager front and you will be sent to [address] [phone]. DOORS OPEN AT 6:00 AM SAT-SAT AND [...] [place] (WELLS); InfectiousDiseases Society of [place] (IDSA); [facility]; Association for Professionals inInfection Control [...] 1:00 PM EDT Office Visit [facility] [address] [phone] Evangelina Cook PA-C [address] [place] [address] documented as of this encounter Procedures Procedure Name Priority Date/Time Associated Diagnosis Comments SCANNED RHYTHM STRIPS 11/17/2024 9:05 AM EDT GLUCOSE METER POC Routine 11/16/2024 1:2 5 PM EDT PATHOLOGY TISSUE REQUEST Routine 025 12:48 PM EDT Complication of implanted vaginal mesh, initial encounter TN CYSTOURETHROSCOPY 11/16/2024 12:07 PM EDT Complication of implanted vaginal mesh, initial encounter Special Needs sk [place] RMVL/REVJ SLING STRESS INCONTINENCE 11/16/2024 12:07 PM [...] - 100 mg/dL 11/16/2024 1:27 PM EDT [facility] Sample Type Capillary 11/16/2024 1:27 PM EDT [facility] Patient Status Non-Critical Patient 11/16/2024 1:27 PM EDT [facility] Blood BLOOD SPECIMEN / Unknown 11/16/2024 1:25 PM EDT 11/16/2024 1:27 PM EDT Shahnaz Hess MD POINT OF CARE TEST ORDMarv SCARLETT Final Result [facility] [address] [place] [address] * PATHOLOGY TISSUE REQUEST (11/16/2024 12:48 PM EDT) CASE REPORT Surgical Pathology Case: [id number] Authorizing Provider: Shahnaz Hess MD Collected: 11/16/2024 1248 Ordering Location: FTT SURGERY Received: 11/16/2024 193 Pathologist: Jaqueline Huang MD Specimen: Vagina, mesh 11/17/2024 3:45 PM EDT [facility] FINAL DIAGNOSIS Mesh, removal: - Gross examination only. 11/17/2024 3:45 PM EDT [facility] at 1545 EDT GROSS DESCRIPTION The [...] Turner, SONA(ASCP) 11/17/2024 11/17/2024 3:45 PM EDT [facility] EMBEDDED IMAGES 11/17/2024 3:45 PM EDT [facility] Belt Worker VAGINAL STRUCTURE / Unknown 11/16/2024 12:48 PM EDT 11/16/2024 7:37 PM EDT Shahnaz Hess MD PATHOLOGY ORDERABLES Fi nal Result Performing Organization Address [facility] [place] [address] * (ABNORMAL) GLUCOSE METER POC (11/16/2024 10:08 AM EDT) Glucose Meter POC 175(H) 70 - 100 mg/dL 11/16/2024 10:09 AM EDT [facility] Sample Type Capillary 11/16/2024 10:09 AM EDT [facility] Patient Status Non-Critical Patient 11/16/2024 10:09 AM EDT [facility] Blood BLOOD SPECIMEN / Unknown 11/16/2024 10:08 AM EDT 11/16/2024 10:09 AM EDT Shahnaz Hess MD POINT OF CARE TEST ORDE RABDORIE Final Result Performing Organization Address City/[facility]/ZIP Co de Phone Number [facility] [address] [place] [address] documented in this encounter Visit Diagnoses [...] 11/16/2024 documented in this encounter Care Teams Deputy Program Manager Relationship Specialty Start Date End Date Tj Sweeney MD [address] [place] [address] [place] [phone] PCP - General Family Medicine 12/05/23 documented as of this encounter
--- OUTSIDE RECORDS SUMMARY | 2024-11-16 12:11 | XMS_ITS | Encounter Summary ---
Author Organization [place] [address] Care Team Providers Care Soil Specialist Name Role Phone Tj Sweeney MD Primary Care Provider + [phone] Reason for Visit * Auth/Cert/Inpt Specialty Diagnoses / Procedures Referred By Tangela torres Referred To Contact Diagnoses Complication of implanted vaginal mesh, initial encounter Complication of implanted vaginal mesh, initial encounter [T85.9XXA] Procedures [place] RMVL/REVJ SLING STRESS INCONTINENCE [place] CYSTOURETHROSCOPY Bladder Mesh Excision, Cystoscopy . Referral ID Status Reason Start Date Expiration Date Visits Re quested Visits Authorized [id number] 1 1 Encounter Details Date Type Department Care Team (Late st Contact Info) Description 11/16/2024 12:11 PM EDT Anesthesia Event [facility] PERIOP [address] 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 Additional [...] * PAT Pre Evaluation for Anesthesia - Dima Sky APRN - 11/09/2024 4:31 PM EDT [...] Weekly dosing Diabetes mellitus: type 2 Anemia HOTEL YARDPERSON (+) 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 Additional [...] 1:00 PM EDT Office Visit [facility] [address] [address] Evangelina Cook PA-C [address] [place] [address] documented as of this encounter Procedures Procedure Name Priority Date/Time Associated Diagnosis Comments INTRAOP AIRWAY PLACEMENT Routine 11/16/2024 12:20 PM EDT documented in this encounter Results * INTRAOP AIRWAY PLACEMENT (11/16/2024 12:20 PM EDT) Narrative [facility] - 11/16/2024 12:20 PM EDT [...] Insertion attempts: 1 us Omar Davison MD [place] ANESTHESIA Final Result [facility] [address] [phone] documented in this encounter Visit Diagnoses Not [...] mg documented in this encounter Care Teams Soil Specialist Relationship Specialty Start Date End Date Tj Sweeney MD [address] [place] [phone] PCP - General Family Medicine 12/05/23 documented as of this encounter
--- OUTSIDE RECORDS SUMMARY | 2024-12-08 11:30 | XMS_ITS ---
Author Organization [facility] Address [address] [place] [id number] Care Team Providers Care [employer] Engineer Name Role Phone Tj Sweeney Primary Care Provider Meron Smith Unavailable [phone] Allergies Allergen (clinical drug ingredient) Drug/Non Drug Allergy documented on EMR Reaction Allergy Type Onset Date Status BEXTRA (uncoded) hyperventilate Allergy Active SLO-BID GYROCAPS (uncoded) Unknown Allergy Active cefdinir Cefdinir skin itching Drug Allergy Acti ve Penicillin Unknown Drug Allergy Active Results Component Value Reference Range Notes CBC Fingerstick (in house) Reviewed date:12/08/2024 04:11:04 PM Interpretation: Performing Lab: Notes/Report: wbc 7.8 3.5 - 10 lym 42.7 15 - 50 mid 6.4 2 - 15 gran 50.9 35 - 80 rbc 4.10 3.5 - 5.5 hgb 11.2 11.5 - 16.5 hct 34.9 35 - 55 mcv 85.2 75 - 100 mch 27.3 25 - 35 mchc 32.0 31 - 38 plat 391 100 - 400 REASON FOR VISIT cough Medications Medication SIG (Take, Route, Frequency, Duration) Notes Start Date End Date Status Ozempic (2 MG/DOSE) 8 MG/3ML 2 mg Subcut aneous once weekly 05/18/2024 Active Metoprolol Succinate ER 200 MG 1 tablet Orally Once a day for 90 days Active Benzonatate 200 MG 1 capsule as needed Orally tid prn 12/08/2024 Active Albuterol Sulfate HFA 108 (90 Base) MCG/ACT 1 puff Inhalation tid 12/08/2024 A ctive ADVOCATE GLUCOSE METER NON-SPEAKING [id number] - 02/12/2019 Active amLODIPine Besylate 5 MG 1 tab(s) orally once a day for 90 days Active Lisinopril 40 MG 1 tab(s) orally once a day Active Levothyroxine Sodium 25 MCG 1 tab(s) ora lly once a day for 90 days Active Vitamin B12 1000 MCG 1 tablet Orally Onc e a day 08/17/2024 Active Triamcinolone Acetonide 0.1 % 1 application Externally Two times a day 07/09/2024 Active Montelukast Sodium 10 MG 1 tablet Orally Once a day for 90 days Active Levocetirizine Dihydrochloride 5 MG 1 tablet in the evening Orally Once a day for 90 days Active metFORMIN HCl ER 500 MG TAKE 2 TABLETS B Y MOUTH TWICE DAILY Orally twice daily for 90 days Active Rosuvastatin Calcium 5 MG 1 tab(s) orall y once a day for 90 days Active Triamcinolone Acetonide 0.1 % 1 application Externally Twice a day 06/26/2024 Active Ibuprofen 600 MG TAKE 1 TABLET BY ZULEIMA TH FOUR TIMES DAILY NEEDED for 15 Active ADVOCATE TEST STRIPS - 02/12/2019 Active Voltaren 1 % 2 g applied topicall y 4 times a day, prn Active Albuterol Sulfate HFA 108 (90 Base) MCG/ACT 2 puff(s) inhaled tid and q2h prn 09/04/2022 Active Problems Problem Type SNOMED Code ICD Code Onset Dates Problem Status W/U Status Risk Notes Problem Chronic bronchitis (J42) Active confirmed Vital Signs Blood pressure systolic 130 mm Hg 12/09/19 25 Blood pressure diastolic 88 mm Hg 025 Heart Rate 75 /min 12/08/2024 Height 64 in 12/08/2024 Weight 204.6 lbs 12/08/2024 BMI 35.12 kg/m2 12/08/2024 Encounters Encounter Location Date Provider Diagnosis [facility] [address] [place], [place] [id number] 12/08/2024 Meron Smith Chronic bronchitis J42 Assessments Encounter Date Diagnosis (ICD Code) Assessment Notes Treatment Notes Treatment Clinical Notes Section Notes 12/08/2024 Chronic bronchitis (ICD-10 - J42) to start with inhaler tid and prn until cough resolved fluids, rest, supportive measures for fever/symptom relief Plan Of Treatment Medication Medication Name Sig Start Date Stop Date Notes Benzonatate 200 MG 1 capsule as needed Orally tid prn 12/08/2024 Albuterol Sulfate HFA 108 (9 0 Base) MCG/ACT 1 puff Inhalation tid 12/08/2024 Treatment Notes Assessment Notes Chronic bronchitis to start with inhale r tid and prn until cough resolved fluids, rest, supportive measures for fever/symptom relief Next Appt Details Follow Up: prn, Reason: Provider Name:Tj Dior ry, 01/06/2025 10:30:00 AM, [address], [address], [place], [place], [phone], Progress Notes * Randi MONTESDOB: [birth year] (74 yo F)Acc No.[id number]:12/08/2024 Progress Notes Patient: Randi TERESA Provider: ALTON Matute :1950 A ge:74 Y S ex:Female Date:12/08/2024 Address:[address] [place], [place] [address], [id number] Pcp:Tj Sweeney Subjective: * Chief Complaints: * 1 . Cough. * HPI: E NT/respiratory: 74 year old female presents with c/o cough P t presents today with c/o cough for several weeks. Pt sts that she produces yellow and white sputum when she can get it up out of her chest. Pt sts that she has taken Coricidin and cough pills. Pt sts that the pills helpedbut she ran out of them. Pt sts that she has a fluttering sound in her left ear at times. c/o rhinorrhea. c/o chest congestion. c/o dizziness. Denies : sore throat. D enies : nasal congestion. D enies : Fever. D enies : ear pain. D enies : facial pain/pressure. D enies : Short of Breath. D enies : headache. D enies : body aches. * ROS: D ERMATOLOGY: no R aniyah. n o H spencer. G ASTROENTEROLOGY: no N ausea. n o V omiting. U ROLOGY: no D ifficulty urinating. n o B lood in urine. * Medical History: H ypertension, Type 2 Diabetes, Hyperlipidemia, Migraine Headache, Fibromyalgia, Irritable Bowel Syndrome, Diverticulosis, Diverticulitis, Colon Polyps, Hypothyroidism, Declines Flu and Pneumonia Vaccines, 06/2018, LT Side of Nose Basal cell carinoma, S/P MOHS Procedure, 05/2018, Vitamin D deficiency, Vitamin B 12 deficiency, intrinsic factor Ab negative. * Surgical History: B ilateral Heel Spur Removal , Bilateral Knee , Cholecystectomy , Partial Hysterectomy, [facility] , LT Creast Cyst Removal , Bladder Tack x 4 , LT Shoulder- Broke Ball Joint, [facility] [place] , RT Shoulder Rotator Cuff Tear Repair , Bladder Tumor Removal, Dr. 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 * Hospitalization/Major Diagno stic Procedure: R T Broken Wrist- [facility] ER 05/09/2013. * Family History: F ather: , hypertension, cerebral aneurysm of brain. M other: alive, Shingles.?Siblings: diabetes, hypertension. 4 brother(s) , 1 sister(s) . 1 son(s) , 2 daughter(s) - healthy. . * Social History: C URRENT TOBACCO USE S moking Status: Patient does NOT smoke. C affeine: yes, frequency: 32 oz a day. Exercise: no. Marital Status: . Alcohol: no. Sexually active: yes. * Medications: T aking ADVOCATE GLUCOSE METER NON-SPEAKING [id number] - , Taking ADVOCATE TEST STRIPS - , Taking Albuterol Sulfate HFA 108 (90 Base) MCG/ACT Aerosol Solution 2 puff(s) inhaled tid and q2h prn , Taking Voltaren 1 % Gel 2 g applied topically 4 times a day, prn , Taking Ibuprofen 600 MG Tablet TAKE 1 TABLET BY MOUTH FOUR TIMES DAILY NEEDED , Taking Triamcinolone Acetonide 0.1 % Cream 1 application Externally Twice a day , Taking Triamcinolone Acetonide 0.1 % Cream 1 application Externally Two times a day , Taking Levocetirizine Dihydrochloride 5 MG Tablet 1 tablet in the evening Orally Once a day , Taking Montelukast Sodium 10 MG Tablet 1 tablet Orally Once a day , Taking Rosuvastatin Calcium 5 MG Tablet 1 tab(s) orally once a day , Taking metFORMIN HCl ER 500 MG Tablet Extended Release 24 Hour TAKE 2 TABLETS BY MOUTH TWICE DAILY Orally twice daily , Taking Levothyroxine Sodium 25 MCG Tablet 1 tab(s) orally once a day , Taking Lisinopril 40 MG Tablet 1 tab(s) orally once a day , Taking Vitamin B12 1000 MCG Tablet Extended Release 1 tablet Orally Once a day , Taking amLODIPine Besylate 5 MG Tablet 1 tab(s) orally once a day , Taking Metoprolol Succinate ER 200 MG Tablet Extended Release 24 Hour 1 tablet Orally Once a day , Taking Ozempic (2 MG/DOSE) 8 MG/3ML Solution Pen-injector 2 mg Subcutaneous once weekly , Discontinued Cefdinir 300 MG Capsule 1 cap(s) Orally Two times a day , Medication List reviewed and reconciled with the patient * Allergies: P enicillin, SLO-BID GYROCAPS, BEXTRA: hyperventilate - Side Effects, Cefdinir: skin itching. Objective: * Vitals: W t: 204.6, Temp: 97.4, BP: 130/88, HR: 75, O2 Sat: 98% on RA, Nurse: MARQUITA, Ht: 64, BMI:35.12. * Examination: G eneral Examination: General Appearance: N AD , appears healthy , alert , pleasant; congested cough. HEENT: s clera and conjunctiva clear, PERRLA, TM's normal, translucent; ear canals appear normal . Oral cavity: m ucosa moist and WNL , no erythema. Neck: s upple , no lymphadenopathy. Heart: R RR. Lungs: C TAB A&P; congested cough. Neurologic Exam: a lert and oriented. ? Assessment: * Assessment: 1. C hronic bronchitis - J42 (Primary) Plan: * Treatment: Value Reference Range w bc 7.8 3.5 - 10 * l ym 42.7 15 - 50 * m id 6.4 2 - 15 * g ran 50.9 35 - 80 * r bc 4.10 3.5 - 5.5 * h gb 11.2 11.5 - 16.5 * h ct 34.9 35 - 55 * m cv 85.2 75 - 100 * m ch 27.3 25 - 35 * m chc 32.0 31 - 38 * p lat 391 100 - 400 * Erika Thomas 12/08/2024 04: 10:54 PM > results reviewed w/ pt in office Notes: to start with inhaler tid and prn until cough resolved fluids, rest, supportive measures forfever/symptom relief?? * Procedure Codes: G 2211 Complex e/[place], [address] CAPILLARY BLOOD DRAW, 21277 CBC WITH AUTO DIFF * Follow Up: p rn * Billing Information: * Visit Code: 31817 Office Visit, Est Pt., Level 3. * Procedure Codes: G2211 Complex e/[place]. [address] CAPILLARY BLOOD DRAW. 14951 CBC WITH AUTO DIFF. * Electronic signature of Smiley Smith APRN on 12/28/2024 at 01:46 PM EDT Sign off status: Pending * Provider: ALOTN Matute Date: 0 12/08/2024 Generated for Brock chapman/See/eTransmitting on: 0 12/28/2024 01:46 PM EDT History and Physical Notes * HPI (History of Present Illness) Category Sub-Category Detail Notes Category Not es ENT/respiratory sore throat facial pain/pressure ear pain Short of Breath cough Pt presents today wi th c/o cough for several weeks. Pt sts that she produces yellow and white sputum when she can get it up out of her chest. Pt sts that she has taken Coricidin and cough pills. Pt sts that the pills helpedbut she ran out of them. Pt sts that she has a fluttering sound in her left ear at times Fever headache chest congestion rhinorrhea nasal congestion dizziness body aches Examination Category Sub-Category Detail Notes Category Not es General Examination HEENT: sclera and c onjunctiva clear, PERRLA, TM's normal, translucent; ear canals appear normal Heart: RRR Lungs: CTAB A&P; congested cough General Appearance: NAD , appears health y , alert , pleasant; congested cough Neurologic Exam: alert and oriented Neck: supple , no lymphade nopathy Oral cavity: mucosa moist and WNL , no erythema
--- OUTSIDE RECORDS SUMMARY | 2024-12-16 05:00 | XMS_ITS ---
Author Organization [facility] Address [address] [place] [id number] Care Team Providers Care Edger Liner Name Role Phone Tj Sweeney Primary Care [...] 44 Performing Lab: Notes/Report: Test performed by [facility] , [address], [place] [address] Chapincito Branch MD, Novelty Twister Tender CLIA: [id number] Sodium 135 135-145 mmol/L Potassium 3.5 3.5-5.3 [...] Interpretation:1.7 Performing Lab: Notes/Report: Test performed by [facility], [address] , [address], [place] [address] Chapincito Branch MD, Novelty Twister Tender CLIA: [id number] Magnesium 1.7 1.6-2.4 mg/dL REASON FOR VISIT [...] prn 09/04/2022 Active ADVOCATE GLUCOSE METER NON-SPEAKING BF1171V - 02/12/2019 Active Metoprolol Succinate ER 200 MG 1 tablet Orally Once a day for 90 days Active Ozempic (2 MG/DOSE) 8 MG/3ML 2 mg Subcut aneous once weekly 05/18/2024 Active Problems Problem Type SNOMED Code ICD Code Onset Dates Problem Status W/U Status Risk Notes Problem 852434227 Hypomagnesemia (E83.42) Active confirmed Problem 61263843 Type 2 diabetes mellitus with other specified complication, unspecified whether longterm insulin use (E11.69) Active confirmed Problem 132829613 BMI 33.0-33.9,ad ult (Z68.33) Active confirmed Vital Signs Blood pressure systolic 102 mm Hg 12/17/19 25 Blood pressure diastolic 58 mm Hg 025 Heart Rate 78 /min 12/16/2024 Height 64 in 12/16/2024 Weight 195 lbs 12/16/2024 BMI 33.47 kg/m2 12/16/2024 Encounters Encounter Location Date Provider Diagnosis [facility] [address] [id number] 12/16/2024 Tj Sweeney Acute diarrhea R19.7 ; Hypomagnesemia E83.42 ; Nausea R11.0 ; Type 2 diabetes mellitus with other specified complication, unspecified whether longterm insulin use E11.69 ; Lumbar pain M54.50 and BMI 33.0-33.9,adult Z68.33 Assessments Encounter Date Diagnosis (ICD Code) Assessment Notes Treatment Notes Treatment Clinical Notes Section Notes 12/16/2024 Acute diarrhea (ICD-10 - R19.7) dehydration precautions discussed clear liquids and advance as tolerated 12/16/2024 Hypomagnesemia (ICD-10 - E83.42) 12/16/2024 Nausea (ICD-10 - R11.0) 12/16/2024 Type 2 diabetes mellitus with other specified complication, unspecified whether termite control technician insulin use (ICD-10 - E11.69) 12/16/2024 Lumbar [...] Week, Reason: Provider Name:Tj Dior ry, 01/06/2025 10:30:00 AM, [address], [address], [place], [place], [id number], Medications Administered Medication Instructions Date of Administration Dosage Notes Zofran 12/16/2024 4 mg Progress Notes * Randi MONTESDOB: [birth year] (74 yo F)Acc No.[id number]:12/16/2024 Progress Notes Patient: Randi TERESA Provider: Claudine Sweeney M.D. :1950 A ge:74 Y S ex:Female Date:12/16/2024 Address:[address] [place], [place] [address] [id number] Subjective: * Chief Complaints: * 1 . 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 * Hospitalization/Major Diagno stic Procedure: R T Broken Wrist- [facility] ER 05/09/2013. * Family History: F ather: [...] Medications: T aking ADVOCATE GLUCOSE METER NON-SPEAKING [id number] - , Taking ADVOCATE TEST STRIPS - [...] mellitus with other specified complication, unspecified whether longterm insulin use - E11.69 5 . L umbar pain - M54.50 6 . B MN 33.0-33.9,adult - Z68.33 Plan: * Treatment: Value [...] G 2211 Complex e/[place], [address] CBC WITH AUTO DIFF, J2405 INJECTION ONDANSETRON HCL PER 1 MG, 60237 ADMINISTRATION OF INJECTION, G8752 MOST RECENT SYSTOLIC BP < 140MM HG, G8754 MOST RECENT DIASTOLIC BP < 90MM HG * Follow Up: 1 Week * Billing Information: * Visit Code: 28989 Office Visit, Est Pt., Level 4. Modifiers: 25 * Procedure Codes: G2211 Complex e/[place]. [address] CBC WITH AUTO DIFF. J2405 INJECTION ONDANSETRON HCL PER 1 MG. 05507 ADMINISTRATION OF INJECTION. G8752 MOST RECENT SYSTOLIC BP < 140MM HG. G8754 MOST RECENT DIASTOLIC BP < 90MM HG. * Electronic signature of Yamilex Sweeney MD on 12/28/2024 at 01:47 PM EDT Sign off status: Pending * Provider: Claudine Sweeney M.D. Date: 0 12/16/2024 Generated for Brock chapman/See/Omayraitting on: 0 12/28/2024 01:47 PM EDT History and Physical Notes * [...]
--- OUTSIDE RECORDS SUMMARY | 2024-12-23 07:15 | XMS_ITS ---
Author Organization [facility] Address [address] [place] [id number] Care Team Providers Care Customer Engineer Name Role Phone Tj Sweeney Primary [...] 45 Performing Lab: Notes/Report: Test performed by [facility], [address] , [address], [place] [address] Chapincito Branch MD, Body Team Member CLIA: [id number] Sodium 143 135-145 mmol/L Potassium 4.8 3.5-5.3 [...] - 02/12/2019 Active ADVOCATE GLUCOSE METER NON-SPEAKING [id number] - 02/12/2019 Active Problems Problem Type SNOMED Code ICD Code Onset Dates Problem Status W/U Status Risk Notes Problem [id number] Anemia, unspecified type (D64.9) Active confirmed Vital Signs Blood pressure systolic 144 mm Hg 12/24/19 25 Blood pressure diastolic 88 mm Hg 025 Heart Rate 82 /min 12/23/2024 Height 64 in 12/23/2024 Weight 205 lbs 12/23/2024 BMI 35.18 kg/m2 12/23/2024 Encounters Encounter Location Date Provider Diagnosis [facility] [address] [facility] [address] [place] [id number] 12/23/2024 Tj Sweeney MEGHAN (acute kidney injury) [...] 2 Weeks, Reason: Provider Name:Tj ng, 01/06/2025 10:30:00 AM, [address] [facility], [address], [place], [id number], Progress Notes * Randi MONTESDOB: [birth year] (74 yo F)Acc No.[id number]:12/23/2024 Patient: Randi TERESA Provider: Claudine Sweeney M.D. :1950 A ge:74 Y S ex:Female Date:12/23/2024 Address:[address] [place], [place] [address], [id number] Subjective: * Chief Complaints: * 1 . 1 week f/u. 2. due for Mammogram, Bone Density screening and colonoscopy.. * HPI: G astroenterology: 74 year old female presents with c/o Nausea P t states symptoms have improved. 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 * Hospitalization/Major Diagno stic Procedure: R T Broken Wrist- [facility] ER 05/09/2013. * Family History: F ather: [...] Medications: T aking ADVOCATE GLUCOSE METER NON-SPEAKING [id number] - , Taking ADVOCATE TEST STRIPS - [...] (Collection Date & Time - 12/23/2024)?Enterococcus faecalis* WilliamErika 12/25/2024 09:5 0:54 AM EDT > see phone encounter 4.?Essential hypertension? Change Lisinopril Tablet, 40 MG, 1/2 tab(s), orally, once a day.??5.?Type 2 diabetes mellitus without complication, without long-term current use of insulin ? Continue Ozempic (2 MG/DOSE) Solution Pen-injector, 8 MG/3ML, 2 mg, Subcutaneous, once weekly.?? * Procedure Codes: G 2211 Complex e/[place], [address] CBC WITH AUTO DIFF * Follow Up: 2 Weeks * Billing Information: * Visit Code: 82512 Office Visit, Est Pt., Level 4. * Procedure Codes: G2211 Complex e/[place]. [address] CBC WITH AUTO DIFF. * Electronic signature of Yamilex Sweeney MD on 12/28/2024 at 01:46 PM EDT Sign off status: Pending * Provider: Claudine Sweeney M.D. Date: 0 12/23/2024 Generated for Bucki ng/Fajennieg/eTransmitting on: 0 12/28/2024 01:46 PM EDT History and Physical Notes * HPI (History of Present Illness) Category Sub-Category Detail Notes Category Not es Gastroenterology Nausea Pt states sympt oms have improved. Pt was taken to [facility] and transported to [facility] where she was admitted 12/18-12/21/2024 for kidney failure. Pt states she was given IVF Examination Category Sub-Category Detail Notes Category Not es General Examination Heart: RSR Lungs: clear to auscultatio n General Appearance: NAD
--- OUTSIDE RECORDS SUMMARY | 2024-12-24 13:39 | XMS_ITS | Continuity of Care Document ---
Author Organization [facility] Phone Care Team Providers Care Computer Education Teacher Name Role Phone JABIER BEARD Unavailable SHAYLA ROSAS Primary Attending MILAGROS BAKER Unavailable SHAYLA ROSAS Admitting FRANK KELLEY Unavailable FRANK KELLEY Primary Care ALLERGIES AND ADVERSE REACTIONS ALLERGIES AND ADVERSE REACTIONS Code System Allergy Substance Adverse Reaction Date Reaction (Severity) Comment Status Reported By Updated [place] [id number] SNOMED CT Penicillins Rash (Severe) active Patient [id number] on December 18, 2024 7:50:16 AM UTC ASSESSMENTS Acute renal failure with oliguria ; PROBLEMS PATIENT PROBLEMS Code Description/Comments Category Status Upda isaac By [id number] Acute renal failure with oliguria ac tive [id number] on December 18, 2024 7:30:51 AM UTC RESULTS Patient: DON Angela Date of : [birth year] LABORATORY RESULTS ORDER 100: GLUCOSE BEDSIDE T ESTING (LOINC: 88911-1) ORDER DATE: December 18, 2024 7:22:00 AM [facility] Specimen Source: WHOLE BLOOD Specimen Type: Whole blood s ample PERFORMING LAB: [address] [id number] Result Comment: December 18, 2024 7:30:00 AM UT Test performed by: [id number] ; Instrument: [id number] Final Result Date: December 18, 2024 7:30:00 AM [facility] LOINC TEST FLAG [place]ULT [place] [address]-4 Glucose [Mass/volume] in Capillary blood by Glucometer H 134 mg/dl 70 mg/dl - 105 mg/dl December 18, 2024 7:30:00 AM UT ORDER 800: COMP METABOLIC PA VIKTOR (LOINC: 45822-8) ORDER DATE: December 18, 2024 7:31:00 AM UT Specimen Source: PLASMA Specimen Type: Plasma specim en PERFORMING LAB: [address] [id number] Result Comment: Final Result Date: December 18, 2024 9:20:00 AM UT (TECH: ARR) LOINC TEST FLAG RESULT REFERENCE RANGE UPDA ISAAC BY 2951-2 Sodium [Moles/volume ] in Serum or Plasma N 136 mmol/L 136 mmol/L - 145 mmol/L December 18, 2024 9:20:00 AM UTC (TECH: ARR) 2823-3 Potassium [Moles/volume] in Serum or Plasma LL 2.5 mmol/L 3.6 mmol/L - 5.0 mmol/L December 18, 2024 9:20:00 AM UTC (TECH: ARR) 2075-0 Chloride [Moles/volu me] in Serum or Plasma N 103 mmol/L 98 mmol/L - 107 mmol/L December 18, 2024 9:20:00 AM UTC (TECH: ARR) 8-9 Carbon dioxide, tota l [Moles/volume] in Serum or Plasma L 17.4 mmol/L 21.0 mmol/L - 32.0 mmol/L December 18, 2024 9:20:00 AM UTC (TECH: ARR) 71174-8 Anion gap in Blood N 18.1 M 2024 9:20:00 AM UTC (TECH: ARR) 2345-7 Glucose [Mass/volume ] in Serum or Plasma N 119 mg/dl 70 mg/dl - 120 mg/dl December 18, 2024 9:20:00 AM UTC (TECH: ARR) 6299-2 Urea nitrogen [Mass/volume] in Blood H 49 mg/dL 7 mg/dL - 18 mg/dL December 18, 2024 9:20:00 AM UTC (TECH: ARR) 43704-3 Creatinine [Moles/volume] in Blood HH 6.8 mg/dL 0.6 mg/dL - 1.3 mg/dL December 18, 2024 9:20:00 AM UTC (TECH: ARR) 85577-7 Glomerular filtratio n rate/1.73 sq M.predicted by Creatinine-based formula (MDRD) L 6 mlpermin 60 mlpermin December 18, 2024 9:20:00 AM UT (TECH: ARR) 55122-0 Osmolality of Serum or Plasma by calculated by sum of electrolytes N 297 mosm/kg 275 mosm/kg - 301 mosm/kg December 18, 2024 9:20:00 AM UT (TECH: ARR) 2885-2 Protein [Mass/volume ] in Serum or Plasma N 6.5 g/dl 6.4 g/dl - 8.2 g/dl December 18, 2024 9:20:00 AM UT (TECH: ARR) 1751-7 Albumin [Mass/volume ] in Serum or Plasma L 2.9 g/dl 3.4 g/dl - 5.0 g/dl December 18, 2024 9:20:00 AM UT (TECH: ARR) 2336-6 Globulin [Mass/volum e] in Serum N 3.6 December 18, 2024 9:20:00 AM UT (TECH: ARR) 1759-0 Albumin/Globulin [Ma ss Ratio] in Serum or Plasma N 0.8 0.7 - 2 December 18, 2024 9:20:00 AM UT (TECH: ARR) 22196-8 Calcium [Mass/volume ] in Serum or Plasma L 8.1 mg/dl 8.5 mg/dl - 10.5 mg/dl December 18, 2024 9:20:00 AM UT (TECH: ARR) 1975-2 Bilirubin.total [Mass/volume] in Serum or Plasma N 0.20 mg/dL 0.10 mg/dL - 1.00 mg/dL December 18, 2024 9:20:00 AM UT (TECH: ARR) 1920-8 Aspartate aminotransferase [Enzymatic activity/volume] in Serum or Plasma H 39 U/L 0 U/L - 37 U/L December 18, 2024 9:20:00 AM UT (TECH: ARR) 1742-6 Alanine aminotransferase [Enzymatic activity/volume] in Serum or Plasma N 35 U/L 0 U/L - 65 U/L December 18, 2024 9:20:00 AM UT (TECH: ARR) 6768-6 Alkaline phosphatase [Enzymatic activity/volume] in Serum or Plasma N 102 U/L 46 U/L - 116 U/L December 18, 2024 9:20:00 AM UTC (TECH: ARR) ORDER 900: HEMOGLOBIN A1C (L OINC: 4548-4) ORDER DATE: December 18, 2024 7:31:00 AM UTC Specimen Source: WHOLE BLOOD Specimen Type: Whole blood s ample PERFORMING LAB: [address] [id number] Result Comment: Final Result Date: December 18, 2024 9:20:00 AM UTC (TECH: ARR) LOINC TEST FLAG RESULT REFERENCE RANGE UPDA ISAAC BY 4548-4 Hemoglobin A1c/Hemoglobin.total in Blood H 7.2 % 3.8 % - 5.6 % December 18, 2024 9:20:00 AM UTC (TECH: ARR) ORDER 1000: LIPID PANEL (JOSE NC: 63234-2) ORDER DATE: December 18, 2024 7:31:00 AM UTC Specimen Source: PLASMA Specimen Type: Plasma specim en PERFORMING LAB: [address] [id number] Result Comment: Final Result Date: December 18, 2024 9:20:00 AM UTC (TECH: ARR) LOINC TEST FLAG RESULT REFERENCE RANGE UPDA ISAAC BY 2571-8 Triglyceride [Mass/volume] in Serum or Plasma N 195 mg/dl 30 mg/dl - 200 mg/dl December 18, 2024 9:20:00 AM UTC (TECH: ARR) 2093-3 Cholesterol [Mass/volume] in Serum or Plasma N 93 mg/dl 0 mg/dl - 200 mg/dl December 18, 2024 9:20:00 AM UTC (TECH: ARR) 90010-1 Cholesterol in HDL [Mass or Moles/volume] in Serum or Plasma L 31 mg/dL 40 mg/dL - 104 mg/dL December 18, 2024 9:20:00 AM UTC (TECH: ARR) 22752-9 Cholesterol in LDL [Mass/volume] in Serum or Plasma by calculation N 23 mg/dL 0 mg/dL - 130 mg/dL December 18, 2024 9:20:00 AM UTC (TECH: ARR) ORDER 1100: MAGNESIUM (LOINC : 71760-2) ORDER DATE: December 18, 2024 7:31:00 AM UTC Specimen Source: PLASMA Specimen Type: Plasma specim en PERFORMING LAB: [address] [id number] Result Comment: Final Result Date: December 18, 2024 9:20:00 AM UTC (TECH: ARR) LOINC TEST FLAG [place] [address]-4 Magnesium [Mass/volume] in Serum or Plasma L 1.5 MG/DL 1.8 MG/DL - 2.4 MG/DL December 18, 2024 9:20:00 AM UTC (TECH: ARR) ORDER 1200: PHOSPHOROUS (JOSE NC: 2777-1) ORDER DATE: December 18, 2024 7:31:00 AM UTC Specimen Source: PLASMA Specimen Type: Plasma specim en PERFORMING LAB: [address] [id number] Result Comment: Final Result Date: December 18, 2024 9:20:00 AM UTC (TECH: ARR) LOINC TEST FLAG RESULT REFERENCE RANGE UPDA ISAAC BY 2777-1 Phosphate [Mass/volume] in Serum or Plasma H 5.3 mg/dl 2.5 mg/dl - 4.9 mg/dl December 18, 2024 9:20:00 AM UTC (TECH: ARR) ORDER 1301: CBC AUTO W DIFF (LOINC: 89539-0) ORDER DATE: December 18, 2024 7:31:00 AM UTC Specimen Source: EDTA Specimen Type: Blood specime n with EDTA PERFORMING LAB: [address] [id number] Result Comment: Final Result Date: December 18, 2024 8:48:00 AM UTC (TECH: ME) LOINC TEST FLAG RESULT REFERENCE RANGE UPDA ISAAC BY 6690-2 Leukocytes [#/volume] in Blood by Automated count N 7.5 K/ul 4.0 K/ul - 10.5 K/ul December 18, 2024 8:48:00 AM UTC (TECH: ME) 789-8 Erythrocytes [#/volume] in Blood by Automated count L 4.1 M/mm3 4.2 M/mm3 - 6.4 M/mm3 December 18, 2024 8:48:00 AM UTC (TECH: ME) 718-7 Hemoglobin [Mass/volume] in Blood L 10.9 gm/dl 12.5 gm/dl - 16.0 gm/dl December 18, 2024 8:48:00 AM UTC ([facility]) 69016-3 Hematocrit [Volume Fraction] of Blood L 33.6 % 37.0 % - 47.0 % December 18, 2024 8:48:00 AM UTC ([facility]) 787-2 Erythrocyte mean corpuscular volume [Entitic volume] by Automated count N 83.0 fl 78 fl - 100 fl December 18, 2024 8:48:00 AM UTC ([facility]: [employer]) 785-6 Erythrocyte mean corpuscular hemoglobin [Entitic mass] by Automated count L 26.9 pg 27 pg - 31 pg December 18, 2024 8:48:00 AM UTC ([facility]: [employer]) 786-4 Erythrocyte mean corpuscular hemoglobin concentration [Mass/volume] by Automated count N 32.4 g/dl 32 g/dl - 36 g/dl December 18, 2024 8:48:00 AM UTC ([facility]) 03872-1 Erythrocyte distribution width [Ratio] H 14.2 % 11.5 % - 14.0 % December 18, 2024 8:48:00 AM UTC ([facility]) 777-3 Platelets [#/volume] in Blood by Automated count N 308 K/ul 150 K/ul - 450 K/ul December 18, 2024 8:48:00 AM UT ([facility]: [employer]) 98033-9 Platelet mean volume [Entitic volume] in Blood by Automated count N 9.3 fl 6 fl - 9.5 fl December 18, 2024 8:48:00 AM UTC ([employer]) 99571-7 Neutrophils/100 leukocytes in Blood N 48.7 % 43 % - 65 % December 18, 2024 8:48:00 AM UTC ([facility]: [employer]) 736-9 Lymphocytes/100 leukocytes in Blood by Automated count N 42.1 % 20.5 % - 45.5 % December 18, 2024 8:48:00 AM UTC ([facility]: [employer]) 5905-5 Monocytes/100 leukocytes in Blood by Automated count N 7.5 % 5.5 % - 11.7 % December 18, 2024 8:48:00 AM UTC (TECH: [employer]) 713-8 Eosinophils/100 leukocytes in Blood by Automated count N 1.2 % 0.9 % - 2.9 % December 18, 2024 8:48:00 AM UTC (TECH: [place]) 706-2 Basophils/100 leukocytes in Blood by Automated count N 0.4 % 0.2 % - 1.0 % December 18, 2024 8:48:00 AM UTC (TECH: [place]) 08268-7 Immature granulocytes/100 leukocytes in Blood by Automated count N 0.1 % 0.0 % - 0.8 % December 18, 2024 8:48:00 AM UTC (TECH: [place]) 00794-7 Nucleated cells [#/volume] in Blood N 0.0 % December 18, 2024 8:48:00 AM UTC (TECH: [employer]) 65876-2 Neutrophils [#/volume] in Blood N 3.6 K/uL 2.2 K/uL - 4.8 K/uL December 18, 2024 8:48:00 AM UTC (TECH: [place]) 731-0 Lymphocytes [#/volume] in Blood by Automated count H 3.2 CELL/MCL 1.3 CELL/MCL - 2.9 CELL/MCL December 18, 2024 8:48:00 AM UTC (TECH: [employer]) 742-7 Monocytes [#/volume] in Blood by Automated count N 0.6 CELL/MCL 0.3 CELL/MCL - 0.8 CELL/MCL December 18, 2024 8:48:00 AM UTC (TECH: [employer]) 711-2 Eosinophils [#/volume] in Blood by Automated count N 0.1 CELL/MCL 0 CELL/MCL - 0.2 CELL/MCL December 18, 2024 8:48:00 AM UTC (TECH: [employer]) 704-7 Basophils [#/volume] in Blood by Automated count N 0.0 CELL/MCL 0.0 CELL/MCL - 1.0 CELL/MCL December 18, 2024 8:48:00 AM UTC (TECH: [employer]) 54025-4 Immature granulocytes [#/volume] in Blood N 0.01 K/ul December 18, 2024 8:48:00 AM UTC (TECH: [place]) 13475-6 Nucleated cells [#/volume] in Blood N 0.00 K/uL December 18, 2024 8:48:00 AM UTC (TECH: [place]) 92660-7 Manual Differential panel - Blood N NO December 18, 2024 8:48:00 AM UTC (TECH: ME) ORDER 1302: CBC AUTO W DIFF (LOINC: 23269-0) ORDER DATE: December 18, 2024 7:31:00 AM UTC Specimen Source: EDTA Specimen Type: Blood specime n with EDTA PERFORMING LAB: [address] [id number] Result Comment: Final Result Date: December 19, 2024 9:59:00 AM UTC (TECH: CRM) LOINC TEST FLAG RESULT REFERENCE RANGE UPDA ISAAC BY 6690-2 Leukocytes [#/volume] in Blood by Automated count N 4.6 K/ul 4.0 K/ul - 10.5 K/ul December 19, 2024 9:59:00 AM UTC (TECH: CRM) 789-8 Erythrocytes [#/volume] in Blood by Automated count L 3.4 M/mm3 4.2 M/mm3 - 6.4 M/mm3 December 19, 2024 9:59:00 AM UTC (TECH: CRM) 718-7 Hemoglobin [Mass/volume] in Blood L 9.2 gm/dl 12.5 gm/dl - 16.0 gm/dl December 19, 2024 9:59:00 AM UTC (TECH: CRM) 72772-8 Hematocrit [Volume Fraction] of Blood L 28.0 % 37.0 % - 47.0 % December 19, 2024 9:59:00 AM UTC (TECH: CRM) 787-2 Erythrocyte mean corpuscular volume [Entitic volume] by Automated count N 81.4 fl 78 fl - 100 fl December 19, 2024 9:59:00 AM UTC (TECH: CRM) 785-6 Erythrocyte mean corpuscular hemoglobin [Entitic mass] by Automated count L 26.7 pg 27 pg - 31 pg December 19, 2024 9:59:00 AM UTC (TECH: CRM) 786-4 Erythrocyte mean corpuscular hemoglobin concentration [Mass/volume] by Automated count N 32.9 g/dl 32 g/dl - 36 g/dl December 19, 2024 9:59:00 AM UTC (TECH: CRM) 76473-4 Erythrocyte distribution width [Ratio] H 14.3 % 11.5 % - 14.0 % December 19, 2024 9:59:00 AM UTC (TECH: CRM) 777-3 Platelets [#/volume] in Blood by Automated count N 260 K/ul 150 K/ul - 450 K/ul December 19, 2024 9:59:00 AM UTC (TECH: CRM) 17854-5 Platelet mean volume [Entitic volume] in Blood by Automated count N 8.9 fl 6 fl - 9.5 fl December 19, 2024 9:59:00 AM UTC (TECH: CRM) 25050-2 Neutrophils/100 leukocytes in Blood L 29.5 % 43 % - 65 % December 19, 2024 9:59:00 AM UTC (TECH: CRM) 736-9 Lymphocytes/100 leukocytes in Blood by Automated count H 58.7 % 20.5 % - 45.5 % December 19, 2024 9:59:00 AM UTC (TECH: [employer]) 5905-5 Monocytes/100 leukocytes in Blood by Automated count N 8.5 % 5.5 % - 11.7 % December 19, 2024 9:59:00 AM UTC (TECH: [employer]) 713-8 Eosinophils/100 leukocytes in Blood by Automated count N 2.4 % 0.9 % - 2.9 % December 19, 2024 9:59:00 AM UTC (TECH: CRM) 706-2 Basophils/100 leukocytes in Blood by Automated count N 0.7 % 0.2 % - 1.0 % December 19, 2024 9:59:00 AM UTC (TECH: [employer]) 26083-0 Immature granulocytes/100 leukocytes in Blood by Automated count N 0.2 % 0.0 % - 0.8 % December 19, 2024 9:59:00 AM UTC (TECH: [employer]) 36295-0 Nucleated cells [#/volume] in Blood N 0.0 % December 19, 2024 9:59:00 AM UTC (TECH: CRM) 87819-5 Neutrophils [#/volume] in Blood L 1.4 K/uL 2.2 K/uL - 4.8 K/uL December 19, 2024 9:59:00 AM UTC (TECH: CRM) 731-0 Lymphocytes [#/volume] in Blood by Automated count N 2.7 CELL/MCL 1.3 CELL/MCL - 2.9 CELL/MCL December 19, 2024 9:59:00 AM UTC (TECH: CRM) 742-7 Monocytes [#/volume] in Blood by Automated count N 0.4 CELL/MCL 0.3 CELL/MCL - 0.8 CELL/MCL December 19, 2024 9:59:00 AM UTC (TECH: CRM) 711-2 Eosinophils [#/volume] in Blood by Automated count N 0.1 CELL/MCL 0 CELL/MCL - 0.2 CELL/MCL December 19, 2024 9:59:00 AM UTC (TECH: CRM) 704-7 Basophils [#/volume] in Blood by Automated count N 0.0 CELL/MCL 0.0 CELL/MCL - 1.0 CELL/MCL December 19, 2024 9:59:00 AM UTC (TECH: CRM) 61013-0 Immature granulocytes [#/volume] in Blood N 0.01 K/ul December 19, 2024 9:59:00 AM UTC (TECH: CRM) 64860-3 Nucleated cells [#/volume] in Blood N 0.00 K/uL December 19, 2024 9:59:00 AM UTC (TECH: CRM) 20787-4 Manual Differential panel - Blood N YES December 19, 2024 9:59:00 AM UTC (TECH: CRM) 37388-6 Neutrophils.segmente d/100 leukocytes in Blood by Automated count L 31 % 42 % - 76 % December 19, 2024 9:59:00 AM UTC (TECH: CRM) 736-9 Lymphocytes/100 leukocytes in Blood by Automated count H 56 % 15 % - 41 % December 19, 2024 9:59:00 AM UTC (TECH: CRM) 5905-5 Monocytes/100 leukocytes in Blood by Automated count N 9 % 2 % - 9 % December 19, 2024 9:59:00 AM UTC (TECH: CRM) 713-8 Eosinophils/100 leukocytes in Blood by Automated count N 3 % 0 % - 3 % December 19, 2024 9:59:00 AM UTC (TECH: CRM) 79850-3 Lymphocytes Variant/100 leukocytes in Blood by Automated count N 1 December 19, 2024 9:59:00 AM UTC (TECH: CRM) 778-1 Platelets [#/volume] in Blood by Manual count N ADEQUATE ADEQUATE December 19, 2024 9:59:00 AM UTC (TECH: CRM) 05196-5 Erythrocytes [Morphology] in Blood by Automated count N NORMAL NORMAL December 19, 2024 9:59:00 AM UT (TECH: CRM) ORDER 1303: CBC AUTO W DIFF (LOINC: 53337-6) ORDER DATE: December 18, 2024 7:31:00 AM UT Specimen Source: EDTA Specimen Type: Blood specime n with EDTA PERFORMING LAB: [address] [id number] Result Comment: Final Result Date: December 20, 2024 9:22:00 AM UT (TECH: RR) LOINC TEST FLAG RESULT REFERENCE RANGE UPDA ISAAC BY 6690-2 Leukocytes [#/volume] in Blood by Automated count N 4.8 K/ul 4.0 K/ul - 10.5 K/ul December 20, 2024 9:22:00 AM UTC (TECH: RR) 789-8 Erythrocytes [#/volume] in Blood by Automated count L 3.4 M/mm3 4.2 M/mm3 - 6.4 M/mm3 December 20, 2024 9:22:00 AM UTC (TECH: RR) 718-7 Hemoglobin [Mass/volume] in Blood L 9.0 gm/dl 12.5 gm/dl - 16.0 gm/dl December 20, 2024 9:22:00 AM UTC (TECH: RR) 16053-0 Hematocrit [Volume Fraction] of Blood L 27.7 % 37.0 % - 47.0 % December 20, 2024 9:22:00 AM UTC (TECH: RR) 787-2 Erythrocyte mean corpuscular volume [Entitic volume] by Automated count N 82.4 fl 78 fl - 100 fl December 20, 2024 9:22:00 AM UTC (TECH: RR) 785-6 Erythrocyte mean corpuscular hemoglobin [Entitic mass] by Automated count L 26.8 pg 27 pg - 31 pg December 20, 2024 9:22:00 AM UTC (TECH: RR) 786-4 Erythrocyte mean corpuscular hemoglobin concentration [Mass/volume] by Automated count N 32.5 g/dl 32 g/dl - 36 g/dl December 20, 2024 9:22:00 AM UTC (TECH: RR) 81816-9 Erythrocyte distribution width [Ratio] H 14.3 % 11.5 % - 14.0 % December 20, 2024 9:22:00 AM UTC (TECH: RR) 777-3 Platelets [#/volume] in Blood by Automated count N 262 K/ul 150 K/ul - 450 K/ul December 20, 2024 9:22:00 AM UTC (TECH: RR) 85924-5 Platelet mean volume [Entitic volume] in Blood by Automated count N 8.9 fl 6 fl - 9.5 fl December 20, 2024 9:22:00 AM UTC (TECH: RR) 30811-3 Neutrophils/100 leukocytes in Blood L 32.2 % 43 % - 65 % December 20, 2024 9:22:00 AM UTC (TECH: RR) 736-9 Lymphocytes/100 leukocytes in Blood by Automated count H 56.0 % 20.5 % - 45.5 % December 20, 2024 9:22:00 AM UTC (TECH: RR) 5905-5 Monocytes/100 leukocytes in Blood by Automated count N 9.7 % 5.5 % - 11.7 % December 20, 2024 9:22:00 AM UTC (TECH: RR) 713-8 Eosinophils/100 leukocytes in Blood by Automated count N 1.9 % 0.9 % - 2.9 % December 20, 2024 9:22:00 AM UTC (TECH: RR) 706-2 Basophils/100 leukocytes in Blood by Automated count N 0.2 % 0.2 % - 1.0 % December 20, 2024 9:22:00 AM UTC (TECH: RR) 12696-7 Immature granulocytes/100 leukocytes in Blood by Automated count N 0.0 % 0.0 % - 0.8 % December 20, 2024 9:22:00 AM UTC (TECH: RR) 99255-5 Nucleated cells [#/volume] in Blood N 0.0 % December 20, 2024 9:22:00 AM UTC (TECH: RR) 37502-6 Neutrophils [#/volume] in Blood L 1.6 K/uL 2.2 K/uL - 4.8 K/uL December 20, 2024 9:22:00 AM UTC (TECH: RR) 731-0 Lymphocytes [#/volume] in Blood by Automated count N 2.7 CELL/MCL 1.3 CELL/MCL - 2.9 CELL/MCL December 20, 2024 9:22:00 AM UTC (TECH: RR) 742-7 Monocytes [#/volume] in Blood by Automated count N 0.5 CELL/MCL 0.3 CELL/MCL - 0.8 CELL/MCL December 20, 2024 9:22:00 AM UTC (TECH: RR) 711-2 Eosinophils [#/volume] in Blood by Automated count N 0.1 CELL/MCL 0 CELL/MCL - 0.2 CELL/MCL December 20, 2024 9:22:00 AM UTC (TECH: RR) 704-7 Basophils [#/volume] in Blood by Automated count N 0.0 CELL/MCL 0.0 CELL/MCL - 1.0 CELL/MCL December 20, 2024 9:22:00 AM UTC (TECH: RR) 06027-8 Immature granulocytes [#/volume] in Blood N 0.00 K/ul December 20, 2024 9:22:00 AM UTC (TECH: RR) 46223-6 Nucleated cells [#/volume] in Blood N 0.00 K/uL December 20, 2024 9:22:00 AM UT (TECH: RR) 42649-9 Manual Differential panel - Blood N NO December 20, 2024 9:22:00 AM UT (TECH: RR) ORDER 1402: MAGNESIUM (LOINC : 14934-5) ORDER DATE: December 18, 2024 7:31:00 AM UT Specimen Source: PLASMA Specimen Type: Plasma specim en PERFORMING LAB: [address] [id number] Result Comment: Final Result Date: December 19, 2024 9:26:00 AM UT (TECH: JNJ) LOINC TEST FLAG RESULT [place] [address]-2 Magnesium [Mass/volume] in Serum or Plasma L 1.4 MG/DL 1.8 MG/DL - 2.4 MG/DL December 19, 2024 9:26:00 AM UT (TECH: JNJ) ORDER 1403: MAGNESIUM (LOINC : 82121-0) ORDER DATE: December 18, 2024 7:31:00 AM UTC Specimen Source: PLASMA Specimen Type: Plasma specim en PERFORMING LAB: [address] [id number] Result Comment: Final Result Date: December 20, 2024 9:20:00 AM UTC (TECH: AH1) LOINC TEST FLAG [place]ULT [place] [address]-0 Magnesium [Mass/volume] in Serum or Plasma LL 1.3 MG/DL 1.8 MG/DL - 2.4 MG/DL December 20, 2024 9:20:00 AM UTC (TECH: AH1) ORDER 1502: PHOSPHOROUS (JOSE NC: 2777-1) ORDER DATE: December 18, 2024 7:31:00 AM UTC Specimen Source: PLASMA Specimen Type: Plasma specim en PERFORMING LAB: [address] [id number] Result Comment: Final Result Date: December 19, 2024 9:26:00 AM UTC (TECH: JNJ) LOINC TEST FLAG RESULT REFERENCE RANGE UPDA ISAAC BY 2777-1 Phosphate [Mass/volume] in Serum or Plasma N 3.4 mg/dl 2.5 mg/dl - 4.9 mg/dl December 19, 2024 9:26:00 AM UTC (TECH: JNJ) ORDER 1503: PHOSPHOROUS (JOSE NC: 2777-1) ORDER DATE: December 18, 2024 7:31:00 AM UTC Specimen Source: PLASMA Specimen Type: Plasma specim en PERFORMING LAB: [address] [id number] Result Comment: Final Result Date: December 20, 2024 9:20:00 AM UTC (TECH: AH1) LOINC TEST FLAG RESULT REFERENCE RANGE UPDA ISAAC BY 2777-1 Phosphate [Mass/volume] in Serum or Plasma N 2.7 mg/dl 2.5 mg/dl - 4.9 mg/dl December 20, 2024 9:20:00 AM UTC (TECH: AH1) ORDER 1700: URINALYSIS REFLE X MICROSCOPIC (LOINC: 28270-1) ORDER DATE: December 18, 2024 8:04:00 AM UTC Specimen Source: URINE Specimen Type: Urine specime n PERFORMING LAB: [facility] [address] [facility] [id number] Result Comment: Final Result Date: December 18, 2024 5:13:00 PM UTC (TECH: RMC) LOINC TEST FLAG RESULT REFERENCE RANGE UPDA ISAAC BY 5778-6 Color of Urine N YELLOW YELLOW November 212024 5:13:00 PM UTC (TECH: RMC) 5767-9 Appearance of Urine N CLEAR CLEAR December 18, 2024 5:13:00 PM UTC (TECH: RMC) 5792-7 Glucose [Mass/volume] in Urine by Test strip N norm NORMAL December 18, 2024 5:13:00 PM UTC (TECH: RMC) 07862-9 Bilirubin.total [Mass/volume] in Urine by Automated test strip N NEGATIVE NEGATIVE December 18, 2024 5:13:00 PM UTC (TECH: RMC) 5797-6 Ketones [Mass/volume] in Urine by Test strip N NEGATIVE NEGATIVE December 18, 2024 5:13:00 PM UTC (TECH: RMC) 2965-2 Specific gravity of Urine L 1.015 1.016 - 1.022 December 18, 2024 5:13:00 PM UTC (TECH: RMC) 58367-2 Erythrocytes [#/volume] in Urine by Automated test strip N NEGATIVE NEGATIVE December 18, 2024 5:13:00 PM UTC (TECH: RMC) 92782-5 pH of Urine by Automated test strip N 6 5 - 9 December 18 5:13:00 PM UTC (TECH: RMC) 03583-1 Protein [Presence] in Urine by Test strip 15 NEGATIVE December 18, 2024 5:13:00 PM UTC (TECH: RMC) 51896-2 Urobilinogen [Mass/volume] in Urine by Automated test strip N norm NORMAL December 18, 2024 5:13:00 PM UTC (TECH: RMC) 95405-4 Nitrate [Presence] in Urine N NEGATIVE NEGATIVE December 18, 2024 5:13:00 PM UTC (TECH: RMC) 44880-0 Leukocytes [#/volume] in Urine by Test strip N NEGATIVE NEGATIVE December 18, 2024 5:13:00 PM UTC (TECH: RMC) 93792-8 Urinalysis dipstick W Reflex Culture panel - Urine N NO December 18, 2024 5:13:00 PM UTC (TECH: RMC) 58422-1 Erythrocytes [#/area] in Urine sediment by Microscopy high power field N NONE SEEN NONE SEEN December 18, 2024 5:13:00 PM UTC (TECH: RMC) 5821-4 Leukocytes [#/area] in Urine sediment by Microscopy high power field N 1-5 NONE SEEN December 18, 2024 5:13:00 PM UTC (TECH: [facility]) 56361-7 Epithelial cells.squamous [#/area] in Urine sediment by Microscopy high power field N NONE SEEN NONE SEEN December 18, 2024 5:13:00 PM UTC (TECH: [facility]) 5769-5 Bacteria [#/area] in Urine sediment by Microscopy high power field N 1+ NONE SEEN December 18, 2024 5:13:00 PM UTC (TECH: [facility]) 86584-3 Hyaline casts [Presence] in Urine sediment by Light microscopy N 1-5 NONE SEEN December 18, 2024 5:13:00 PM UTC (TECH: [facility]) 69002-8 Coarse Granular Casts [#/area] in Urine sediment by Automated count N 0-2 NONE SEEN December 18, 2024 5:13:00 PM UTC (TECH: [facility]) ORDER 1800: RENAL FUNCTION P DARA (LOINC: 63388-9) ORDER DATE: December 18, 2024 8:04:00 AM UTC Specimen Source: PLASMA Specimen Type: Plasma specim en PERFORMING LAB: [address] [id number] Result Comment: Final Result Date: December 18, 2024 9:19:00 AM UT (TECH: ARR) LOINC TEST FLAG RESULT REFERENCE RANGE UPDA ISAAC BY 2951-2 Sodium [Moles/volume] in Serum or Plasma N 137 mmol/L 136 mmol/L - 145 mmol/L December 18, 2024 9:19:00 AM UTC (TECH: ARR) 2823-3 Potassium [Moles/volume] in Serum or Plasma LL 2.5 mmol/L 3.6 mmol/L - 5.0 mmol/L December 18, 2024 9:19:00 AM UTC (TECH: ARR) 2075-0 Chloride [Moles/volume] in Serum or Plasma N 104 mmol/L 98 mmol/L - 107 mmol/L December 18, 2024 9:19:00 AM UTC (TECH: ARR) 8-9 Carbon dioxide, total [Moles/volume] in Serum or Plasma L 17.0 mmol/L 21.0 mmol/L - 32.0 mmol/L December 18, 2024 9:19:00 AM UT (TECH: ARR) 02821-8 Anion gap in Blood N 18.5 M 2024 9:19:00 AM UTC (TECH: ARR) 2345-7 Glucose [Mass/volume] in Serum or Plasma N 119 mg/dl 70 mg/dl - 120 mg/dl December 18, 2024 9:19:00 AM UT (TECH: ARR) 6299-2 Urea nitrogen [Mass/volume] in Blood H 47 mg/dL 7 mg/dL - 18 mg/dL December 18, 2024 9:19:00 AM UT (TECH: ARR) 37077-6 Creatinine [Moles/volume] in Blood HH 6.8 mg/dL 0.6 mg/dL - 1.3 mg/dL December 18, 2024 9:19:00 AM UT (TECH: ARR) 1751-7 Albumin [Mass/volume] in Serum or Plasma L 2.9 g/dl 3.4 g/dl - 5.0 g/dl December 18, 2024 9:19:00 AM UT (TECH: ARR) 89080-0 Calcium [Mass/volume] in Serum or Plasma L 8.2 mg/dl 8.5 mg/dl - 10.5 mg/dl December 18, 2024 9:19:00 AM UT (TECH: ARR) 2777-1 Phosphate [Mass/volume] in Serum or Plasma H 5.5 mg/dl 2.5 mg/dl - 4.9 mg/dl December 18, 2024 9:19:00 AM UT (TECH: ARR) ORDER 2000: POTASSIUM (LOINC : 2823-3) ORDER DATE: December 18, 2024 9:56:00 AM UT Specimen Source: PLASMA Specimen Type: Plasma specim en PERFORMING LAB: [address] [id number] Result Comment: Final Result Date: December 18, 2024 4:31:00 PM UTC (TECH: RMC) LOINC TEST FLAG RESULT REFERENCE RANGE UPDA ISAAC BY 2823-3 Potassium [Moles/volume] in Serum or Plasma N 3.9 mmol/L 3.6 mmol/L - 5.0 mmol/L December 18, 2024 4:31:00 PM UTC (TECH: RMC) ORDER 2200: BASIC METABOLIC PANEL (LOINC: 03634-3) ORDER DATE: December 18, 2024 2:35:00 PM UTC Specimen Source: PLASMA Specimen Type: Plasma specim en PERFORMING LAB: [address] [id number] Result Comment: Final Result Date: December 18, 2024 9:24:00 PM UTC (TECH: PP) LOINC TEST FLAG RESULT REFERENCE RANGE UPDA ISAAC BY 2951-2 Sodium [Moles/volume] in Serum or Plasma N 139 mmol/L 136 mmol/L - 145 mmol/L December 18, 2024 9:24:00 PM UTC (TECH: PP) 2823-3 Potassium [Moles/volume] in Serum or Plasma L 3.1 mmol/L 3.6 mmol/L - 5.0 mmol/L December 18, 2024 9:24:00 PM UTC (TECH: PP) 2075-0 Chloride [Moles/volume] in Serum or Plasma N 105 mmol/L 98 mmol/L - 107 mmol/L December 18, 2024 9:24:00 PM UTC (TECH: PP) 2028-9 Carbon dioxide, total [Moles/volume] in Serum or Plasma N 21.4 mmol/L 21.0 mmol/L - 32.0 mmol/L December 18, 2024 9:24:00 PM UTC (TECH: PP) 27445-0 Anion gap in Blood N 15.7 M 2024 9:24:00 PM UTC (TECH: PP) 2345-7 Glucose [Mass/volume] in Serum or Plasma N 114 mg/dl 70 mg/dl - 120 mg/dl December 18, 2024 9:24:00 PM UTC (TECH: PP) 6299-2 Urea nitrogen [Mass/volume] in Blood H 44 mg/dL 7 mg/dL - 18 mg/dL December 18, 2024 9:24:00 PM UTC (TECH: PP) 43468-1 Creatinine [Moles/volume] in Blood HH 6.1 mg/dL 0.6 mg/dL - 1.3 mg/dL December 18, 2024 9:24:00 PM UTC (TECH: PP) 24139-8 Glomerular filtration rate/1.73 sq M.predicted by Creatinine-based formula (MDRD) L 7 mlpermin 60 mlpermin December 18, 2024 9:24:00 PM UTC (TECH: PP) 16397-0 Osmolality of Serum or Plasma by calculated by sum of electrolytes N 301 mosm/kg 275 mosm/kg - 301 mosm/kg December 18, 2024 9:24:00 PM UTC (TECH: PP) 81035-3 Calcium [Mass/volume] in Serum or Plasma L 8.2 mg/dl 8.5 mg/dl - 10.5 mg/dl December 18, 2024 9:24:00 PM UTC (TECH: PP) ORDER 2700: CREATINE KINASE CK (LOINC: 2157-6) ORDER DATE: December 18, 2024 6:35:00 PM UTC Specimen Source: PLASMA Specimen Type: Plasma specim en PERFORMING LAB: [address] [id number] Result Comment: Final Result Date: December 18, 2024 7:02:00 PM UTC (TECH: PP) LOINC TEST FLAG RESULT REFERENCE RANGE UPDA ISAAC BY 2157-6 Creatine kinase [Enzymatic activity/volume] in Serum or Plasma N 57 IU/l 35 IU/l - 232 IU/l December 18 7:02:00 PM UTC (TECH: PP) ORDER 3100: GLUCOSE BEDSIDE TESTING (LOINC: 31271-3) ORDER DATE: December 19, 2024 8:11:00 AM UTC Specimen Source: WHOLE BLOOD Specimen Type: Whole blood s ample PERFORMING LAB: [address] [id number] Result Comment: December 19, 2024 8:15:00 AM UTC Test performed by: [id number] ; Instrument: [id number] Final Result Date: December 19, 2024 8:15:00 AM UTC LOINC TEST FLAG [place] [address]-9 Glucose [Mass/volume] in Capillary blood by Glucometer H 142 mg/dl 70 mg/dl - 105 mg/dl December 19, 2024 8:15:00 AM UT ORDER 3200: COMP METABOLIC P DARA (LOINC: 93324-4) ORDER DATE: December 19, 2024 1:46:00 PM UT Specimen Source: PLASMA Specimen Type: Plasma specim en PERFORMING LAB: [address] [id number] Result Comment: Final Result Date: December 19, 2024 2:13:00 PM UT (TECH: Gumiyo) LOINC TEST FLAG RESULT REFERENCE RANGE UPDA ISAAC BY 2951-2 Sodium [Moles/volume ] in Serum or Plasma N 141 mmol/L 136 mmol/L - 145 mmol/L December 19, 2024 2:13:00 PM UT (TECH: Gumiyo) 2823-3 Potassium [Moles/volume] in Serum or Plasma L 3.1 mmol/L 3.6 mmol/L - 5.0 mmol/L December 19, 2024 2:13:00 PM UT (TECH: Gumiyo) 2075-0 Chloride [Moles/volu me] in Serum or Plasma N 107 mmol/L 98 mmol/L - 107 mmol/L December 19, 2024 2:13:00 PM UT (TECH: Gumiyo) 8-9 Carbon dioxide, tota l [Moles/volume] in Serum or Plasma N 21.5 mmol/L 21.0 mmol/L - 32.0 mmol/L December 19, 2024 2:13:00 PM UT (TECH: Gumiyo) 37000-1 Anion gap in Blood N 15.6 M 2024 2:13:00 PM UT (TECH: [employer]) 2345-7 Glucose [Mass/volume ] in Serum or Plasma H 138 mg/dl 70 mg/dl - 120 mg/dl December 19, 2024 2:13:00 PM UT (TECH: Gumiyo) 6299-2 Urea nitrogen [Mass/volume] in Blood H 43 mg/dL 7 mg/dL - 18 mg/dL December 19, 2024 2:13:00 PM UT (TECH: [employer]) 48787-8 Creatinine [Moles/volume] in Blood HH 4.8 mg/dL 0.6 mg/dL - 1.3 mg/dL December 19, 2024 2:13:00 PM UT (TECH: Gumiyo) 07922-7 Glomerular filtratio n rate/1.73 sq M.predicted by Creatinine-based formula (MDRD) L 9 mlpermin 60 mlpermin December 19, 2024 2:13:00 PM UT (TECH: Gumiyo) 21676-3 Osmolality of Serum or Plasma by calculated by sum of electrolytes H 306 mosm/kg 275 mosm/kg - 301 mosm/kg December 19, 2024 2:13:00 PM UT (TECH: Gumiyo) 2885-2 Protein [Mass/volume ] in Serum or Plasma L 5.6 g/dl 6.4 g/dl - 8.2 g/dl December 19, 2024 2:13:00 PM UT (TECH: Gumiyo) 1751-7 Albumin [Mass/volume ] in Serum or Plasma L 2.4 g/dl 3.4 g/dl - 5.0 g/dl December 19, 2024 2:13:00 PM UT (TECH: Gumiyo) 2336-6 Globulin [Mass/volum e] in Serum N 3.2 December 19, 2024 2:13:00 PM UT (TECH: Gumiyo) 1759-0 Albumin/Globulin [Ma ss Ratio] in Serum or Plasma N 0.8 0.7 - 2 December 19, 2024 2:13:00 PM [facility] (TECH: Gumiyo) 85464-4 Calcium [Mass/volume ] in Serum or Plasma L 8.1 mg/dl 8.5 mg/dl - 10.5 mg/dl December 19, 2024 2:13:00 PM UT (TECH: Gumiyo) 1975-2 Bilirubin.total [Mass/volume] in Serum or Plasma N 0.20 mg/dL 0.10 mg/dL - 1.00 mg/dL December 19, 2024 2:13:00 PM UT (TECH: Gumiyo) 1920-8 Aspartate aminotransferase [Enzymatic activity/volume] in Serum or Plasma N 26 U/L 0 U/L - 37 U/L December 19, 2024 2:13:00 PM UT (TECH: Gumiyo) 1742-6 Alanine aminotransferase [Enzymatic activity/volume] in Serum or Plasma N 26 U/L 0 U/L - 65 U/L December 19, 2024 2:13:00 PM UT (TECH: JNJ) 6768-6 Alkaline phosphatase [Enzymatic activity/volume] in Serum or Plasma N 89 U/L 46 U/L - 116 U/L December 19, 2024 2:13:00 PM UT (TECH: JNJ) ORDER 3400: COMP METABOLIC P DARA (LOINC: 05396-9) ORDER DATE: December 19, 2024 3:08:00 PM UT Specimen Source: PLASMA Specimen Type: Plasma specim en PERFORMING LAB: [address] [id number] Result Comment: Final Result Date: December 20, 2024 9:19:00 AM UT (TECH: Rayspan) LOINC TEST FLAG RESULT REFERENCE RANGE UPDA ISAAC BY 2951-2 Sodium [Moles/volume ] in Serum or Plasma H 147 mmol/L 136 mmol/L - 145 mmol/L December 20, 2024 9:19:00 AM UT (TECH: Rayspan) 2823-3 Potassium [Moles/volume] in Serum or Plasma L 3.5 mmol/L 3.6 mmol/L - 5.0 mmol/L December 20, 2024 9:19:00 AM UT (TECH: YouEye1) 2075-0 Chloride [Moles/volu me] in Serum or Plasma H 110 mmol/L 98 mmol/L - 107 mmol/L December 20, 2024 9:19:00 AM UT (TECH: Rayspan) 8-9 Carbon dioxide, tota l [Moles/volume] in Serum or Plasma N 30.9 mmol/L 21.0 mmol/L - 32.0 mmol/L December 20, 2024 9:19:00 AM UT (TECH: Rayspan) 96463-4 Anion gap in Blood N 9.6 J 2024 9:19:00 AM UT (TECH: YouEye1) 2345-7 Glucose [Mass/volume ] in Serum or Plasma N 120 mg/dl 70 mg/dl - 120 mg/dl December 20, 2024 9:19:00 AM UT (TECH: YouEye1) 6299-2 Urea nitrogen [Mass/volume] in Blood H 30 mg/dL 7 mg/dL - 18 mg/dL December 20, 2024 9:19:00 AM UT (TECH: AH1) 16557-8 Creatinine [Moles/volume] in Blood H 2.3 mg/dL 0.6 mg/dL - 1.3 mg/dL December 20, 2024 9:19:00 AM [facility] ([facility]: Rayspan) 10552-2 Glomerular filtratio n rate/1.73 sq M.predicted by Creatinine-based formula (MDRD) L 22 mlpermin 60 mlpermin December 20, 2024 9:19:00 AM [facility] ([facility]: Rayspan) 52528-0 Osmolality of Serum or Plasma by calculated by sum of electrolytes H 313 mosm/kg 275 mosm/kg - 301 mosm/kg December 20, 2024 9:19:00 AM [facility] (TECH: Rayspan) 2885-2 Protein [Mass/volume ] in Serum or Plasma L 5.5 g/dl 6.4 g/dl - 8.2 g/dl December 20, 2024 9:19:00 AM [facility] ([facility]: Rayspan) 1751-7 Albumin [Mass/volume ] in Serum or Plasma L 2.4 g/dl 3.4 g/dl - 5.0 g/dl December 20, 2024 9:19:00 AM [facility] (TECH: Rayspan) 2336-6 Globulin [Mass/volum e] in Serum N 3.1 December 20, 2024 9:19:00 AM [facility] (TECH: Rayspan) 1759-0 Albumin/Globulin [Ma ss Ratio] in Serum or Plasma N 0.8 0.7 - 2 December 20, 2024 9:19:00 AM [facility] ([facility]: Rayspan) 87221-1 Calcium [Mass/volume ] in Serum or Plasma L 8.2 mg/dl 8.5 mg/dl - 10.5 mg/dl December 20, 2024 9:19:00 AM [facility] (TECH: Rayspan) 1975-2 Bilirubin.total [Mass/volume] in Serum or Plasma N 0.30 mg/dL 0.10 mg/dL - 1.00 mg/dL December 20, 2024 9:19:00 AM [facility] (TECH: Rayspan) 1920-8 Aspartate aminotransferase [Enzymatic activity/volume] in Serum or Plasma N 21 U/L 0 U/L - 37 U/L December 20, 2024 9:19:00 AM [facility] (TECH: Rayspan) 1742-6 Alanine aminotransferase [Enzymatic activity/volume] in Serum or Plasma N 21 U/L 0 U/L - 65 U/L December 20, 2024 9:19:00 AM UT (TECH: YouEye1) 6768-6 Alkaline phosphatase [Enzymatic activity/volume] in Serum or Plasma N 86 U/L 46 U/L - 116 U/L December 20, 2024 9:19:00 AM UT (TECH: 1) ORDER 3500: GLUCOSE BEDSIDE TESTING (LOINC: 34372-7) ORDER DATE: December 19, 2024 3:29:00 PM UTC Specimen Source: WHOLE BLOOD Specimen Type: Whole blood s ample PERFORMING LAB: [address] [id number] Result Comment: December 19, 2024 3:46:00 PM UTC Test performed by: [id number] ; Instrument: [id number] Final Result Date: December 19, 2024 3:46:00 PM UTC LOINC TEST FLAG [place]ULT [place] [address]-8 Glucose [Mass/volume] in Capillary blood by Glucometer H 155 mg/dl 70 mg/dl - 105 mg/dl December 19, 2024 3:46:00 PM UTC ORDER 3600: GLUCOSE BEDSIDE TESTING (LOINC: 47607-9) ORDER DATE: December 19, 2024 8:08:00 PM UTC Specimen Source: WHOLE BLOOD Specimen Type: Whole blood s reed PERFORMING LAB: [address] [id number] Result Comment: December 19, 2024 8:12:00 PM UTC Test performed by: [id number] ; Instrument: [id number] Final Result Date: December 19, 2024 8:12:00 PM UTC LOINC TEST FLAG RESULT [place] [address]-6 Glucose [Mass/volume] in Capillary blood by Glucometer H 128 mg/dl 70 mg/dl - 105 mg/dl December 19, 2024 8:12:00 PM UTC ORDER 3800: GLUCOSE BEDSIDE TESTING (LOINC: 44311-4) ORDER DATE: December 20, 2024 12:23:00 AM UTC Specimen Source: WHOLE BLOOD Specimen Type: Whole blood s ample [address]FORMING LAB: [address] [place] [id number] Result Comment: December 20, 2024 10:02:00 AM UTC Test performed by: [id number] ; Instrument: [id number] Final Result Date: December 20, 2024 10:02:00 AM UTC LOINC TEST FLAG [place]ULT [place] [address]-8 Glucose [Mass/volume] in Capillary blood by Glucometer H 159 mg/dl 70 mg/dl - 105 mg/dl December 20, 2024 10:02:00 AM UT ORDER 3900: GLUCOSE BEDSIDE TESTING (LOINC: 68253-9) ORDER DATE: December 20, 2024 9:47:00 AM UTC Specimen Source: WHOLE BLOOD Specimen Type: Whole blood s ample PERFORMING LAB: [address] [id number] Result Comment: December 20, 2024 10:03:00 AM UTC Test performed by: [id number] ; Instrument: [id number] Final Result Date: December 20, 2024 10:03:00 AM UTC LOINC TEST FLAG RESULT [place] [address]-8 Glucose [Mass/volume] in Capillary blood by Glucometer H 120 mg/dl 70 mg/dl - 105 mg/dl December 20, 2024 10:03:00 AM UT ORDER 4100: BASIC METABOLIC PANEL (LOINC: 61565-4) ORDER DATE: December 20, 2024 2:50:00 PM UTC Specimen Source: PLASMA Specimen Type: Plasma specim en PERFORMING LAB: [address] [id number] Result Comment: Final Result Date: December 20, 2024 8:34:00 PM UTC (TECH: JNJ) LOINC TEST FLAG RESULT REFERENCE RANGE UPDA ISAAC BY 2951-2 Sodium [Moles/volume] in Serum or Plasma H 146 mmol/L 136 mmol/L - 145 mmol/L December 20, 2024 8:34:00 PM UTC (TECH: JNJ) 2823-3 Potassium [Moles/volume] in Serum or Plasma N 3.8 mmol/L 3.6 mmol/L - 5.0 mmol/L December 20, 2024 8:34:00 PM UTC (TECH: JNJ) 2075-0 Chloride [Moles/volume] in Serum or Plasma H 109 mmol/L 98 mmol/L - 107 mmol/L December 20, 2024 8:34:00 PM UTC (TECH: Gumiyo) 8- Carbon dioxide, total [Moles/volume] in Serum or Plasma N 30.6 mmol/L 21.0 mmol/L - 32.0 mmol/L December 20, 2024 8:34:00 PM UTC (TECH: Gumiyo) 01121-0 Anion gap in Blood N 10.2 J 2024 8:34:00 PM UTC (TECH: Gumiyo) 3615-7 Glucose [Mass/volume] in Serum or Plasma H 143 mg/dl 70 mg/dl - 120 mg/dl December 20, 2024 8:34:00 PM UTC (TECH: Gumiyo) 6299-2 Urea nitrogen [Mass/volume] in Blood H 28 mg/dL 7 mg/dL - 18 mg/dL December 20, 2024 8:34:00 PM UTC (TECH: Gumiyo) 80573-3 Creatinine [Moles/volume] in Blood H 2.4 mg/dL 0.6 mg/dL - 1.3 mg/dL December 20, 2024 8:34:00 PM UTC (TECH: Gumiyo) 42154-1 Glomerular filtration rate/1.73 sq M.predicted by Creatinine-based formula (MDRD) L 21 mlpermin 60 mlpermin December 20, 2024 8:34:00 PM UTC (TECH: Gumiyo) 82362-0 Osmolality of Serum or Plasma by calculated by sum of electrolytes H 311 mosm/kg 275 mosm/kg - 301 mosm/kg December 20, 2024 8:34:00 PM UT (TECH: Gumiyo) 17672-5 Calcium [Mass/volume] in Serum or Plasma L 8.3 mg/dl 8.5 mg/dl - 10.5 mg/dl December 20, 2024 8:34:00 PM UT (TECH: Gumiyo) ORDER 4200: GLUCOSE BEDSIDE TESTING (LOINC: 74798-9) ORDER DATE: December 20, 2024 8:43:00 PM UTC Specimen Source: WHOLE BLOOD Specimen Type: Whole blood s ample PERFORMING LAB: [address] [id number] Result Comment: December 20, 2024 8:55:00 PM UT Test performed by: [id number] ; Instrument: [id number] Final Result Date: December 20, 2024 8:55:00 PM UT LOINC TEST FLAG RESULT [place] [address]-2 Glucose [Mass/volume] in Capillary blood by Glucometer H 140 mg/dl 70 mg/dl - 105 mg/dl December 20, 2024 8:55:00 PM UT ORDER 4300: BASIC METABOLIC PANEL (LOINC: 59561-4) ORDER DATE: December 20, 2024 9:26:00 PM UT Specimen Source: PLASMA Specimen Type: Plasma specim en PERFORMING LAB: [address] [id number] Result Comment: Final Result Date: December 21, 2024 9:06:00 AM [facility] (TECH: Rayspan) LOINC TEST FLAG RESULT REFERENCE RANGE UPDA ISAAC BY 2951-2 Sodium [Moles/volume] in Serum or Plasma N 143 mmol/L 136 mmol/L - 145 mmol/L December 21, 2024 9:06:00 AM UT (TECH: Rayspan) 2823-3 Potassium [Moles/volume] in Serum or Plasma N 4.3 mmol/L 3.6 mmol/L - 5.0 mmol/L December 21, 2024 9:06:00 AM UT (TECH: YouEye1) 2075-0 Chloride [Moles/volume] in Serum or Plasma H 108 mmol/L 98 mmol/L - 107 mmol/L December 21, 2024 9:06:00 AM UT (TECH: YouEye1) 8-9 Carbon dioxide, total [Moles/volume] in Serum or Plasma N 28.4 mmol/L 21.0 mmol/L - 32.0 mmol/L December 21, 2024 9:06:00 AM UT (TECH: YouEye1) 79941-1 Anion gap in Blood N 10.9 J 2024 9:06:00 AM UT (TECH: YouEye1) 2345-7 Glucose [Mass/volume] in Serum or Plasma N 108 mg/dl 70 mg/dl - 120 mg/dl December 21, 2024 9:06:00 AM UT (TECH: YouEye1) 6299-2 Urea nitrogen [Mass/volume] in Blood H 23 mg/dL 7 mg/dL - 18 mg/dL December 21, 2024 9:06:00 AM UT (TECH: Rayspan) 34658-5 Creatinine [Moles/volume] in Blood H 1.7 mg/dL 0.6 mg/dL - 1.3 mg/dL December 21, 2024 9:06:00 AM UTC (TECH: Rayspan) 27370-4 Glomerular filtration rate/1.73 sq M.predicted by Creatinine-based formula (MDRD) L 32 mlpermin 60 mlpermin December 21, 2024 9:06:00 AM UTC (TECH: Rayspan) 75669-8 Osmolality of Serum or Plasma by calculated by sum of electrolytes N 301 mosm/kg 275 mosm/kg - 301 mosm/kg December 21, 2024 9:06:00 AM UT (TECH: Rayspan) 01437-4 Calcium [Mass/volume] in Serum or Plasma N 8.5 mg/dl 8.5 mg/dl - 10.5 mg/dl December 21, 2024 9:06:00 AM UT (TECH: Rayspan) ORDER 4400: GLUCOSE BEDSIDE TESTING (LOINC: 61222-0) ORDER DATE: December 21, 2024 12:54:00 AM UT Specimen Source: WHOLE BLOOD Specimen Type: Whole blood s reed PERFORMING LAB: [address] [id number] Result Comment: December 21, 2024 1:04:00 AM UT Test performed by: [id number] ; Instrument: [id number] Final Result Date: December 21, 2024 1:04:00 AM [facility] LOINC TEST FLAG [place] [address]-6 Glucose [Mass/volume] in Capillary blood by Glucometer H 117 mg/dl 70 mg/dl - 105 mg/dl December 21, 2024 1:04:00 AM [facility] ORDER 4600: GLUCOSE BEDSIDE TESTING (LOINC: 87822-9) ORDER DATE: December 21, 2024 9:47:00 AM UT Specimen Source: WHOLE BLOOD Specimen Type: Whole blood s reed PERFORMING LAB: [address] [id number] Result Comment: December 21, 2024 9:57:00 AM UTC Test performed by: [id number] ; Instrument: [id number] Final Result Date: December 21, 2024 9:57:00 AM [facility] LOINC TEST FLAG RESULT [place] [address]-4 Glucose [Mass/volume ] in Capillary blood by Glucometer H 119 mg/dl 70 mg/dl - 105 mg/dl December 21 9:57:00 AM [facility] LABORATORY NARRATIVE RESULTS Information is not available RADIOLOGY RESULTS ORDER 1900: RENAL BILATERAL US (LOINC: 76879-8) ORDER DATE: December 18, 2024 8:04:00 AM [facility] PERFORMING LAB: [address] [id number] Final Result Date: December 18 8:03:[address] [address] Name: JACKY OCHOA Exam Date: 12/18/2024 : 1950 Age 74 years Gender: F Physician: KALA LANGE Facility: [facility] Facility HSV: Inpatient Exam: RENAL,BILATERAL US Ultrasound kidneys HISTORY: Renal failure COMPARISON: None TECHNIQUE: B-mode, pulse Doppler utilized. FINDINGS: Right kidney measures 10.9 x 5.2 x 5 cm. Left kidney measures 13.4 x 7 x 4.4 cm. There is mild thinning of renal cortices 0.8 cm on the left and 0.8 cm on the right. The kidneys are echogenic. There is no shadowing stone mass or hydronephrosis on either side. No perinephric collections. IMPRESSION: Findings compatible with moderate medical renal disease. No obstructive uropathy. Electronically signed by: Ish Estrella MD 12/18/2024 04:03 PM EDT Dictated By: Ish Estrella Transcribed By: Transcribed On: 12/18/2024 4:03 PM Electronically signed by: Ish Estrella 12/18/2024 Thank you for referring JACKY OCHOA to [facility]. Legally authenticated by EVIN HERRING 2024-12-18 16:03:52 ORDER 4000: ECHO W SPEC COLO R FLOW (LOINC: 96283-5) ORDER DATE: December 20, 2024 11:06:00 AM [facility] PERFORMING LAB: [address] [id number] Final Result Date: December 21 2:42:17 PM [facility] [address] [place] [address] Name: JACKY OCHOA Exam Date: 12/20/2024 : 1950 Age 74 years Gender: F Physician: SHAYLA ROSAS Facility: [facility] Facility HSV: Inpatient Exam: ECHO W SPEC COLOR FLOW Reason for Study: arrhythmia SUMMARY Normal LV size with normal function. The ejection fraction is 55-60%. There is mild concentric LVH. Mildly dilated left atrium. There is mild tricuspid regurgitation. Normal PA pressure (29 mmHg). INTERPRETATION DETAIL Good quality study. Left ventricle: The left ventricle is normal in size with normal systolic function. The ejection fraction is 55-60%. There is mild concentric hypertrophy. LV geometry demonstrates concentric hypertrophy. The left ventricular wall motion is normal. Left atrium: The left atrium is mildly dilated. LA volume: 63.8mL, LA volume index: 31.6mL/mA . Right ventricle: The right ventricle is normal in size with normal function. Right atrium: The right atrium is normal. Mitral valve: The mitral valve is normal. There is mild mitral annular calcification. There is no mitral stenosis. There is no mitral regurgitation. Aortic valve: The aortic valve is normal and trileaflet. 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 The dimensionless index is 0.69. AV peak pwshibex=337fp/sec. Tricuspid valve: The tricuspid valve is normal. There is mild tricuspid regurgitation. PASP= 29 mmHg, RAP=7mmHg. Pulmonic valve: The pulmonic valve is normal. Pericardium: The pericardium is normal. Pulmonary artery: The pulmonary artery is normal. Interatrial septum: The interatrial septum is normal. Aorta: The aorta is normal. The aortic root is normal. Aortic dimensions - Ao M-mode= 3.30cm, Ascending=3.30cm. Vena Cava: The inferior vena cava is normal. MEASUREMENTS Left Ventricle IVSd: 1.26cm (0.6-1.1cm) PWd: 1.25cm (0.6-1.1cm) Mass Vangie: 149g LVMI: 74g/mA (>50-95g/m) LVIDd: 3.55cm (3.7-5.6 cm) LVIDdI: 1.76cm/m2 LVIDs: 2.41cm (1.8-4.2 cm) LVIDsI: 1.19cm/m2 RWT: 0.70 (<0.42) E to A: 0.80 (0.6-2) E-e prime med: 22.50 E-e prime lat: 12.86 Decel: 271.00ms (168-232ms) Right Ventricle Mid RV Micky: 2.9cm (2.7-3.3cm) Legally authenticated by ELIDA Fair 2024-12-21 10:42:17 Max Valve Velocities AV peak mo: 102cm/sec LVOT: 73.70cm/sec Pulmonary RAP: 7mmHg PASP: 29mmHg Atria LA AP: 4.5cm LA vol: 63.8mL LESTER: 31.6mL/mA (16-28ml/m^2) Jabier Beard MD Dictated By: JABIER BEARD Transcribed By: Transcribed On: 12/21/2024 10:42 AM Electronically signed by: JABIER BERAD 12/21/2024 Thank you for referring JACKY OCHOA to [facility]. Legally authenticated by ELIDA Fair 2024-12-21 10:42:17 PATHOLOGY NARRATIVE RESULTS Information is not available MICROBIOLOGY RESULTS No Micro Labs/Results Exist for Patient BLOOD ADMIN RESULTS Information is not available TREATMENT PLAN DISCHARGE MEDICATIONS Status RXNORM Medication Dose Route Frequency Dates Comments U pdated By [facility] [id number] Levocetirizine Dihydrochlorid e Oral Tablet 5 MG 1 TAB ORAL ONCE DAILY Prescr ibed: December 21, 2024 1:42:1 3 PM UT [id number] on December 21, 2024 1:42:13 PM UT Continued [id number] Levothyroxine Sodium Oral Tablet 25 MCG 1 TAB ORAL ONCE DAILY Prescr ibed: December 21, 2024 1:42:1 3 PM UT [id number] on December 21, 2024 1:42:13 PM UTC Continued [id number] Cefdinir Oral Capsule 300 MG 1 CAP ORAL TWICE A DAY Prescr ibed: December 21, 2024 1:42:1 3 PM UT [id number] on December 21, 2024 1:42:13 PM UT Continued [id number] amLODIPine Besylate Oral Tablet 5 MG 1 TAB ORAL ONCE DAILY Prescr ibed: December 21, 2024 1:42:1 3 PM UT [id number] on December 21, 2024 1:42:13 PM UT Continued dulaglutide 1.5 MG SUBCUTANEOUS ONCE EACH WEEK Prescr ibed: December 21, 2024 1:42:1 3 PM UT [id number] on December 21, 2024 1:42:13 PM UT Continued [id number] Cholecalcifero l Oral Tablet 50 MCG (1999 UT) 1 CAP ORAL ONCE DAILY Prescr ibed: December 21, 2024 1:42:1 3 PM UT [id number] on December 21, 2024 1:42:13 PM UT Continued [id number] Fluconazole Oral Tablet 150 MG 1 TAB ORAL EVERY 36 HOURS Prescr ibed: December 21, 2024 1:42:1 3 PM UT [id number] on December 21, 2024 1:42:13 PM UT Continued [id number] metFORMIN HCl ER (MOD) Oral Tablet Extended Release 24 Hour 500 MG 2 TAB ORAL TWICE A DAY Prescr ibed: December 21, 2024 1:42:1 3 PM UT [id number] on December 21, 2024 1:42:13 PM UT Continued [id number] Lactobacillus Extra Strength Oral Capsule 1 CAP ORAL ONCE DAILY Prescr ibed: December 21, 2024 1:42:1 3 PM UTC 2.5 billion cell capsule [id number] on December 21, 2024 1:42:13 PM UTC Continued prasterone DHEA 1 CAP ORAL ONCE DAILY Prescr ibed: December 21, 2024 1:42:1 3 PM UTC 25mg [id number] on December 21, 2024 1:42:13 PM [facility] Continued [id number] Metoprolol Succinate ER Oral Tablet Extended Release 24 Hour 200 MG 1 TAB ORAL ONCE DAILY Prescr ibed: December 21, 2024 1:42:1 3 PM [facility] [id number] on December 21, 2024 1:42:13 PM [facility] Continued [id number] Ondansetron Oral Tablet Disintegrating 4 MG 1 TAB BUCCAL EVERY EIGHT HOURS Prescr ibed: December 21, 2024 1:42:1 3 PM [facility] [id number] on December 21, 2024 1:42:13 PM [facility] Continued [id number] Rosuvastatin Calcium Oral Tablet 5 MG 1 TAB ORAL ONCE DAILY Prescr ibed: December 21, 2024 1:42:1 3 PM [facility] [id number] on December 21, 2024 1:42:13 PM [facility] Continued [id number] Singulair Oral Tablet 10 MG 1 TAB ORAL ONCE DAILY Prescr ibed: December 21, 2024 1:42:1 3 PM [facility] [id number] on December 21, 2024 1:42:13 PM [facility] PATIENT OPEN ORDERS Code System Description Frequency Occurrences Priority Start Date Ordering Physician Updated By Patient open order informati on is not available. SCHEDULED PROCEDURES Code System Description Status Scheduled Date Upd ated By Patient scheduled procedure information is not available. MEDICATIONS HOME MEDICATIONS Status RXNORM [facility] Medication Dose Route Frequency Dates Comments Reported By Updated By Active [id number] 85073 46033 1 Cholecalcife rol Oral Tablet 50 MCG (1999) 1.0 CAP ORAL DAILY Last Dose: [id number] on December 18, 2024 6:46:58 AM [facility] Active FreeT extMe d dulaglutide 1.5 MG SUBCUT ANEOUS QWEEK Last Dose: December 08, 2024 4:00:0 0 PM [facility] PATIENT [id number] on December 18, 2024 6:49:30 AM [facility] Active 573048 42519 33552 0 Levocetirizi ne Dihydrochlor deep Oral Tablet 5 MG 1.0 TAB ORAL DAILY Last Dose: PATIENT [id number] on December 18, 2024 6:50:16 AM [facility] Active 886930 33642 00983 1 Levothyroxin e Sodium Oral Tablet 25 MCG 1.0 TAB ORAL DAILY Last Dose: PATIENT [id number] on December 18, 2024 6:51:15 AM UT Active 830967 27011 48705 1 Lisinopril Oral Tablet 40 MG 1.0 TAB ORAL DAILY Last Dose: PATIENT [id number] on December 18, 2024 6:53:11 AM UT Active 766691 21446 24422 3 Singulair Oral Tablet 10 MG 1.0 TAB ORAL DAILY Last Dose: PATIENT [id number] on December 18, 2024 6:53:58 AM UT Active 979707 41860 34666 5 amLODIPine Besylate Oral Tablet 5 MG 1.0 TAB ORAL DAILY Last Dose: PATIENT [id number] on December 18, 2024 6:54:34 AM UT Active 16546 88302 6 Lactobacillu s Extra Strength Oral Capsule 1.0 CAP ORAL DAILY Last Dose: 2.5 billion cell capsule PATIENT [id number] on December 18, 2024 6:59:20 AM UT Active 1016906 03407 07904 1 metFORMIN HCl ER (MOD) Oral Tablet Extended Release 24 Hour 500 MG 2.0 TAB ORAL BID Last Dose: PATIENT [id number] on December 18, 2024 6:56:41 AM [facility] Active 235192 04698 13883 7 Metoprolol Succinate ER Oral Tablet Extended Release 24 Hour 200 MG 1.0 TAB ORAL DAILY Last Dose: PATIENT [id number] on December 18, 2024 6:57:27 AM UT Active FreeT extMe d prasterone DHEA 1.0 CAP ORAL DAILY Last Dose: 25mg PATIENT [id number] on December 18, 2024 7:02:28 AM UT Active 849390 97649 60350 1 Rosuvastatin Calcium Oral Tablet 5 MG 1.0 TAB ORAL DAILY Last Dose: PATIENT [id number] on December 18, 2024 7:03:29 AM [facility] Active 089710 94598 97997 0 Cefdinir Oral Capsule 300 MG 1.0 CAP ORAL BID Last Dose: PATIENT [id number] on December 18, 2024 7:04:44 AM UT Active 794962 33653 03169 1 Fluconazole Oral Tablet 150 MG 1.0 TAB ORAL Q36H Last Dose: PATIENT [id number] on December 18, 2024 7:06:26 AM UT Active 295243 72024 52263 3 Ondansetron Oral Tablet Disintegrati ng 4 MG 1.0 TAB BUCCAL Q8H Last Dose: PATIENT [id number] on December 18, 2024 7:08:34 AM [facility] DISCHARGE MEDICATIONS Status RXNORM [facility] Medication Dose Route Frequency Dates Comments Physician Updated By Continue d [id number] 9986 2033 690 Levocetiriz ine Dihydrochlo ride Oral Tablet 5 MG 1.0 TAB ORAL ONCE DAILY Prescr ibed: December 21, 2024 1:42:1 3 PM [facility] FEMI HICKS [id number] on December 21, 2024 1:42:13 PM [facility] Continue d 240554 0738 9044 401 Levothyroxi ne Sodium Oral Tablet 25 MCG 1.0 TAB ORAL ONCE DAILY Prescr ibed: December 21, 2024 1:42:1 3 PM [facility] FEMI HICKS [id number] on December 21, 2024 1:42:13 PM [facility] Continue d 827083 3446 0071 160 Cefdinir Oral Capsule 300 MG 1.0 CAP ORAL TWICE A DAY Prescr ibed: December 21, 2024 1:42:1 3 PM [facility] FEMI HICKS [id number] on December 21, 2024 1:42:13 PM [facility] Continue d 515953 0963 2011 205 amLODIPine Besylate Oral Tablet 5 MG 1.0 TAB ORAL ONCE DAILY Prescr ibed: December 21, 2024 1:42:1 3 PM [facility] FEMI HICKS [id number] on December 21, 2024 1:42:13 PM [facility] Continue d Free Text Med dulaglutide 1.5 MG SUBCUT ANEOUS ONCE EACH WEEK Prescr ibed: December 21, 2024 1:42:1 3 PM [facility] FEMI HICKS [id number] on December 21, 2024 1:42:13 PM [facility] Continue d 205413 8737 6088 001 Cholecalcif dexter Oral Tablet 50 MCG (1999) 1.0 CAP ORAL ONCE DAILY Prescr ibed: December 21, 2024 1:42:1 3 PM [facility] FEMI HICKS [id number] on December 21, 2024 1:42:13 PM [facility] Continue d 889691 4633 1014 571 Fluconazole Oral Tablet 150 MG 1.0 TAB ORAL EVERY 36 HOURS Prescr ibed: December 21, 2024 1:42:1 3 PM [facility] FEMI HICKS [id number] on December 21, 2024 1:42:13 PM UTC Continue d 4198733 1490 0033 801 metFORMIN HCl ER (MOD) Oral Tablet Extended Release 24 Hour 500 MG 2.0 TAB ORAL TWICE A DAY Prescr ibed: December 21, 2024 1:42:1 3 PM UT FEMI Noyola PHY [id number] on December 21, 2024 1:42:13 PM UTC Continue d 965622 8888 7008 676 Lactobacill us Extra Strength Oral Capsule 1.0 CAP ORAL ONCE DAILY Prescr ibed: December 21, 2024 1:42:1 3 PM UTC 2.5 billion cell capsule FEMI Noyola PHBree [id number] on December 21, 2024 1:42:13 PM UTC Continue d Free Text Med prasterone DHEA 1.0 CAP ORAL ONCE DAILY Prescr ibed: December 21, 2024 1:42:1 3 PM UTC 25mg FEMI Noyola PHBree [id number] on December 21, 2024 1:42:13 PM UTC Continue d 918106 9566 8459 877 Metoprolol Succinate ER Oral Tablet Extended Release 24 Hour 200 MG 1.0 TAB ORAL ONCE DAILY Prescr ibed: December 21, 2024 1:42:1 3 PM UT FEMI HICKS [id number] on December 21, 2024 1:42:13 PM UTC Continue d 739464 6240 2015 713 Ondansetron Oral Tablet Disintegrat ing 4 MG 1.0 TAB BUCCAL EVERY EIGHT HOURS Prescr ibed: December 21, 2024 1:42:1 3 PM UT FEMI Noyola Y [id number] on December 21, 2024 1:42:13 PM UTC Continue d 741412 5388 5058 281 Rosuvastati n Calcium Oral Tablet 5 MG 1.0 TAB ORAL ONCE DAILY Prescr ibed: December 21, 2024 1:42:1 3 PM UT FEMI Noyola PHY [id number] on December 21, 2024 1:42:13 PM UTC Continue d 793018 8392 5016 403 Singulair Oral Tablet 10 MG 1.0 TAB ORAL ONCE DAILY Prescr ibed: December 21, 2024 1:42:1 3 PM UT FEMICURTIS HICKS [id number] on December 21, 2024 1:42:13 PM [facility] INPATIENT MEDICATIONS Status RXNORM [facility] Medication Dose Route Frequency Rat e Quantity Dates Comments Physician Updated By Joon inued 3173 9891 164 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 0 ML INTRAV ENOUS CONT 75.0 ML/HR Start: December 18, 2024 7:20:0 0 AM UTC End: December 18, 2024 4:43:3 9 PM UT BRENGS KALA Marv [id number] on December 18, 2024 4:43:00 PM UT Discont inued 7155994 7881 5613 000 ondansetron (ZOFRAN) INJ 4 MG/2 ML SOLN 4.0 MG INTRAV ENOUS EVERY SIX HOURS NEEDED Start: December 18, 2024 7:20:0 0 AM UTC End: December 21, 2024 1:42:1 3 PM UT BRENGS KALA Marv [id number] on December 22, 2024 4:25:00 AM UT Discont inued 0012 1176 230 MYLANTA DS ORAL LIQD 30.0 ML ORAL EVERY SIX HOURS NEEDED Start: December 18, 2024 7:20:0 0 AM UTC End: December 21, 2024 1:42:1 3 PM UT BRENGS KALA Marv [id number] on December 22, 2024 4:25:00 AM UT Discont inued 3160777 3279 2879 959 insulin lispro (HumaLOG) PEN 100 UNIT/ML SOPN 1.0 UNT SUBCUT ANEOUS SLIDING SCALE NEEDED Start: December 18, 2024 7:20:0 0 AM UTC End: December 21, 2024 1:42:1 3 PM UTC BRENGJoe Fair [id number] on December 22, 2024 4:25:00 AM UTC Discont inued 1030464 7632 9330 201 dextrose 50% SYRINGE (25 GM) SOLN 25.0 ML INTRAV ENOUS NEEDED Start: December 18, 2024 7:20:0 0 AM UTC End: December 21, 2024 1:42:1 3 PM UTC BRENGJoe Fair [id number] on December 22, 2024 4:25:00 AM UTC Discont inued 997130 8981 4677 361 acetaminoph en (TYLENOL) 325 MG TABS 650.0 MG ORAL EVERY SIX HOURS NEEDED Start: December 18, 2024 7:20:0 0 AM UTC End: December 21, 2024 1:42:1 3 PM UTC BRENGS KALA Fair [id number] on December 22, 2024 4:25:00 AM UTC Discont inued 7071658 0775 7043 198 MIRALAX PACKET 17 GM PACK 17.0 GM ORAL ONCE DAILY NEEDED Start: December 18, 2024 7:20:0 0 AM UTC End: December 21, 2024 1:42:1 3 PM UTC BRENGJoe Fair [id number] on December 22, 2024 4:25:00 AM UTC Discont inued Free Text Med Rosuvastati n Calcium Oral Tablet 5 MG 1.0 TAB ORAL ONCE DAILY Start: December 18, 2024 1:00:0 0 PM UTC End: December 18, 2024 1:00:0 0 PM UTC BRENGJoe YANES on December 18, 2024 7:52:00 AM UTC Discont inued Free Text Med Singulair Oral Tablet 10 MG 1.0 TAB ORAL ONCE DAILY Start: December 18, 2024 1:00:0 0 PM UTC End: December 18, 2024 1:00:0 0 PM UTC BRENGJoe YANES on December 18, 2024 7:51:00 AM UTC Discont inued Free Text Med Levothyroxi ne Sodium Oral Tablet 25 MCG 1.0 TAB ORAL ONCE DAILY Start: December 18, 2024 1:00:0 0 PM UTC End: December 18, 2024 1:00:0 0 PM UTC NAZARIO CHAPMANAID on December 18, 2024 7:50:00 AM UTC Discont inued 739359 6845 7048 811 amLODIPine (NORVASC) 5 MG TABS 5.0 MG ORAL ONCE DAILY Start: December 18, 2024 1:00:0 0 PM UTC End: December 19, 2024 5:32:2 3 PM UTC BRENGJoe Fair [id number] on December 19, 2024 5:32:00 PM UTC Discont inued 203740 9342 4434 190 levothyroxi ne (SYNTHROID) 25 MCG TABS 25.0 MCG ORAL ONCE DAILY Start: December 18, 2024 1:00:0 0 PM UTC End: December 21, 2024 1:42:1 3 PM UTC BREJOVANY Fair [id number] on December 22, 2024 4:25:00 AM UTC Discont inued 671931 8631 4087 501 montelukast sodium (SINGULAIR) 10 MG TABS 10.0 MG ORAL ONCE DAILY Start: December 18, 2024 1:00:0 0 PM UTC End: December 21, 2024 1:42:1 3 PM UTC BREJOVANY Fair [id number] on December 22, 2024 4:25:00 AM UTC Discont inued 044144 2157 1012 190 atorvastati n (LIPITOR) 10 MG TABS 10.0 MG ORAL ONCE DAILY Start: December 18, 2024 1:00:0 0 PM UTC End: December 21, 2024 1:42:1 3 PM UTC BREJOVANY Fair [id number] on December 22, 2024 4:25:00 AM UTC Discont inued 992061 9346 7065 321 potassium chloride (K-DUR) 10 MEQ CPCR 40.0 MEQ ORAL GIVE ONE DOSE NOW Start: December 18, 2024 9:30:0 0 AM UTC End: December 18, 2024 9:38:4 6 AM UTC BREJOVANY Fair [id number] on December 18, 2024 9:38:00 AM UTC Discont inued 132507 6101 8070 948 potassium chloride PREMIX 10 MEQ/100 ML SOLN 10.0 MEQ INTRAV ENOUS EVERY 1 HOUR 100.0 ML/HR Start: December 18, 2024 12:30: 00 PM UTC End: December 19, 2024 4:25:1 9 AM UTC LAISON MCGUIRE [id number] on December 19, 2024 4:25:00 AM UTC Discont inued 6498 0033 901 magnesium oxide (MAG-OX) 400 MG TABS 800.0 MG ORAL GIVE ONE DOSE NOW Start: December 18, 2024 12:17: 00 PM UTC End: December 18, 2024 1:37:2 2 PM UTC ALISON MCGUIRE [id number] on December 18, 2024 1:37:00 PM UTC Discont inued 1949415 4733 9663 714 sodium bicarbonate 8.4 % VIAL SOLN 150.0 MEQ INTRAV ENOUS CONT 100.0 ML/HR Start: December 18, 2024 3:00:0 0 PM UTC End: December 19, 2024 7:52:4 7 PM UTC DAREN OWENS [id number] on December 19, 2024 7:52:00 PM UTC Discont inued 7369105 9873 8001 704 dextrose 5% SOLN 1000. 0 ML INTRAV ENOUS CONT 100.0 ML/HR Start: December 18, 2024 3:00:0 0 PM UTC End: December 19, 2024 7:52:4 7 PM UTC DAREN OWENS [id number] on December 19, 2024 7:52:00 PM UTC Discont inued 0914481 4384 4036 009 potassium chloride (K-DUR) 20 MEQ TBCR 40.0 MEQ ORAL TWICE A DAY Start: December 19, 2024 1:00:0 0 AM UTC End: December 21, 2024 1:42:1 3 PM UTC DAREN OWENS [id number] on December 22, 2024 4:25:00 AM UTC Discont inued 4600516 6936 9672 924 magnesium sulfate PREMIX 2 GM/50 ML SOLN 2.0 GM INTRAV ENOUS GIVE ONE DOSE NOW 50.0 ML/HR Start: December 18, 2024 6:35:0 0 PM UTC End: December 19, 2024 4:25:2 0 AM UTC ALISON MCGUIRE [id number] on December 19, 2024 4:25:00 AM UTC Discont inued 000276 0357 9093 120 carvedilol (COREG) 12.5 MG TABS 12.5 MG ORAL TWICE A DAY Start: December 20, 2024 1:00:0 0 AM UTC End: December 21, 2024 1:42:1 3 PM UTC ELIDA Fair [id number] on December 22, 2024 4:25:00 AM UTC Discont inued 328439 6337 8011 704 LACTATED RINGERS SOLN 1000. 0 ML IV CONTIN UOUS CONT 100.0 ML/HR Start: December 19, 2024 7:52:0 0 PM UTC End: December 20, 2024 2:17:1 0 PM UTC DAREN OWENS [id number] on December 20, 2024 2:17:00 PM UTC Discont inued 171697 5874 9007 520 hydrALAZINE (APRESOLINE ) 25 MG TABS 25.0 MG ORAL GIVE ONE DOSE NOW Start: December 20, 2024 4:45:0 0 AM UTC End: December 20, 2024 4:51:5 6 AM UT NAZARIO Fair [id number] on December 20, 2024 4:57:00 AM UTC Discont inued 4105988 8761 9672 923 magnesium sulfate PREMIX 4 GM/100 ML SOLN 4.0 GM INTRAV ENOUS GIVE ONE DOSE NOW 100.0 ML/HR Start: December 20, 2024 9:31:0 0 AM UTC End: December 20, 2024 9:45:2 5 AM UTC NAZARIO Fair [id number] on December 20, 2024 9:45:00 AM UTC Discont inued 428041 5225 7048 811 amLODIPine (NORVASC) 5 MG TABS 5.0 MG ORAL ONE TIME ONLY (SCHEDULED DOSE) Start: December 20, 2024 12:15: 00 PM UTC End: December 20, 2024 12:15: 00 PM UT ALISON MCGUIRE INTERF ED on December 20, 2024 12:14:00 PM UTC Discont inued 7199641 2280 8004 304 sodium chloride 0.45% SOLN 1000. 0 ML IV CONTIN UOUS CONT 100.0 ML/HR Start: December 20, 2024 2:16:0 0 PM UTC End: December 21, 2024 1:42:1 3 PM UTC FEMI Noyola [id number] on December 22, 2024 4:25:00 AM UTC Discont inued 835899 7887 9007 520 hydrALAZINE (APRESOLINE ) 25 MG TABS 25.0 MG ORAL GIVE ONE DOSE NOW Start: December 21, 2024 2:19:0 0 AM UTC End: December 21, 2024 2:34:0 0 AM UTC TERRAJoe KALA Fair [id number] on December 21, 2024 2:34:00 AM UT SOCIAL HISTORY SOCIAL HISTORY SNOMED-CT Social History Element Description Effective Dates Offered Cessation Comment UpdatedBy [id number] Smoking Status Unknown If Ever Smoked SOCIAL HISTORY - Gender Sex: Female SOCIAL HISTORY - Status : status i nformation is not available Intention in Next Year: intention information is not available SOCIAL HISTORY - Sexual Behavior Sexual Orientation Gender Identity SNOMED-CT Description SNO MED -CT Description Activity Level No of Partners Partner Type UpdatedBy Information is not available VITAL SIGNS PATIENT VITAL SIGNS This section displays the mo st recent value for each vital sign as of December 24, 2024 5:39:35 PM UT Loinc Code Vital [place] [address]-0 Blood glucose monitors December 21 9:58:00 AM UT 119.0 mg/dL [id number] on December 21, 2024 9:58:23 AM [facility] 8302-2 Body height December 18, 2024 7:31:33 AM UT 162.56 cm (64.0 in) [id number] on December 18, 2024 7:31:33 [place] [address]-1 Body mass index (BMI ) [Ratio] December 18, 2024 7:31:33 AM UT 34.398 kg/m2 [id number] on December 18, 2024 7:31:33 AM UT 3140-1 Body Surface Area Derived From Formula December 18, 2024 7:31:33 AM UT 1.9577 m2 [id number] on December 18, 2024 7:31:33 AM UTC 8310-5 Body temperature December 21, 2024 1:36:00 PM UTC 97.3 [degF] [id number] on December 21, 2024 3:24:21 PM UTC 89967-9 Body weight Measured December 18 7:31:33 AM UTC 90.9 kg (200.0 lb) [id number] on December 18, 2024 7:31:33 AM UTC 8462-4 Diastolic blood pressure December 21, 2024 1:36:00 PM UTC 93.0 mm[Hg] [id number] on December 21, 2024 3:24:21 PM UTC 8867-4 Heart rate December 21, 2024 1:36:00 PM UTC 70 /min [id number] on December 21, 2024 3:24:21 PM UTC 8478-0 Mean blood pressure December 21, 2024 1:36:00 PM UTC 134.0 mm[Hg] [id number] on December 21, 2024 3:24:21 PM UTC 80279-1 Oxygen saturation in Arterial blood by Pulse oximetry December 21, 2024 1:36:00 PM UTC 95.0 % [id number] on December 21, 2024 3:24:21 PM UTC 9279-1 Respiratory rate December 21, 2024 1:36:00 PM UTC 20 /min [id number] on December 21, 2024 3:24:21 PM UTC 8480-6 Systolic blood pressure December 21, 2024 1:36:00 PM UTC 207.0 mm[Hg] [id number] on December 21, 2024 3:24:21 PM UTC 15795-0 Vital capacity [Volume] Respiratory system by Spirometry December 21, 2024 2:28:00 PM UTC 3000.0 ml [id number] on December 21, 2024 2:28:42 PM UTC PEDIATRIC GROWTH CHART - VITAL SIGNS This section displays Head C ircumference Percentile, Weight for Length Percentile and BMI Percentile Loinc Code Pediatric Measure Age (Months) Result Updat ed By No Pediatric Growth Chart Pe rcentile Information Available. HEALTH CONCERNS Problems Concern Status Health Concern problem infor mation not available. Smoking Status Status Years Used Consumed packs p er day Health Concern smoking histo ry information not available. Family History Concern Status Health Concern family histor y information not available. ENCOUNTERS ENCOUNTER INFORMATION Reason for Visit RENAL FAILURE Admission December 18, 2024 5:57:[id number] [facility] [id number] Discharge December 21, 2024 3:25:00 PM UT DISC HARGED TO HOME OR SELF CARE ENCOUNTER DIAGNOSES Notes information is not delroy ilable. Code System Diagnosis Onset Date Diagnosis information is not available. 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 [id number] on December 23, 2024 5:00:18 PM UTC E86.0 ICD10 DEHYDRATION [id number] on December 23, 2024 5:00:18 PM UT I10 ICD10 ESSENTIAL (PRIMARY) HYPERTEN AUBREE [id number] on December 23, 2024 5:00:18 PM UTC E78.5 ICD10 HYPERLIPIDEMIA, UNSPECIFIED [id number] on December 23, 2024 5:00:18 PM UT E11.65 ICD10 TYPE 2 DIABETES MELLITUS WITH HYPERGLYCEMIA [id number] on December 23, 2024 5:00:18 PM UT Z88.0 ICD10 ALLERGY STATUS TO PENICILLIN [id number] on December 23, 2024 5:00:18 PM UTC E03.9 ICD10 HYPOTHYROIDISM, UNSPECIFIED [id number] on December 23, 2024 5:00:18 PM UT Z96.82 ICD10 PRESENCE OF NEUROSTIMULATOR [id number] on December 23, 2024 5:00:18 PM [facility] M79.7 ICD10 FIBROMYALGIA [id number] on December 23, 2024 5:00:18 PM UT K58.9 ICD10 IRRITABLE BOWEL SYNDROME, UN SPECIFIED [id number] on December 23, 2024 5:00:18 PM UT I49.3 ICD10 VENTRICULAR PREMATURE DEPOLA RIZATION [id number] on December 23, 2024 5:00:18 PM UT R00.8 ICD10 OTHER ABNORMALITIES OF HEART BEAT [id number] on December 23, 2024 5:00:18 PM [facility] CARE TEAM Care Computer Education Teacher Role JABIER BEARD Consulting SHAYLA ROSAS Primary Attending MILAGROS BAKER Consulting SHAYLA ROSAS Admitting FRANK KELLEY Referring FRANK KELLEY Primary Care HOSPITAL DISCHARGE INSTRUCTION DISCHARGE INSTRUCTION Encounter [id number] Admit Date December 18, 2024 5:57:00 AM [facility] Discharge Date December 21, 2024 3:25:00 PM [facility] PATIENT EDUCATION SUMMARY Patient/Visit Information: Patient Name: JACKY OCHOA Diag: Attending Caregiver: ALISON MCGUIRE Discharge Instruction Sheets Provided: Acute Kidney Injury, Adult BEFAST-Stroke Warning Signs COVID-19 CDC-EN Discharge Information Fall Prevention in Hospitals and in the Home [facility] Pain and Responsible Opioid (Pain Medication) Management KYNECT- HELP Medication Side Effects Suicide - Managing your Feelings Patient Instructions: Followup Appointments/Instructions: HISTORY AND PHYSICAL NOTE CONSULTATION NOTE PROGRESS NOTE 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 Role on Team Status Start Date End Date Update d By ELIDA HICKS Consulting normal December 19, 2024 2:36:45 AM [facility] December 21, 2024 3:25:00 PM [facility] [id number] on December 19, 2024 2:36:45 AM [facility] SAMUEL HICKS Consulting normal December 18, 2024 7:31:49 AM [facility] December 21, 2024 3:25:00 PM [facility] [id number] on December 19, 2024 2:36:45 AM [facility] WARREN MARIE PCP normal December 18, 2024 4:45:32 AM [facility] December 18, 2024 4:00:00 AM [facility] [id number] on December 19, 2024 2:36:45 AM [facility] WARREN MARIE Referring normal December 18, 2024 4:45:32 AM [facility] December 18, 2024 4:00:00 AM [facility] [id number] on December 19, 2024 2:36:45 AM [facility] ALISON HICKS Attending normal December 18, 2024 4:45:32 AM [facility] December 18, 2024 4:00:00 AM [facility] [id number] on December 19, 2024 2:36:45 AM [facility] ALISON HICKS Admitting normal December 18, 2024 4:45:32 AM [facility] December 18, 2024 4:00:00 AM [facility] [id number] on December 19, 2024 2:36:45 AM [facility]
--- NOTE | 2024-12-28 13:34 | EXP.PAIN.SOA ---
[facility] Disclaimer: The information contained in this section may have been updated after the patient was seen, as this information can be updated by other users. Medical History Type 2 diabetes mellitus History of gastroesophageal reflux (GERD) Hypothyroid Skin cancer Hyperlipidemia Hypertension Surgical History H/O tubal ligation History of arthroscopy of both knees Hx of shoulder surgery History of hysterectomy History of cholecystectomy Family History Other Family history of cerebral hemorrhage Family history of diabetes mellitus type II Family history of hypertension Family history of myocardial infarction Family hx of colon cancer Lung cancer Social History Smoking Status: Never smoker alcohol intake: never substance use type: denies use current occupational status: other Travel in the last 8 weeks?: None household members: spouse housing: house lives independently: No marital status: education level: high school service: No current occupational exposures/hazards: No caffeine: No special gerson needs: No agree to transfusion: No do you feel safe at home: Yes victim of physical abuse: No victim of emotional abuse: No victim of sexual abuse: No would you like helpful sources: No PM Subjective & Objective Subjective Subjective:: patient is a pleasant 74-year-old female who presents today for 3-month follow-up. Today she rates her pain a 0 out of 10. She denies any new falls or injuries. She does states she has had a lot of health issues that it came up from her last appointment. She states she has ended up having bladder surgery here recently and so she has not really done a whole lot of activity. Patient has been on 6-week of restrictions and is going tomorrow to see about being released from these postop restrictions. Patient does also state that she has had some altered kidney function and was even hospitalized. Patient did previously have her first lumbar medial branch block in July that did provide 80% relief and she does feel like this is still helping. Her Rg has been reviewed and is appropriate. Review of Systems: General: No recent weight changes, no fever, no sleep disturbances Respiratory: No cough, no shortness of air, no recurring pulmonary infections Cardiovascular/peripheral vascular: No chest pain, no palpitations, no edema, no shortness of breath Gastrointestinal: No new onset incontinence, normal bowel movements reported Genitourinary: No new onset incontinence Musculoskeletal: Low back pain Psychiatric: [Normal mood/affect] Neurological: [Denies weakness in extremities], [denies balance issues] Pain at rest (0-10 scale): 0 Objective Objective:: Physical Exam: General: Alert and oriented x3, no acute distress, pleasant and cooperative Lungs: Respirations even and unlabored, symmetrical chest expansion Eyes: PERRL Musculoskeletal: Flexion and extension of lumbar [spine] within normal limits Neurological: Speech clear, no gross sensory deficit Has patient had previous pain injection?: No Conservative treatment options previously tried: Home exercise plan Length of treatment: Longer than 12 weeks Meds Home Medications and Allergies Home Medications ?Medication ?Instructions ?Recorded ?Confirmed ?Type cholecalciferol (vitamin D3) 50 2,000 unit PO DAILY Supplement 05/26/19 09/18/24 History mcg (2,000 unit) capsule dulaglutide 1.5 mg/0.5 mL 1.5 mg SQ WEEKLY Diabetes 05/26/19 09/18/24 History subcutaneous pen injector levocetirizine 5 mg tablet (Xyzal) 5 mg PO DAILY ALLERGIES 05/26/19 09/18/24 History levothyroxine 25 mcg tablet 25 mcg PO DAILY HYPOTHYROIDISM 05/26/19 09/18/24 History lisinopril 40 mg tablet 40 mg PO DAILY BLOOD PRESSURE 05/26/19 09/18/24 History montelukast 10 mg tablet 10 mg PO PM ALLERGIES 05/26/19 09/18/24 History (Singulair) amlodipine 5 mg tablet 5 mg PO DAILY bp 02/12/23 09/18/24 History Lactobacillus 1 cap PO DAILY 05/29/23 09/18/24 History acidophilus-Bifidobac.animalis 2.5 billion cell capsule (Daily Probiotic) metformin 500 mg tablet,extended 1,000 mg PO BID 05/29/23 09/18/24 History release 24 hr metoprolol succinate 200 mg 200 mg PO DAILY BLOOD PRESSURE 05/29/23 09/18/24 History tablet,extended release 24 hr prasterone (DHEA) 25 mg capsule 25 mg PO DAILY #30 caps 05/29/23 09/18/24 Rx (DHEA) rosuvastatin 5 mg tablet (Crestor) 5 mg PO DAILY Cholesterol 05/29/23 09/18/24 History cefdinir 300 mg capsule 300 mg PO BID 10 days #20 caps 12/13/24 Rx fluconazole 150 mg tablet 150 mg PO Q3D 2 doses #2 tabs 12/13/24 Rx ondansetron 4 mg disintegrating 4 mg PO Q8H PRN nausea and 12/13/24 Rx tablet vomiting 4 days #12 tabs New Prescriptions to Start Prescriptions: Allergies Allergy/AdvReac Type Severity Reaction Status Date / Time iodine (IODINE) Allergy Unknown Rash Verified 08/04/24 09:48 Penicillins (PENICILLINS) Allergy Unknown Rash Verified 08/04/24 09:48 theophylline (THEOPHYLLINE) Allergy Unknown Anaphylaxis Verified 08/04/24 09:48 valdecoxib (From Bextra) Allergy Anaphylaxis Verified 08/04/24 09:48 Assessment and Plan *Assessment and plan (1) Degenerative disc disease, lumbar: Status: Acute Category: Medical Code(s): M51.369 - Other intervertebral disc degeneration, lumbar region without mention of lumbar back pain or lower extremity pain (2) Lumbar facet arthropathy: Status: Acute Category: Medical Code(s): M47.816 - Spondylosis without myelopathy or radiculopathy, lumbar region Plan Patient has continued to do well and does not require any additional injection therapy at this time. Patient will return to clinic in 6 months for reevaluation of symptoms and plan of care. I did discuss with the patient if the pain does start to increase as she is released from postop restrictions to give us a call and we can definitely move her appointment up. Patient did also state that she caught her foot in between her car door yesterday and that it is very sore but does not think that she is fractured anything. I did discuss with her if this does not improve and she does have concerns for a fracture to call us and I will send in an x-ray order. Patient agrees with this plan of care. Patient has been instructed to contact the clinic with any concerns before the next appointment. Dr. Landry has reviewed this note and agrees with this plan of care. This note was dictated using voice recognition software and make contain errors or omissions. All injections are used with Lidocaine, Bupivacaine and dexamethasone. Occasionally urine drug screen is needed to verify patient's compliance with our office pain contract. This is ordered based off specific treatments related to chronic pain with the potential to abuse certain medications.
--- OUTSIDE RECORDS SUMMARY | 2024-12-28 13:46 | XMS_ITS | Encounter Summary ---
Author Organization [place] [address] Care Team Providers Care Hoop Riveting Machine Operator Name Role Phone Tj Sweeney MD Primary Care Provider + [phone] Encounter Details Date Type Department Care Team (Late st Contact Info) Description 11/10/2024 Orders Only [facility] [address] [phone] Mariann Birch LPN Complication of implanted vaginal mesh, initial encounter (Primary Dx); Exposure of implanted vaginal mesh, subsequent encounter Social History Tobacco Use Types Packs/Day [...] on file documented as of this encounter Progress Notes * Mariann Birch LPN - 11/10/2024 2:32 PM EDT Images from the original note were not included. documented in this encounter Plan of Treatment Upcoming Encounters Date Type Department Care Team (Late st Contact Info) Description 12/29/2024 1:00 PM EDT Office Visit [facility] [address] [phone] Evangelina Cook PA-C [address] [place] [phone] documented as of this encounter Visit Diagnoses Diagnosis Complication of implanted vaginal mesh, initial encounter- Primary Exposure of implanted vaginal mesh, subsequent encounter documented in this encounter Care Teams Hoop Riveting Machine Operator Relationship Specialty Start Date End Date Tj Sweeney MD [address] [place] [phone] PCP - General Family Medicine 12/05/23 documented as of this encounter
--- OUTSIDE RECORDS SUMMARY | 2024-12-28 13:47 | XMS_ITS | Encounter Summary ---
Author Organization [facility] [place] [address] Care Team Providers Care Night Clerk Name Role Phone Tj Sweeney MD Primary Care Provider + [phone] Encounter Details Date Type Department Care Team (Latest Contact Info) Description 11/16/2024 Travel Social History Tobacco Use Types Packs/Day Years [...] on file documented as of this encounter Plan of Treatment Upcoming Encounters Date Type Department Care Team (Late st Contact Info) Description 12/29/2024 1:00 PM EDT Office Visit [facility] [address] [phone] Evangelina Cook PA-C [address] [place] [address] documented as of this encounter Visit Diagnoses Not on filedocumented in this encounter Care Teams Night Clerk Relationship Specialty Start Date End Date Tj Sweeney MD [address] [place] [phone] PCP - General Family Medicine 12/05/23 documented as of this encounter
--- OUTSIDE RECORDS SUMMARY | 2024-12-28 13:47 | XMS_ITS | Clinical Summary ---
Author Organization [facility] Address [address] [place] [phone] Phone Care Team Providers Care Kiln Maintenance Name Role Phone Tj Sweeney MD Primary Care Provider [phone] Allergies Active Allergy Reactions Criticality Noted Date Comments Povidone-Iodine Dermatitis 11/16/2024 Cefdinir Hives 11/10/2024 Iodine Other (See Comments) 11/14/2021 Penicillins Other (See Comments) 11/14/2021 Theophylline Other (See Comments) 11/14/2021 Valdecoxib Other (See Comments) 11/14/2021 Medications amLODIPine (NORVASC) 5 mg Oral Tablet Take 5 mg by mouth every morning. 06/24/20 23 Active levocetirizine (XYZAL) 5 mg Oral Tablet Take 5 mg by mouth. 05/26/20 19 Active lisinopriL (PRINIVIL;ZEST RIL) 40 mg Oral Tablet Take 40 mg by mouth. 05/26/20 19 Active metFORMIN (GLUCOPHAGE XR) 500 mg Oral ER 24 hr tablet Take 500 mg by mouth 4 times daily (before meals and nightly). 2 tablets morning 2 tablets bedtime 07/31/19 24 Active metoprolol succinate (TOPROL-XL) 200 mg Oral Tablet Sustained Release 24 hr Take 200 mg by mouth nightly. 08/16/19 24 Active montelukast (SINGULAIR) 10 mg Oral Tablet Take 10 mg by mouth. 05/26/20 19 Active rosuvastatin (CRESTOR) 5 mg Oral Tablet Take 5 mg by mouth. 11/05/20 19 Active LEVOthyroxine (SYNTHROID) 25 mcg Oral Tablet Take 25 mcg by mouth daily. Active albuterol (PROVENTIL HFA; VENTOLIN HFA) 90 mcg/actuation Inhl HFA Aerosol Inhaler Inhale 2 Puffs into the lungs as needed for Other. PRN was given when she had pneumonia back in October 12- pt states she has not needed to use it Active diclofenac (VOLTAREN) 1 % Top Gel Apply 2 g topically 4 times daily. PRN Active clobetasoL (TEMOVATE) 0.05 % Top CreamIndicatio ns:Vulvar dermatitis,Lic hen sclerosus Apply fingertip amount to affected areas (outside of vagina on vulvar skin, not inside) nightly for 4 weeks, then every other night for 4 weeks, then 2-3 times per week for 4 weeks. 60 g 1 06/08/20 24 Active Additional Information Patient not taking.Reason: Pt electing to not take the medication, Reported on 11/06/2024 estradioL (ESTRACE) 0.01 % (0.1 mg/gram) Vagl CreamIndicatio ns:Vaginal atrophy Apply pea-sized amount using fingertip into the vagina (or as instructed) nightly x 2 weeks, then use 2-3 x per week. 42.5 g 2 09/08/19 25 Active Additional Information Patient not taking.Reason: Pt electing to not take the medication, Reported on 11/06/2024 clindamycin (CLEOCIN) 2 % Vagl Cream Place 4g intravaginally at night for 3 weeks followed by maintenance therapy twice/week x 6 months. 40 g 5 09/11/19 25 Active Additional Information Patient not taking.Reason: Pt electing to not take the medication, Reported on 11/06/2024 OZEMPIC 2 mg/dose (8 mg/3 mL) SubQ Pen Injector INJECT 2MG SUBCUTANEOUSLY ONCE WEEKLY (EVERY 7 DAYS) 07/30/19 25 Active polyethylene glycol (GLYCOLAX) 17 gram/dose Oral Powder Begin Miralax, 17 g (1 capful) PO mixed in your favorite drink once a day beginning 1 week prior to surgery, after surgery drink this twice a day for 2 weeks 595 g 11/12/19 25 Active acetaminophen (TYLENOL) 500 mg Oral Tablet Take 500 mg by mouth every 4 hours as needed for Pain. Active docusate sodium (COLACE) 100 mg Oral Capsule Take 1 Capsule by mouth 2 times daily. 60 Capsule 2 11/17/19 25 Active oxyCODONE (ROXICODONE) 5 mg Oral Tablet Take 1 Tablet by mouth every 6 hours as needed for Major Surgery/Trauma (G89.18). 10 Tablet 11/17/19 25 Active senna (SENOKOT) 8.6 mg Oral Tablet Take 1 Tablet by mouth daily as needed for Constipation. 30 Tablet 1 11/17/19 25 Active ondansetron (ZOFRAN-ODT) 4 mg Oral Tablet, Rapid Dissolve Take 1 Tablet by mouth every 6 hours as needed for Nausea. 30 Tablet 11/17/19 25 Active ibuprofen (ADVIL;MOTRIN) 600 mg Oral Tablet Take 1 Tablet by mouth every 6 hours as needed for Pain for up to 30 days. 60 Tablet 1 11/17/19 25 025 Active Problems Problem Noted Date Diagnosed Date Complication of implanted vaginal mesh, initial encounter 10/22/2024 Exposure of implanted vaginal mesh 10/14/2024 Urinary frequency 10/15/2023 Urge incontinence of urine 08/28/2023 Incontinence of feces 08/28/2023 Encounters Date Type Department Care Team Description 11/18/2024 Telephone [facility] [address] [phone] Mariann Birch LPN Post-op Call 11/16/2024 12:11 PM EDT Anesthesia Event [facility] [address] [place] [address] Omar Davison MD Salyer, Corey L, MINING CONSULTANT 11/16/2024 12:00 PM EDT - 11/16/2024 1:05 PM EDT Surgery [facility] [address] [place] [address] Shahnaz Hess MD REMOVAL OF VAGINAL SLING OR MESH (TOT-TRANSOBTURATOR TAPE, TVT- TENSION-FREE VAGINAL TAPE, /SECUR/ELEVATE) 11/16/2024 9:38 AM EDT - 11/16/2024 4:08 PM EDT Hospital Encounter [facility] SAME DAY SURGERY [address] [place] [address] Shahnaz Hess MD Complication of implanted vaginal mesh, initial encounter; Exposure of implanted vaginal mesh, subsequent encounter Discharge Disposition: Home or Self Care 11/16/2024 Travel 11/10/2024 Orders Only [facility] Urogynecology [address] [phone] Mariann Birch LPN Complication of implanted vaginal mesh, initial encounter (Primary Dx); Exposure of implanted vaginal mesh, subsequent encounter 11/09/2024 Telephone [facility] Urogynecology [address] [phone] Mariann Birch LPN Pre-op Call 11/06/2024 Travel 10/22/2024 Telephone [facility] Urogynecology [address] [phone] Mariann Birch LPN Surgery Scheduling 10/14/2024 2:00 PM EDT Office Visit [facility] Urogynecology [address] [phone] Shahnaz Hess MD Exposure of implanted vaginal mesh, subsequent encounter (Primary Dx) from Last 3 Months Surgical History Surgery Date Site/Laterality Comments COLONOSCOPY CHOLECYSTECTOMY FOOT SURGERY Bilateral heel spur removal KNEE SURGERY bilateral anthroscopy HYSTERECTOMY ovaries left BREAST SURGERY Left Breast Cyst removal BLADDER SURGERY Bladder tuck and Bladder tumor removal SHOULDER SURGERY Left broken ball joint, Rt- rotator cuff repair TUBAL LIGATION BLADDER SURGERY 12/12/2023 N/A Full Interstim Implant; Surgeon: Shahnaz Hess MD; Location: [facility] OR; Service: Urogynecology Medical devices from this surgery are in the Medical Devices section. 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 Diverticulitis Diverticulosis History of colonic polyps Fibromyalgia OAB (overactive bladder) Asthma Family History Medical History Relation Name Comments Aneurysm Father Lloyd piedra High Blood Pressure Father Lloyd piedra Hypertension Father Lloyd piedra Cancer Maternal Grandmother brittany huerta Anesth Problems Mother Kimberly garcia shingles Mother Kimberly garcia Relation Name Status Comments Father Lloyd piedra Alive Maternal Grandmother brittany huerta Alive Mother Kimberly garcia Social History Tobacco Use Types Packs/Day Years Used Date Smoking Tobacco: Former Cigarettes Smokeless Tobacco: Never Tobacco Cessation:Counseling Given: Not Answered Alcohol Use Standard Drinks/Week Comments Not Currently 0 (1 standard drink = 0.6 oz pur e alcohol) Sexually Active Control Partners Comments Not Currently Comments No Sex and Gender Information Value Date Recorded Sex Assigned at Not on file Legal Sex Female 10:23 AM EST Gender Identity Not on file Sexual Orientation Not on file Obstetrics History Para Term AB IAB SAB Ectopic Multiple Livin g Live Births 3 3 3 Date Outcome GA Total Labor Labor/2nd/3rd Weight Sex Type Anes PTL Andreea A1 A5 Name Clin Para Para Para Last Filed Vital Signs Vital Sign Reading [...] Mass Index 35.87 11/16/2024 10:28 AM EDT Plan of Treatment Upcoming Encounters Date Type Department Care Team (Late st Contact Info) Description 12/29/2024 1:00 PM EDT Office Visit [facility] [address] [phone] Evangelina Cook PA-C [address] [place] [address] Health Maintenance Due Date Last Done Comments Wellness Exam Medicare 10/30/1953 Hepatitis C Screening 1970 Breast Cancer Screening 1992 Cologuard 1997 Colon Cancer Screening 1997 Colonoscopy 1997 FIT 1997 Sigmoidoscopy 1997 Virtual Colonography 1997 Bone Density Screening 2017 COVID-19 Vaccine (3 2023-2 5 season) 2024 11/30/2020, 11/02/2020 Influenza Vaccine (Season Ended) 2025 DTaP/TDaP/Td (2 - Td or Tdap) 04/29/2034 04/29/2024 Pneumococcal Vaccine 50+ Completed 10/18/2022 Zoster Completed 04/29/2024, 02/22/2024 Hepatitis B Vaccine Aged Out No longe r eligible based on patient's age to complete this topic Meningococcal B Vaccine Aged Out No l onger eligible based on patient's age to complete this topic Medical Devices Implanted Type Area Industrial Pharmacist Device Identifier Shelf Expiration Date Model / Serial / Lot Kit Mri Lead Interstim Surescan 28cm - [id number] Implanted:Qty: 1 on 12/12/2023 by Shahnaz Hess MD at [facility] Right: Back [employer]:NEURO 05/27/2025 [id number] / / [id number] Neurstm Intstm Ii 2x1.7in 0.3in Dbl Troc Pnt Prim Cell - [id number] Implanted:Qty: 1 on 12/12/2023 by Shahnaz Hess MD at [facility] Right: Back [employer]:NEURO 08/18/2025 [id number] / [id number] / Envelope Tyrx Absb Anbctrl Mul-Prgm 2.5x2.7in 1x8mm - [id number] Implanted:Qty: 1 on 12/12/2023 by Shahnaz Hess MD at [facility] Right: Back [employer]:NEURO [id number] 07/18/2024 [id number] / / [id number] Procedures Procedure Name Priority Date/Time Associated Diagnosis Comments SCANNED RHYTHM STRIPS 11/17/2024 9:05 AM EDT GLUCOSE METER POC Routine 11/16/2024 1:2 5 PM EDT PATHOLOGY TISSUE REQUEST Routine 025 12:48 PM EDT Complication of implanted vaginal mesh, initial encounter INTRAOP AIRWAY PLACEMENT Routine 025 12:20 PM EDT UT CYSTOURETHROSCOPY 11/16/2024 12:07 PM EDT Complication of implanted vaginal mesh, initial encounter Special Needs sk UT RMVL/REVJ SLING STRESS INCONTINENCE 11/16/2024 12:07 PM EDT Complication of implanted vaginal mesh, initial encounter Special Needs sk GLUCOSE METER POC Routine 11/16/2024 10:08 AM EDT from Last 3 Months Results * SCANNED RHYTHM STRIPS (11/17/2024 9:05 AM EDT) Anatomical Region Laterality Modality Other 11/17/2024 9:05 AM EDT us Unknown Provider IMG ECG ORDERABLES Final Result * (ABNORMAL) GLUCOSE METER POC (11/16/2024 1:25 PM EDT) Only the most recent of2 resultswithin the time period is included. Glucose Meter POC 134(H) 70 - 100 mg/dL 11/16/2024 1:27 PM EDT [facility] Sample Type Capillary 11/16/2024 1:27 PM EDT [facility] Patient Status Non-Critical Patient 11/16/2024 1:27 PM EDT [facility] Blood BLOOD SPECIMEN / Unknown 11/16/2024 1:25 PM EDT 11/16/2024 1:27 PM EDT us Shahnaz Hess MD POINT OF CARE TEST ORDE SCARLETT Final Result [facility] [address] [place] [address] * PATHOLOGY TISSUE REQUEST (11/16/2024 12:48 PM EDT) CASE REPORT Surgical Pathology Case: [id number] Authorizing Provider: Shahnaz Hess MD Collected: 11/16/2024 1248 Ordering Location: [facility] Received: 11/16/20241936 Pathologist: Jaqueline Huang MD Specimen: Vagina, mesh 11/17/2024 3:45 PM EDT [facility] FINAL DIAGNOSIS Mesh, removal: - Gross examination only. 11/17/2024 3:45 PM EDT [facility] at 1545 EDT GROSS DESCRIPTION The specimen is received in form, labeled with the patient's name, medical record number, and mesh . It consists of 3 irregular fragments of blue mesh material with adherent, embedded pink-purple tissue, ranging from 0.7 x 0.5 x 0.2 cm to 2.4 x 0.6 x 0.2 cm. No sections are submitted for intraoperative consultation. RENETTA Turner PA(ASCP) 11/17/2024 11/17/2024 3:45 PM EDT [facility] EMBEDDED IMAGES 11/17/2024 3:45 PM EDT [facility] Organizational Development Director VAGINAL STRUCTURE / Unknown 11/16/2024 12:48 PM EDT 11/16/2024 7:37 PM EDT us Shahnaz Hess MD PATHOLOGY ORDERABLES Fi nal Result [facility] [address] [place] [id number] * INTRAOP AIRWAY PLACEMENT (11/16/2024 12:20 PM EDT) Narrative [facility] - 11/16/2024 12:20 PM EDT [...] Insertion attempts: 1 us Omar Davison MD UT ANESTHESIA Final Result [facility] [address] [place] [address] from Last 3 Months Insurance MEDICARE [place] PART A [place] B [place]ICARE [place] PART A AND B Care Teams Kiln Maintenance Relationship Specialty Start Date End Date Tj Sweeney MD [address] [place] [phone] PCP - General Family Medicine 12/05/23
--- OUTSIDE RECORDS SUMMARY | 2024-12-28 13:47 | XMS_ITS | Encounter Summary ---
Author Organization [facility] [place] [address] Care Team Providers Care Braider Operator Name Role Phone Tj Sweeney MD Primary Care Provider + [phone] Encounter Details Date Type Department Care Team (Latest Contact Info) Description 11/06/2024 Travel Social History Tobacco Use Types Packs/Day [...] 1:00 PM EDT Office Visit [facility] [address] [phone] Evangelina Cook PA-C [address] [place] [address] documented as of this encounter Visit Diagnoses Not on filedocumented in this encounter Care Teams Braider Operator Relationship Specialty Start Date End Date Tj Sweeney MD [address] [place] [phone] PCP - General Family Medicine 12/05/23 documented as of this encounter
--- OUTSIDE RECORDS SUMMARY | 2024-12-28 13:47 | XMS_ITS | Encounter Summary ---
Author Organization [place] [address] Care Team Providers Care Summer Associate Name Role Phone Tj Sweeney MD Primary Care Provider [phone] Reason for Visit * Reason Onset Date Comments Pre-op Call 11/09/2024 Encounter Details Date Type Department Care Team (Late st Contact Info) Description 11/09/2024 Telephone [facility] [address] [phone] Mariann Cabral LPN Pre-op Call Social History Tobacco Use Types Packs/Day Years [...] on file documented as of this encounter Ordered Prescriptions Prescription Sig Dispense Quantity Refills Last Filled Start Date End Date polyethylene glycol (GLYCOLAX) 17 gram/dose Oral Powder Begin Miralax, 17 g (1 capful) PO mixed in your favorite drink once a day beginning 1 week prior to surgery, after surgery drink this twice a day for 2 weeks 595 g 11/11/2024 documented in this encounter Miscellaneous Notes * Addendum Note - Mariann Cabral LPN - 11/11/2024 10:27 AM EDTAddended by: MARIANN CABRAL on: 11/11/2024 10:27 AM Modules accepted: Orders * Telephone Encounter - Mariann Cabral LPN - 11/09/2024 10:12 AM EDTSummary: Pre-Op Call Images from the original note were not included. Urogyn Pre-op Phone Call 1. Randi Montes, 1950 2. Procedure: Bladder Mesh Excision, Cystoscopy , Surgery Date/Time: 11/16/24 @ 1200 3. H&P by PCP: Patient is cleared for surgery, H&P completed date: 10/27/24 by Tj Sweeney MD Lab Results: Imaging Results: Any past issues with anesthesia including malignant hyperthermia or latex allergy? NO Pre-op Call: 1. NPO by midnight before surgery 2. No blood thinners x1 week 3. Arrive 2 hours prior to surgery 4. Please read the provided surgical folder with all the pre-op and post-op instructions. 5. Begin Miralax 6. Diabetic ERAS instructions given 7. STOP Ozempic (last dose: 11/08/24) 8. Take fully charged Interstim remote with you so it can be turned off before your surgery and tuned back on after surgery Mariann Cabral LPN documented in this encounter Plan of Treatment Upcoming Encounters Date Type Department Care Team (Late st Contact Info) Description 12/29/2024 1:00 PM EDT Office Visit [facility] [address] [phone] Evangelina Cook PA-C [address] [place] [address] documented as of this encounter Visit Diagnoses Not on filedocumented in this encounter Care Teams Summer Associate Relationship Specialty Start Date End Date Tj Sweeney MD [address] [place] [address] PCP - General Family Medicine 12/05/23 documented as of this encounter
--- OUTSIDE RECORDS SUMMARY | 2024-12-28 13:47 | XMS_ITS | Encounter Summary ---
Author Organization [place] [address] Care Team Providers Care Sustainable Design Consultant Name Role Phone Tj Sweeney MD Primary Care Provider [phone] Reason for Visit * Reason Onset Date Comments Post-op Call 11/18/2024 Encounter Details Date Type Department Care Team (Late st Contact Info) Description 11/18/2024 Telephone [facility] [address] [phone] Mariann Birch LPN Post-op Call Social History Tobacco Use Types Packs/Day [...] on file documented as of this encounter Miscellaneous Notes * Telephone Encounter - Mariann Birch LPN - 11/18/2024 7:49 AM EDTSummary: Post Op Call Urogynecology Post Operative Phone Call Attempted to call patient to evaluate post-op questions or concerns. After many attempts, my call would not go thru. 6 week PO visit is scheduled Jeanne Birch LPN documented in this encounter Plan of Treatment Upcoming Encounters Date Type Department Care Team (Late st Contact Info) Description 12/29/2024 1:00 PM EDT Office Visit [facility] [address] [phone] Evangelina Cook PA-C [address] [place] [address] documented as of this encounter Visit Diagnoses Not on filedocumented in this encounter Care Teams Sustainable Design Consultant Relationship Specialty Start Date End Date Tj Sweeney MD [address] [place] [id number] PCP - General Family Medicine 12/05/23 documented as of this encounter
--- OUTSIDE RECORDS SUMMARY | 2024-12-28 13:48 | XMS_ITS | Patient Health Record ---
Author Organization [facility] Address [address] [place] [id number] Care Team Providers Care Safety Analyst Name Role Phone Tj Sweeney Primary Care Provider [phone] Meron Smith Unavailable [phone] Rosa Souza Unavailable [phone] Allergies Allergen (clinical drug ingredient) Drug/Non Drug [...] - 38 plat 391 100 - 400 CBC Venipuncture (in house) Reviewed date:12/16/2024 11:03:54 [...] 44 Performing Lab: Notes/Report: Test performed by [facility] [address] [place] [address] , [address], [place] [address] Chapincito Branch MD, Wire Rope Sling Maker CLIA: [id number] Sodium 135 135-145 mmol/L Potassium 3.5 3.5-5.3 [...] Interpretation:1.7 Performing Lab: Notes/Report: Test performed by [facility] [address] [place] [address] , [address], [place] [address] Chapincito Branch MD, Wire Rope Sling Maker CLIA: [id number] Magnesium 1.7 1.6-2.4 mg/dL Urinalysis - Inhouse Reviewed date:12/23/2024 01:08:58 PM [...] 45 Performing Lab: Notes/Report: Test performed by [facility] [address] [place] [address] , [address], [place] [address] Chapincito Branch MD, Wire Rope Sling Maker CLIA: [id number] Sodium 143 135-145 mmol/L Potassium 4.8 3.5-5.3 mmol/L Chloride 103 97-108 mmol/L CO2 27 22-32 mmol/L Glucose 120 65-99 mg/dL BUN 13 8-23 mg/dL Creatinine 1.26 0.50-1.00 mg/dL Calcium 9.1 8.6-10.4 mg/dL eGFR by Creatinine 45 >59 mL/min/1.73m2 TEN-UTI panel Reviewed date:12/25/2024 09:52:14 AM Interpretation:Enterococcus faecalis Performing Lab: Notes/Report: Enterococcus faecalis EKG Reviewed date:11/03/2024 04:20:04 PM Interpretation: Performing Lab: Notes/Report: H-CMP Reviewed date:11/02/2024 01:59:33 PM Interpretation:Glu 125, Performing Lab: Notes/Report: NA 142 136-145 mmol/L K 3.7 3.5-5.1 mmoL/L CL 103 98-107 mmol/L CO2 28 22.0-30.0 mmol/L BUN 11 7-17 mg/dl CREATT 0.80 0.52-1.04 mg/dl GFRAA 85 >60 ML/MIN EGFR 71 >60 ml/min GLU 125 74-100 mg/dl CA 8.8 8.4-10.2 mg/dl BILIT 0.3 0.2-1.3 mg/dl AST 35 14-36 U/L ALT 25 12-78 U/L TP 6.6 6.3-8.2 g/dl ALB 3.7 3.5-5.0 g/dl GLOB 2.9 1.3-3.2 g/dL AGRATIO 1.3 1.1-1.8 ALP 117 38-126 U/L NA 142 136-145 mmol/L K 3.7 3.5-5.1 mmoL/L CL 103 98-107 mmol/L CO2 28 22.0-30.0 mmol/L GAP 14.7 5-15 mEq/L BUN 11 7-17 mg/dl CREATT 0.80 0.52-1.04 mg/dl GFRAA 85 >60 ML/MIN EGFR 71 >60 ml/min GLU 125 74-100 mg/dl CA 8.8 8.4-10.2 mg/dl BILIT 0.3 0.2-1.3 mg/dl AST 35 14-36 U/L ALT 25 12-78 U/L TP 6.6 6.3-8.2 g/dl ALB 3.7 3.5-5.0 g/dl GLOB 2.9 1.3-3.2 g/dL AGRATIO 1.3 1.1-1.8 ALP 117 38-126 U/L H-CBC Reviewed date:11/02/2024 01:59:33 PM Interpretation:rbc 4.11, hgb 11.2, hct 36.4, mchc 30.8, plt 481 Performing Lab: Notes/Report: WBC 8.3 4.8-10.8 K/mm3 RBC 4.11 4.20-5.40 M/mm3 HGB 11.2 12.2-16.2 g/dL HCT 36.4 37.0-47.0 % MCV 88.6 81-99 fl MCH 27.3 27.0-31.2 pg MCHC 30.8 31.8-35.4 g/dL RDW-SD 44.5 RDW 13.7 11.5-17.5 % PLT 481 142-424 K/mm3 MPV 8.2 7.4-10.4 fl NE% 56.5 37.0-80.0 % LY% 34.3 10-50 % MO% 6.3 1.7-9.3 % EO% 1.8 0.1-12.0 % BA% 0.7 0.1-2.0 % NRBC% 0 NE# 4.7 1.8-7.8 K/mm3 LY# 2.8 0.7-4.5 K/mm3 MO# 0.5 0.1-1.0 K/mm3 EO# 0.2 0.0-0.4 K/mm3 BA# 0.1 0-0.2 K/mm3 NRBC# 0 CBC Fingerstick (in house) Reviewed date:10/27/2024 12:14:53 PM Interpretation: Performing Lab: Notes/Report: wbc 12.7 3.5 - 10 lym 26.7 15 - 50 mid 5.4 2 - 15 gran 67.9 35 - 80 rbc 4.25 3.5 - 5.5 hgb 12.0 11.5 - 16.5 hct 12.0 35 - 55 mcv 85.9 75 - 100 mch 28.3 25 - 35 mchc 256 31 - 38 Rapid Strep- Inhouse Reviewed date:10/27/2024 12:15:12 PM Interpretation: Performing Lab: Notes/Report: strep test Neg P-Vitamin B12 Reviewed date:08/19/2024 09:25:17 AM Interpretation:293 Performing Lab: Notes/Report: Test performed by [facility] [facility], [facility] [address] [place] [address] , [address], [place] [address] Chapincito Branch MD, Wire Rope Sling Maker CLIA: [id number] Vitamin B12 115 538-9943 pg/mL Urinalysis - Inhouse Reviewed date:01/17/2024 03:38:54 PM Interpretation: Performing Lab: Notes/Report: Color/Clarity yellow/clear Leuk trace Nitrite neg Urobili 3.2 Protein neg pH 5.5 Blood neg Sp. Gr. 1.025 Ketone neg Bili neg Gluc neg TEN-UTI panel Reviewed date:01/20/2024 09:33:44 AM Interpretation:Abnormal Performing Lab: Notes/Report: Abnormal Urinalysis - Inhouse Reviewed date:03/17/2024 10:05:51 AM Interpretation: Performing Lab: Notes/Report: Color/Clarity yellow/cloudy Leuk 1+ Nitrite Neg Urobili 3.2 Protein Neg pH 5.5 Blood Trace-Intact Sp. Gr. 1.025 Ketone Neg Bili Neg Gluc Neg Glucose (In-House) Reviewed date:03/17/2024 10:05:41 AM Interpretation: Performing Lab: Notes/Report: blood glucose 170 74 - 106 mg/dL Glycohemoglobin A1c (in hous e) Reviewed date:03/17/2024 10:05:33 AM Interpretation: Performing Lab: Notes/Report: glycohemoglobin 7.6% 5 - 6.5 % TEN-UTI panel Reviewed date:03/19/2024 12:10:39 PM Interpretation:sensitive Performing Lab: Notes/Report: sensitive MRI : Spine, Lumbosacral, wi thout contrast Reviewed date:05/12/2024 11:04:12 AM Interpretation:Abnormal Performing Lab: Notes/Report: Abnormal CBC Venipuncture (in house) Reviewed date:07/01/2024 09:10:45 AM Interpretation:hct 32.3, plat 465 Performing Lab: Notes/Report: hct 32.3, plat 465 wbc 8.0 3.5 - 10 lymph 25.8 15 - 50 mid 5.2 2 - 15 gran 69.0 35 - 80 rbc 3.84 3.5 - 5.5 hgb 10.7 11.5 - 16.5 hct 32.3 35 - 55 mcv 84.0 75 - 100 mch 27.8 25 - 35 mchc 33.1 31 - 38 platlet 465 100 - 400 Glycohemoglobin A1c (in hous e) Reviewed date:07/01/2024 09:10:45 AM Interpretation:7.0% Performing Lab: Notes/Report: 7.0% glycohemoglobin 7.0% 5 - 6.5 % P-Vitamin B12 Reviewed date:07/01/2024 09:10:45 AM Interpretation:<150 Performing Lab: Notes/Report: Test performed by [facility] [address] [place], [place] [address], [place] [address] Chapincito Branch MD, Wire Rope Sling Maker CLIA: [id number] Vitamin B12 <168 311-7489 pg/mL P-Comprehensive Metabolic Pa fouzia (CMP) Reviewed date:07/01/2024 09:10:45 AM Interpretation:gluc 150 Performing Lab: Notes/Report: Test performed by [facility] [address] [place] [address], [place] [address] Chapincito Branch MD, Wire Rope Sling Maker CLIA: [id number] Sodium 142 135-145 mmol/L Potassium 3.7 3.5-5.3 mmol/L Chloride 100 97-108 mmol/L CO2 23 22-32 mmol/L Glucose 150 65-99 mg/dL BUN 16 8-23 mg/dL Creatinine 0.89 0.50-1.00 mg/dL Calcium 9.0 8.6-10.4 mg/dL eGFR by Creatinine 69 >59 mL/min/1.73m2 Protein 7.0 6.0-8.3 g/dL Albumin 4.2 3.5-5.3 g/dL Alkaline Phosphatase 89 35-121 IU/L ALT (SGPT) 17 <5-47 IU/L AST (SGOT) 18 <5-40 IU/L Bilirubin, Total <0.2 <0.2-1.2 mg/dL A/G Ratio 1.5 1.1-2.5 P-Lipid Panel Reviewed date:07/01/2024 09:10:45 AM Interpretation:trigs 182 Performing Lab: Notes/Report: Test performed by [facility] , [address], [place] [address] Chapincito Branch MD, Wire Rope Sling Maker CLIA: [id number] Cholesterol 116 <200 mg/dL Triglycerides 182 <150 mg/dL HDL Cholesterol 47 >39 mg/dL Cholesterol / HDL Ratio 2.47 0.00-4.44 Ratio Non-HDL Cholesterol 69 <130 mg/dL LDL Cholesterol (Calculation) 33 <130 mg/dL LDL Cholesterol Levels* Less than 100 mg/dL Optimal 100 to 129 mg/dL Near Optimal/ Above Optimal 130 to 159 mg/dL Borderline High 160 to 189 mg/dL High 190 mg/dL and above Very High * Categories as recommended by the 2004 ATPIII guidelines LDL/HDL Ratio 0.7 <3.3 Ratio _ LDL Cholesterol Patient History _ Test Date: 07/19/2023 LDL Results: 60 Units: mg/dL % Change: - - Test Date: 06/26/2024 LDL Results: 33 Units: mg/dL % Change: -45% _ P-TSH reflex to FT4 Reviewed date:07/01/2024 09:10:45 AM Interpretation:Normal Performing Lab: Notes/Report: Test performed by [facility] [address] [place] [address] , [place] [address] Chapincito Branch MD, Wire Rope Sling Maker CLIA: [id number] TSH reflex to FT4 1.49 0.43-5.25 mU/L P-Vitamin D 25-Hydroxy Reviewed date:07/01/2024 09:10:45 AM Interpretation:39.6 Performing Lab: Notes/Report: Test performed by [facility] [address] [place] [address] , [place] [address] Chapincito Branch MD, Wire Rope Sling Maker CLIA: [id number] Vitamin D 25-Hydroxy 39.6 30.0-100.0 ng/mL Interpretation of Vitamin D 25 OH: < 20 ng/mL - Deficiency 20 - 29 ng/mL - Insufficiency 30 - 100 ng/mL - Sufficiency > 100 ng/mL - Super-therapeutic- toxicity may occur above this level. Clinical correlation required. EKG Reviewed date:11/11/2024 12:59:17 PM Interpretation: Performing Lab: Notes/Report: Covid test (in house) Reviewed date:07/09/2024 03:12:45 PM Interpretation:neg Performing Lab: Notes/Report: neg Result: neg CBC Fingerstick (in house) Reviewed date:07/09/2024 03:12:54 PM Interpretation: Performing Lab: Notes/Report: wbc 9.7 3.5 - 10 lym 34.8 15 - 50 mid 5.7 2 - 15 gran 59.5 35 - 80 rbc 4.19 3.5 - 5.5 hgb 11.3 11.5 - 16.5 hct 35.4 35 - 55 mcv 84.5 75 - 100 mch 27.0 25 - 35 mchc 31.9 31 - 38 plat 221 100 - 400 Influenza Screen (in house) Reviewed date:07/09/2024 03:13:02 PM Interpretation:neg Performing Lab: Notes/Report: neg results neg TEN-UTI panel Reviewed date:05/11/2024 01:42:33 PM Interpretation:Negative Performing Lab: Notes/Report: Negative Urinalysis - Inhouse Reviewed date:05/06/2024 11:21:22 AM Interpretation: Performing Lab: Notes/Report: Color/Clarity yellow/clear Leuk 1+ Nitrite neg Urobili 3.2 Protein 1+ pH 5.5 Blood trace-intact Sp. Gr. >=1.030 Ketone neg Bili 1+ Gluc neg Reason For Referral Diagnosis 1 DDD (degenerative di sc disease), lumbar (M51.36) Diagnosis 2 Coccydynia (M53.3) Diagnosis 3 Lumbar disc herniati on (M51.26) Referral Organization [facility] Referring Provider First Name Tj Referring Provider Last Name Zahra Referring Provider Speciality Family Pra ctice Referred Provider Houston Landry Referred Provider Specialty Pain Managem ent General Notes Zita Thornton 024 3:03:00 PM > faxed to [facility] Pain Management Referral Priority Routine Medications Medication SIG (Take, Route, Frequency, Duration) Notes Start Date End Date Status amLODIPine Besylate 5 MG 1 tab(s) orally once a day for 90 days Active ADVOCATE GLUCOSE METER NON-SPEAKING IS7424L - 02/12/2019 Active Rosuvastatin Calcium 5 MG 1 tab(s) orall y once a day for 90 days Active Nitrofurantoin Monohyd Macro 100 MG 1 capsule with food Orally every 12 hrs for 5 day(s) 12/25/2024 Active Levothyroxine Sodium 25 MCG 1 tab(s) orally once a day for 90 days Active Lisinopril 40 MG 1/2 tab(s) orally on ce a day Active Levocetirizine Dihydrochloride 5 MG 1 tablet in the evening Orally Once a day for 90 days Active Montelukast Sodium 10 MG 1 tablet Orally Once a day for 90 days Active Ibuprofen 600 MG TAKE 1 TABLET BY ZULEIMA TH FOUR TIMES DAILY NEEDED for 15 Active Ozempic (2 MG/DOSE) 8 MG/3ML 2 mg Subcutaneous once weekly 05/18/2024 Active Triamcinolone Acetonide 0.1 % 1 application Externally Twice a day 06/26/2024 Active Albuterol Sulfate HFA 108 (90 Base) MCG/ACT 2 puff(s) inhaled tid and q2h prn 09/04/2022 Active Vitamin B12 1000 MCG 1 tablet Orally Onc e a day 08/17/2024 Not-Taking Voltaren 1 % 2 g applied topicall y 4 times a day, prn Active Metoprolol Succinate ER 200 MG 1 tablet Orally Once a day for 90 days Active ADVOCATE TEST STRIPS - 02/12/2019 Active metFORMIN HCl ER 500 MG TAKE 2 TABLETS B Y MOUTH TWICE DAILY Orally twice daily for 90 days Not-Taking Immunizations Vaccine Route Administration Date Status Comme nts COVID 19 Moderna Unknown 11/02/2020 Administered COVID 19 Moderna Unknown 11/30/2020 Administered Prevnar (PCV20) IM Intramuscular 10/18/2022 Administered Problems Problem Type SNOMED Code ICD Code Onset Dates Problem Status W/U Status Risk Notes Problem 99882937 Vitamin D deficiency (E55.9) Active confirmed Problem 088913223 Vitamin B12 deficiency (E53.8) Active confirmed Problem 56101886 Essential hypertension (I10) Active confirmed Problem 974862188 Abnormal mammogr am (R92.8) Active confirmed Problem Diverticulitis (19116360) Diverticulitis (K57.92) Active confirmed Problem 890995551 BMI 33.0-33.9,adult (Z68.33) Active confirmed Problem 336731202 Environmental allergies (Z91.09) Active confirmed Problem 948518480 Fibromyalgia (M79.7) Active confirmed Problem Mixed hyperlipidemia (002668446) Mixed hyperlipidemia (E78.2) Active confirmed Problem 370866434 Hypomagnesemia (E83.42) Active confirmed Problem 07985072 Urge incontinenc e (N39.41) Active confirmed Problem 95494340 Constipation, unspecified constipation type (K59.00) Active confirmed Problem 433543308 Abnormal mammogr am of left breast (R92.8) Active confirmed Problem 699644792 Gastroesophageal reflux disease, esophagitis presence not specified (K21.9) Active confirmed Problem Chronic bronchit is (J42) Active confirmed Problem 546615246 Diverticulosis o f large intestine without hemorrhage (K57.30) Active confirmed Problem 713671959 Leukocytosis, unspecified type (D72.829) Active confirmed Problem 38561680 Chronic vaginiti s (N76.1) Active confirmed Problem 156877603 Anemia, unspecified type (D64.9) Active confirmed Problem [id number] Subacute vagin itis (N76.1) Active confirmed Problem 71840551 Hypothyroidism, unspecified type (E03.9) Active confirmed Problem 53896073 Coccydynia (M53.3) Active confirmed Problem 35856522 Atopic dermatiti s, unspecified type (L20.9) Active confirmed Problem 859414367 Diverticulitis o f sigmoid colon (K57.32) Active confirmed Problem 508196507 Lumbar disc herniation (M51.26) Active confirmed Problem 557505010 Type 2 diabetes mellitus without complication, without long-term current use of insulin (E11.9) Active confirmed Problem 977046134 Urinary incontinence, unspecified type (R32) Active confirmed Problem 82114572 DDD (degenerativ e disc disease), lumbar (M51.36) Active confirmed Problem 42759511 Rhinitis, unspecified type (J31.0) Active confirmed Problem 05464496 Burning sensatio n of feet (R20.8) Active confirmed Problem 280346635 Mixed stress and urge urinary incontinence (N39.46) Active confirmed Problem 767609699 Seasonal allergi c rhinitis, unspecified trigger (J30.2) Active confirmed Problem 916363287 Type 2 diabetes mellitus without complication, unspecified whether equipment operator intermodal yard insulin use (E11.9) Active confirmed Problem 42086665 Type 2 diabetes mellitus with other specified complication, unspecified whether equipment operator intermodal yard insulin use (E11.69) Active confirmed Vital Signs Heart Rate 82 /min 12/23/2024 Blood pressure diastolic 88 mm Hg 12/23/2024 Height 64 in 12/23/2024 Blood pressure systolic 144 mm Hg 12/23/2024 Weight 205 lbs 12/23/2024 BMI 35.18 kg/m2 12/23/2024 Encounters Encounter Location Date Provider [facility] [address] [place] [id number] 01/17/2024 T[place] Essential hypertensi on I10 ; Type 2 diabetes mellitus without complication, without long-term current use of insulin E11.9 ; Urinary frequency R35.0 and Pyuria R82.81 [facility] [address] [facility] [address] [place] [id number] 03/17/2024 Tj [place] Type 2 diabetes madeline itus without complication, without long-term current use of insulin E11.9 ; Low back pain, unspecified M54.50 ; Coccydynia M53.3 ; DDD (degenerative disc disease), lumbar M51.36 ; Frequent urination R35.0 and Acute UTI N39.0 [facility] [address] [place] [id number] 05/06/2024 Tj [place] UTI symptoms R39.9 a nd Acute vaginitis N76.0 [facility] [address] [facility] [address] [place] [id number] 06/26/2024 Rosa Souza Mild eczema L30.9 ; Type 2 diabetes mellitus without complication, without long-term current use of insulin E11.9 ; Essential hypertension I10 ; Mixed hyperlipidemia E78.2 ; Vitamin D deficiency E55.9 ; Hypothyroidism, unspecified type E03.9 ; Vitamin B12 deficiency E53.8 and Numbness of toes R20.0 [facility] [address] [place] [id number] 07/09/2024 Rosa Libby Atopic dermatitis, unspecified type L20.9 and Acute URI J06.9 [facility] [id number] [facility] [address] [place] [id number] 07/17/2024 Tj [place] Type 2 diabetes madeline itus without complication, without long-term current use of insulin E11.9 ; Mixed hyperlipidemia E78.2 ; Essential hypertension I10 ; Vitamin B 12 deficiency E53.8 ; Low back pain, unspecified M54.50 and Lumbar disc herniation M51.26 [facility] [address] [facility] [address] [place] [id number] 08/17/2024 Tj [place] Vitamin B12 deficien cy E53.8 and Essential hypertension I10 [facility] [address] [facility] [address] [place] [id number] 10/27/2024 Tj [place] Pre-op exam Z01.818 ; Complication of implanted vaginal mesh, unspecified complication, initial encounter T85.9XXA ; Acute URI J06.9 ; Type 2 diabetes mellitus without complication, without long-term current use of insulin E11.9 ; Essential hypertension I10 ; Hypothyroidism, unspecified type E03.9 ; Mixed hyperlipidemia E78.2 ; Gastroesophageal reflux disease, esophagitis presence not specified K21.9 ; Vitamin D deficiency E55.9 ; Mixed stress and urge urinary incontinence N39.46 ; DDD (degenerative disc disease), lumbar M51.36 ; Vitamin B12 deficiency E53.8 and Degeneration of intervertebral disc of lumbar region, unspecified whether pain present M51.369 [facility] [address] [place] [id number] 12/08/2024 Meron Smith Chronic bronchitis J 42 [facility] 12[address] [facility] [address] [place] [id number] 12/16/2024 Tj [place] Acute diarrhea R19.7 ; Hypomagnesemia E83.42 ; Nausea R11.0 ; Type 2 diabetes mellitus with other specified complication, unspecified whether equipment operator intermodal yard insulin use E11.69 ; Lumbar pain M54.50 and BMI 33.0-33.9,adult Z68.33 [facility] [address] [place] [id number] 12/23/2024 Tj [place] MEGHAN (acute kidney injury) N17.9 ; Anemia, unspecified type D64.9 ; Microscopic hematuria R31.29 ; Essential hypertension I10 and Type 2 diabetes mellitus without complication, without long-term current use of insulin E11.9 [facility] [address] [place] [id number] 01/20/2024 Tj [place] [facility] [address] [place] [id number] 03/19/2024 Tj [place] [facility] [address] [place] [id number] 03/31/2024 Tj [place] [facility] [address] [place] [id number] 04/11/2024 Tj [place] [facility] [address] [place] [id number] 04/28/2024 Tj [place] [facility] [address] [place] [id number] 05/11/2024 Tj [place] Coccydynia M53.3 ; Lumbar disc herniation M51.26 and Degeneration of intervertebral disc of lumbosacral region with discogenic back pain and lower extremity pain M51.372 [facility] [address] [place] [id number] 05/18/2024 Tj [place] Type 2 diabetes madeline itus without complication, without long-term current use of insulin E11.9 [facility] [address] [place] [id number] 06/26/2024 Rosa Crowdy [facility] [address] [place] [id number] 06/26/2024 Rosa Crowdy [facility] [address] [place] [id number] 07/13/2024 Tj [place] [facility] [address] [place] [id number] 08/19/2024 Tj [place] [facility] [address] [place] [id number] 11/02/2024 Tj [place] [facility] [address] [place] [id number] 11/09/2024 Tj [place] [facility] [address] [place] [id number] 11/09/2024 Tj [place] Abnormal EKG R94.31 [facility] [address] [place] [id number] 11/09/2024 Tj [place] [facility] [address] [place] [id number] 11/16/2024 Tj [place] [facility] [address] [place] [id number] 11/16/2024 Tj [place] Essential hypertensi on I10 [facility] [address] [place] [id number] 11/17/2024 Tj [place] [facility] [address] [place] [id number] 12/17/2024 Tj [place] [facility] [address] [place] [id number] 12/18/2024 Tj [place] [facility] [address] [place] [id number] 12/25/2024 Tj [place] Assessments Encounter Date Diagnosis (ICD Code) Assessment Notes Treatment Notes Treatment Clinical Notes Section Notes 06/26/2024 Type 2 diabetes mellitus without complication, without long-term current use of insulin (ICD-10 - E11.9) 06/26/2024 Mild eczema (ICD-10 - L30.9) Will call and get back into dermatology. 10/27/2024 Complication of implanted vaginal mesh, unspecified complication, initial encounter (ICD-10 - T85.9XXA) 12/16/2024 Acute diarrhea (ICD-10 - R19.7) dehydration precautions discussed clear liquids and advance as tolerated 12/23/2024 MEGHAN (acute kidney injury) (ICD-10 - N17.9) 12/23/2024 Anemia, unspecified type (ICD-10 - D64.9) 10/27/2024 Pre-op exam (ICD-10 - Z01.818) PATIENT IS OF ACCEPTABLE RISK FOR PROPOSED EXCISION OF VAGINAL MESH, SEE ATTACHED LABS AND EKG 01/17/2024 Essential hypertension (ICD-10 - I10) 01/17/2024 Type 2 diabetes mellitus without complication, without long-term current use of insulin (ICD-10 - E11.9) 03/17/2024 Low back pain, unspecified (ICD-10 - M54.50) 05/06/2024 Acute vaginitis (ICD-10 - N76.0) 05/06/2024 UTI symptoms (ICD-10 - R39.9) 05/11/2024 Coccydynia (ICD-10 - M53.3) 05/11/2024 Lumbar disc herniation (ICD-10 - M51.26) 05/18/2024 Type 2 diabetes mellitus without complication, without long-term current use of insulin (ICD-10 - E11.9) 07/09/2024 Acute URI (ICD-10 - J06.9) 07/09/2024 Atopic dermatitis, unspecified type (ICD-10 - L20.9) 03/17/2024 Type 2 diabetes mellitus without complication, without long-term current use of insulin (ICD-10 - E11.9) 07/17/2024 Mixed hyperlipidemia (ICD-10 - E78.2) 08/17/2024 Vitamin B12 deficiency (ICD-10 - E53.8) 08/17/2024 Essential hypertension (ICD-10 - I10) 11/09/2024 Abnormal EKG (ICD-10 - R94.31) 11/16/2024 Essential hypertension (ICD-10 - I10) 12/08/2024 Chronic bronchitis (ICD-10 - J42) to start with inhaler tid and prn until cough resolved fluids, rest, supportive measures for fever/symptom relief 07/17/2024 Type 2 diabetes mellitus without complication, without long-term current use of insulin (ICD-10 - E11.9) 12/16/2024 Hypomagnesemia (ICD-10 - E83.42) 12/16/2024 Nausea (ICD-10 - R11.0) 07/17/2024 Essential hypertension (ICD-10 - I10) 05/11/2024 Degeneration of intervertebral disc of lumbosacral region with discogenic back pain and lower extremity pain (ICD-10 - M51.372) 03/17/2024 Coccydynia (ICD-10 - M53.3) 01/17/2024 Urinary frequency (ICD-10 - R35.0) 10/27/2024 Acute URI (ICD-10 - J06.9) 12/23/2024 Microscopic hematuria (ICD-10 - R31.29) 06/26/2024 Essential hypertension (ICD-10 - I10) 06/26/2024 Mixed hyperlipidemia (ICD-10 - E78.2) 10/27/2024 Type 2 diabetes mellitus without complication, without long-term current use of insulin (ICD-10 - E11.9) 12/16/2024 Type 2 diabetes mellitus with other specified complication, unspecified whether equipment operator intermodal yard insulin use (ICD-10 - E11.69) 12/23/2024 Essential hypertension (ICD-10 - I10) 01/17/2024 Pyuria (ICD-10 - R82.81) 07/17/2024 Vitamin B 12 deficiency (ICD-10 - E53.8) 03/17/2024 DDD (degenerative disc disease), lumbar (ICD-10 - M51.36) 07/17/2024 Low back pain, unspecified (ICD-10 - M54.50) Patient has L-spine epidural scheduled in 2 weeks at [facility], she will call with any new symptoms 03/17/2024 Frequent urination (ICD-10 - R35.0) 12/16/2024 Lumbar pain (ICD-10 - M54.50) 10/27/2024 Essential hypertension (ICD-10 - I10) 12/23/2024 Type 2 diabetes mellitus without complication, without long-term current use of insulin (ICD-10 - E11.9) 06/26/2024 Vitamin D deficiency (ICD-10 - E55.9) 06/26/2024 Hypothyroidism, unspecified type (ICD-10 - E03.9) 10/27/2024 Hypothyroidism, unspecified type (ICD-10 - E03.9) 03/17/2024 Acute UTI (ICD-10 - N39.0) 12/16/2024 BMI 33.0-33.9,adult (ICD-10 - Z68.33) 07/17/2024 Lumbar disc herniation (ICD-10 - M51.26) 06/26/2024 Vitamin B12 deficiency (ICD-10 - E53.8) 10/27/2024 Mixed hyperlipidemia (ICD-10 - E78.2) 10/27/2024 Gastroesophageal reflux disease, esophagitis presence not specified (ICD-10 - K21.9) 06/26/2024 Numbness of toes (ICD-10 - R20.0) Patient has had a nerve conduction study but we do not have the results. Will try to obtain these from neurology. 10/27/2024 Vitamin D deficiency (ICD-10 - E55.9) 10/27/2024 Mixed stress and urge urinary incontinence (ICD-10 - N39.46) 10/27/2024 DDD (degenerative disc disease), lumbar (ICD-10 - M51.36) 10/27/2024 Vitamin B12 deficiency (ICD-10 - E53.8) 10/27/2024 Degeneration of intervertebral disc of lumbar region, unspecified whether pain present (ICD-10 - M51.369) 07/17/2024 Other Labs from earlier this month reviewed in office today, A1c 7, Vit B12 <150, see results 12/16/2024 Other Plan to hold BP meds for a few days, call with a progress report in a few days Plan Of Treatment Next Appt Details Provider Name:Tj Dior ry, 01/06/2025 10:30:00 AM, [address] [facility], [address], [place], [place], [id number], Insurance Providers Payer Name Payer Address Payer Phone Subscriber Number Group Number Insured Name Patient Relationship to Insured Coverage Start Date Coverage End Date MEDICARE PART B [address] [address] [place]erikboubacar [id number] Randi Montes Self - patient is the insured [employer] [address] [place] [address] [id number] Randi Montes Self - patient is the insured Medications Administered Medication Instructions Date of Administration Dosage Notes B-12 01/28/2023 1 mL B-12 02/04/2023 1 mL B-12 02/11/2023 1 mL B-12 03/12/2023 1 mL B-12 04/24/2023 1 mL B-12 07/17/2024 1 mL B-12 08/17/2024 1 mL Depo- Medrol 40 mg/ml 07/26/2011 1.0 mL Depo- Medrol 40 mg/ml 01/05/2013 1.5 mL Zofran 12/16/2024 4 mg Medical (General) History Medical History History ICD Code Hypertension Type 2 Diabetes Hyperlipidemia Migraine Headache Fibromyalgia Irritable Bowel Syndrome Diverticulosis Diverticulitis Colon Polyps Hypothyroidism Declines Flu and Pneumonia Vaccines, 2017 LT Side of Nose Basal cell carinoma, S/P MOHS Procedure, 05/2018 Vitamin D deficiency Vitamin B 12 deficiency, 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 Andrade 014 Colonoscopy 03/2016 Bladder stimulator placement 12/02/22 Lumbar disc injection 06/26/24 bladder sling removed 10/2024 Hospitalization History Reason Date(Month/Year) RT Broken Wrist- [facility] ER 05/09/2013
[2024-12-28 15:02] VITALS: BP 147/97; PULSE 76; RESP 18; O2SAT 96; BMI 34.3
== END 2024-12-28 23:59 | disposition home or self-care (01) ==
LOC: SC.PAIN 13:25
PROVIDERS: PCP Family Medicine; Visit Provider Nurse Practitioner Family
DX: M51.360 Other intervertebral disc degeneration, lumbar region with discogenic back pain only (principal); M47.816 Spondylosis without myelopathy or radiculopathy, lumbar region
CPT/HCPCS: 99212; G0463

== ENCOUNTER 2025-01-05 09:20 | Outpatient (CLI) | payer MEDICARE, BC, SELFPAY ==
--- OUTSIDE RECORDS SUMMARY | 2024-11-16 09:38 | XMS_ITS | Encounter Summary ---
Author Organization [place] [address] Care Team Providers Care Operations Research Manager Name Role Phone Tj Sweeney MD Primary Care Provider + [phone] Reason for Visit * Auth/Cert/Inpt Specialty Diagnoses / Procedures Referred By Tangela torres Referred To Contact Diagnoses Complication of implanted vaginal mesh, initial encounter Complication of implanted vaginal mesh, initial encounter [T85.9XXA] Procedures IL RMVL/REVJ SLING STRESS INCONTINENCE [place] CYSTOURETHROSCOPY Bladder Mesh Excision, Cystoscopy . Referral ID Status Reason Start Date Expiration Date Visits Re quested Visits Authorized [id number] 1 1 Encounter Details Date Type Department Care Team (Latest Contact Info) Description 11/16/2024 9:38 AM EDT - 11/16/2024 4:08 PM EDT Hospital Encounter [facility] SAME DAY SURGERY [address] [place] [address] Shahnaz Hess MD [address] [place] [id number] Complication of implanted vaginal mesh, initial encounter; [...] from the original note were not included. [facility] UROGYNECOLOGY Shahnaz Hess MD FACOG Rosa Cook PA-C [address] [place] [address], [phone] Thank you for allowing us to care for you! It was a pleasure taking care of you during [facility] surgery[facility]! Dr. Hodge and her team are always available for any questions or concerns after your surgery. As always, you can reach our staff during normal business hours by using the [employer] experience to send us an email at: [email or web address] FOLLOW UP APPOINTMENTS Upon leaving the hospital, you should call [phone] during normal business hours to schedule follow-up appointments. You will need to be seen for the following: If you go home with a catheter, call to schedule a nurse visit in the office in 2 days (or, if yoursurgery is on a , catheter removal would be the following Saturday) Six-week follow-up with Rosa Cook PA-C (Dr. Hodge's Physician Photography Spotter) WHAT MEDICATIONS CAN I TAKE? After surgery [...] a single multivitamin, which you can buy [employer]iCyte. Drink lots of fluids - about EIGHT [...] call: (7:30 a.m. to 4:00 p.m. Saturday-Saturday) [facility] For non-life threatening emergencies only outside of normal business hours, please call the above number and follow prompts for the triage nurse. They will forward any urgent matters to the doctor carlos. For any life-threatening emergencies call [phone]. +++++++++++++++++++++++++++++++++++++++++++++++++++++++++++++++++++ [facility] Discharge Instructions - Following Anesthesia We appreciate [...] our office at . Get Well Soon! [place] [facility] +++++++++++++++++++++++++++++++++++++++++++++++++++++++++++++++++++ documented in this encounter Medications at Time of Discharge acetaminophen (TYLENOL) 500 mg Oral Tablet Take 500 mg by mouth every 4 hours as needed for Pain. albuterol (PROVENTIL HFA; VENTOLIN HFA) 90 mcg/actuation Inhl HFA Aerosol Inhaler Inhale 2 Puffs into the lungs as needed for Other. PRN was given when she had pneumonia back in October 12- pt states she has not needed to use it amLODIPine (NORVASC) 5 mg Oral Tablet Take 5 mg by mouth every morning. 06/24/2023 clindamycin (CLEOCIN) 2 % Vagl Cream Place [...] for 4 weeks. 60 g 1 06/08/2024 diclofenac (VOLTAREN) 1 % Top Gel Apply 2 g topically 4 times daily. PRN docusate sodium (COLACE) 100 mg Oral Capsule Take 1 Capsule by mouth 2 times daily. 60 Capsule 2 11/16/2024 estradioL (ESTRACE) 0.01 % (0.1 mg/gram) Vagl CreamIndication s:Vaginal atrophy Apply pea-sized amount using fingertip into the vagina (or as instructed) nightly x 2 weeks, then use 2-3 x per week. 42.5 g 2 09/08/2024 levocetirizine (XYZAL) 5 mg Oral Tablet Take [...] Tablet Take 10 mg by mouth. 05/26/2019 ondansetron (ZOFRAN-ODT) 4 mg Oral Tablet, Rapid [...] day for 2 weeks 595 g 11/11/2024 rosuvastatin (CRESTOR) 5 mg Oral Tablet Take 5 mg by mouth. 05/26/2019 senna (SENOKOT) 8.6 mg Oral Tablet Take [...] Stubbs NP - 11/16/2024 9:47 AM EDT [facility] History and Physical Name: [facility] ADDRESS: [address] [place] [address] : 1950 AGE: 74 y.o. Assessment: Complication [...] Interstim Implant; Surgeon: Shahnaz Hess MD; Location: [facility] MAIN OR; Service: Urogynecology BREAST SURGERY Left [...] nursing note reviewed. Exam conducted with a snowboarder present. Constitutional: General: She is not in [...] Pat Name: JACKY OCHOA Department: DEPID Room: [facility] Gender: Female Fruit Packer Face And Fill: [place] : 1950 Requested By: JUAN ADORNO Order Number: [id number] Reading MD: Rogers Moore Measurements Intervals Mclean Rate: 68 P: 33 IL: 189 QRS: 6 QRSD: 98 T: 45 [...] Role: * Shahnaz Hess MD - Primary ELECTRIC MULE DRIVER(S): OR staff ANESTHESIA: General SPECIMENS: ID Type Source Tests Collected by Time Destination 1 : mesh Learning Disabled Teacher Vagina PATHOLOGY TISSUE REQUEST Shahnaz Hess MD [...] placed in the dorsal lithotomy position in [facility]. She was prepped and draped in the [...] Hess MD - 11/16/2024 12:56 PM EDT [facility] OPERATIVE/PROCEDURE NOTE Jacky Ochoa November 16, 2024 Body mass index is 35.87 kg/m??. PRE-OP DIAGNOSIS: Complication of implanted vaginal mesh, initial encounter [T85.9XXA] POST-OP DIAGNOSIS: Complication of implanted vaginal mesh, initial encounter [T85.9XXA] PROCEDURE(S): Procedure(s): Bladder Mesh Excision, Cystoscopy . SURGEON(S): Surgeons and Role: * Shahnaz Hess MD - Primary ELECTRIC MULE DRIVER(S): OR staff ANESTHESIA: General SPECIMENS: ID Type Source Tests Collected by Time Destination 1 : mesh Learning Disabled Teacher Vagina PATHOLOGY TISSUE REQUEST Shahnaz Hess MD [...] none DISPOSITION/POST PROC COURSE: stable to recovery Shahnaz Hess MD Date: 11/16/2024 documented in this [...] or Zepbound) 7 days prior to surgery. [facility] DIABETIC INSTRUCTIONS-ORAL MEDS: Day before Surgery:Take all [...] No alcohol 24 hours prior to surgery. Ballistics Teacher It is important to have a Ballistics Teacher, someone who is 18 years or older, [...] concern, please reach out to our department [phone]. Hygiene [place] your teeth and gargle the morning of surgery. Shower the morning of surgery or the night before. Do not wear makeup (including eye makeup) lotion, powder, deodorant, perfume, or cologne. Do not shave the operative extremity or near the operative area. Remove nail dominican prior to surgery. This includes artificial nails and gel nail dominican. Personal Items Wear clean, simple, loose-fitting clothing (no jeans) and sturdy shoes (no flip flops, slides or crocs) to the hospital. Do not bring unnecessary valuables with you. It is policy that [facility] does not assume responsibility for lost, stolen [...] your Living Will and/or Durable Power of Heat Set Operator for Healthcare. Notify the Surgeon Notify your surgeon if you develop any illness (fever, cold, cough, sore throat, nausea, vomiting, skin rashes etc.) between now and surgery time Notify your surgeon and Pre-admission testing ([phone]) if you have any changes in your healthconditions or if any new medications are ordered between now and surgery.. Questions or Concerns? If you have any questions or concerns, feel free to call the Pre-Admission testing department at [phone]. We want to make sure you feel safe and have an excellent experience while you are here. Do not reply to this message through [employer] as it may not be answered promptly. Same Day Surgery Unit - [place] at [phone]; [facility]: Main Entrance 1A, stop at commercial front load driver and you will be sent to [address], [facility] [place] [address]. DOORS OPEN AT 6:00AM SAT-SAT AND 6:30 AM ON SATURDAY Surgical [...] [place] (WELLS); InfectiousDiseases Society of [place] (IDSA); [facility]; Association for Professionals inInfection Control [...] Care Team (Late st Contact Info) Description 02/08/2025 8:30 AM EDT Office Visit [facility]ne[facility] [address] [phone] Evangelina Cook PA-C [address] [place] [address] documented as of this encounter Procedures Procedure Name Priority Date/Time Associated Diagnosis Comments SCANNED RHYTHM STRIPS 11/17/2024 9:05 AM EDT GLUCOSE METER POC Routine 11/16/2024 1:2 5 PM EDT PATHOLOGY TISSUE REQUEST Routine 025 12:48 PM EDT Complication of implanted vaginal mesh, initial encounter IL CYSTOURETHROSCOPY 11/16/2024 12:07 PM EDT Complication of implanted vaginal mesh, initial encounter Special Needs sk IL RMVL/REVJ SLING STRESS INCONTINENCE 11/16/2024 12:07 PM [...] - 100 mg/dL 11/16/2024 1:27 PM EDT [facility] Sample Type Capillary 11/16/2024 1:27 PM EDT [facility] Patient Status Non-Critical Patient 11/16/2024 1:27 PM EDT [facility] Blood BLOOD SPECIMEN / Unknown 11/16/2024 1:25 PM EDT 11/16/2024 1:27 PM EDT Shahnaz Hess MD POINT OF CARE TEST ORDE JALEELDORIE Final Result [facility] [address] [place] [address] * PATHOLOGY TISSUE REQUEST (11/16/2024 12:48 PM EDT) Pathologist [facility] CASE REPORT Surgical Pathology Case: [id number] Authorizing Provider: Shahnaz Hess MD Collected: 11/16/2024 1248 Ordering Location: [facility] SUR[facility]ERY Received: 11/16/2024 1937 Pathologist: Jaqueline Huang MD Specimen: Vagina, mesh 11/17/2024 3:45 PM EDT [facility] FINAL DIAGNOSIS Mesh, removal: - Gross examination only. 11/17/2024 3:45 PM EDT [facility] at 1545 EDT GROSS DESCRIPTION The specimen is received in form, labeled with the patient's name, medical record number, and mesh . It consists of 3 irregular fragments of blue mesh material with adherent, embedded pink-purple tissue, ranging from 0.7 x 0.5 x 0.2 cm to 2.4 x 0.6 x 0.2 cm. No sections are submitted for intraoperative consultation. RENETTA Turner PA([facility]) 11/17/2024 11/17/2024 3:45 PM EDT [facility] EMBEDDED IMAGES 11/17/2024 3:45 PM EDT [facility] Learning Disabled Teacher VAGINAL STRUCTURE / Unknown 11/16/2024 12:48 PM EDT 11/16/2024 7:37 PM EDT Shahnaz Hess MD PATHOLOGY ORDERABLES Fi nal Result [facility] [address] [place] [phone] * (ABNORMAL) GLUCOSE METER POC (11/16/2024 10:08 AM EDT) Glucose Meter POC 175(H) 70 - 100 mg/dL 11/16/2024 10:09 AM EDT [facility] Sample Type Capillary 11/16/2024 10:09 AM EDT [facility] Patient Status Non-Critical Patient 11/16/2024 10:09 AM EDT [facility] Blood BLOOD SPECIMEN / Unknown 11/16/2024 10:08 AM EDT 11/16/2024 10:09 AM EDT Shahnaz Hess MD POINT OF CARE TEST ORDE RABLES Final Result Performing Organization Address City/[facility] Co de Phone Number [facility] [address] [place] [address] documented in this encounter Visit Diagnoses [...] 11/16/2024 documented in this encounter Care Teams Operations Research Manager Relationship Specialty Start Date End Date Tj Sweeney MD [address] [place] [phone] PCP - General Family Medicine 12/05/23 documented as of this encounter
--- OUTSIDE RECORDS SUMMARY | 2024-11-16 12:00 | XMS_ITS | Encounter Summary ---
Author Organization [facility] [place] [address] Care Team Providers Care Pharmacist Hospital Name Role Phone Tj Sweeney MD Primary Care Provider + [phone] Reason for Visit * Auth/Cert/Inpt Specialty Diagnoses / Procedures Referred By Tangela torres Referred To Contact Diagnoses Complication of implanted vaginal mesh, initial encounter Complication of implanted vaginal mesh, initial encounter [T85.9XXA] Procedures ND RMVL/REVJ SLING STRESS INCONTINENCE ND CYSTOURETHROSCOPY Bladder Mesh Excision, Cystoscopy . Referral ID Status Reason Start Date Expiration Date Visits Re quested Visits Authorized [id number] 1 1 Encounter Details Date Type Department Care Team (Late st Contact Info) Description 11/16/2024 12:00 PM EDT - 11/16/2024 1:05 PM EDT Surgery [facility] [address] [place] [address] Shahnaz Hess MD [address] [place] [address] [phone] REMOVAL OF VAGINAL SLING OR MESH (TOT-TRANSOBTURATOR TAPE, TVT- TENSION-FREE VAGINAL TAPE, /SECUR/ELEVATE) Surgery Details Date/Time Status Location OR Service Patient Class Case Class Case Type Trauma Case? 11/16/2024 12:00 PM Posted [facility] MAIN OR [facility] OR 06 Urogynecology Surgery Admit Elective Panel 1 Procedure LRB Anes Op Region Wound Class Comments REMOVAL OF VAGINAL SLING OR MESH (TOT-TRANSOBTURATOR TAPE, TVT- TENSION-FREE VAGINAL TAPE, /SECUR/ELEVATE) N/A General Vagina Clean Contaminated Bladder Mesh Excision, Cystoscopy CYSTOSCOPY N/A General Urethra Clean Contaminated . Surgeon Surgeon Role Service Panel Shahnaz Hess MD Primary Urogynecology 1 Special Needs sk documented in this encounter Social History Tobacco Use Types Packs/Day Years [...] Sign Reading Time Taken Comments Blood Pressure 189/95 11/16/2024 1:05 PM EDT Pulse 93 11/16/2024 1:05 PM EDT Temperature 36.7 C (98.1 F) 11/16/2024 1:05 PM EDT Respiratory Rate 14 11/16/2024 1:05 PM EDT Oxygen Saturation 95% 11/16/2024 1:05 PM EDT Inhaled Oxygen Concentration - - Weight 94.8 kg (209 lb) 11/16/2024 10:28 AM EDT Height 162.6 cm (5' 4 ) 11/16/2024 10:28 AM EDT Body Mass Index 35.87 11/16/2024 10:28 AM EDT documented in this encounter Discharge Instructions * Discharge Instructions* Omar Davison MD - 11/16/2024 7:39 AM EDT Images from the original note were not included. [facility] UROGYNECOLOGY Shahnaz Hess MD [facility] Cook PA-C [address] [place] [address], [phone] Thank you for allowing us to care for you! It was a [facility] taking care of you during [facility] surgery[facility]! Dr. Hodge and her team are always available for any questions or concerns after your surgery. As always, you can reach our staff during normal business hours by using the [employer] experience to send us an email at: [email or web address] FOLLOW UP APPOINTMENTS Upon leaving the hospital, you should call [phone] during normal business hours to schedule follow-up appointments. You will need to be seen for the following: If you go home with a catheter, call to schedule a nurse visit in the office in 2 days (or, if yoursurgery is on a , catheter removal would be the following Saturday) Six-week follow-up with Rosa Cook PA-C (Dr. Hodge's Physician Automobile Or Truck Rental Dispatcher) WHAT MEDICATIONS CAN I TAKE? After surgery [...] a single multivitamin, which you can buy [employer]. Drink lots of fluids - about EIGHT [...] call: (7:30 a.m. to 4:00 p.m. Saturday-Saturday) [facility] For non-life threatening emergencies only outside of normal business hours, please call the above number and follow prompts for the triage nurse. They will forward any urgent matters to the doctor carlos. For any life-threatening emergencies call [phone]. +++++++++++++++++++++++++++++++++++++++++++++++++++++++++++++++++++ [facility] Discharge Instructions - Following Anesthesia We appreciate [...] our office at . Get Well Soon! [facility] +++++++++++++++++++++++++++++++++++++++++++++++++++++++++++++++++++ documented in this encounter Medications [...] to 30 days. 60 Tablet 1 11/16/2024 5 documented as of this encounter Ordered Prescriptions [...] to 30 days. 60 Tablet 1 11/16/2024 5 documented in this encounter Discharge Disposition Disposition Code Departure Means Destination Comment s Home or Self Care Car Home documented in this encounter H&P Notes * Praneeth Stubbs NP - 11/16/2024 9:47 AM EDT [facility] History and Physical Name: [facility] ADDRESS: [address] [place] [address] [place] [address] : 1950 AGE: 74 y.o. Assessment: Complication [...] Interstim Implant; Surgeon: Shahnaz Hess MD; Location: [facility] MAIN OR; Service: Urogynecology BREAST SURGERY Left [...] nursing note reviewed. Exam conducted with a frame builder present. Constitutional: General: She is not in [...] Thought Content: Thought content normal. Labs:Reviewed Radiology: EKG:[facility] Test Date: 2023-12-12 Pat Name: [facility] Department: DEPID Room: [facility] Gender: Female Bag Maker: Nakul : 1950 Requested By: JUAN ADORNO Order Number: [id number] Reading MD: Rogers Moore Measurements Intervals [place] Rate: 68 P: 33 ND: 189 QRS: 6 QRSD: 98 T: 45 [...] original note were not included. OPERATIVE NOTE Randi Montes November 16, 2024 Body mass index is 35.87 kg/m??. PRE-OP DIAGNOSIS: Complication of implanted vaginal mesh, initial encounter [T85.9XXA] POST-OP DIAGNOSIS: Complication of implanted vaginal mesh, initial encounter [T85.9XXA] PROCEDURE(S): Procedure(s): Bladder Mesh Excision, Cystoscopy . SURGEON(S): Surgeons and Role: * Shahnaz Hess MD - Primary DIXONAC OPERATOR(S): OR staff ANESTHESIA: General SPECIMENS: ID Type Source Tests Collected by Time Destination 1 : mesh Benzene Operator Vagina PATHOLOGY TISSUE REQUEST Shahnaz Hess MD [...] Taken to PACU in good condition INDICATIONS: Randi Montes is a 74 y.o. female with urinary [...] placed in the dorsal lithotomy position in [facility]. She was prepped and draped in the [...] Hess MD - 11/16/2024 12:56 PM EDT [facility] OPERATIVE/PROCEDURE NOTE Randi Montes November 16, 2024 Body mass index is 35.87 kg/m??. PRE-OP DIAGNOSIS: Complication of implanted vaginal mesh, initial encounter [T85.9XXA] POST-OP DIAGNOSIS: Complication of implanted vaginal mesh, initial encounter [T85.9XXA] PROCEDURE(S): Procedure(s): Bladder Mesh Excision, Cystoscopy . SURGEON(S): Surgeons and Role: * Shahnaz Hess MD - Primary DIXONAC OPERATOR(S): OR staff ANESTHESIA: General SPECIMENS: ID Type Source Tests Collected by Time Destination 1 : mesh Benzene Operator Vagina PATHOLOGY TISSUE REQUEST Shahnaz Hess MD [...] of surgery Hold Dulaglutide (Trulicity), Exenatide ER (Bynakita Oreilly), Semaglutide (Ozempic, Wesheila), and tirzepatide (Mounjaro or Zepbound) 7 days prior to surgery. [facility] DIABETIC INSTRUCTIONS-ORAL MEDS: Day before Surgery:Take all [...] No alcohol 24 hours prior to surgery. Heavy Cleaner It is important to have a Heavy Cleaner, someone who is 18 years or older, [...] concern, please reach out to our department [phone]. Hygiene [place] your teeth and gargle the morning of surgery. Shower the morning of surgery or the night before. Do not wear makeup (including eye makeup) lotion, powder, deodorant, perfume, or cologne. Do not shave the operative extremity or near the operative area. Remove nail turkmen prior to surgery. This includes artificial nails and gel nail turkmen. Personal Items Wear clean, simple, loose-fitting clothing (no jeans) and sturdy shoes (no flip flops, slides or crocs) to the hospital. Do not bring unnecessary valuables with you. It is policy that [facility] does not assume responsibility for lost, stolen [...] your Living Will and/or Durable Power of [employer] Photographer for Healthcare. Notify the Surgeon Notify your surgeon if you develop any illness (fever, cold, cough, sore throat, nausea, vomiting, skin rashes etc.) between now and surgery time Notify your surgeon and Pre-admission testing ([phone]) if you have any changes in your healthconditions or if any new medications are ordered between now and surgery.. Questions or Concerns? If you have any questions or concerns, feel free to call the Pre-Admission testing department at [phone]. We want to make sure you feel safe and have an excellent experience while you are here. Do not reply to this message through [employer] as it may not be answered promptly. Same Day Surgery Unit - [facility] at [phone]; [facility]: Main Entrance 1A, stop at front tender and you will be sent to [address] [address]. DOORS OPEN AT 6:00 AM SAT-SAT AND [...] [place] (WELLS); InfectiousDiseases Society of [place] (IDSA); [facility]; Association for Professionals inInfection Control [...] 8:30 AM EDT Office Visit [facility] Urogynecology [address] [address] Evangelina Cook PA-C [address] [place] [address] documented as of this encounter Procedures Procedure Name Priority Date/Time Associated Diagnosis Comments SCANNED RHYTHM STRIPS 11/17/2024 9:05 AM EDT GLUCOSE METER POC Routine 11/16/2024 1:2 5 PM EDT PATHOLOGY TISSUE REQUEST Routine 025 12:48 PM EDT Complication of implanted vaginal mesh, initial encounter ND CYSTOURETHROSCOPY 11/16/2024 12:07 PM EDT Complication of implanted vaginal mesh, initial encounter Special Needs sk ND RMVL/REVJ SLING STRESS INCONTINENCE 11/16/2024 12:07 PM [...] - 100 mg/dL 11/16/2024 1:27 PM EDT [facility] Sample Type Capillary 11/16/2024 1:27 PM EDT [facility] Patient Status Non-Critical Patient 11/16/2024 1:27 PM EDT [facility] Blood BLOOD SPECIMEN / Unknown 11/16/2024 1:25 PM EDT 11/16/2024 1:27 PM EDT Shahnaz Hess MD POINT OF CARE TEST ORDMarv SCARLETT Final Result [facility] [address] [place] [id number] * PATHOLOGY TISSUE REQUEST (11/16/2024 12:48 PM EDT) CASE REPORT Surgical Pathology Case: [id number] Authorizing Provider: Shahnaz Hess MD Collected: 11/16/2024 1248 Ordering Location: [facility] SURGERY Received: 11/16/2024 193 Pathologist: Jaqueline Huang MD Specimen: Vagina, mesh 11/17/2024 3:45 PM EDT [facility] FINAL DIAGNOSIS Mesh, removal: - Gross examination only. 11/17/2024 3:45 PM EDT [facility] at 1545 EDT GROSS DESCRIPTION The specimen is received in form, labeled with the patient's name, medical record number, and mesh . It consists of 3 irregular fragments of blue mesh material with adherent, embedded pink-purple tissue, ranging from 0.7 x 0.5 x 0.2 cm to 2.4 x 0.6 x 0.2 cm. No sections are submitted for intraoperative consultation. RENETTA Turner, SONA(ASCP) 11/17/2024 11/17/2024 3:45 PM EDT [facility] EMBEDDED IMAGES 11/17/2024 3:45 PM EDT [facility] Benzene Operator VAGINAL STRUCTURE / Unknown 11/16/2024 12:48 PM EDT 11/16/2024 7:37 PM EDT Shahnaz Hess MD PATHOLOGY ORDERABLES Fi nal Result Performing Organization Address [facility] [place] [address] * (ABNORMAL) GLUCOSE METER POC (11/16/2024 10:08 AM EDT) Glucose Meter POC 175(H) 70 - 100 mg/dL 11/16/2024 10:09 AM EDT [facility] Sample Type Capillary 11/16/2024 10:09 AM EDT [facility] Patient Status Non-Critical Patient 11/16/2024 10:09 AM EDT [facility] Blood BLOOD SPECIMEN / Unknown 11/16/2024 10:08 AM EDT 11/16/2024 10:09 AM EDT Shahnaz Hess MD POINT OF CARE TEST ORDE RABDORIE Final Result Performing Organization Address City/[facility]/ZIP Co de Phone Number [facility] [address] [place] [phone] documented in this encounter Visit Diagnoses Diagnosis Complication of implanted vaginal mesh, initial encounter- Primary Complication of implanted vaginal mesh, initial encounter Exposure of implanted vaginal mesh, subsequent encounter Complication of implanted vaginal mesh, initial encounter documented in this encounter Admitting Diagnoses Diagnosis Complication of implanted vaginal mesh, initial encounter documented in this encounter Administered Medications Inactive Administered Medications - up to 1 most recent administrations Medication Order MAR Action Action Date Dose Rate Site dimenhyDRINATE (DRAMAMINE) 12.5-25 mg in sodium chloride [...] Given 11/16/2024 2:32 PM EDT 0.25 mg lactated ringers infusion Intravenous, at 50 mL/hr, PREPROCEDURE CONTINUOUS, Starting on Sat11/16/24 at 1004, Until Sat11/16/24 at 2013, To be given in SDS/Pre-op Holding Area, Pre-op (Holding/SDS Meds) New Bag 11/16/2024 12:11 PM EDT lidocaine-EPINEPHrine 1 %-1:100,000 injection INTRAPROCEDURE, Starting on Sat11/16/24 at 1248, Until Sat11/16/24 at 1614, Intra-op Given 11/16/2024 12:48 PM EDT 1.5 mL meperidine (DEMEROL) injection (PF) 12.5 mg 12.5 mg, Intravenous, ONCE PRN, 1 dose, Starting on Sat11/16/24 at 1257, Until Sat11/16/24 at 2013, Shivering, Shivering, unless otherwise ordered by Anesthesia Coordinator, PACU ondansetron (ZOFRAN) injection 4 mg 4 mg, [...] Given 11/16/2024 2:35 PM EDT 5 mg promethazine (PHENERGAN) 12.5 mg in sodium [...] Sat11/16/24 at 1257, Until Sat11/16/24 at 2014, Nausea, Second Line Antiemetic, For nausea unrelieved [...] Sat11/16/24 at 1257, Until Sat11/16/24 at 2014, Nausea, Second Line Antiemetic, For nausea unrelieved [...] Ordered Date acetaminophen (TYLENOL) tablet 1,000 mg 2 0 11/16/2024 aprepitant (EMEND) capsule 40 mg 1 11/17/19 25 ceFAZolin (ANCEF) IVPB 2 g 1 11/16/2024 clindamycin in 5 % dextrose (CLEOCIN) IVPB 900 mg 11/16/2024 dimenhyDRINATE (DRAMAMINE) 1 2.5-25 mg in sodium chloride 0.9% injection 1 11/16/2024 droPERidol (INAPSINE) injection 0.625 mg 11/16/2024 fentaNYL (SUBLIMAZE) injection 25 mcg gentamicin (GARAMYCIN) 360 m g in dextrose 5% 100 mL IVPB 11/16/2024 HYDROmorphone (DILAUDID) injection 0.5 mg 11/16/2024 insulin aspart U-100 (NovoLO G) injection 1-10 Units 11/16/2024 labetaloL (NORMODYNE) injection 10 mg lactated ringers infusion 11/16/2024 meperidine (DEMEROL) injecti on (PF) 12.5 mg 11/16/2024 metoprolol succinate ER (TOP ROL-XL) XL tablet 200 mg 11/16/2024 ondansetron (ZOFRAN) injection 4 mg 11/16 ondansetron (ZOFRAN-ODT) dis integrating tablet 8 mg 11/16/2024 oxyCODONE (ROXICODONE) immed iate release tablet 5 mg 1 11/16/2024 phenazopyridine (PYRIDIUM) tablet 200 mg 1 11/16/2024 promethazine (PHENERGAN) 12. 5 mg in sodium chloride 0.9% 10 mL injection 1 11/16/2024 promethazine (PHENERGAN) 6.2 5 mg in sodium chloride 0.9% 10 mL injection 1 11/16/2024 Discharge Count Last Ordered Date First Orde red Date DISCHARGE PATIENT 1 11/16/2024 documented in this encounter Care Teams Pharmacist Hospital Relationship Specialty Start Date End Date Tj Sweeney MD [address] [place] [address] [place] [id number] PCP - General Family Medicine 12/05/23 documented as of this encounter
--- OUTSIDE RECORDS SUMMARY | 2024-11-16 12:11 | XMS_ITS | Encounter Summary ---
Author Organization [place] [address] Care Team Providers Care Rest Room Matron Name Role Phone Tj Sweeney MD Primary Care Provider + [phone] Reason for Visit * Auth/Cert/Inpt Specialty Diagnoses / Procedures Referred By Tangela torres Referred To Contact Diagnoses Complication of implanted vaginal mesh, initial encounter Complication of implanted vaginal mesh, initial encounter [T85.9XXA] Procedures [place] RMVL/REVJ SLING STRESS INCONTINENCE [place] CYSTOURETHROSCOPY Bladder Mesh Excision, Cystoscopy . Referral ID Status Reason Start Date Expiration Date Visits Re quested Visits Authorized [id number] 1 1 Encounter Details Date Type Department Care Team (Late st Contact Info) Description 11/16/2024 12:11 PM EDT Anesthesia Event [facility] PERIOP [address] [place] [address] Omar Davison MD [address] [place] [address] Dima Sky, PART MAKER [address] [place] [phone] Anesthesia Record Procedure Summary Procedure Name Responsible Anesthesiologist Anesthesia Start Time Anesthesia Stop Time REMOVAL OF VAGINAL SLING OR MESH (TOT-TRANSOBTURATOR TAPE, TVT- TENSION-FREE VAGINAL TAPE, /SECUR/ELEVATE) (Vagina ) Omar Davison MD 11/16/24 1211 11/16/24 1304 Events Date Time Event Comment 11/16/2024 1058 1211 AN Equip Check 1211 An Start 1212 An Start Data 1218 Immediate Pre Anesthetic Ass es 1218 An Induction 1219 An Intubation 1223 Anesthesia Ready 1227 Time out 1228 Incision 1259 An Emergence 1259 Airway Removed 1259 an stop data 1304 An Stop 1304 Handoff I completed my SBAR handoff to the receiving nurse which has included the followin. Identification of the patient, family, or patient surrogate 2. Identification of the responsible practitioner 3. Pertinent medical history 4. Surgical procedure and reason for procedure 5. Intraoperative anesthetic management 6. All current lines, drains and respiratory support. 7. Outstanding follow up orders (X-rays, consults etc) 8. Expectations/Plans for the early post-procedure period 9. Opportunity for questions and acknowledgement of understanding from the receiving PACU/ICU steamtable worker Meds Name Total midazolam (VERSED) injection 1 mg/mL 2 m g lidocaine injection 1% 50 mg propofol (DIPRIVAN) injection 200 mg fentaNYL 50 MCG/ML INJ 100 mcg ondansetron (ZOFRAN) injection 4 mg /2 m L 4 mg dexamethasone (DECADRON) injection 4 mg/ mL 4 mg clindamycin in 5 % dextrose (CLEOCIN) IV PB 900 mg 900 mg gentamicin (GARAMYCIN) 360 mg in dextros e 5% 100 mL IVPB 360 mg succinylcholine (ANECTINE) 20 mg/mL inje ction (EDG, LIZ, FTT) 50 mg lactated ringers infusion 800 mL * Agents Name O2 N2O Air Et Sevoflurane * Blood No blood administrations on file. Lines, Drains, and Airways Type Details Placement Removal Peripheral IV 11/16/24; 1118; 20; Left; Hand; Brenna RN; 1; 11/16/24; 201311/16/24 1118 by Brenna Griffith RN 11/16/242013 by Discharge Provider, Automatic Airway Device: ETT- Cuffed; Size: 7.5 mm; Placement Date: 11/16/24; Placement Time: 1220 (created via procedure documentation); Removal Date: 11/16/24; Removal Time: 1259 11/16/24 1220 by Mario Vazquez CRNA 11/16/24 1259 by Mario Vazquez CRNA Incision/Wound 11/16/24; 1231; Vagina; 11/16/24; 201311/16/24 1231 by Salina Pate RN 11/16/242013 by Discharge Provider, Automatic Urethral Catheter (Naranjo) Placement Date: 11/16/24; Placement Time: 124; Inserted By: Deshawn; Type: Latex; Balloon Size: 10 ml; Collection Container: Standard; Urine Returned: Yes; Location: OR; Removal Date: 11/16/24; Removal Time: 151411/16/24 1247 by Salina Pate RN 11/16/24 151 by Nahomi [place] RN documented in this encounter Social History Tobacco [...] on file documented as of this encounter Procedure Notes * Mario Vazquez CRNA - 11/16/2024 12:20 PM EDTAssociated Order(s): Airway Intraop Airway Placement: Date/Time: 11/16/2024 12:20 PM Induction type: IV Mask size: Standard adult Pre-Oxygenation: Standard Mask ventilation: Not attempted Mask ventilation improved by: Head adjustment Technique: Video laryngoscope Laryngoscope blade: Honeycutt Blade size: 3 Grade view: II Airway type: ETT- cuffed Topical Anesthetic/Lubricant: Lubricant jelly Intubation assist devices: Stylet 14fr Airway location: Oral Device size: 7.5mm Secured at: 20 cm Secured by: Tape Measured from: Lips Placement verified: Auscultation, End tidal CO2 and Symmetric chest wall motion Condition: Atraumatic Insertion attempts: 1 documented in this encounter OR Notes * Anesthesia Postprocedure Evaluation - Emir Elizondo MD - 11/16/2024 3:34 PM EDT Post-Anesthesia Evaluation Note Patient Name: Randi Montes Patient Date: November 16, 2024 Post-Anesthesia Evaluation Patient Location: PACU Post op vitals: stable Difficult airway: no Nausea controlled: yes Level of consciousness: awake Post anesthesia pain: adequate analgesia Airway patency: patent Respiratory status: room air Cardiovascular status: stable Hydration status: euvolemic Temperature: Normothermia Perioperative complications: NONE Vitals Value Taken Time BP 160/84 11/16/24 14:45 Resp 15 11/16/24 14:45 SpO2 99 % 11/16/24 14:45 Temp 36.4 ??C (97.6 ??F) 11/16/24 14:45 Pulse 74 11/16/24 14:45 * Anesthesia Preprocedure Evaluation - Omar Davison MD - 11/16/2024 10:17 AM EDT Pre-Anesthesia Evaluation Note Patient Name: Randi Montes Sex: female Patient : 1950 Age: 74 y.o. Patient Date: November 16, 2024 Procedure(s): Bladder Mesh Excision, Cystoscopy . Anesthesia Evaluation Previous anesthesia. 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 Anesthesia Plan ASA 2 Last solid intake: The patient has not eaten within the last 8 hours. Last clear liquid intake: The patient has not had clear liquids within the last 2 hours. Anesthesia Plan: general Induction: intravenous Monitors: STD PONV Risk Score: 3. Score of 3 or more is High Risk for PONV, combination antiemetic prophylaxis isindicated. Informed consent Anesthetic plan and risks discussed with: patient. Chart Reviewed and patient examined documented in this encounter Miscellaneous Notes * PAT Pre Evaluation for Anesthesia - Dmia Sky APRN - 11/09/2024 4:31 PM EDT Pre-Anesthesia Evaluation Note Patient Name: Randi Montes Sex: female Patient : 1950 Age: 74 y.o. Patient Date: November 09, 2024 Procedure(s): Bladder Mesh Excision, Cystoscopy . Anesthesia Evaluation Previous anesthesia. 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 Anesthesia Plan Anesthesia Plan: general PONV Risk Score: 3. Score of 3 or more is High Risk for PONV, combination antiemetic prophylaxis isindicated. Chart Reviewed documented in this encounter Plan of Treatment Upcoming Encounters Date Type Department Care Team (Late st Contact Info) Description 02/08/2025 8:30 AM EDT Office Visit [facility] [address] [address] Evangelina Cook PA-C [address] [place] [address] documented as of this encounter Procedures Procedure Name Priority Date/Time Associated Diagnosis Comments INTRAOP AIRWAY PLACEMENT Routine 11/16/2024 12:20 PM EDT documented in this encounter Results * INTRAOP AIRWAY PLACEMENT (11/16/2024 12:20 PM EDT) Narrative [facility] - 11/16/2024 12:20 PM EDT Mario Vazquez CRNA 11/16/2024 12:21 PM Intraop Airway Placement: Date/Time: 11/16/2024 12:20 PM Induction type: IV Mask size: Standard adult Pre-Oxygenation: Standard Mask ventilation: Not attempted Mask ventilation improved by: Head adjustment Technique: Video laryngoscope Laryngoscope blade: Honeycutt Blade size: 3 Grade view: II Airway type: ETT- cuffed Topical Anesthetic/Lubricant: Lubricant jelly Intubation assist devices: Stylet 14fr Airway location: Oral Device size: 7.5mm Secured at: 20 cm Secured by: Tape Measured from: Lips Placement verified: Auscultation, End tidal CO2 and Symmetric chest wall motion Condition: Atraumatic Insertion attempts: 1 us Omar Davison MD [place] ANESTHESIA Final Result [facility] [address] [id number] documented in this encounter Visit Diagnoses Not on filedocumented in this encounter Administered Medications Inactive Administered Medications - up to 1 most recent administrations Medication Order MAR Action Action Date Dose Rate Site clindamycin in 5 % dextrose (CLEOCIN) IVPB 900 mg 900 mg, Intravenous, ONCE, 1 dose, On Sat11/16/24 at 1015, Administer over 60 Minutes, Reason for Therapy: Surgical Prophylaxis Given 11/16/2024 12:11 PM EDT 900 mg dexAMETHasone (DECADRON) injection Intravenous, PRN (Anesthesia), Starting on Sat11/16/24 at 1248, Until Sat11/16/24 at 1304, Anesthesia Intra-op Given 11/16/2024 12:48 PM EDT 4 mg fentaNYL (SUBLIMAZE) injection Intravenous, PRN (Anesthesia), Starting on Sat11/16/24 at 1211, Until Sat11/16/24 at 1304, Anesthesia Intra-op Given 11/16/2024 12:11 PM EDT 100 mcg gentamicin (GARAMYCIN) 360 mg in dextrose 5% 100 mL IVPB 360 mg (rounded from 351 mg = 5 mg/kg 70.2 kg Adjusted weight), Intravenous, ONCE, 1 dose, On Sat11/16/24 at 1015, Administer over 60 Minutes, Reason for Therapy: Surgical Prophylaxis New Bag 11/16/2024 12:24 PM EDT 360 mg lactated ringers infusion Intravenous, at 50 mL/hr, PREPROCEDURE CONTINUOUS, Starting on Sat11/16/24 at 1004, Until Sat11/16/24 at 2014, To be given in SDS/Pre-op Holding Area, Pre-op (Holding/SDS Meds) New Bag 11/16/2024 12:11 PM EDT lidocaine 1% 10 mg/mL (1 %) injection Intravenous, PRN (Anesthesia), Starting on Sat11/16/24 at 1211, Until Sat11/16/24 at 1304, Anesthesia Intra-op Given 11/16/2024 12:11 PM EDT 50 mg midazolam (VERSED) injection Intravenous, PRN (Anesthesia), Starting on Sat11/16/24 at 1211, Until Sat11/16/24 at 1304, Anesthesia Intra-op Given 11/16/2024 12:11 PM EDT 2 mg ondansetron (ZOFRAN) injection Intravenous, PRN (Anesthesia), Starting on Sat11/16/24 at 1248, Until Sat11/16/24 at 1304, Anesthesia Intra-op Given 11/16/2024 12:48 PM EDT 4 mg propofoL (DIPRIVAN) injection Intravenous, PRN (Anesthesia), Starting on Sat11/16/24 at 1211, Until Sat11/16/24 at 1304, Anesthesia Intra-op Given 11/16/2024 12:11 PM EDT 200 mg succinylcholine (ANECTINE) injection Intravenous, PRN (Anesthesia), Starting on Sat11/16/24 at 1218, Until Sat11/16/24 at 1304, Anesthesia Intra-op Given 11/16/2024 12:18 PM EDT 50 mg documented in this encounter Care Teams Rest Room Matron Relationship Specialty Start Date End Date Tj Sweeney MD [address] [address] [place] [phone] PCP - General Family Medicine 12/05/23 documented as of this encounter
--- OUTSIDE RECORDS SUMMARY | 2024-12-16 05:00 | XMS_ITS ---
Author Organization [facility] Address [address] [place] [id number] Care Team Providers Care Chicken Cleaner Name Role Phone Tj Sweeney Primary Care Provider Allergies Allergen (clinical drug ingredient) Drug/Non Drug Allergy documented on EMR Reaction Allergy Type Onset Date Status BEXTRA (uncoded) hyperventilate Allergy Active SLO-BID GYROCAPS (uncoded) Unknown Allergy Active cefdinir Cefdinir skin itching Drug Allergy Acti ve Penicillin Unknown Drug Allergy Active Results Component Value Reference Range Notes CBC Venipuncture (in house) Reviewed date:12/16/2024 11:03:54 AM Interpretation: Performing Lab: Notes/Report: wbc 6.8 3.5 - 10 lymph 34.5 15 - 50 mid 6.2 2 - 15 gran 59.3 35 - 80 rbc 4.68 3.5 - 5.5 hgb 12.6 11.5 - 16.5 hct 38.8 35 - 55 mcv 82.7 75 - 100 mch 27.0 25 - 35 mchc 32.6 31 - 38 platlet 413 100 - 400 P-Comprehensive Metabolic Pa fouzia (CMP) Reviewed date:12/17/2024 08:53:21 AM Interpretation:CO2 17, Glu 171, BUN 35, Creat 3.67, eGFR 13, AST 44 Performing Lab: Notes/Report: Test performed by [employer] [facility] , [address], [place] [address] Chapincito Branch MD, Base Brander CLIA: [id number] Sodium 135 135-145 mmol/L Potassium 3.5 3.5-5.3 mmol/L Chloride 103 97-108 mmol/L CO2 17 22-32 mmol/L Glucose 171 65-99 mg/dL BUN 35 8-23 mg/dL Creatinine 3.67 0.50-1.00 mg/dL Calcium 8.7 8.6-10.4 mg/dL eGFR by Creatinine 13 >59 mL/min/1.73m2 Protein 6.8 6.0-8.3 g/dL Albumin 4.1 3.5-5.3 g/dL Alkaline Phosphatase 108 35-121 IU/L ALT (SGPT) 26 <5-47 IU/L AST (SGOT) 44 <5-40 IU/L Bilirubin, Total <0.2 <0.2-1.2 mg/dL A/G Ratio 1.5 1.1-2.5 P-Magnesium Reviewed date:12/17/2024 08:53:21 AM Interpretation:1.7 Performing Lab: Notes/Report: Test performed by [employer], [address] , [address], [place] [address] Chapincito Branch MD, Base Brander CLIA: [id number] Magnesium 1.7 1.6-2.4 mg/dL REASON FOR VISIT 6 month check Medications Medication SIG (Take, Route, Frequency, Duration) Notes Start Date End Date Status amLODIPine Besylate 5 MG 1 tab(s) orally once a day for 90 days Active Levothyroxine Sodium 25 MCG 1 tab(s) ora lly once a day for 90 days Active Lisinopril 40 MG 1 tab(s) orally once a day Active Vitamin B12 1000 MCG 1 tablet Orally Onc e a day 08/17/2024 Active metFORMIN HCl ER 500 MG TAKE 2 TABLETS B Y MOUTH TWICE DAILY Orally twice daily for 90 days Active Triamcinolone Acetonide 0.1 % 1 application Externally Twice a day 06/26/2024 Active Levocetirizine Dihydrochloride 5 MG 1 tablet in the evening Orally Once a day for 90 days Active Montelukast Sodium 10 MG 1 tablet Orally Once a day for 90 days Active Rosuvastatin Calcium 5 MG 1 tab(s) orall y once a day for 90 days Active Voltaren 1 % 2 g applied topicall y 4 times a day, prn Active Ibuprofen 600 MG TAKE 1 TABLET BY ZULEIMA TH FOUR TIMES DAILY NEEDED for 15 Active ADVOCATE TEST STRIPS - 02/12/2019 Active Albuterol Sulfate HFA 108 (90 Base) MCG/ACT 2 puff(s) inhaled tid and q2h prn 09/04/2022 Active ADVOCATE GLUCOSE METER NON-SPEAKING [id number] - 02/12/2019 Active Metoprolol Succinate ER 200 MG 1 tablet Orally Once a day for 90 days Active Ozempic (2 MG/DOSE) 8 MG/3ML 2 mg Subcut aneous once weekly 05/18/2024 Active Problems Problem Type SNOMED Code ICD Code Onset Dates Problem Status W/U Status Risk Notes Problem 286626445 Hypomagnesemia (E83.42) Active confirmed Problem 12910546 Type 2 diabetes mellitus with other specified complication, unspecified whether [facility] insulin use (E11.69) Active confirmed Problem 977697329 BMI 33.0-33.9,ad ult (Z68.33) Active confirmed Vital Signs Blood pressure systolic 102 mm Hg 12/17/19 25 Blood pressure diastolic 58 mm Hg 025 Heart Rate 78 /min 12/16/2024 Height 64 in 12/16/2024 Weight 195 lbs 12/16/2024 BMI 33.47 kg/m2 12/16/2024 Encounters Encounter Location Date Provider Diagnosis [facility] [address] [id number] 12/16/2024 Tj Sweeney Acute diarrhea R19.7 ; Hypomagnesemia E83.42 ; Nausea R11.0 ; Type 2 diabetes mellitus with other specified complication, unspecified whether [facility] insulin use E11.69 ; Lumbar pain M54.50 and BMI 33.0-33.9,adult Z68.33 Assessments Encounter Date Diagnosis (ICD Code) Assessment Notes Treatment Notes Treatment Clinical Notes Section Notes 12/16/2024 Acute diarrhea (ICD-10 - R19.7) dehydration precautions discussed clear liquids and advance as tolerated 12/16/2024 Hypomagnesemia (ICD-10 - E83.42) 12/16/2024 Nausea (ICD-10 - R11.0) 12/16/2024 Type 2 diabetes mellitus with other specified complication, unspecified whether termite renewal inspector insulin use (ICD-10 - E11.69) 12/16/2024 Lumbar pain (ICD-10 - M54.50) 12/16/2024 BMI 33.0-33.9,adult (ICD-10 - Z68.33) 12/16/2024 Other Plan to hold BP meds for a few days, call with a progress report in a few days Plan Of Treatment Treatment Notes Assessment Notes Acute diarrhea dehydration precauti ons discussed clear liquids and advance as tolerated Other Plan to hold BP meds for a few days, call with a progress report in a few days Next Appt Details Follow Up: 1 Week, Reason: Provider Name:Tj Dior ry, 01/06/2025 03:00:00 PM, [address], [address], [place], [place], [id number], Medications Administered Medication Instructions Date of Administration Dosage Notes Zofran 12/16/2024 4 mg Progress Notes * Randi MONTESDOB: [birth year] (74 yo F)Acc No.[id number]:12/16/2024 Progress Notes Patient: Randi TERESA Provider: Claudine Sweeney M.D. :1950 A ge:74 Y S ex:Female Date:12/16/2024 Address:[address] [place], [place] [address] [id number] Subjective: * Chief Complaints: * 1 . 6 month check. * HPI: C ardiology: 74 year old female presents with c/o Blood Pressure Elevated?Pt here for 6 mo f/u on hypertension, states she is doing well and does not have any concerns.? G astroenterology: c/o Nausea. c/o Vomiting W ent to ER this past weekend, labs were drawn. She was given IVF and Magnesium. She feels a little better but is still not normal. c/o Diarrhea f or 5 Days w atery , no blood. * ROS: D ERMATOLOGY: no R aniyah. 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 * Hospitalization/Major Diagno stic Procedure: R T Broken Wrist- [facility] [place] ER 05/09/2013. * Family History: F ather: [...] Medications: T aking ADVOCATE GLUCOSE METER NON-SPEAKING [id number] - , Taking ADVOCATE TEST STRIPS - [...] application Externally Twice a day , Taking Levocetirizine Dihydrochloride 5 [...] 2 mg Subcutaneous once weekly , Discontinued Triamcinolone Acetonide 0.1 % Cream 1 application Externally Two times a day , Discontinued Benzonatate 200 MG Capsule 1 capsule as needed Orally tid prn , Discontinued Albuterol Sulfate HFA 108 (90 Base) MCG/ACT Aerosol Solution 1 puff Inhalation tid , Medication List reviewed and reconciled with the patient * Allergies: P enicillin, SLO-BID GYROCAPS, BEXTRA: hyperventilate - Side Effects, Cefdinir: skin itching. Objective: * Vitals: W t: 195, Temp: 97.9, BP: 102/58, HR: 78, Nurse: jerri, Ht: 64, BMI:33.47. * Examination: G eneral Examination: General Appearance: N AD, sitting in a wheelchair, conversant. Assessment: * Assessment: 1. A cute diarrhea - R19.7 (Primary) 2 . H ypomagnesemia - E83.42 ? 3 . N ausea - R11.0 4 . T ype 2 diabetes mellitus with other specified complication, unspecified whether [facility] insulin use - E11.69 5 . L umbar pain - M54.50 6 . B AR 33.0-33.9,adult - Z68.33 Plan: * Treatment: Value Reference Range A /G Ratio 1.5 1.1-2.5 - * A lbumin 4.1 3.5-5.3 - g/dL * A lkaline Phosphatase 108 35-121 - IU/L * A LT (SGPT) 26 <5-47 - IU/L * A ST (SGOT) 44 H <5-40 - IU/L * B ilirubin, Total <0.2 <0.2-1.2 - mg/dL * B UN 35 H 8-23 - mg/dL * C alcium 8.7 8.6-10.4 - mg/dL * C hloride 103 97-108 - mmol/L * C O2 17 L 22-32 - mmol/L * C reatinine 3.67 H 0.50-1.00 - mg/dL * G lucose 171 H 65-99 - mg/dL * P otassium 3.5 3.5-5.3 - mmol/L * S odium 135 135-145 - mmol/L * P rotein 6.8 6.0-8.3 - g/dL * e GFR by Creatinine 13 L >59 - mL/min/1.73m2 * Erika Thomas 12/17/2024 08: 53:12 AM > See phone encounter ?LAB: CBC Venipuncture (in house) (Collection Date & Time - 12/16/2024)* Value Reference Range w bc 6.8 3.5 - 10 * l ymph 34.5 15 - 50 * m id 6.2 2 - 15 * g ran 59.3 35 - 80 * r bc 4.68 3.5 - 5.5 * h gb 12.6 11.5 - 16.5 * h ct 38.8 35 - 55 * m cv 82.7 75 - 100 * m ch 27.0 25 - 35 * m chc 32.6 31 - 38 * p latlet 413 100 - 400 * Suze Vitale 12/16/2024 10:0 9:15 AM > Provider reviewed results while patient in office. Notes: dehydration precautions discussed clear liquids and advance as tolerated??2.?Hypomagnesemia?LAB: P-Magnesium (Collection Date & Time - 12/16/2024 08:31 AM)?1.7* Value Reference Range M agnesium 1.7 1.6-2.4 - mg/dL * Erika Thomas 12/17/2024 08: 53:12 AM > See phone encounter 3.?Others? Notes: Plan to hold BP meds for a few days, call with a progress report in a few days?? * Therapeutic Injections: Zofran : 4 mg (Route: Intramuscular) given by Deann Gomez on right gluteus (Nausea) * Procedure Codes: G 2211 Complex e/[place], [address] CBC WITH AUTO DIFF, J2405 INJECTION ONDANSETRON HCL PER 1 MG, 15301 ADMINISTRATION OF INJECTION, G8752 MOST RECENT SYSTOLIC BP < 140MM HG, G8754 MOST RECENT DIASTOLIC BP < 90MM HG * Follow Up: 1 Week * Billing Information: * Visit Code: 78238 Office Visit, Est Pt., Level 4. Modifiers: 25 * Procedure Codes: G2211 Complex e/[place]. [address] CBC WITH AUTO DIFF. J2405 INJECTION ONDANSETRON HCL PER 1 MG. 25418 ADMINISTRATION OF INJECTION. G8752 MOST RECENT SYSTOLIC BP < 140MM HG. G8754 MOST RECENT DIASTOLIC BP < 90MM HG. * Electronic signature of Yamilex Sweeney MD on 01/05/2025 at 09:25 AM EDT Sign off status: Pending * Provider: Caludine Sweeney M.D. Date: 0 12/16/2024 Generated for Brock chapman/See/Omayraitting on: 0 01/05/2025 09:25 AM EDT History and Physical Notes * HPI (History of Present Illness) Category Sub-Category Detail Notes Category Not es Cardiology Blood Pressure Elevated Pt here for 6 mo f/u on hypertension, states she is doing well and does not have any concerns Gastroenterology Vomiting Went to ER this past weekend, labs were drawn. She was given IVF and Magnesium. She feels a little better but is still not normal Diarrhea watery , no blood Nausea Examination Category Sub-Category Detail Notes Category Not es General Examination General Appearance: NAD, sit ting in a wheelchair, conversant
--- OUTSIDE RECORDS SUMMARY | 2024-12-23 07:15 | XMS_ITS ---
Author Organization [facility] Address [address] [place] [id number] Care Team Providers Care Consulting Services Associate Name Role Phone jT Sweeney Primary Care Provider [phone] Allergies Allergen (clinical drug ingredient) Drug/Non Drug Allergy documented on EMR Reaction Allergy Type Onset Date Status BEXTRA (uncoded) hyperventilate Allergy Active SLO-BID GYROCAPS (uncoded) Unknown Allergy Active cefdinir Cefdinir skin itching Drug Allergy Acti ve Penicillin Unknown Drug Allergy Active Results Component Value Reference Range Notes Urinalysis - Inhouse Reviewed date:12/23/2024 01:08:58 PM Interpretation: Performing Lab: Notes/Report: Color/Clarity yellow/clear Leuk 1+ Nitrite Neg Urobili 3.2 Protein Neg pH 6.0 Blood Trace-Intact Sp. Gr. 1.015 Ketone Neg Bili Neg Gluc Neg CBC Venipuncture (in house) Reviewed date:12/23/2024 10:36:30 PM Interpretation: Performing Lab: Notes/Report: wbc 7.4 3.5 - 10 lymph 35.1% 15 - 50 mid 5.6% 2 - 15 gran 59.3% 35 - 80 rbc 3.91 3.5 - 5.5 hgb 10.7 11.5 - 16.5 hct 33.0 35 - 55 mcv 84.3 75 - 100 mch 27.5 25 - 35 mchc 32.6 31 - 38 platlet 354 100 - 400 P-Basic Metabolic Panel (BMP ) Reviewed date:12/24/2024 03:56:49 PM Interpretation:gluc 120, Cr 1.26, gfr 45 Performing Lab: Notes/Report: Test performed by [facility], [address] , [address], [place] [address] Chapincito Branch MD, Director Technical CLIA: [id number] Sodium 143 135-145 mmol/L Potassium 4.8 3.5-5.3 mmol/L Chloride 103 97-108 mmol/L CO2 27 22-32 mmol/L Glucose 120 65-99 mg/dL BUN 13 8-23 mg/dL Creatinine 1.26 0.50-1.00 mg/dL Calcium 9.1 8.6-10.4 mg/dL eGFR by Creatinine 45 >59 mL/min/1.73m2 TEN-UTI panel Reviewed date:12/25/2024 09:52:14 AM Interpretation:Enterococcus faecalis Performing Lab: Notes/Report: Enterococcus faecalis REASON FOR VISIT 1 week f/u, due for Mammogram, Bone Density screening and colonoscopy. Medications Medication SIG (Take, Route, Frequency, Duration) Notes Start Date End Date Status Lisinopril 40 MG 1/2 tab(s) orally on a day Active Ozempic (2 MG/DOSE) 8 MG/3ML 2 mg Subcutaneous once weekly 05/18/2024 Active Vitamin B12 1000 MCG 1 tablet Orally Onc 08/17/2024 Not-Taking Metoprolol Succinate ER 200 MG 1 tablet Orally Once a day for 90 days Active metFORMIN HCl ER 500 MG TAKE 2 TABLETS B Y MOUTH TWICE DAILY Orally twice daily for 90 days Not-Taking amLODIPine Besylate 5 MG 1 tab(s) orally once a day for 90 days Active Rosuvastatin Calcium 5 MG 1 tab(s) orall y once a day for 90 days Active Levothyroxine Sodium 25 MCG 1 tab(s) orally once a day for 90 days Active Levocetirizine Dihydrochloride 5 MG 1 tablet in the evening Orally Once a day for 90 days Active Montelukast Sodium 10 MG 1 tablet Orally Once a day for 90 days Active Ibuprofen 600 MG TAKE 1 TABLET BY ZULEIMA TH FOUR TIMES DAILY NEEDED for 15 Active Triamcinolone Acetonide 0.1 % 1 application Externally Twice a day 06/26/2024 Active Albuterol Sulfate HFA 108 (90 Base) MCG/ACT 2 puff(s) inhaled tid and q2h prn 09/04/2022 Active Voltaren 1 % 2 g applied topicall y 4 times a day, prn Active ADVOCATE TEST STRIPS - 02/12/2019 Active ADVOCATE GLUCOSE METER NON-SPEAKING [id number] - 02/12/2019 Active Problems Problem Type SNOMED Code ICD Code Onset Dates Problem Status W/U Status Risk Notes Problem [id number] Anemia, unspecified type (D64.9) Active confirmed Vital Signs Blood pressure systolic 144 mm Hg 12/24/19 25 Blood pressure diastolic 88 mm Hg 025 Heart Rate 82 /min 12/23/2024 Height 64 in 12/23/2024 Weight 205 lbs 12/23/2024 BMI 35.18 kg/m2 12/23/2024 Encounters Encounter Location Date Provider Diagnosis [place] [address] [facility] [address] [place] [id number] 12/23/2024 Tj Sweeney MEGHAN (acute kidney injury) N17.9 ; Anemia, unspecified type D64.9 ; Microscopic hematuria R31.29 ; Essential hypertension I10 and Type 2 diabetes mellitus without complication, without long-term current use of insulin E11.9 Assessments Encounter Date Diagnosis (ICD Code) Assessment Notes Treatment Notes Treatment Clinical Notes Section Notes 12/23/2024 MEGHAN (acute kidney injury) (ICD-10 - N17.9) 12/23/2024 Anemia, unspecified type (ICD-10 - D64.9) 12/23/2024 Microscopic hematuria (ICD-10 - R31.29) 12/23/2024 Essential hypertension (ICD-10 - I10) 12/23/2024 Type 2 diabetes mellitus without complication, without long-term current use of insulin (ICD-10 - E11.9) Plan Of Treatment Medication Medication Name Sig Start Date Stop Date Notes Lisinopril 40 MG 1/2 tab(s) orally once a day Ozempic (2 MG/DOSE) 8 MG/3ML 2 mg Subcutaneous once weekly 05/18/2024 Next Appt Details Follow Up: 2 Weeks, Reason: Provider Name:Tj ng, 01/06/2025 03:00:00 PM, [address] [facility], [address], [place], [id number], Progress Notes * Randi MONTESDOB: [birth year] (74 yo F)Acc No.[id number]:12/23/2024 Patient: Randi TERESA Provider: Claudine Sweeney M.D. :1950 A ge:74 Y S ex:Female Date:12/23/2024 Address:[address] [place], [place] [address], [id number] Subjective: * Chief Complaints: * 1 . 1 week f/u. 2. due for Mammogram, Bone Density screening and colonoscopy.. * HPI: G astroenterology: 74 year old female presents with c/o Nausea P t states symptoms have improved. Pt was taken to [facility] and transported to [facility] where she was admitted 12/18-12/21/2024 for kidney failure. Pt states she was given IVF. * ROS: D ERMATOLOGY: no R aniyah. 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 * Hospitalization/Major Diagno stic Procedure: R T Broken Wrist- [facility] ER 05/09/2013. * Family History: F [...] Medications: T aking ADVOCATE GLUCOSE METER NON-SPEAKING [id number] - , Taking ADVOCATE TEST STRIPS - [...] tab(s) orally once a day , Taking Levothyroxine Sodium 25 MCG Tablet 1 tab(s) orally once a day , Taking amLODIPine Besylate 5 MG Tablet 1 tab(s) orally once a day , Taking Metoprolol Succinate ER 200 MG Tablet Extended Release 24 Hour 1 tablet Orally Once a day , Not-Taking metFORMIN HCl ER 500 MG Tablet Extended Release 24 Hour TAKE 2 TABLETS BY MOUTH TWICE DAILY Orally twice daily , Not-Taking Vitamin B12 1000 MCG Tablet Extended Release 1 tablet Orally Once a day , Not-Taking Lisinopril 40 MG Tablet 1 tab(s) orally once a day , Not- Taking Ozempic (2 MG/DOSE) 8 MG/3ML Solution Pen-injector 2 mg Subcutaneous once weekly , Medication List reviewed and reconciled with the patient * Allergies: P enicillin, SLO-BID GYROCAPS, BEXTRA: hyperventilate - Side Effects, Cefdinir: skin itching. Objective: * Vitals: W t: 205, Temp: 97.8, BP: 144/88, HR: 82, Nurse: jerri, Ht: 64, BMI:35.18. * Examination: G eneral Examination: General Appearance: N AD. Heart: R SR. Lungs: c lear to auscultation. Assessment: * Assessment: 1. A KI (acute kidney injury) - N17.9 (Primary) 2 . A nemia, unspecified type - D64.9 3 . M icroscopic hematuria - R31.29 4 . E ssential hypertension - I10 5 . T ype 2 diabetes mellitus without complication, without long-term current use of insulin - E11.9 Plan: * Treatment: Value Reference Range B UN 13 8-23 - mg/dL * C alcium 9.1 8.6-10.4 - mg/dL * C hloride 103 97-108 - mmol/L * C O2 27 22-32 - mmol/L * C reatinine 1.26 H 0.50-1.00 - mg/dL * G lucose 120 H 65-99 - mg/dL * P otassium 4.8 3.5-5.3 - mmol/L * S odium 143 135-145 - mmol/L * e GFR by Creatinine 45 L >59 - mL/min/1.73m2 * Tj Sweeney 12/24/2024 0 2:55:16 PM EDT >Estimated renal function has improved, sent to to inform.Erika Thomas 12/24/2024 03:56:18 PM EDT > pt informed 2.?Anemia, unspecified type?LAB: CBC Venipuncture (in house) (Collection Date & Time - 12/23/2024)* Value Reference Range w bc 7.4 3.5 - 10 * l ymph 35.1% 15 - 50 * m id 5.6% 2 - 15 * g ran 59.3% 35 - 80 * r bc 3.91 3.5 - 5.5 * h gb 10.7 11.5 - 16.5 * h ct 33.0 35 - 55 * m cv 84.3 75 - 100 * m ch 27.5 25 - 35 * m chc 32.6 31 - 38 * p latlet 354 100 - 400 * Deann Gomez 12/23/2024 12:24:4 7 PM EDT > Provider reviewed results while patient in office.Tj Sweeney 12/23/2024 10:36:21 PM EDT > 3.?Microscopic hematuria?LAB: Urinalysis - Inhouse (Collection Date & Time - 12/23/2024)* Value Reference Range C olor/Clarity yellow/clear * L euk 1+ * N itrite Neg * U robili 3.2 * P rotein Neg * p H 6.0 * B lood Trace-Intact * S p. Gr. 1.015 * K etone Neg * B olya Neg * G truong Neg * Deann Gomez 12/23/2024 11:26:2 0 AM EDT > Provider reviewed results while patient in office. ?LAB: TEN-UTI panel (Collection Date & Time - 12/23/2024)?Enterococcus faecalis* Erika Thomas 12/25/2024 09:5 0:54 AM EDT > see phone encounter 4.?Essential hypertension? Change Lisinopril Tablet, 40 MG, 1/2 tab(s), orally, once a day.??5.?Type 2 diabetes mellitus without complication, without long-term current use of insulin ? Continue Ozempic (2 MG/DOSE) Solution Pen-injector, 8 MG/3ML, 2 mg, Subcutaneous, once weekly.?? * Procedure Codes: G 2211 Complex e/[place], [address] CBC WITH AUTO DIFF, 1036F TOBACCO NON-USER * Follow Up: 2 Weeks * Billing Information: * Visit Code: 06578 Office Visit, Est Pt., Level 4. * Procedure Codes: G2211 Complex e/[place]. [address] CBC WITH AUTO DIFF. 1036F TOBACCO NON-USER. * Electronic signature of Yamilex Sweeney MD on 01/05/2025 at 09:24 AM EDT Sign off status: Pending * Provider: Claudine Sweeney M.D. Date: 0 12/23/2024 Generated for Bucki ng/See/eTransmitting on: 0 01/05/2025 09:24 AM EDT History and Physical Notes * HPI (History of Present Illness) Category Sub-Category Detail Notes Category Not es Gastroenterology Nausea Pt states sympt oms have improved. Pt was taken to [facility] and transported to [facility] where she was admitted 12/18-12/21/2024 for kidney failure. Pt states she was given IVF Examination Category Sub-Category Detail Notes Category Not es General Examination Heart: RSR Lungs: clear to auscultatio n General Appearance: NAD
--- OUTSIDE RECORDS SUMMARY | 2024-12-29 13:00 | XMS_ITS | Encounter Summary ---
Author Organization [place] [address] Care Team Providers Care Document Management Technician Name Role Phone Tj Sweeney MD Primary Care Provider [phone] Reason for Visit * Reason Comments Follow-up 6 week PO Encounter Details Date Type Department Care Team (Latest Contact Info) Description 12/29/2024 1:00 PM EDT [place] [facility] [address] [phone] Evangelina Cook PA-C [address] [place] [phone] Postoperative examination (Primary Dx); Complication of implanted [...] Vitals: 12/29/24 1245 Pulse: 80 SpO2: 99% Curriculum Writer: Analia Urine sample and PVR obtained with straight catheterization: 20 ml Post Operative Exam Surgical sites Incisions: Vaginal Intact, healing Interstim Interrogation: [employer] rep present? No Interstim pocket site: Right Is Interstim turned on? Yes Current program: 4 Current amplitude: 1.8 Impedance checked: No issues Battery checked: OK Interstim Reprogrammed: Program changed: 2 Amplitude changed: 0.7 Evangelina Cook PA-C [facility] [place] [address] [address] 12/29/24 1:20 PM documented in this encounter Plan of Treatment Upcoming Encounters Date Type Department Care Team (Late st Contact Info) Description 02/08/2025 8:30 AM EDT Office [place] [facility] [place] [address] [phone] Evangelina Cook PA-C [address] [place] [address] documented as of this encounter Procedures Procedure Name Priority Date/Time Associated Diagnosis Comments URINE CULTURE (NO STAIN) Routine 12/29/2024 1:19 PM EDT Urinary frequency documented in this encounter Results * URINE CULTURE (NO STAIN) (12/29/2024 1:19 PM EDT) Culture No growth at 30 hours. 12/31/2024 5:14 AM EDT [employer] Urine URINARY BLADDER STRUCTURE / Unknown 12/29/2024 1:19 PM EDT 12/29/2024 1:19 PM EDT us Evangelina Cook PA-C MICROBIOLOGY - GENERA L ORDERABLES Final Result [employer] [address] [facility] , [place] [address] documented in this encounter Visit Diagnoses Diagnosis Postoperative examination- Primary Follow-up examination, following unspecified surgery Complication of implanted vaginal mesh, initial encounter Urge urinary incontinence Urge incontinence OAB (overactive bladder) Hypertonicity of bladder S/P implantation of urinary electronic stimulator device Urinary frequency documented in this encounter Care Teams Document Management Technician Relationship Specialty Start Date End Date Tj Sweeney MD [address] [place] [address] PCP - General Family Medicine 12/05/23 documented as of this encounter
--- OUTSIDE RECORDS SUMMARY | 2025-01-04 09:56 | XMS_ITS ---
Author Organization [place] Address [address] [facility] [address] [facility] [address] [place] [phone] Care Team Providers Care Quickbooks Bookkeeper Name Role Phone Tj Sweeney Primary Care Provider REASON FOR VISIT due mamm, colonoscopy & bone density Encounters Encounter Location Date Provider Diagnosis [place] [address] [facility] [address] [place] [phone] 01/04/2025 Tj Sweeney Screening for breast cancer Z12.39 ; Screening for colon cancer Z12.11 and Screening for osteoporosis Z13.820 Assessments Encounter Date Diagnosis (ICD Code) Assessment Notes Treatment Notes Treatment Clinical Notes Section Notes 01/04/2025 Screening for breast cancer (ICD-10 - Z12.39) 01/04/2025 Screening for colon cancer (ICD-10 - Z12.11) 01/04/2025 Screening for osteoporosis (ICD-10 - Z13.820) Plan Of Treatment Pending Test Test Name Order Date Bone density 01/04/2025 colonoscopy 01/04/2025 Mammogram 01/04/2025 Next Appt Details Provider Name:Tj Dior ry, 01/06/2025 03:00:00 PM, [address] [facility], [address], [place], [phone], Progress Notes * Randi MONTESDOB: [birth year] (74 yo F)Acc No.[id number]:01/04/2025 Patient: John Randi FIORE :1950 A ge:74 Y S ex:Female Address:[place] [address] Subjective: * Chief Complaints: * D ue mamm, colonoscopy & bone density * Medical History: * Surgical History: * Hospitalization/Major Diagno stic Procedure: * Medications: Objective: * Vitals: * Physical Examination: Assessment: * Assessment: 1. S creening for breast cancer - Z12.39 (Primary) 2 . S creening for colon cancer - Z12.11 3 . S creening for osteoporosis - Z13.820 Plan: * Treatment: 2.?Screening for colon cancer?Imaging: colonoscopy* [facility] 3.?Screening for osteoporosis?Imaging: Bone density* [facility] * Procedure Codes: * true * Date: Generated for Brock chapman/See/Omayraitting on: 0 01/05/2025 09:24 AM EDT
--- OUTSIDE RECORDS SUMMARY | 2025-01-05 09:24 | XMS_ITS | Encounter Summary ---
Author Organization [place] [address] Care Team Providers Care General Service Officer Name Role Phone Tj Sweeney MD Primary Care Provider + [phone] Encounter Details Date Type Department Care Team (Late st Contact Info) Description 11/10/2024 Orders Only [facility] [address] [phone] Mariann Birch LPN Complication of [...] 8:30 AM EDT Office Visit [facility] [address] [phone] Evangelina Cook PA-C [address] [place] [phone] documented as of this encounter Visit Diagnoses Diagnosis Complication of implanted vaginal mesh, initial encounter- Primary Exposure of implanted vaginal mesh, subsequent encounter documented in this encounter Care Teams General Service Officer Relationship Specialty Start Date End Date Tj Sweeney MD [address] [place] [address] PCP - General Family Medicine 12/05/23 documented as of this encounter
--- OUTSIDE RECORDS SUMMARY | 2025-01-05 09:24 | XMS_ITS | Encounter Summary ---
Author Organization [place] [address] Care Team Providers Care Corrugator Operator Name Role Phone Tj Sweeney MD Primary Care Provider + [phone] Reason for Visit * Reason Onset Date Comments Post-op Call 11/18/2024 Encounter Details Date Type Department Care Team (Late st Contact Info) Description 11/18/2024 Telephone [facility] [address] [address] Mariann Birch LPN Post-op Call [...] 8:30 AM EDT Office Visit [facility] [address] [phone] Evangelina Cook PA-C [address] [place] [address] documented as of this encounter Visit Diagnoses Not on filedocumented in this encounter Care Teams Corrugator Operator Relationship Specialty Start Date End Date Tj Sweeney MD [address] [place] [phone] PCP - General Family Medicine 12/05/23 documented as of this encounter
--- OUTSIDE RECORDS SUMMARY | 2025-01-05 09:24 | XMS_ITS | Clinical Summary ---
Author Organization [facility] [employer] [place] Address [address] [place] [phone] Phone Care Team Providers Care Technology Risk Intern Name Role Phone Tj Sweeney MD Primary Care Provider + [phone] Allergies Active Allergy Reactions Criticality Noted Date [...] to not take the medication, Reported on 12/29/2024 estradioL (ESTRACE) 0.01 % (0.1 mg/gram) Vagl CreamIndicatio ns:Vaginal atrophy Apply pea-sized amount using fingertip into the vagina (or as instructed) nightly x 2 weeks, then use 2-3 x per week. 42.5 g 2 09/08/19 25 Active Additional Information Patient not taking.Reason: Pt electing to not take the medication, Reported on 12/29/2024 clindamycin (CLEOCIN) 2 % Vagl Cream Place 4g intravaginally at night for 3 weeks followed by maintenance therapy twice/week x 6 months. 40 g 5 09/11/19 25 Active Additional Information Patient not taking.Reason: Pt electing to not take the medication, Reported on 12/29/2024 OZEMPIC 2 mg/dose (8 mg/3 mL) SubQ [...] Encounters Date Type Department Care Team Description 12/31/2024 Results Follow-Up [facility] [address] [phone] Evangelina Cook PA-C URINE CULTURE (NO STAIN) 12/29/2024 1:00 PM EDT Office Visit [facility] [address] [phone] Evangelina Cook PA-C Postoperative examination (Primary Dx); Complication of implanted vaginal mesh, initial encounter; Urge urinary incontinence; OAB (overactive bladder); S/P implantation of urinary electronic stimulator device; Urinary frequency 11/18/2024 Telephone [facility] [address] [phone] Marainn Birch LPN Post-op Call 11/16/2024 12:11 PM EDT Anesthesia Event [facility] [address] [place] [address] LaneyOmar barajas MD Salyer, Corey L, TOBACCO SIZER 11/16/2024 12:00 PM EDT - 11/16/2024 1:05 PM EDT Surgery [facility] [address] [place] [address] Shahnaz Hess MD REMOVAL OF VAGINAL SLING OR MESH (TOT-TRANSOBTURATOR TAPE, TVT- TENSION-FREE VAGINAL TAPE, /SECUR/ELEVATE) 11/16/2024 9:38 AM EDT - 11/16/2024 4:08 PM EDT Hospital Encounter [facility] SAME DAY SURGERY [address] [place] [address] Shahnaz Hess MD Complication of implanted vaginal mesh, initial encounter; Exposure of implanted vaginal mesh, subsequent encounter Discharge Disposition: Home or Self Care 11/16/2024 Travel 11/10/2024 Orders Only [facility] [address] [phone] Mariann Birch LPN Complication of implanted vaginal mesh, initial encounter (Primary Dx); Exposure of implanted vaginal mesh, subsequent encounter 11/09/2024 Telephone [facility] [address] [phone] Mariann Birch LPN Pre-op Call 11/06/2024 Travel 10/22/2024 Telephone [facility] [address] [phone] Mariann Birch LPN Surgery Scheduling 10/14/2024 2:00 PM EDT Office Visit [facility] [address] [phone] Shahnaz Hess MD Exposure of implanted vaginal [...] MD; Location: [facility]; Service: Urogynecology Medical devices from this surgery are in the Medical Devices section. CATARACT REMOVAL Bilateral CYSTOSCOPY 11/16/2024 Urethra/N/A .; Surgeon: Shahnaz Hess MD; Location: [facility]; Service: Urogynecology Medical History Medical [...] Pressure 167/81 11/16/2024 3:56 PM EDT Pulse 80 12/29/2024 12:45 PM EDT Temperature 36.1 C (96.9 F) 11/16/2024 3:56 PM EDT Respiratory Rate 14 11/16/2024 3:56 PM EDT Oxygen Saturation 99% 12/29/2024 12:45 PM EDT Inhaled Oxygen Concentration - - Weight 93.1 kg (205 lb 3.2 oz) 12/29/2024 12:45 PM EDT Height 162.6 cm (5' 4 ) 11/16/2024 10:28 AM EDT Body Mass Index 35.22 11/16/2024 10:28 AM EDT Plan of Treatment Upcoming Encounters Date Type Department Care Team (Late st Contact Info) Description 02/08/2025 8:30 AM EDT Office Visit [facility] [address] [phone] Evangelina Cook PA-C [address] [place] [address] Health Maintenance Due Date Last Done Comments Wellness Exam Medicare 10/30/1953 Hepatitis C Screening 1970 Breast Cancer Screening 1992 Cologuard 1997 Colon Cancer Screening 1997 Colonoscopy 1997 FIT 1997 Sigmoidoscopy 1997 Virtual Colonography 1997 Bone Density Screening 2017 COVID-19 Vaccine (2023-2 5 season) 2024 11/30/2020, 11/02/2020 Influenza Vaccine [...] this topic Medical Devices Implanted Type Area Territory Sales Professional Device Identifier Shelf Expiration Date Model / Serial / Lot Kit Mri Lead Interstim Surescan 28cm - [id number] Implanted:Qty: 1 on 12/12/2023 by Shahnaz Hess MD at [facility] Right: Back [employer]:NEURO 05/27/2025 [id number] / / [id number] Neurstm Intstm Ii 2x1.7in 0.3in Dbl Troc Pnt Prim Cell - [id number] Implanted:Qty: 1 on 12/12/2023 by Shahnaz Hess MD at [facility] Right: Back [employer]:NEURO 08/18/2025 [id number] / [id number] / Envelope Tyrx Absb Anbctrl Mul-Prgm 2.5x2.7in 1x8mm - [id number] Implanted:Qty: 1 on 12/12/2023 by Shahnaz Hess MD at [facility] Right: Back [employer]:NEURO [id number] 07/18/2024 [id number] / / [id number] Procedures Procedure Name Priority Date/Time Associated Diagnosis Comments URINE CULTURE (NO STAIN) Routine 1:19 PM EDT Urinary frequency SCANNED RHYTHM STRIPS 11/17/2024 9:05 AM EDT GLUCOSE METER POC Routine 11/16/2024 1:2 5 PM EDT PATHOLOGY TISSUE REQUEST Routine 12:48 PM EDT Complication of implanted vaginal mesh, initial encounter INTRAOP AIRWAY PLACEMENT Routine 12:20 PM EDT DE CYSTOURETHROSCOPY 11/16/2024 12:07 PM EDT Complication of implanted vaginal mesh, initial encounter Special Needs sk DE RMVL/REVJ SLING STRESS INCONTINENCE 11/16/2024 12:07 PM EDT Complication of implanted vaginal mesh, initial encounter Special Needs sk GLUCOSE METER POC Routine 11/16/2024 10:08 AM EDT from Last 3 Months Results * URINE CULTURE (NO STAIN) (12/29/2024 1:19 PM EDT) Culture No growth at 30 hours. 12/31/2024 5:14 AM EDT PREFERRED LAB [facility], [facility] Urine URINARY BLADDER STRUCTURE / Unknown 12/29/2024 1:19 PM EDT 12/29/2024 1:19 PM EDT us Evangelina Alma Rosa Joey PA-C MICROBIOLOGY - GENERA L ORDERABLES Final Result Performing Organization Address [facility] Co de Phone Number PREFERRED LAB [facility], [facility] [address] [facility] [facility] [place] [address] * SCANNED RHYTHM STRIPS (11/17/2024 9:05 AM EDT) Anatomical Region Laterality Modality Other 11/17/2024 9:05 AM EDT us Unknown Provider IMG ECG ORDERABLES Final Result * (ABNORMAL) GLUCOSE METER POC (11/16/2024 1:25 PM EDT) Only the most recent of2 resultswithin the time period is included. Glucose Meter POC 134(H) 70 - 100 mg/dL 11/16/2024 1:27 PM EDT [facility] Sample Type Capillary 11/16/2024 1:27 PM EDT [facility] Patient Status Non-Critical Patient 11/16/2024 1:27 PM EDT [facility] Blood BLOOD SPECIMEN / Unknown 11/16/2024 1:25 PM EDT 11/16/2024 1:27 PM EDT us Shahnaz Hess MD POINT OF CARE TEST ORDE RABLES Final Result Performing Organization Address [facility] de Phone Number [facility] [address] [place] [address] * PATHOLOGY TISSUE REQUEST (11/16/2024 12:48 PM EDT) CASE REPORT Surgical Pathology Case: [id number] Authorizing Provider: Shahnaz Hess MD Collected: 11/16/2024 1248 Ordering Location: [facility] Received: 11/16/20241936 Pathologist: Jaqueline Huang MD Specimen: Vagina, mesh 11/17/2024 3:[address] [facility] FINAL DIAGNOSIS Mesh, removal: - Gross examination only. 11/17/2024 3:[address] [facility] at 1545 EDT GROSS DESCRIPTION The specimen [...] Turner PA(ASCP) 11/17/2024 11/17/2024 3:45 PM EDT [facility] EMBEDDED IMAGES 11/17/2024 3:[address] [facility] Pilot Can Router VAGINAL STRUCTURE / Unknown 11/16/2024 12:48 PM EDT 11/16/2024 7:37 PM EDT us Shahnaz Hess MD PATHOLOGY ORDERABLES Fi nal Result Performing Organization Address [facility] de Phone Number [place] [phone] * INTRAOP AIRWAY PLACEMENT (11/16/2024 12:20 PM EDT) Narrative [facility] - 11/16/2024 12:20 PM EDT Mario [...] Insertion attempts: 1 us Omar Davison MD DE ANESTHESIA Final Result Performing Organization Address [facility] Co de Phone Number [facility] [address] [place] [phone] from Last 3 Months Insurance MEDICARE [place] PART A AND B O MEDICARE [place] PART A AND B PPO Care Teams Technology Risk Intern Relationship Specialty Start Date End Date Tj Sweeney MD [address] [place] [address] [place] [place] [phone] PCP - General Family Medicine 12/05/23
--- OUTSIDE RECORDS SUMMARY | 2025-01-05 09:24 | XMS_ITS | Encounter Summary ---
Author Organization [facility] [place] [address] Care Team Providers Care Executive Coordinator Name Role Phone Tj Sweeney MD Primary Care Provider + [phone] Encounter Details Date Type Department Care Team [...] 8:30 AM EDT Office Visit [facility] [address] [phone] Evangelina Cook PA-C [address] [place] [address] documented as of this encounter Visit Diagnoses Not on filedocumented in this encounter Care Teams Executive Coordinator Relationship Specialty Start Date End Date Tj Sweeney MD [address] [place] [phone] PCP - General Family Medicine 12/05/23 documented as of this encounter
--- OUTSIDE RECORDS SUMMARY | 2025-01-05 09:24 | XMS_ITS | Encounter Summary ---
Author Organization [place] [address] Care Team Providers Care Chief Meteorologist Name Role Phone Tj Sweeney MD Primary Care Provider + [phone] Reason for Visit * Reason Onset Date Comments Results 12/31/2024 UC Encounter Details Date Type Department Care Team (Latest Contact Info) Description 12/31/2024 Results Follow-Up [facility] [address] [phone] Evangelina Cook PA-C [address] [place] [phone] URINE CULTURE (NO STAIN) Social History Tobacco Use Types Packs/Day Years [...] as of this encounter Progress Notes * Evangelina Cook PA-C - 12/31/2024 7:44 AM EDT Patient notified of normal result via MyChart. Evangelina Cook PA-C documented in this encounter Miscellaneous Notes * Telephone Encounter - Von Angulo MA - 12/31/2024 10:04 AM EDT Pt called stating she is unable to sign into her [employer] account but was notified she received a message. I offered to reset pt SERPst account, pt declined. Pt informed of negative UC results documented in this encounter Plan of Treatment Upcoming Encounters Date Type Department Care Team (Late st Contact Info) Description 02/08/2025 8:30 AM EDT Office Visit [facility] [address] [phone] Evangelina Cook PA-C [address] [place] [address] documented as of this encounter Visit Diagnoses Not on filedocumented in this encounter Care Teams Chief Meteorologist Relationship Specialty Start Date End Date Tj Sweeney MD [address] [address] [place] [phone] PCP - General Family Medicine 12/05/23 documented as of this encounter
--- OUTSIDE RECORDS SUMMARY | 2025-01-05 09:24 | XMS_ITS | Encounter Summary ---
Author Organization [facility] [place] [address] Care Team Providers Care Iron Carrier Name Role Phone Tj Sweeney MD Primary Care Provider + [phone] Encounter Details Date Type Department Care Team [...] 8:30 AM EDT Office Visit [facility] [address] [phone] Evangelina Cook PA-C [address] [place] [address] documented as of this encounter Visit Diagnoses Not on filedocumented in this encounter Care Teams Iron Carrier Relationship Specialty Start Date End Date Tj Sweeney MD [address] [place] [phone] PCP - General Family Medicine 12/05/23 documented as of this encounter
--- OUTSIDE RECORDS SUMMARY | 2025-01-05 09:24 | XMS_ITS | Encounter Summary ---
Author Organization [place] [place] [address] Care Team Providers Care Creative Services Manager Name Role Phone Tj Sweeney MD Primary Care Provider [phone] Reason for Visit * Reason Onset Date Comments Pre-op Call 11/09/2024 Encounter Details Date Type Department Care Team (Late st Contact Info) Description 11/09/2024 Telephone [facility] [address] [phone] Mariann Cabral LPN Pre-op Call [...] 8:30 AM EDT Office Visit [facility] [address] [phone] Evangelina Cook PA-C [address] [place] [address] documented as of this encounter Visit Diagnoses Not on filedocumented in this encounter Care Teams Creative Services Manager Relationship Specialty Start Date End Date Tj Sweeney MD [address] [place] [phone] PCP - General Family Medicine 12/05/23 documented as of this encounter
--- OUTSIDE RECORDS SUMMARY | 2025-01-05 09:25 | XMS_ITS | Patient Health Record ---
Author Organization [facility] Address [address] [place] [id number] Care Team Providers Care Supervisor Bindery Name Role Phone Tj Sweeney Primary Care Provider [phone] Meron Smith Unavailable [phone] Rosa Souza Unavailable [phone] Allergies Allergen (clinical drug ingredient) Drug/Non Drug [...] 44 Performing Lab: Notes/Report: Test performed by [facility] [place] [id number] Chapincito Branch MD, Worm Grower CLIA: [id number] Sodium 135 135-145 mmol/L Potassium 3.5 3.5-5.3 [...] Interpretation:1.7 Performing Lab: Notes/Report: Test performed by [facility] [address] [place] [address] , [facility], [place] [address] Chapincito Branch MD, Worm Grower CLIA: [id number] Magnesium 1.7 1.6-2.4 mg/dL Urinalysis - Inhouse [...] 45 Performing Lab: Notes/Report: Test performed by [facility] [address] [place] [address] , [address], [place] [address] Chapincito Branch MD, Worm Grower CLIA: [id number] Sodium 143 135-145 mmol/L Potassium 4.8 3.5-5.3 mmol/L Chloride 103 97-108 mmol/L CO2 27 22-32 mmol/L Glucose 120 65-99 mg/dL BUN 13 8-23 mg/dL Creatinine 1.26 0.50-1.00 mg/dL Calcium 9.1 8.6-10.4 mg/dL eGFR by Creatinine 45 >59 mL/min/1.73m2 TEN-UTI panel Reviewed date:12/25/2024 09:52:14 AM Interpretation:Enterococcus faecalis Performing Lab: Notes/Report: Enterococcus faecalis Rapid Strep- Inhouse Reviewed date:10/27/2024 12:15:12 PM Interpretation: Performing Lab: Notes/Report: strep test Neg CBC Fingerstick (in house) Reviewed date:10/27/2024 12:14:53 PM Interpretation: Performing Lab: Notes/Report: wbc 12.7 3.5 - 10 lym 26.7 15 - 50 mid 5.4 2 - 15 gran 67.9 35 - 80 rbc 4.25 3.5 - 5.5 hgb 12.0 11.5 - 16.5 hct 12.0 35 - 55 mcv 85.9 75 - 100 mch 28.3 25 - 35 mchc 256 31 - 38 H-CBC Reviewed date:11/02/2024 01:59:33 PM Interpretation:rbc 4.11, [...] K/mm3 BA# 0.1 0-0.2 K/mm3 NRBC# 0 H-CMP Reviewed date:11/02/2024 01:59:33 PM Interpretation:Glu 125, [...] AGRATIO 1.3 1.1-1.8 ALP 117 38-126 U/L EKG Reviewed date:11/03/2024 04:20:04 PM Interpretation: Performing Lab: Notes/Report: CBC Fingerstick (in house) Reviewed date:12/08/2024 04:11:04 [...] - 38 plat 391 100 - 400 P-Vitamin D 25-Hydroxy Reviewed date:07/01/2024 09:10:45 AM Interpretation:39.6 Performing Lab: Notes/Report: Test performed by [facility] [address] [place] [address] , [facility] [place] [address] Chapincito Branch MD, Worm Grower CLIA: [id number] Vitamin D 25-Hydroxy 39.6 30.0-100.0 ng/mL Interpretation of Vitamin D 25 OH: < 20 ng/mL - Deficiency 20 - 29 ng/mL - Insufficiency 30 - 100 ng/mL - Sufficiency > 100 ng/mL - Super-therapeutic- toxicity may occur above this level. Clinical correlation required. P-TSH reflex to FT4 Reviewed date:07/01/2024 09:10:45 AM Interpretation:Normal Performing Lab: Notes/Report: Test performed by [facility] [address] [place] [address] , [address], [place] [address] Chapincito Branch MD, Worm Grower CLIA: [id number] TSH reflex to FT4 1.49 0.43-5.25 mU/L P-Lipid Panel Reviewed date:07/01/2024 09:10:45 AM Interpretation:trigs 182 Performing Lab: Notes/Report: Test performed by [facility] [address] [place] [address] Colin [place] , [place] [address] Chapincito Branch MD, Worm Grower CLIA: [id number] Cholesterol 116 <200 mg/dL Triglycerides 182 <150 [...] 33 Units: mg/dL % Change: -45% _ P-Comprehensive Metabolic Pa fouzia (CMP) Reviewed date:07/01/2024 09:10:45 AM Interpretation:gluc 150 Performing Lab: Notes/Report: Test performed by [facility] [address] [place] [address] , [address], [place] [address] Chapincito Branch MD, Worm Grower CLIA: [id number] Sodium 142 135-145 mmol/L Potassium 3.7 3.5-5.3 [...] <0.2 <0.2-1.2 mg/dL A/G Ratio 1.5 1.1-2.5 P-Vitamin B12 Reviewed date:07/01/2024 09:10:45 AM Interpretation:<150 Performing Lab: Notes/Report: Test performed by [facility] [address] [place] [address] , [address], [place] [address] Chapincito Branch MD, Worm Grower CLIA: [id number] Vitamin B12 <559 041-5167 pg/mL Glycohemoglobin A1c (in hous e) Reviewed date:07/01/2024 09:10:45 AM Interpretation:7.0% Performing Lab: Notes/Report: 7.0% glycohemoglobin 7.0% 5 - 6.5 % CBC Venipuncture (in house) Reviewed date:07/01/2024 09:10:45 [...] - 38 platlet 465 100 - 400 Influenza Screen (in house) Reviewed date:07/09/2024 03:13:02 PM Interpretation:neg Performing Lab: Notes/Report: neg results neg CBC Fingerstick (in house) Reviewed date:07/09/2024 [...] - 38 plat 221 100 - 400 Covid test (in house) Reviewed date:07/09/2024 03:12:45 PM Interpretation:neg Performing Lab: Notes/Report: neg Result: neg EKG Reviewed date:11/11/2024 12:59:17 PM Interpretation: Performing Lab: Notes/Report: Urinalysis - Inhouse Reviewed date:05/06/2024 11:21:22 AM Interpretation: Performing Lab: Notes/Report: Color/Clarity yellow/clear Leuk 1+ Nitrite neg Urobili 3.2 Protein 1+ pH 5.5 Blood trace-intact Sp. Gr. >=1.030 Ketone neg Bili 1+ Gluc neg TEN-UTI panel Reviewed date:05/11/2024 01:42:33 PM Interpretation:Negative Performing Lab: Notes/Report: Negative P-Vitamin B12 Reviewed date:08/19/2024 09:25:17 AM Interpretation:293 Performing Lab: Notes/Report: Test performed by [facility] [address] [place] [address] , [address], [place] [address] Chapincito Branch MD, Worm Grower CLIA: [id number] Vitamin B12 919 724-0268 pg/mL Urinalysis - Inhouse Reviewed date:01/17/2024 03:38:54 [...] 11:04:12 AM Interpretation:Abnormal Performing Lab: Notes/Report: Abnormal Reason For Referral Diagnosis 1 DDD (degenerative di sc disease), lumbar (M51.36) Diagnosis 2 Coccydynia (M53.3) Diagnosis 3 Lumbar disc herniati on (M51.26) Referral Organization [facility] Referring Provider First Name Tj Referring Provider Last Name Zahra Referring Provider Speciality Family Pra ctice Referred Provider Houston Landry Referred Provider Specialty Pain Managem ent General Notes Zita Thornton 024 3:03:00 PM > faxed to [facility] Pain Management Referral Priority Routine Medications Medication SIG (Take, Route, Frequency, Duration) Notes Start Date End Date Status amLODIPine Besylate 5 MG 1 tab(s) orally once a day for 90 days Active ADVOCATE GLUCOSE METER NON-SPEAKING IH0733L - 02/12/2019 Active Rosuvastatin Calcium 5 MG [...] Vaccine Route Administration Date Status Comme nts Prevnar (PCV20) IM Intramuscular 10/18/2022 Administered COVID 19 Moderna Unknown 11/02/2020 Administered COVID 19 Moderna Unknown 11/30/2020 Administered Problems Problem Type SNOMED Code ICD Code Onset Dates Problem Status W/U Status Risk Notes Problem 08217821 Vitamin D deficiency (E55.9) Active confirmed Problem 102103232 Vitamin B12 deficiency (E53.8) Active confirmed Problem 67322311 Essential hypertension (I10) Active confirmed Problem 606547437 Abnormal mammogr am (R92.8) Active confirmed Problem Diverticulitis (72395807) Diverticulitis (K57.92) Active confirmed Problem 378035931 BMI 33.0-33.9,adult (Z68.33) Active confirmed Problem 158815006 Environmental allergies (Z91.09) Active confirmed Problem 435501332 Fibromyalgia (M79.7) Active confirmed Problem Mixed hyperlipidemia (937476098) Mixed hyperlipidemia (E78.2) Active confirmed Problem 775498989 Hypomagnesemia (E83.42) Active confirmed Problem 30979662 Urge incontinenc e (N39.41) Active confirmed Problem 00658357 Constipation, unspecified constipation type (K59.00) Active confirmed Problem 706154619 Abnormal mammogr am of left breast (R92.8) Active confirmed Problem 697156924 Gastroesophageal reflux disease, esophagitis presence not specified (K21.9) Active confirmed Problem Chronic bronchit is (J42) Active confirmed Problem 469171982 Diverticulosis o f large intestine without hemorrhage (K57.30) Active confirmed Problem 649736986 Leukocytosis, unspecified type (D72.829) Active confirmed Problem 36112894 Chronic vaginiti s (N76.1) Active confirmed Problem 444489929 Anemia, unspecified type (D64.9) Active confirmed Problem 05428984686575686 Subacute vagin itis (N76.1) Active confirmed Problem 99260355 Hypothyroidism, unspecified type (E03.9) Active confirmed Problem 48180579 Coccydynia (M53.3) Active confirmed Problem 44025288 Atopic dermatiti s, unspecified type (L20.9) Active confirmed Problem 298267159 Diverticulitis o f sigmoid colon (K57.32) Active confirmed Problem 845545096 Lumbar disc herniation (M51.26) Active confirmed Problem 866371980 Type 2 diabetes mellitus without complication, without long-term current use of insulin (E11.9) Active confirmed Problem 167783704 Urinary incontinence, unspecified type (R32) Active confirmed Problem 20405347 DDD (degenerativ e disc disease), lumbar (M51.36) Active confirmed Problem 49660177 Rhinitis, unspecified type (J31.0) Active confirmed Problem 70447982 Burning sensatio n of feet (R20.8) Active confirmed Problem 497209625 Mixed stress and urge urinary incontinence (N39.46) Active confirmed Problem 534526121 Seasonal allergi c rhinitis, unspecified trigger (J30.2) Active confirmed Problem 135082625 Type 2 diabetes mellitus without complication, unspecified whether terminal makeup operator insulin use (E11.9) Active confirmed Problem 13709631 Type 2 diabetes mellitus with other specified complication, unspecified whether longterm insulin use (E11.69) Active confirmed Vital Signs Heart Rate 82 /min 12/23/2024 Blood pressure diastolic 88 mm Hg 12/23/2024 Height 64 in 12/23/2024 Blood pressure systolic 144 mm Hg 12/23/2024 Weight 205 lbs 12/23/2024 BMI 35.18 kg/m2 12/23/2024 Encounters Encounter Location Date Provider Diagnosis [facility] [address] [place] [id number] 01/17/2024 Tj Jarales Essential hypertensi on I10 ; Type 2 diabetes mellitus without complication, without long-term current use of insulin E11.9 ; Urinary frequency R35.0 and Pyuria R82.81 [facility] [address] [facility] [address] [place] [id number] 03/17/2024 Tj Jarales Type 2 diabetes madeline itus without complication, without long-term current use of insulin E11.9 ; Low back pain, unspecified M54.50 ; Coccydynia M53.3 ; DDD (degenerative disc disease), lumbar M51.36 ; Frequent urination R35.0 and Acute UTI N39.0 [facility] [address] [place] [id number] 05/06/2024 Tj Jarales UTI symptoms R39.9 a nd Acute vaginitis N76.0 [facility] [address] [facility] [address] [place] [id number] 06/26/2024 Rosa Souza Mild eczema L30.9 ; Type 2 diabetes mellitus without complication, without long-term current use of insulin E11.9 ; Essential hypertension I10 ; Mixed hyperlipidemia E78.2 ; Vitamin D deficiency E55.9 ; Hypothyroidism, unspecified type E03.9 ; Vitamin B12 deficiency E53.8 and Numbness of toes R20.0 [facility] [address] [place] [id number] 07/09/2024 Rosa Libby Atopic dermatitis, unspecified type L20.9 and Acute URI J06.9 [facility] [id number] [facility] [address] [place] [id number] 07/17/2024 Tj Jarales Type 2 diabetes madeline itus without complication, without long-term current use of insulin E11.9 ; Mixed hyperlipidemia E78.2 ; Essential hypertension I10 ; Vitamin B 12 deficiency E53.8 ; Low back pain, unspecified M54.50 and Lumbar disc herniation M51.26 [facility] [address] [facility] [address] [place] [id number] 08/17/2024 Tj Jarales Vitamin B12 deficien cy E53.8 and Essential hypertension I10 [facility] [address] [facility] [address] [place] [id number] 10/27/2024 Tj Jarales Pre-op exam Z01.818 ; Complication of implanted [...] lumbar region, unspecified whether pain present M51.369 [facility] [address] [place] [id number] 12/08/2024 Meron Smith Chronic bronchitis J 42 [facility] [address] [facility] [address] [place] [id number] 12/16/2024 Tj Jarales Acute diarrhea R19.7 ; Hypomagnesemia E83.42 ; Nausea R11.0 ; Type 2 diabetes mellitus with other specified complication, unspecified whether longterm insulin use E11.69 ; Lumbar pain M54.50 and BMI 33.0-33.9,adult Z68.33 [facility] [address] [place] [id number] 12/23/2024 Tj Jarales MEGHAN (acute kidney injury) N17.9 ; Anemia, unspecified type D64.9 ; Microscopic hematuria R31.29 ; Essential hypertension I10 and Type 2 diabetes mellitus without complication, without long-term current use of insulin E11.9 [facility] [address] [place], [place] [id number] 01/20/2024 Tj Jarales [facility] [address] [place], [place] [id number] 03/19/2024 Tj Jarales [facility] [address] [place] [id number] 03/31/2024 Tj Jarales [facility] [address] [place] [id number] 04/11/2024 Tj Jarales [facility] [address] [place], [place] [id number] 04/28/2024 Tj Jarales [facility] [address] [place], [place] [id number] 05/11/2024 Tj Jarales Coccydynia M53.3 ; Lumbar disc herniation M51.26 and Degeneration of intervertebral disc of lumbosacral region with discogenic back pain and lower extremity pain M51.372 [facility] [address] [place], [place] [id number] 05/18/2024 Tj Jarales Type 2 diabetes madeline itus without complication, without long-term current use of insulin E11.9 [facility] [address] [place] [id number] 06/26/2024 Rosa Crowdy [facility] [address] [place] [id number] 06/26/2024 Rosa Crowdy [facility] [address] [place] [id number] 07/13/2024 Tj Jarales [facility] [address] [place], [place] [id number] 08/19/2024 Tj Jarales [facility] [address] [place] [id number] 11/02/2024 Tj Jarales [facility] [address] [place], [place] [id number] 11/09/2024 Tj Jarales [facility] [address] [place] [id number] 11/09/2024 Tj Jarales Abnormal EKG R94.31 [facility] [address] [place] [id number] 11/09/2024 Tj Jarales [facility] [address] [place], [place] [id number] 11/16/2024 Tj Jarales [facility] [address] [place] [id number] 11/16/2024 Tj Jarales Essential hypertensi on I10 [facility] [address] [place] [id number] 11/17/2024 Tj Jarales [facility] [address] [place] [id number] 12/17/2024 Tj Jarales [facility] [address] [place] [id number] 12/18/2024 Tj Jarales [facility] [address] [place] [id number] 12/25/2024 Tj Jarales [facility] [address] [place], [place] [id number] 01/04/2025 Tj Jarales Screening for breast cancer Z12.39 ; Screening for colon cancer Z12.11 and Screening for osteoporosis Z13.820 Assessments Encounter Date Diagnosis (ICD Code) Assessment Notes Treatment Notes Treatment Clinical Notes Section Notes 01/17/2024 Essential hypertension (ICD-10 - I10) 01/17/2024 Type 2 diabetes mellitus without complication, without long-term current use of insulin (ICD-10 - E11.9) 03/17/2024 Low back pain, unspecified (ICD-10 - M54.50) 05/06/2024 Acute vaginitis (ICD-10 - N76.0) 05/06/2024 UTI symptoms (ICD-10 - R39.9) 05/11/2024 Coccydynia (ICD-10 - M53.3) 05/11/2024 Lumbar disc herniation (ICD-10 - M51.26) 03/17/2024 Type 2 diabetes mellitus without complication, without long-term current use of insulin (ICD-10 - E11.9) 06/26/2024 Type 2 diabetes mellitus without complication, without long-term current use of insulin (ICD-10 - E11.9) 06/26/2024 Mild eczema (ICD-10 - L30.9) Will call and get back into dermatology. 07/09/2024 Acute URI (ICD-10 - J06.9) 07/09/2024 Atopic dermatitis, unspecified type (ICD-10 - L20.9) 07/17/2024 Mixed hyperlipidemia (ICD-10 - E78.2) 07/17/2024 Type 2 diabetes mellitus without complication, without long-term current use of insulin (ICD-10 - E11.9) 08/17/2024 Vitamin B12 deficiency (ICD-10 - E53.8) 08/17/2024 Essential hypertension (ICD-10 - I10) 10/27/2024 Pre-op exam (ICD-10 - Z01.818) PATIENT IS OF ACCEPTABLE RISK FOR PROPOSED EXCISION OF VAGINAL MESH, SEE ATTACHED LABS AND EKG 10/27/2024 Complication of implanted vaginal mesh, unspecified complication, initial encounter (ICD-10 - T85.9XXA) 12/16/2024 Hypomagnesemia (ICD-10 - E83.42) 12/16/2024 Acute diarrhea (ICD-10 - R19.7) dehydration precautions discussed clear liquids and advance as tolerated 12/23/2024 Anemia, unspecified type (ICD-10 - D64.9) 01/04/2025 Screening for colon cancer (ICD-10 - Z12.11) 12/23/2024 MEGHAN (acute kidney injury) (ICD-10 - N17.9) 01/04/2025 Screening for breast cancer (ICD-10 - Z12.39) 12/08/2024 Chronic bronchitis (ICD-10 - J42) to start with inhaler tid and prn until cough resolved fluids, rest, supportive measures for fever/symptom relief 11/16/2024 Essential hypertension (ICD-10 - I10) 11/09/2024 Abnormal EKG (ICD-10 - R94.31) 05/18/2024 Type 2 diabetes mellitus without complication, without long-term current use of insulin (ICD-10 - E11.9) 01/04/2025 Screening for osteoporosis (ICD-10 - Z13.820) 12/23/2024 Microscopic hematuria (ICD-10 - R31.29) 12/16/2024 Nausea (ICD-10 - R11.0) 10/27/2024 Acute URI (ICD-10 - J06.9) 07/17/2024 Essential hypertension (ICD-10 - I10) 06/26/2024 Essential hypertension (ICD-10 - I10) 03/17/2024 Coccydynia (ICD-10 - M53.3) 05/11/2024 Degeneration of intervertebral disc of lumbosacral region with discogenic back pain and lower extremity pain (ICD-10 - M51.372) 01/17/2024 Urinary frequency (ICD-10 - R35.0) 01/17/2024 Pyuria (ICD-10 - R82.81) 03/17/2024 DDD (degenerative disc disease), lumbar (ICD-10 - M51.36) 06/26/2024 Mixed hyperlipidemia (ICD-10 - E78.2) 07/17/2024 Vitamin B 12 deficiency (ICD-10 - E53.8) 10/27/2024 Type 2 diabetes mellitus without complication, without long-term current use of insulin (ICD-10 - E11.9) 12/16/2024 Type 2 diabetes mellitus with other specified complication, unspecified whether longterm insulin use (ICD-10 - E11.69) 12/23/2024 Essential hypertension (ICD-10 - I10) 12/23/2024 Type 2 diabetes mellitus without complication, without long-term current use of insulin (ICD-10 - E11.9) 12/16/2024 Lumbar pain (ICD-10 - M54.50) 10/27/2024 Essential hypertension (ICD-10 - I10) 07/17/2024 Low back pain, unspecified (ICD-10 - M54.50) Patient has L-spine epidural scheduled in 2 weeks at [facility], she will call with any new symptoms 03/17/2024 Frequent urination (ICD-10 - R35.0) 06/26/2024 Vitamin D deficiency (ICD-10 - E55.9) 07/17/2024 Lumbar disc herniation (ICD-10 - M51.26) 06/26/2024 Hypothyroidism, unspecified type (ICD-10 - E03.9) 03/17/2024 Acute UTI (ICD-10 - N39.0) 12/16/2024 BMI 33.0-33.9,adult (ICD-10 - Z68.33) 10/27/2024 Hypothyroidism, unspecified type (ICD-10 - E03.9) 10/27/2024 Mixed hyperlipidemia (ICD-10 - E78.2) 06/26/2024 Vitamin B12 deficiency (ICD-10 - E53.8) 10/27/2024 Gastroesophageal reflux disease, esophagitis presence not [...] in a few days Plan Of Treatment Pending Test Test Name Order Date Bone density 01/04/2025 colonoscopy 01/04/2025 Mammogram 01/04/2025 Next Appt Details Provider Name:Tj ng, 01/06/2025 03:00:00 PM, [address], [place], [place], [id number], Insurance Providers Payer Name Payer Address Payer Phone Subscriber Number Group Number Insured Name Patient Relationship to Insured Coverage Start Date Coverage End Date MEDICARE PART B [address] [address] [place] [address] [phone] [id number] Randi Montes Self - patient is the insured [employer] [address] [place] [address] [id number] Randi Montes Self - patient is the [...] Spur Removal Bilateral Knee Cholecystectomy Partial Hysterectomy, [facility] LT Creast Cyst Removal Bladder Tack x 4 LT Shoulder- Broke Ball Joint, [place] RT Shoulder Rotator Cuff Tear Repair Bladder Tumor Removal, Dr. Andrade 014 Colonoscopy 03/2016 Bladder stimulator placement 12/02/22 Lumbar disc injection 06/26/24 bladder sling removed 10/2024 Hospitalization History Reason Date(Month/Year) RT Broken Wrist- [facility] ER 05/09/2013
[2025-01-05 09:28] LABS: Microscopic, Urine URINE MICROSCOPIC (MICROSCOPIC)
[2025-01-05 10:35] LABS: Basophils % 0.3 % (0.1-2.0); Eosinophils # 0.1 Kmm3 (0.0-0.4); Eosinophils % 1.7 % (0.1-12.0); Hemoglobin 9.8 g/dL (12.2-16.2); Immature Granulocytes # 0.02 10^3uL; Immature Granulocytes % 0.3 %; Lymphocytes # 2.6 K/mm3 (0.7-4.5); Lymphocytes % 39.6 % (10-50); Mean Corpuscular HGB Conc 29.7 g/dL (31.8-35.4); Mean Corpuscular Hemoglobin 26.8 pg (27.0-31.2); Mean Corpuscular Volume 90.2 fl (81-99); Mean Platelet Volume 9.1 fl (7.4-10.4); Monocytes # 0.5 K/mm3 (0.1-1.0); Monocytes % 7.3 % (1.7-9.3); Neutrophils # 3.3 K/mm3 (1.8-7.8); Neutrophils % 50.8 % (37.0-80.0); Nucleated Red Blood Cells # 0 10^3/uL; Nucleated Red Blood Cells % 0 %; Platelet Count 395 K/mm3 (142-424); Red Blood Count 3.66 M/mm3 (4.20-5.40); Red Cell Distribution Width 15.1 % (11.5-17.5); Red Cell Distribution Width-SD 49.6 fL; White Blood Count 6.6 K/mm3 (4.8-10.8)
[2025-01-05 10:47] LABS: Appearance,Urine CLEAR (Clear); Bilirubin,Urine Negative (Negative); Blood, Urine Negative (Negative); Color,Urine YELLOW (Yellow); Glucose,Urine (UA) Negative (Negative); Ketones,Urine Negative (Negative); Leukocyte Esterase,Urine Negative (Negative); Nitrate,Urine Negative (Negative); PH,Urine 5.5 (5.0-8.5); Protein,Urine Negative (Negative); Specific Gravity, Urine 1.025 (1.005-1.030); Urobilinogen,Urine 0.2 EU/dl (0.2)
[2025-01-05 11:07] LABS: Creatinine,Urine Random 115 mg/dL (Not Estab.)
[2025-01-05 11:22] LABS: Chloride 109 mmol/L (98-107)
[2025-01-05 11:23] LABS: Albumin Level 4.1 g/dl (3.5-5.0); Potassium 5.3 mmoL/L (3.5-5.1); Sodium 138 mmol/L (136-145)
[2025-01-05 11:26] LABS: Anion Gap 11.3 mEq/L (5-15); Blood Urea Nitrogen 25 mg/dl (7-17); Carbon Dioxide 23 mmol/L (22.0-30.0); Estimated Glomerular Filt Rate 49 ml/min (>60); GFR (African American) 59 ML/MIN (>60); Glucose 151 mg/dl (74-100); Phosphorous 4.2 mg/dl (2.5-4.5)
[2025-01-05 11:41] LABS: Bacteria,Urine Trace /lpf
== END 2025-01-05 23:59 | disposition home or self-care (01) ==
LOC: LAB 09:22
PROVIDERS: PCP Family Medicine; Visit Provider Student in an Organized Health Care Education/Training Program
DX: N28.9 Disorder of kidney and ureter, unspecified (principal)
CPT/HCPCS: 36415; 80069; 81001; 82570; 84156; 85025

== ENCOUNTER 2025-01-20 08:45 | Outpatient (CLI) | payer MEDICARE, BC, SELFPAY ==
--- OUTSIDE RECORDS SUMMARY | 2024-12-23 07:15 | XMS_ITS ---
Author Organization [facility] Address [address] [place] [id number] Care Team Providers Care Director Of Corporate Responsibility Name Role Phone Tj Sweeney Primary Care [...] 45 Performing Lab: Notes/Report: Test performed by [facility], [address] , [address], [place] [address] Chapincito Branch MD, Rubber Compounder Formulator CLIA: [id number] Sodium 143 135-145 mmol/L Potassium 4.8 3.5-5.3 [...] Vitamin B12 1000 MCG 1 tablet Orally 08/17/2024 Not-Taking Metoprolol Succinate ER 200 MG 1 tablet Orally Once a day; Duration: 90 days Active metFORMIN HCl ER 500 MG TAKE 2 TABLETS B Y MOUTH TWICE DAILY Orally twice daily; Duration: 90 days Not-Taking amLODIPine Besylate 5 MG 1 tab(s) orally once a day; Duration: 90 days Active Rosuvastatin Calcium 5 MG 1 tab(s) orall y once a day; Duration: 90 days Active Levothyroxine Sodium 25 MCG 1 tab(s) orally once a day; Duration: 90 days Active Levocetirizine Dihydrochloride 5 MG 1 tablet in the evening Orally Once a day; Duration: 90 days Active Montelukast Sodium 10 MG 1 tablet Orally Once a day; Duration: 90 days Active Ibuprofen 600 MG TAKE 1 TABLET BY ZULEIMA TH FOUR TIMES DAILY NEEDED; Duration: 15 Active Triamcinolone Acetonide 0.1 % 1 application Externally Twice a day 06/26/2024 Active Albuterol Sulfate HFA 108 (90 Base) MCG/ACT 2 puff(s) inhaled tid and q2h prn 09/04/2022 Active Voltaren 1 % 2 g applied topicall y 4 times a day, prn Active ADVOCATE TEST STRIPS - 02/12/2019 Active ADVOCATE GLUCOSE METER NON-SPEAKING [id number] - 02/12/2019 Active Problems Problem Type SNOMED Code ICD Code Onset Dates Problem Status W/U Status Risk Notes Problem Anemia, unspecified type (D64.9) Active confirmed Vital Signs Weight 205 lbs 12/23/2024 Blood pressure systolic 144 mm Hg 12/24/19 25 Blood pressure diastolic 88 mm Hg 025 Heart Rate 82 /min 12/23/2024 Height 64 in 12/23/2024 BMI 35.18 kg/m2 12/23/2024 Encounters Encounter Location Date Provider Diagnosis [address] [facility] [address] [facility] [address] [place] [phone] 12/23/2024 Tj Sweeney MEGHAN (acute kidney injury) [...] Up: 2 Weeks, Reason: Provider Name:Tj ng, 01/20/2025 08:24:00 AM, [address] [facility] [address] [facility], [address], [place], [place], [phone], Provider Name:Tj Torri Ovi ry, 01/27/2025 10:00:00 AM, [address], [address], [place], [id number], Progress Notes * Randi MONTESDOB: [birth year] (74 yo F)Acc No.[id number]:12/23/2024 Patient: Randi TERESA Provider: Claudine Sweeney M.D. :1950 A ge:74 Y S ex:Female Date:12/23/2024 Address:[address] [place], [place] [address], [id number] Subjective: * Chief Complaints: * 1 . 1 week f/u. 2. due for Mammogram, Bone Density screening and colonoscopy.. * HPI: G astroenterology: 74 year old female presents with c/o Nausea P t states symptoms have improved. Pt was taken to [facility] and transported to [facility] where she was admitted 12/18-12/21/2024 for kidney failure. Pt states she was given IVF and improved. * ROS: D ERMATOLOGY: no R aniyah. 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 * Hospitalization/Major Diagno stic Procedure: R T Broken Wrist- [facility] ER 05/09/2013. * Family History: F [...] Medications: T aking ADVOCATE GLUCOSE METER NON-SPEAKING [id number] - , Taking ADVOCATE TEST STRIPS - [...] G eneral Examination: General Appearance: N AD. H eart: R SR. L ungs:?clear to auscultation. Assessment: * Assessment: 1. A [...] p latlet 354 100 - 400 * Skylar Gomezira 12/23/2024 12:24:4 7 PM EDT > Provider [...] olya Neg * G truong Neg * Skylar Gomezira 12/23/2024 11:26:2 0 AM EDT > Provider [...] G 2211 Complex e/[place], [address] CBC WITH AUTO DIFF, 1036F TOBACCO NON-USER * Follow Up: 2 Weeks * Images: Billing Information: * Visit Code: 08003 Office Visit, Est Pt., Level 4. * Procedure Codes: G2211 Complex e/[place]. [address] CBC WITH AUTO DIFF. 1036F TOBACCO NON-USER. * Electronic signature of Yamilex Sweeney MD on 01/20/2025 at 08:51 AM EDT Sign off status: Pending * Provider: Claudine Sweeney M.D. Date: 0 12/23/2024 Generated for Printi ng/Faxing/eTransmitting on: 0 01/20/2025 08:51 AM EDT History and Physical Notes * HPI (History of Present Illness) Category Sub-Category Detail Notes Category Not es Gastroenterology Nausea Pt states sympt oms have improved. Pt was taken to [facility] and transported to [facility] where she was admitted 12/18-12/21/2024 for kidney failure. Pt states she was given IVF and improved Examination Category Sub-Category Detail Notes Category Not es General Examination Heart: RSR Lungs: clear to auscultatio n General Appearance: NAD
--- OUTSIDE RECORDS SUMMARY | 2024-12-29 13:00 | XMS_ITS | Encounter Summary ---
Author Organization [place] [address] Care Team Providers Care Packager And Strapper Name Role Phone Tj Sweeney MD Primary Care Provider [phone] Reason for Visit * Reason Comments Follow-up 6 week PO Encounter Details Date Type Department Care Team (Latest Contact Info) Description 12/29/2024 1:00 PM EDT Office Visit [facility] [place] [address] [phone] Evangelnia Cook PA-C [address] [place] [phone] Postoperative examination (Primary Dx); Complication of implanted [...] Vitals: 12/29/24 1245 Pulse: 80 SpO2: 99% Healthcare Consultant: Analia Urine sample and PVR obtained with straight catheterization: 20 ml Post Operative Exam Surgical sites Incisions: Vaginal Intact, healing Interstim Interrogation: [employer] rep present? No Interstim pocket site: Right Is Interstim turned on? Yes Current program: 4 Current amplitude: 1.8 Impedance checked: No issues Battery checked: OK Interstim Reprogrammed: Program changed: 2 Amplitude changed: 0.7 Evangelina Cook PA-C [facility] [address] [address] 12/29/24 1:20 PM documented in this encounter Plan of Treatment Upcoming Encounters Date Type Department Care Team (Late st Contact Info) Description 02/08/2025 8:30 AM EDT Office Visit [facility] [place] [address] [address] Evangelina Cook PA-C [address] [place] [address] documented as of this encounter Procedures Procedure Name Priority Date/Time Associated Diagnosis Comments URINE CULTURE (NO STAIN) Routine 12/29/2024 1:19 PM EDT Urinary frequency documented in this encounter Results * URINE CULTURE (NO STAIN) (12/29/2024 1:19 PM EDT) Culture No growth at 30 hours. 12/31/2024 5:14 AM EDT [employer] Urine URINARY BLADDER STRUCTURE / Unknown 12/29/2024 1:19 PM EDT 12/29/2024 1:19 PM EDT us Evangelina Cook PA-C MICROBIOLOGY - GENERA L ORDERABLES Final Result [employer] [address] [facility] , [place] [address] documented in this encounter Visit Diagnoses Diagnosis Postoperative examination- Primary Follow-up examination, following unspecified surgery Complication of implanted vaginal mesh, initial encounter Urge urinary incontinence Urge incontinence OAB (overactive bladder) Hypertonicity of bladder S/P implantation of urinary electronic stimulator device Urinary frequency documented in this encounter Care Teams Packager And Strapper Relationship Specialty Start Date End Date Tj Sweeney MD [address] [place] [address] PCP - General Family Medicine 12/05/23 documented as of this encounter
--- OUTSIDE RECORDS SUMMARY | 2025-01-04 09:56 | XMS_ITS ---
Author Organization [place] Address [address] [facility] [address] [place] [id number] Care Team Providers Care Charter Driver Name Role Phone Tj Sweeney Primary Care Provider [phone] REASON FOR VISIT due mamm, colonoscopy & bone density Encounters Encounter Location Date Provider Diagnosis [place] [address] [facility] [address] [place] [id number] 01/04/2025 Tj Sweeney Screening for breast cancer [...] Mammogram 01/04/2025 Next Appt Details Provider Name:Tj ng, 01/20/2025 08:24:00 AM, [address], [address], [place], [id number], Provider Name:Tj ng, 01/27/2025 10:00:00 AM, [address] [facility], [address], [place], [phone], Progress Notes * Randi MONTESDOB: [birth year] (74 yo F)Acc No.[id number]:01/04/2025 Patient: Randi TERESA :1950 A ge:74 Y S ex:Female Address:[address] [place], [place] [address], [place] [address] Subjective: * Chief Complaints: * D ue [...] * Treatment: 2.?Screening for colon cancer?Imaging: colonoscopy* [facility] 3.?Screening for osteoporosis?Imaging: Bone density* [facility] * Procedure Codes: * true * Date: Generated for Brock chapman/See/eTrameshsmitting on: 0 01/20/2025 08:51 AM EDT
--- OUTSIDE RECORDS SUMMARY | 2025-01-06 11:00 | XMS_ITS ---
Author Organization [facility] Address [address] [place] [id number] Care Team Providers Care Podiatry Assistant Name Role Phone Tj Sweeney Primary Care Provider [phone] Allergies Allergen (clinical drug ingredient) Drug/Non Drug [...] day 08/17/2024 Not-Taking ADVOCATE GLUCOSE METER NON-SPEAKING NY2073F - 02/12/2019 Active ADVOCATE TEST STRIPS - [...] 01/06/2025 Encounters Encounter Location Date Provider Diagnosis [facility] [address] [place] [phone] 01/06/2025 Tj Sweeney Type 2 diabetes madeline [...] Appt Details Follow Up: 4 Weeks, Reason: Provider Name:Tj ng, 01/20/2025 08:24:00 AM, [address], [place], [phone], Provider Name:Tj ng, 01/27/2025 10:00:00 AM, [address], [address], [place], [place], [phone], Progress Notes * Randi MONTESDOB: [birth year] (74 yo F)Acc No.[id number]:01/06/2025 Patient: Randi TERESA Provider: Claudine Sweeney M.D. :1950 A ge:74 Y S ex:Female Date:01/06/2025 Address:[address] [place], [place] [address], [id number] Subjective: * Chief Complaints: * 1 . [...] 4 , LT Shoulder- Broke Ball Joint, [place] , RT Shoulder Rotator Cuff Tear Repair , Bladder Tumor Removal, Dr. 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 * Hospitalization/Major Diagno stic Procedure: R T Broken Wrist- [facility] ER 05/09/2013. * Family History: [...] Medications: T aking ADVOCATE GLUCOSE METER NON-SPEAKING [id number] - , Taking ADVOCATE TEST STRIPS - [...] 146/82, HR: 74, O2 Sat: 97%, Nurse: pe, Ht: 64, BMI:35.18. * Examination: G eneral [...] G 2211 Complex e/[place], [address] CAPILLARY BLOOD DRAW, 19080 GLYCATED HEMOGLOBIN TEST, Modifiers: QW , 1036F TOBACCO NON-USER, 3044F HG A1C LEVEL LT 7.0%, G8950 PREHTN/HTN BP DOC INDCD F/U DOC, G8753 MOST RECENT SYSTOLIC BP >= 140MM HG, G8754 MOST RECENT DIASTOLIC BP < 90MM HG * Follow Up: 4 Weeks * Images: Billing Information: * Visit Code: 84768 Office Visit, Est Pt., Level 3. * Procedure Codes: G2211 Complex e/[place]. [address] CAPILLARY BLOOD DRAW. 01307 GLYCATED HEMOGLOBIN TEST. Modifiers: QW 1036F TOBACCO [...] M.D. Date: 0 01/06/2025 Generated for Brock chapman/See/Stanleyransmitting on: 0 01/20/2025 08:51 AM EDT History [...]
--- NOTE | 2025-01-20 08:51 | MM_ITS ---
PROCEDURE INFORMATION: Exam: MG Bilateral Screening 3D Mammography Exam date and time: 01/20/2025 9:05 AM Age: 74 years old Clinical indication: Screening examination TECHNIQUE: Imaging protocol: Bilateral Screening tomosynthesis and 2D mammography including computer-aided detection (CAD) when performed. COMPARISON: 1. MG MM DIG SCREENING MAMM BI W/CAD 05/07/2023 10:15 AM 2. MG DMDXUAVL DIG MAMM-DX UNI ADD VIEWS-LT 04/10/2016 2:39 PM FINDINGS: MAMMOGRAPHY: Breast composition: The breasts are almost entirely fatty. Mass: None. Architectural distortion: None. Calcifications: No suspicious calcifications. Asymmetric density: None. Skin thickening: None. Axillary adenopathy: None. IMPRESSION: No mammographic evidence of malignancy. Annual screening is recommended unless otherwise clinically indicated. ASSESSMENT: BI-RADS Category 1: Negative.
--- OUTSIDE RECORDS SUMMARY | 2025-01-20 08:53 | XMS_ITS | Clinical Summary ---
Author Organization [facility] Address [address] [place] [phone] Phone Care Team Providers Care Strike Out Machine Operator Name Role Phone Tj Sweeney MD Primary Care Provider [phone] Allergies Active Allergy Reactions Criticality Noted Date Comments Povidone-Iodine Dermatitis 11/16/2024 Cefdinir Hives 11/10/2024 Iodine Other (See Comments) 11/14/2021 Penicillins Other (See Comments) 11/14/2021 Theophylline Other (See Comments) 11/14/2021 Valdecoxib Other (See Comments) 11/14/2021 Medications amLODIPine (NORVASC) 5 mg Oral Tablet Take 5 mg by mouth every morning. 3 Active levocetirizine (XYZAL) 5 mg Oral Tablet Take 5 mg by mouth. 9 Active lisinopriL (PRINIVIL;ZEST RIL) 40 mg Oral Tablet Take 40 mg by mouth. 9 Active metFORMIN (GLUCOPHAGE XR) 500 mg Oral ER 24 hr tablet Take 500 mg by mouth 4 times daily (before meals and nightly). 2 tablets morning 2 tablets bedtime 4 Active metoprolol succinate (TOPROL-XL) 200 mg Oral Tablet Sustained Release 24 hr Take 200 mg by mouth nightly. 4 Active montelukast (SINGULAIR) 10 mg Oral Tablet Take 10 mg by mouth. 9 Active rosuvastatin (CRESTOR) 5 mg Oral Tablet Take 5 mg by mouth. 11/05/201 9 Active LEVOthyroxine (SYNTHROID) 25 mcg Oral Tablet [...] week for 4 weeks. 60 g 1 4 Active Additional Information Patient not taking.Reason: Pt electing to not take the medication, Reported on 12/29/2024 estradioL (ESTRACE) 0.01 % (0.1 mg/gram) Vagl CreamIndicatio ns:Vaginal atrophy Apply pea-sized amount using fingertip into the vagina (or as instructed) nightly x 2 weeks, then use 2-3 x per week. 42.5 g 2 5 Active Additional Information Patient not taking.Reason: Pt electing to not take the medication, Reported on 12/29/2024 clindamycin (CLEOCIN) 2 % Vagl Cream Place 4g intravaginally at night for 3 weeks followed by maintenance therapy twice/week x 6 months. 40 g 5 5 Active Additional Information Patient not taking.Reason: Pt electing to not take the medication, Reported on 12/29/2024 OZEMPIC 2 mg/dose (8 mg/3 mL) SubQ Pen Injector INJECT 2MG SUBCUTANEOUSLY ONCE WEEKLY (EVERY 7 DAYS) 5 Active polyethylene glycol (GLYCOLAX) 17 gram/dose Oral Powder Begin Miralax, 17 g (1 capful) PO mixed in your favorite drink once a day beginning 1 week prior to surgery, after surgery drink this twice a day for 2 weeks 595 g 5 Active acetaminophen (TYLENOL) 500 mg Oral Tablet Take 500 mg by mouth every 4 hours as needed for Pain. Active docusate sodium (COLACE) 100 mg Oral Capsule Take 1 Capsule by mouth 2 times daily. 60 Capsule 2 5 Active oxyCODONE (ROXICODONE) 5 mg Oral Tablet Take 1 Tablet by mouth every 6 hours as needed for Major Surgery/Trauma (G89.18). 10 Tablet 5 Active senna (SENOKOT) 8.6 mg Oral Tablet Take 1 Tablet by mouth daily as needed for Constipation. 30 Tablet 1 5 Active ondansetron (ZOFRAN-ODT) 4 mg Oral Tablet, Rapid Dissolve Take 1 Tablet by mouth every 6 hours as needed for Nausea. 30 Tablet 5 Active Active Problems Problem Noted Date Diagnosed Date Complication of implanted vaginal mesh, initial encounter 10/22/2024 Exposure of implanted vaginal mesh 10/14/2024 Urinary frequency 10/15/2023 Urge incontinence of urine 08/28/2023 Incontinence of feces 08/28/2023 Encounters Date Type Department Care Team Description 12/31/2024 Results Follow-Up [facility] [address] [phone] Evangelian Cook PA-C URINE CULTURE (NO STAIN) 12/29/2024 1:00 PM EDT Office Visit [facility] Uro[facility]necology [address] [phone] Evangelina Cook PA-C Postoperative examination (Primary Dx); Complication of implanted vaginal mesh, initial encounter; Urge urinary incontinence; OAB (overactive bladder); S/P implantation of urinary electronic stimulator device; Urinary frequency 11/18/2024 Telephone [facility] Urogynecology [address] [phone] Mariann Birch LPN Post-op Call 11/16/2024 12:11 PM EDT Anesthesia Event [facility] [address] 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 [address] Shahnaz Hess MD REMOVAL OF VAGINAL SLING OR MESH (TOT-TRANSOBTURATOR TAPE, TVT- TENSION-FREE VAGINAL TAPE, /SECUR/ELEVATE) 11/16/2024 9:38 AM EDT - 11/16/2024 4:08 PM EDT Hospital Encounter [facility] SAME DAY SURGERY [address] [place] [address] Shahnaz Hess MD Complication of implanted vaginal mesh, initial encounter; Exposure of implanted vaginal mesh, subsequent encounter Discharge Disposition: Home or Self Care 11/16/2024 Travel 11/10/2024 Orders Only [facility] [address] [phone] Mariann Birch LPN Complication of implanted vaginal mesh, initial encounter (Primary Dx); Exposure of implanted vaginal mesh, subsequent encounter 11/09/2024 Telephone [facility] [address] [phone] Mariann Birch LPN Pre-op Call 11/06/2024 Travel 10/22/2024 Telephone [facility] [address] [phone] Mariann Birch LPN Surgery Scheduling from Last 3 Months Surgical History Surgery [...] 8:30 AM EDT Office Visit [facility] [address] [phone] Evangelina Cook PA-C [address] [facility] [place] [address] Health Maintenance Due Date Last Done Comments Wellness Exam Medicare 10/30/1953 Hepatitis C Screening 1970 Breast Cancer Screening 1992 Cologuard 1997 Colon Cancer Screening 1997 Colonoscopy 1997 FIT 1997 Sigmoidoscopy 1997 Virtual Colonography 1997 Bone Density Screening 2017 COVID-19 Vaccine (3 - 2023-2 5 season) 2024 11/30/2020, 11/02/2020 Influenza Vaccine (#1) 2025 DTaP/TDaP/Td (2 - Td or Tdap) 04/29/2034 04/29/2024 Pneumococcal Vaccine 50+ Completed 10/18/2022 Zoster Completed 04/29/2024, 02/22/2024 Hepatitis B Vaccine Aged Out No longe r eligible based on patient's age to complete this topic Meningococcal B Vaccine Aged Out No l onger eligible based on patient's age to complete this topic Medical Devices Implanted Type Area Rating Officer Device Identifier Shelf Expiration Date Model / Serial / Lot Kit Mri Lead Interstim Surescan 28cm - [id number] Implanted:Qty: 1 on 12/12/2023 by Shahnaz Hess MD at [facility] Right: Back [employer]:NEURO 05/27/2025 [id number] / / [id number] Neurstm Intstm Ii 2x1.7in 0.3in Dbl Troc Pnt Prim Cell - [id number] Implanted:Qty: 1 on 12/12/2023 by Shahnaz Hess MD at [facility] Right: Back [employer]:NEURO 08/18/2025 [id number] / [id number] / Envelope Tyrx Absb Anbctrl Mul-Prgm 2.5x2.7in 1x8mm - [id number] Implanted:Qty: 1 on 12/12/2023 by Shahnaz Hess MD at [facility] Right: Back [employer]:NEURO [id number] 07/18/2024 [id number] / / [id number] Procedures Procedure Name Priority Date/Time Associated Diagnosis Comments URINE CULTURE (NO STAIN) Routine 1:19 PM EDT Urinary frequency SCANNED RHYTHM STRIPS 11/17/2024 9:05 AM EDT GLUCOSE METER POC Routine 11/16/2024 1:2 5 PM EDT PATHOLOGY TISSUE REQUEST Routine 12:48 PM EDT Complication of implanted vaginal mesh, initial encounter INTRAOP AIRWAY PLACEMENT Routine 12:20 PM EDT LA CYSTOURETHROSCOPY 11/16/2024 12:07 PM EDT Complication [...] 30 hours. 12/31/2024 5:14 AM EDT PREFERRED [employer] Urine URINARY BLADDER STRUCTURE / Unknown 12/29/2024 1:19 PM EDT 12/29/2024 1:19 PM EDT us Evangelina Cook PA-C MICROBIOLOGY - GENERA L ORDERABLES Final Result [employer] [address] [facility] , [place] [address] * SCANNED RHYTHM STRIPS (11/17/2024 9:05 AM EDT) Anatomical Region Laterality Modality Other 11/17/2024 9:05 AM EDT us Unknown Provider IMG ECG ORDERABLES Final Result * (ABNORMAL) GLUCOSE METER POC (11/16/2024 1:25 PM EDT) Only the most recent of2 resultswithin the time period is included. Glucose Meter POC 134(H) 70 - 100 mg/dL 11/16/2024 1:27 PM EDT [facility] Sample Type Capillary 11/16/2024 1:27 PM EDT [facility] Patient Status Non-Critical Patient 11/16/2024 1:27 PM EDT [facility] Blood BLOOD SPECIMEN / Unknown 11/16/2024 1:25 PM EDT 11/16/2024 1:27 PM EDT Shahnaz Hess MD POINT OF CARE TEST TOME JALEELDORIE Final Result [facility] [address] [place] [address] * PATHOLOGY TISSUE REQUEST (11/16/2024 12:48 PM EDT) CASE REPORT Surgical Pathology Case: [id number] Authorizing Provider: Shahnaz Hess MD Collected: 11/16/2024 1248 Ordering Location: [facility] Received: 11/16/20241936 Pathologist: Jaqueline Huang MD Specimen: Vagina, mesh 11/17/2024 3:45 PM EDT [facility] FINAL DIAGNOSIS Mesh, removal: - Gross examination only. 11/17/2024 3:45 PM EDT [facility] at 1545 EDT GROSS DESCRIPTION The specimen is received in form, labeled with the patient's name, medical record number, and mesh . It consists of 3 irregular fragments of blue mesh material with adherent, embedded pink-purple tissue, ranging from 0.7 x 0.5 x 0.2 cm to 2.4 x 0.6 x 0.2 cm. No sections are submitted for intraoperative consultation. RENETTA Turner, SONA([facility]) 11/17/2024 11/17/2024 3:45 PM EDT [facility] EMBEDDED IMAGES 11/17/2024 3:45 PM EDT [facility] Digital Media Representative VAGINAL STRUCTURE / Unknown 11/16/2024 12:48 PM EDT 11/16/2024 7:37 PM EDT Shahnaz Hess MD PATHOLOGY ORDERABLES Fi nal Result Performing Organization Address [facility] [employer] de Phone Number [facility] [address] [place] [address] * INTRAOP AIRWAY PLACEMENT (11/16/2024 12:20 PM EDT) Narrative [facility] - 11/16/2024 12:20 PM EDT Mario [...] Insertion attempts: 1 us Omar Davison MD LA ANESTHESIA Final Result Performing Organization Address City/[facility] [employer] de Phone Number [facility] [address] [place] [address] from Last 3 Months [facility] [id number] MED[place] PART A AND B PPO MEDICARE [place] PART A AND B O Care Teams Strike Out Machine Operator Relationship Specialty Start Date End Date Tj Sweeney MD [address] [place] [address] [place] [phone] PCP - General Family Medicine 12/05/23
--- OUTSIDE RECORDS SUMMARY | 2025-01-20 08:53 | XMS_ITS | Patient Health Record ---
Author Organization [facility] Address [address] [place] [id number] Care Team Providers Care Wellfield Technician Name Role Phone Tj Sweeney Primary Care Provider [phone] Meron Smith Unavailable [phone] Rosa Souza Unavailable [phone] Allergies Allergen (clinical drug ingredient) Drug/Non Drug Allergy documented on EMR Reaction Allergy Type Onset Date Status BEXTRA (uncoded) hyperventilate Allergy Active SLO-BID GYROCAPS (uncoded) Unknown Allergy Active cefdinir Cefdinir skin itching Drug Allergy Acti ve Penicillin Unknown Drug Allergy Active Results Component Value Reference Range Notes Rapid Strep- Inhouse Reviewed date:10/27/2024 12:15:12 PM [...] date:11/03/2024 04:20:04 PM Interpretation: Performing Lab: Notes/Report: Urinalysis - Inhouse Reviewed date:12/23/2024 01:08:58 PM [...] 45 Performing Lab: Notes/Report: Test performed by [facility] [address] [facility] , [address], [place] [address] Chapincito Branch MD, [employer] CLIA: [id number] Sodium 143 135-145 mmol/L Potassium 4.8 3.5-5.3 mmol/L Chloride 103 97-108 mmol/L CO2 27 22-32 mmol/L Glucose 120 65-99 mg/dL BUN 13 8-23 mg/dL Creatinine 1.26 0.50-1.00 mg/dL Calcium 9.1 8.6-10.4 mg/dL eGFR by Creatinine 45 >59 mL/min/1.73m2 TEN-UTI panel Reviewed date:12/25/2024 09:52:14 AM Interpretation:Enterococcus faecalis Performing Lab: Notes/Report: Enterococcus faecalis Glycohemoglobin A1c (in hous e) Reviewed date:01/07/2025 09:02:50 AM Interpretation: Performing Lab: Notes/Report: glycohemoglobin 6.8% 5 - 6.5 % CBC Venipuncture (in [...] Interpretation:<150 Performing Lab: Notes/Report: Test performed by [facility] [employer] [address] [place] [address] , [address], [place] [address] Chapincito Branch MD, [employer] CLIA: [id number] Vitamin B12 <612 452-7673 pg/mL P-Comprehensive Metabolic Pa fouzia (CMP) Reviewed date:07/01/2024 09:10:45 AM Interpretation:gluc 150 Performing Lab: Notes/Report: Test performed by [facility] [address] [place] [address] , [address], [place] [address] Chapincito Branch MD, [employer] CLIA: [id number] Sodium 142 135-145 mmol/L Potassium 3.7 3.5-5.3 [...] 182 Performing Lab: Notes/Report: Test performed by [facility] [address] [place] [address] , [address], [place] [address] Chapincito Branch MD, [employer] CLIA: [id number] Cholesterol 116 <200 mg/dL Triglycerides 182 <150 [...] Interpretation:Normal Performing Lab: Notes/Report: Test performed by [facility] [address] [place] [address] [place] [address] Chapincito Branch MD, [employer] CLIA: [id number] TSH reflex to FT4 1.49 0.43-5.25 mU/L P-Vitamin D 25-Hydroxy Reviewed date:07/01/2024 09:10:45 AM Interpretation:39.6 Performing Lab: Notes/Report: Test performed by [facility] [address] [place] [address] [place] [address] Chapincito Branch MD, [employer] CLIA: [id number] Vitamin D 25-Hydroxy 39.6 30.0-100.0 ng/mL Interpretation of Vitamin D 25 OH: < 20 ng/mL - Deficiency 20 - 29 ng/mL - Insufficiency 30 - 100 ng/mL - Sufficiency > 100 ng/mL - Super-therapeutic- toxicity may occur above this level. Clinical correlation required. Influenza Screen (in house) Reviewed date:07/09/2024 03:13:02 [...] Performing Lab: Notes/Report: neg Result: neg CBC Venipuncture (in house) Reviewed date:12/16/2024 11:03:54 [...] 44 Performing Lab: Notes/Report: Test performed by [facility] [employer] [address] [place] [address] , [address], [place] [address] Chapincito Branch MD, [employer] CLIA: [id number] Sodium 135 135-145 mmol/L Potassium 3.5 3.5-5.3 [...] Interpretation:1.7 Performing Lab: Notes/Report: Test performed by [facility], [address] , [address], [place] [address] Chapincito Branch MD, [employer] CLIA: [id number] Magnesium 1.7 1.6-2.4 mg/dL Urinalysis - Inhouse Reviewed date:05/06/2024 11:21:22 AM Interpretation: Performing Lab: Notes/Report: Color/Clarity yellow/clear Leuk 1+ Nitrite neg Urobili 3.2 Protein 1+ pH 5.5 Blood trace-intact Sp. Gr. >=1.030 Ketone neg Bili 1+ Gluc neg Urinalysis - Inhouse Reviewed date:03/17/2024 10:05:51 AM [...] AM Interpretation:Abnormal Performing Lab: Notes/Report: Abnormal CBC Fingerstick (in house) Reviewed date:12/08/2024 04:11:04 [...] - 38 plat 391 100 - 400 EKG Reviewed date:11/11/2024 12:59:17 PM Interpretation: Performing Lab: Notes/Report: TEN-UTI panel Reviewed date:05/11/2024 01:42:33 PM Interpretation:Negative Performing Lab: Notes/Report: Negative P-Vitamin B12 Reviewed date:08/19/2024 09:25:17 AM Interpretation:293 Performing Lab: Notes/Report: Test performed by [facility] [address] [place] [address] , [address], [place] [address] Chapincito Branch MD, [employer] CLIA: [id number] Vitamin B12 353 856-4280 pg/mL Reason For Referral Diagnosis 1 DDD (degenerative di sc disease), lumbar (M51.36) Diagnosis 2 Coccydynia (M53.3) Diagnosis 3 Lumbar disc herniati on (M51.26) [facility]erring [facility] First Name Tj Referring Provider Last Name Zahra Referring Provider Speciality Family [facility] ctice Referred Provider Houston Landry Referred Provider Specialty Pain Managem ent General Notes Zita Thornton 024 3:03:00 PM > faxed to [facility] Pain Management Referral Priority Routine Medications Medication SIG (Take, Route, Frequency, Duration) Notes Start Date End Date Status Montelukast Sodium 10 MG 1 tablet Orally Once a day; Duration: 90 days Active Rosuvastatin Calcium 5 MG 1 tab(s) orall y once a day; Duration: 90 days Active Voltaren 1 % 2 g applied topicall y 4 times a day, prn Active Ibuprofen 600 MG TAKE 1 TABLET BY ZULEIMA FOUR TIMES DAILY NEEDED; Duration: 15 Active Triamcinolone Acetonide 0.1 % 1 application Externally Twice a day 06/26/2024 Active Vitamin B12 1000 MCG 1 tablet Orally Onc e a day 08/17/2024 Not-Taking Levocetirizine Dihydrochloride 5 MG 1 tablet in the evening Orally Once a day; Duration: 90 days Active amLODIPine Besylate 5 MG 1 tab(s) orally once a day; Duration: 90 days Active ADVOCATE GLUCOSE METER NON-SPEAKING [id number] - 02/12/2019 Active Metoprolol Succinate ER 200 MG 1 tablet Orally Once a day; Duration: 90 days Active ADVOCATE TEST STRIPS - 02/12/2019 Active Ozempic (2 MG/DOSE) 8 MG/3ML 2 mg Subcutaneous once weekly 05/18/2024 Active Albuterol Sulfate HFA 108 (90 Base) MCG/ACT 2 puff(s) inhaled tid and q2h prn 09/04/2022 Active Lisinopril 40 MG 1/2 tab(s) orally on ce a day Active Levothyroxine Sodium 25 MCG 1 tab(s) orally once a day; Duration: 90 days Active Immunizations Vaccine Route Administration Date Status Comme nts COVID 19 Moderna Unknown 11/02/2020 Administered COVID 19 Moderna Unknown 11/30/2020 Administered Prevnar (PCV20) IM Intramuscular 10/18/2022 Administered Problems Problem Type SNOMED Code ICD Code Onset Dates Problem Status W/U Status Risk Notes Problem Vitamin D deficiency (42113383) Vitamin D deficiency (E55.9) Active confirmed Problem Vitamin B12 deficiency (979517137) Vitamin B12 deficiency (E53.8) Active confirmed Problem Essential hypertension (68456145) Essential hypertension (I10) Active confirmed Problem Abnormal mammogram (628521611) Abnormal mammogram (R92.8) Active confirmed Problem Diverticulitis (77194256) Diverticulitis (K57.92) Active confirmed Problem Obese class I (688590458573417) BMI 33.0-33.9,adult (Z68.33) Active confirmed Problem Environmental allergy (621222882) Environmental allergies (Z91.09) Active confirmed Problem Fibromyalgia (256906775) Fibromyalgia (M79.7) Active confirmed Problem Mixed hyperlipidemia (132823416) Mixed hyperlipidemia (E78.2) Active confirmed Problem Hypomagnesemia (636491195) Hypomagnesemia (E83.42) Active confirmed Problem Urge incontinence of urine (20799588) Urge incontinence (N39.41) Active confirmed Problem Constipation (54007670) Constipation, unspecified constipation type (K59.00) Active confirmed Problem Mammography abnormal (980586415) Abnormal mammogram of left breast (R92.8) Active confirmed Problem Gastroesophageal reflux disease (350628803) Gastroesophageal reflux disease, esophagitis presence not specified (K21.9) Active confirmed Problem Chronic bronchitis (79759054) Chronic bronchitis (J42) Active confirmed Problem Diverticular disease of colon (447514268) Diverticulosis of large intestine without hemorrhage (K57.30) Active confirmed Problem Leukocytosis (711270348) Leukocytosis, unspecified type (D72.829) Active confirmed Problem Chronic vaginitis (97240456) Chronic vaginitis (N76.1) Active confirmed Problem Anemia (467717720) Anemia, unspecified type (D64.9) Active confirmed Problem Subacute vaginitis (14447367924098700) Subacute vaginitis (N76.1) Active confirmed Problem Hypothyroidism (33596979) Hypothyroidism, unspecified type (E03.9) Active confirmed Problem Coccydynia (65904822) Coccydynia (M53.3) Active confirmed Problem Atopic dermatitis (87043548) Atopic dermatitis, unspecified type (L20.9) Active confirmed Problem Diverticulitis of sigmoid colon (257793256) Diverticulitis of sigmoid colon (K57.32) Active confirmed Problem Prolapsed lumbar intervertebral disc (502885645) Lumbar disc herniation (M51.26) Active confirmed Problem Type II diabetes mellitus without complication (973736226) Type 2 diabetes mellitus without complication, without long-term current use of insulin (E11.9) Active confirmed Problem Urinary incontinence (848933958) Urinary incontinence, unspecified type (R32) Active confirmed Problem Degenerative disc disease (46511556) DDD (degenerative disc disease), lumbar (M51.36) Active confirmed Problem Chronic rhinitis (94126515) Rhinitis, unspecified type (J31.0) Active confirmed Problem Skin sensation disturbance (28395830) Burning sensation of feet (R20.8) Active confirmed Problem Mixed incontinence (734264347) Mixed stress and urge urinary incontinence (N39.46) Active confirmed Problem Seasonal allergic rhinitis (668145775) Seasonal allergic rhinitis, unspecified trigger (J30.2) Active confirmed Problem Type II diabetes mellitus without complication (088965206) Type 2 diabetes mellitus without complication, unspecified whether terminal worker insulin use (E11.9) Active confirmed Problem Type 2 diabetes mellitus with other specified complication, unspecified whether terminal worker insulin use (E11.69) Active confirmed Vital Signs Heart Rate 74 /min 01/06/2025 Blood pressure diastolic 82 mm Hg 01/06/2025 Height 64 in 01/06/2025 Blood pressure systolic 146 mm Hg 01/06/2025 Weight 205 lbs 01/06/2025 BMI 35.18 kg/m2 01/06/2025 Encounters Encounter Location Date Provider [facility] [address] [place] [id number] 03/17/2024 Tj Blessing Type 2 diabetes madeline itus without complication, without long-term current use of insulin E11.9 ; Low back pain, unspecified M54.50 ; Coccydynia M53.3 ; DDD (degenerative disc disease), lumbar M51.36 ; Frequent urination R35.0 and Acute UTI N39.0 [facility] [address] [place] [id number] 05/06/2024 Tj Blessing UTI symptoms R39.9 a nd Acute vaginitis N76.0 [facility] [address] [place] [id number] 06/26/2024 Rosa Souza Mild eczema L30.9 ; Type 2 diabetes mellitus without complication, without long-term current use of insulin E11.9 ; Essential hypertension I10 ; Mixed hyperlipidemia E78.2 ; Vitamin D deficiency E55.9 ; Hypothyroidism, unspecified type E03.9 ; Vitamin B12 deficiency E53.8 and Numbness of toes R20.0 [facility] [address] [place] [id number] 07/09/2024 Rosa Libby Atopic dermatitis, unspecified type L20.9 and Acute URI J06.9 [facility] [address] [place] [id number] 07/17/2024 Tj Blessing Type 2 diabetes madeline itus without complication, without long-term current use of insulin E11.9 ; Mixed hyperlipidemia E78.2 ; Essential hypertension I10 ; Vitamin B 12 deficiency E53.8 ; Low back pain, unspecified M54.50 and Lumbar disc herniation M51.26 [facility] [address] [facility] [address] [place] [id number] 08/17/2024 Tj Blessing Vitamin B12 deficien cy E53.8 and Essential hypertension I10 [facility] [address] [facility] [address] [id number] 10/27/2024 Tj Blessing Pre-op exam Z01.818 ; Complication of implanted [...] lumbar region, unspecified whether pain present M51.369 [facility] [address] [facility] [address] [id number] 12/08/2024 Meron Smith Chronic bronchitis J 42 [facility] [address] [place] [address] [id number] 12/16/2024 Tj Blessing Acute diarrhea R19.7 ; Hypomagnesemia E83.42 ; Nausea R11.0 ; Type 2 diabetes mellitus with other specified complication, unspecified whether terminal worker insulin use E11.69 ; Lumbar pain M54.50 and BMI 33.0-33.9,adult Z68.33 [facility] [address] [facility] [address] [id number] 12/23/2024 Tj Blessing MEGHAN (acute kidney injury) N17.9 ; Anemia, unspecified type D64.9 ; Microscopic hematuria R31.29 ; Essential hypertension I10 and Type 2 diabetes mellitus without complication, without long-term current use of insulin E11.9 [facility] [address] [place], [place] [id number] 01/06/2025 Tj Blessing Type 2 diabetes madeline itus without complication, without long-term current use of insulin E11.9 ; MEGHAN (acute kidney injury) N17.9 and Essential hypertension I10 [facility] [address] [place] [id number] 01/20/2025 Tj Blessing [facility] [address] [place] [id number] 03/19/2024 Tj Blessing [facility] [address] [place] [id number] 03/31/2024 Tj Blessing [facility] [address] [place] [id number] 04/11/2024 Tj Blessing [facility] [address] [place] [id number] 04/28/2024 Tj Blessing [facility] [address] [place] [id number] 05/11/2024 Tj Blessing Coccydynia M53.3 ; Lumbar disc herniation M51.26 and Degeneration of intervertebral disc of lumbosacral region with discogenic back pain and lower extremity pain M51.372 [facility] [address] [place] [id number] 05/18/2024 Tj Blessing Type 2 diabetes madeline itus without complication, without long-term current use of insulin E11.9 [facility] [address] [place] [id number] 06/26/2024 Rosa Crowdy [facility] [address] [place], [place] [id number] 06/26/2024 Rosa Crowdy [facility] [address] [place] [id number] 07/13/2024 Tj Blessing [facility] [address] [place] [id number] 08/19/2024 Tj Blessing [facility] [address] [place] [id number] 11/02/2024 Tj Blessing [facility] [address] [place] [id number] 11/09/2024 Tj Blessing [facility] [address] [place] [id number] 11/09/2024 Tj Blessing Abnormal EKG R94.31 [facility] [address] [place] [id number] 11/09/2024 Tj Blessing [facility] [address] [place] [id number] 11/16/2024 Tj Blessing [facility] [address] [place] [id number] 11/16/2024 Tj Blessing Essential hypertensi on I10 [facility] [address] [place] [id number] 11/17/2024 Tj Blessing [facility] [address] [place] [id number] 12/17/2024 Tj Blessing [facility] [address] [place] [id number] 12/18/2024 Tj Blessing [facility] [address] [place] [id number] 12/25/2024 Tj Blessing [facility] [address] [place] [id number] 01/04/2025 Tj Blessing Screening for breast cancer Z12.39 ; Screening for colon cancer Z12.11 and Screening for osteoporosis Z13.820 Assessments Encounter Date Diagnosis (ICD Code) Assessment Notes Treatment Notes Treatment Clinical Notes Section Notes 03/17/2024 Type 2 diabetes mellitus without complication, [...] Atopic dermatitis, unspecified type (ICD-10 - L20.9) 06/26/2024 Type 2 diabetes mellitus without complication, without long-term current use of insulin (ICD-10 - E11.9) 07/17/2024 Mixed hyperlipidemia (ICD-10 - E78.2) 08/17/2024 Vitamin B12 deficiency (ICD-10 - E53.8) 08/17/2024 Essential hypertension (ICD-10 - I10) 07/17/2024 Type 2 diabetes mellitus without complication, without long-term current use of insulin (ICD-10 - E11.9) 10/27/2024 Pre-op exam (ICD-10 - Z01.818) PATIENT IS OF ACCEPTABLE RISK FOR PROPOSED EXCISION OF VAGINAL MESH, SEE ATTACHED LABS AND EKG 10/27/2024 Complication of implanted vaginal mesh, unspecified complication, initial encounter (ICD-10 - T85.9XXA) 11/09/2024 Abnormal EKG (ICD-10 - R94.31) 11/16/2024 Essential hypertension (ICD-10 - I10) 12/08/2024 Chronic bronchitis (ICD-10 - J42) to start with inhaler tid and prn until cough resolved fluids, rest, supportive measures for fever/symptom relief 12/16/2024 Hypomagnesemia (ICD-10 - E83.42) 12/16/2024 Acute diarrhea (ICD-10 - R19.7) dehydration precautions discussed clear liquids and advance as tolerated 12/23/2024 Anemia, unspecified type (ICD-10 - D64.9) 12/23/2024 MEGHAN (acute kidney injury) (ICD-10 - N17.9) 01/04/2025 Screening for breast cancer (ICD-10 - Z12.39) 01/04/2025 Screening for colon cancer (ICD-10 - Z12.11) 01/06/2025 Type 2 diabetes mellitus without complication, without long-term current use of insulin (ICD-10 - E11.9) 01/06/2025 MEGHAN (acute kidney injury) (ICD-10 - N17.9) Resolved 12/23/2024 Microscopic hematuria (ICD-10 - R31.29) 01/06/2025 Essential hypertension (ICD-10 - I10) Blood pressure journal 01/04/2025 Screening for osteoporosis (ICD-10 - Z13.820) 12/16/2024 Nausea (ICD-10 - R11.0) 10/27/2024 Acute URI (ICD-10 - J06.9) 07/17/2024 Essential hypertension (ICD-10 - I10) 06/26/2024 Essential hypertension (ICD-10 - I10) 05/11/2024 Degeneration of intervertebral disc of lumbosacral region with discogenic back pain and lower extremity pain (ICD-10 - M51.372) 03/17/2024 Coccydynia (ICD-10 - M53.3) 03/17/2024 DDD (degenerative disc disease), lumbar (ICD-10 - M51.36) 06/26/2024 Mixed hyperlipidemia (ICD-10 - E78.2) 07/17/2024 Vitamin B 12 deficiency (ICD-10 - E53.8) 10/27/2024 Type 2 diabetes mellitus without complication, without long-term current use of insulin (ICD-10 - E11.9) 12/16/2024 Type 2 diabetes mellitus with other specified complication, unspecified whether terminal worker insulin use (ICD-10 - E11.69) 12/23/2024 Essential hypertension (ICD-10 - I10) 12/23/2024 Type 2 diabetes mellitus without complication, without long-term current use of insulin (ICD-10 - E11.9) 12/16/2024 Lumbar pain (ICD-10 - M54.50) 10/27/2024 Essential hypertension (ICD-10 - I10) 07/17/2024 Low back pain, unspecified (ICD-10 - M54.50) Patient has L-spine epidural scheduled in 2 weeks at [facility], she will call with any new symptoms 06/26/2024 Vitamin D deficiency (ICD-10 - E55.9) 03/17/2024 Frequent urination (ICD-10 - R35.0) 03/17/2024 Acute UTI (ICD-10 - N39.0) 06/26/2024 Hypothyroidism, unspecified type (ICD-10 - E03.9) 07/17/2024 Lumbar disc herniation (ICD-10 - M51.26) 12/16/2024 BMI 33.0-33.9,adult (ICD-10 - Z68.33) 10/27/2024 Hypothyroidism, unspecified type (ICD-10 - E03.9) 10/27/2024 Mixed hyperlipidemia (ICD-10 - E78.2) 06/26/2024 Vitamin B12 deficiency (ICD-10 - E53.8) 06/26/2024 Numbness of toes (ICD-10 - R20.0) Patient has had a nerve conduction study but we do not have the results. Will try to obtain these from neurology. 10/27/2024 Gastroesophageal reflux disease, esophagitis presence not specified (ICD-10 - K21.9) 10/27/2024 Vitamin D deficiency (ICD-10 - E55.9) [...] Provider Name:Tj ng, 01/20/2025 08:24:00 AM, [address], [address], [place], [phone], Provider Name:Tj Dior hernandez, 01/27/2025 10:00:00 AM, [address], [address], [place], [id number], Insurance Providers Payer Name Payer Address Payer Phone Subscriber Number Group Number Insured Name Patient Relationship to Insured Coverage Start Date Coverage End Date MEDICARE PART B [address] [address] [place] [address] [phone] [id number] Randi Montes Self - patient is the insured [employer] [facility] [facility] [address] [place] [address] [phone] [id number] Jyoti Randi Self - patient is the insured Medications [...] x 4 LT Shoulder- Broke Ball Joint, Katie RT Shoulder Rotator Cuff Tear Repair Bladder Tumor Removal, Dr. Andrade 014 Colonoscopy 03/2016 Bladder stimulator placement 12/02/22 Lumbar disc injection 06/26/24 bladder sling removed 10/2024 Hospitalization History Reason Date(Month/Year) RT Broken Wrist- [facility] ER 05/09/2013
--- OUTSIDE RECORDS SUMMARY | 2025-01-20 08:53 | XMS_ITS | Encounter Summary ---
Author Organization [place] [address] Care Team Providers Care Pca Name Role Phone Tj Sweeney MD Primary Care Provider + [phone] Reason for Visit * Reason Onset Date Comments Results 12/31/2024 UC Encounter Details Date Type Department Care Team (Latest Contact Info) Description 12/31/2024 Results [place] [facility] [place] [address] [phone] Evangelina Cook PA-C [address] [place] [id number] URINE CULTURE (NO STAIN) Social History Tobacco [...] she is unable to sign into her [employer] account but was notified she received a message. I offered to reset pt [employer] account, pt declined. Pt informed of negative UC results documented in this encounter Plan of Treatment Upcoming Encounters Date Type Department Care Team (Late st Contact Info) Description 02/08/2025 8:30 AM EDT Office Visit [facility] [address] [phone] Evangelina Cook PA-C [address] [place] [address] documented as of this encounter Visit Diagnoses Not on filedocumented in this encounter Care Teams Pca Relationship Specialty Start Date End Date Tj Sweeney MD [address] [place] [address] PCP - General Family Medicine 12/05/23 documented as of this encounter
--- NOTE | 2025-01-20 09:35 | XR_ITS ---
FINAL REPORT CLINICAL HISTORY: SCREENING COMPARISON: None FINDINGS: Using L1-4, the bone mineral density of the spine is 0.823 g/cm2, corresponding to T-score of -2.0. Using the left hip, the bone mineral density of the femoral neck is 0.483 g/cm2, corresponding to a T-score of -3.3. Using the right hip, the bone mineral density of the femoral neck is 0.454 g/cm2, corresponding to a T-score of -3.6. NOTE: T-score: Standard deviation compared with peak bone mass of young adult mean. *Following the recommendations of the International Society of Bone densitometry, classification of hip BMD is based on the lower of two T-scores; total hip or femoral neck. IMPRESSION: Diminished bone mineral density of the lumbar spine and bilateral hips consistent with osteoporosis. Reviewed, Interpreted and Dictated by Juanjose Cano MD Transcribed by Marleny Davis Authenticated and [facility]
== END 2025-01-20 23:59 | disposition home or self-care (01) ==
LOC: RAD 08:48
PROVIDERS: PCP Family Medicine; Visit Provider Family Medicine
DX: Z12.31 Encounter for screening mammogram for malignant neoplasm of breast (principal); M81.0 Age-related osteoporosis without current pathological fracture; R92.313 Mammographic fatty tissue density, bilateral breasts
CPT/HCPCS: 77063; 77067; 77080

== ENCOUNTER 2025-01-28 10:48 | Outpatient (CLI) | payer MEDICARE, BC, SELFPAY ==
--- OUTSIDE RECORDS SUMMARY | 2024-12-29 13:00 | XMS_ITS | Encounter Summary ---
Author Organization [place] [address] Care Team Providers Care Escape Wheel Tooth Cutter Name Role Phone Tj Sweeney MD Primary Care Provider [phone] Reason for Visit * Reason Comments Follow-up 6 week PO Encounter Details Date Type Department Care Team (Latest Contact Info) Description 12/29/2024 1:00 PM EDT Office [place] [facility] [place] [address] [address] Evangelina Cook PA-C [address] [place] [phone] Postoperative examination (Primary Dx); Complication of implanted vaginal mesh, initial encounter; Urge urinary incontinence; OAB (overactive bladder); S/P implantation of urinary electronic stimulator device; Urinary frequency Social History Tobacco Use Types Packs/Day Years [...] Sign Reading Time Taken Comments Blood Pressure - - Pulse 80 12/29/2024 12:45 PM EDT Temperature - - Respiratory Rate - - Oxygen Saturation 99% 12/29/2024 12:45 PM EDT Inhaled Oxygen Concentration - - Weight 93.1 kg (205 lb 3.2 oz) 12/29/2024 12:45 PM EDT Height - - Body Mass Index 35.22 11/16/2024 10:28 AM EDT documented in this encounter Progress Notes * Evangelina Cook PA-C - 12/29/2024 1:00 PM EDT Images from the original note were not included. Evangelina Cook PA-C Post Operative Note Randi Montes 1950 Assessment: 74 y.o. female with 1. Postoperative examination 2. Complication of implanted vaginal mesh, initial encounter 3. Urge urinary incontinence 4. OAB (overactive bladder) 5. S/P implantation of urinary electronic stimulator device 6. Urinary frequency URINE CULTURE (NO STAIN) URINE CULTURE (NO STAIN) Plan: 1) Post op: S/p Bladder Mesh Excision, Cystoscopy with Dr. Hess -Incisions healing well -PVR WNL 2) Urge urinary incontinence: Worsened. Sub-optimal relief of UUI symptoms despite Interstim placement. -Decrease bladder irritants -Urine sample sent for culture, obtained with straight catheterization, to r/o UTI contributing -Start Gemtesa 75 mg; samples provided Reviewed potential SE of MUR[place]O, nausea, runny nose Recommend avoiding Myrbetriq at this time d/t labile BP -Interstim settings adjusted today; program changed Interstim interrogation: turned on/functioning, impedance and battery checked - no issues Interstim reprogrammed: P2 @ 0.7 -Consider x-ray to assess for lead migration if no improvement at f/u 3) F/u on next month's [employer] Day HPI: Randi Montes is a 74 y.o. who is 6 weeks s/p Bladder Mesh Excision, Cystoscopy with Dr. Hess. S/p Interstim device placement with Dr. Hodge on 12/12/23 Patient almost went into kidney failure last week, requiring hospitalization for 4 days. Otherwise,she's been doing okay since surgery. Her only issue is that she can't hold her urine . She's wearing Depends because she can't get to the bathroom in time. She typically drinks 2 bottles of water, 1Diet Coke, and orange sugar free Gatorade throughout the day. Vaginal bleeding: None Vaginal discharge: None UTI symptoms: None but she was told that she has a bladder infection by her PCP, currently on Macrobid Difficulty emptying: None Pain: None Bowel movements: No straining Review of Systems: Constitutional: Denies fevers GI: Denies nausea, vomiting Genitourinary: See above notes Focused Physical Exam: Vitals: 12/29/24 1245 Pulse: 80 SpO2: 99% Skein Yard Drier: Analia Urine sample and PVR obtained with straight catheterization: 20 ml Post Operative Exam Surgical sites Incisions: Vaginal Intact, healing Interstim Interrogation: [employer]tr[employer] rep present? No Interstim pocket site: Right Is Interstim turned on? Yes Current program: 4 Current amplitude: 1.8 Impedance checked: No issues Battery checked: OK Interstim Reprogrammed: Program changed: 2 Amplitude changed: 0.7 Evangelina Cook PA-C [facility] [place] [address] [address] 12/29/24 1:20 PM documented in this encounter Plan of Treatment Upcoming Encounters Date Type Department Care Team (Late st Contact Info) Description 02/08/2025 8:30 AM EDT Office Visit [facility] [place] [address] [phone] Evangelina oCok PA-C [address] [place] [address] documented as of this encounter Procedures Procedure Name Priority Date/Time Associated Diagnosis Comments URINE CULTURE (NO STAIN) Routine 12/29/2024 1:19 PM EDT Urinary frequency documented in this encounter Results * URINE CULTURE (NO STAIN) (12/29/2024 1:19 PM EDT) Culture No growth at 30 hours. 12/31/2024 5:14 AM EDT [employer] Urine URINARY BLADDER STRUCTURE / Unknown 12/29/2024 1:19 PM EDT 12/29/2024 1:19 PM EDT us Evangelina Cook PA-C MICROBIOLOGY - GENERA L ORDERABLES Final Result [employer] [address] [facility] , [place] [address] documented in this encounter Visit Diagnoses Diagnosis Postoperative examination- Primary Follow-up examination, following unspecified surgery Complication of implanted vaginal mesh, initial encounter Urge urinary incontinence Urge incontinence OAB (overactive bladder) Hypertonicity of bladder S/P implantation of urinary electronic stimulator device Urinary frequency documented in this encounter Care Teams Escape Wheel Tooth Cutter Relationship Specialty Start Date End Date Tj Sweeney MD [address] [place] [address] PCP - General Family Medicine 12/05/23 documented as of this encounter
--- OUTSIDE RECORDS SUMMARY | 2025-01-06 11:00 | XMS_ITS ---
Author Organization [facility] Address [address] [place] [phone] Care Team Providers Care Division Roadmaster Name Role Phone Tj Sweeney Primary Care [...] day 08/17/2024 Not-Taking ADVOCATE GLUCOSE METER NON-SPEAKING [id number] - 02/12/2019 Active ADVOCATE TEST STRIPS - [...] 01/06/2025 Encounters Encounter Location Date Provider Diagnosis [facility] [address] [facility] [address] [place] [address], [place] [id number] 01/06/2025 Tj Sweeney Type 2 diabetes madeline [...] Notes * DONPipertheronDOB: [birth year] (74 yo F)Acc No.[id number]:01/06/2025 Patient: Randi TERESA Provider: Claudine Sweeney M.D. :1950 A ge:74 Y S ex:Female Date:01/06/2025 Address:[address] [place], [place] [address], [id number] Subjective: * Chief Complaints: * 1 . [...] 4 , LT Shoulder- Broke Ball Joint, [place] , RT Shoulder Rotator Cuff Tear Repair , Bladder Tumor Removal, Dr. 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 * Hospitalization/Major Diagno stic Procedure: R T Broken Wrist- [facility] ER 05/09/2013. * Family History: F [...] Medications: T allieg ADVOCATE GLUCOSE METER NON-SPEAKING NI2485U - , Taking ADVOCATE TEST STRIPS - [...] G 2211 Complex e/[place], [address] CAPILLARY BLOOD DRAW, 82432 GLYCATED HEMOGLOBIN TEST, Modifiers: QW , 1036F TOBACCO NON-USER, 3044F HG A1C LEVEL LT 7.0%, G8950 PREHTN/HTN BP DOC INDCD F/U DOC, G8753 MOST RECENT SYSTOLIC BP >= 140MM HG, G8754 MOST RECENT DIASTOLIC BP < 90MM HG * Follow Up: 4 Weeks * Images: Billing Information: * Visit Code: 74492 Office Visit, Est Pt., Level 3. * Procedure Codes: G2211 Complex e/[place]. [address] CAPILLARY BLOOD DRAW. 89049 GLYCATED HEMOGLOBIN TEST. Modifiers: QW 1036F TOBACCO NON-USER. 3044F HG A1C LEVEL LT 7.0%. G8950 PREHTN/HTN BP DOC INDCD F/U DOC. G8753 MOST RECENT SYSTOLIC BP >= 140MM HG. G8754 MOST RECENT DIASTOLIC BP < 90MM HG. * Electronic signature of Yamilex Sweeney MD on 01/28/2025 at 10:53 AM EDT Sign off status: Pending * Provider: Claudine Sweeney M.D. Date: 0 01/06/2025 Generated for Brock chapman/See/Omayraitting on: 0 01/28/2025 10:53 AM EDT History and Physical Notes * [...]
--- OUTSIDE RECORDS SUMMARY | 2025-01-27 06:00 | XMS_ITS ---
Author Organization [facility] Address [address] [place] [id number] Care Team Providers Care Newspaper Journalist Name Role Phone Tj Sweeney Primary Care [...] Interpretation:271 Performing Lab: Notes/Report: Test performed by [facility] [address] [place], [place] [address] , [address], [place] [address] Chapincito Branch MD, Rhia CLIA: [id number] Vitamin B12 474 250-0098 pg/mL P-Basic Metabolic Panel (BMP ) Reviewed date:01/28/2025 08:56:39 AM Interpretation:K 6.6, Glu 140, BUN 28, Creat 1.27, eGFR 45 Performing Lab: Notes/Report: Test performed by [facility] [address] [place], [place] [address] , [address], [place] [address] Chapincito Branch MD, Rhia CLIA: [id number] Sodium 138 135-145 mmol/L Potassium 6.6 3.5-5.3 mmol/L ALERT VALUE Results were repeated and confirmed. Chloride 104 97-108 mmol/L CO2 23 20-32 mmol/L Glucose 140 65-99 mg/dL BUN 28 8-23 mg/dL Creatinine 1.27 0.50-1.00 mg/dL Calcium 9.7 8.6-10.4 mg/dL eGFR by Creatinine 45 >59 mL/min/1.73m2 P-T4 Free (thyroxine) Reviewed date:01/28/2025 08:56:39 AM Interpretation:Normal Performing Lab: Notes/Report: Test performed by [facility] [address] [place] [address] , [address], [place] [address] Chapincito Branch MD, Rhia CLIA: [id number] Thyroxine Free (free T4) 1.26 0.86-1.76 ng/dL P-TSH Reviewed date:01/28/2025 08:56:39 AM Interpretation:Normal Performing Lab: Notes/Report: Test performed by [facility] [address] [place] [address] , [address], [place] [address] Chapincito Branch MD, Rhia CLIA: [id number] TSH 1.63 0.43-5.25 mU/L P-Vitamin D 25-Hydroxy Reviewed date:01/28/2025 08:56:39 AM Interpretation:48.6 Performing Lab: Notes/Report: Test performed by [facility] [address] [place] [address] , [address], [place] [address] Chapincito Branch MD, Rhia CLIA: [id number] Vitamin D 25-Hydroxy 48.6 30.0-100.0 ng/mL Interpretation [...] MCG 1 tab(s) ora lly once a day; Duration: 90 days Active Triamcinolone Acetonide 0.1 % 1 application Externally Twice a day 06/26/2024 Active Metoprolol Succinate ER 200 MG 1 tablet Orally Once a day; Duration: 90 days Active Ozempic (2 MG/DOSE) 8 MG/3ML 2 mg Subcut aneous once weekly 05/18/2024 Active Voltaren 1 % 2 g applied topicall y 4 times a day, prn Active Ibuprofen 600 MG TAKE 1 TABLET BY ZULEIMA TH FOUR TIMES DAILY NEEDED; Duration: 15 Active ADVOCATE TEST STRIPS - 02/12/2019 Active Albuterol Sulfate HFA 108 (90 Base) MCG/ACT 2 puff(s) inhaled tid and q2h prn 09/04/2022 Active Gemtesa 75 MG 1 tablet Orally Once a day Active ADVOCATE GLUCOSE METER NON-SPEAKING [id number] - 02/12/2019 Active amLODIPine Besylate 5 MG 1 tab(s) orally once a day; Duration: 90 days Active Vital Signs Weight 207 lbs 01/27/2025 Blood pressure systolic 140 mm Hg 01/28/20 25 Blood pressure diastolic 82 mm Hg 025 Heart Rate 72 /min 01/27/2025 Height 64 in 01/27/2025 BMI 35.53 kg/m2 01/27/2025 Encounters [facility]counter [facility] Date [facility] [address], [place] [phone] 01/27/2025 Tj Sweeney Essential hypertensi on I10 [...] osteoporosis (ICD-10 - M81.0) Plan Of Treatment Next Appt Details Follow Up: via phone to repo rt test results,6 Months, Reason: Progress Notes * Randi MONTESDOB: [birth year] (74 yo F)Acc No.[id number]:01/27/2025 Progress Notes Patient: Randi TERESA Provider: Claudine Sweeney M.D. :1950 A ge:74 Y S ex:Female Date:01/27/2025 Address:[address] [place], [place] [address], [id number] Subjective: * Chief Complaints: * 1 . [...] 4 , LT Shoulder- Broke Ball Joint, [place] , RT Shoulder Rotator Cuff Tear Repair , Bladder Tumor Removal, Dr. 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 * Hospitalization/Major Diagno stic Procedure: R T Broken Wrist- [facility] ER 05/09/2013. * Family History: F [...] day , Taking ADVOCATE GLUCOSE METER NON-SPEAKING [id number] - , Taking ADVOCATE TEST STRIPS - [...] Temp: 97.9, BP: 140/82, HR: 72, Nurse: kk, Ht: 64, BMI:35.53. Assessment: * Assessment: 1. E ssential hypertension - I10 (Primary) 2 . H ypothyroidism, unspecified type - E03.9 3 . V itamin D deficiency - E55.9 4 . V itamin B12 deficiency - E53.8 5 . R enal insufficiency - N28.9 6 .?Postmenopausal osteoporosis - M81.0 Plan: * Treatment: Value Reference Range T hyroxine Free (free T4) 1.26 0.86-1.76 - ng/d L * Erika Thomas 01/28/2025 08: 56:32 AM EDT > See phone encounter ?LAB: P-TSH (Collection Date & Time - 01/27/2025 09:37 AM)?Normal* Value Reference Range T SH 1.63 0.43-5.25 - mU/L * Erika Thomas 01/28/2025 08: 56:32 AM EDT > See phone encounter 2.?Vitamin D deficiency?LAB: P-Vitamin D 25-Hydroxy (Collection Date & Time - 01/27/2025 09:37 AM)? 48.6* Value Reference Range V itamin D 25-Hydroxy 48.6 30.0-100.0 - ng/mL * Erika Thomas 01/28/2025 08: 56:32 AM EDT > See phone encounter 3.?Vitamin B12 deficiency?LAB: P-Vitamin B12 (Collection Date & Time - 01/27/2025 09:37 AM)?271* Value Reference Range V itamin B12 001 315-9951 - pg/mL * Erika Thomas 01/28/2025 08: 56:32 AM EDT > See phone encounter 4.?Renal insufficiency?LAB: P-Basic Metabolic Panel (BMP) (Collection Date [...] Creatinine 45 L >59 - mL/min/1.73m2 * Erika Thomas 01/28/2025 08: 56:32 AM EDT > See phone encounter * Follow Up: v ia phone to report test results,6 Months * Images: Billing Information: * Visit Code: 05200 Office Visit, Est Pt., Level 4. * Procedure Codes: * Electronic signature of Yamilex Sweeney MD on 01/28/2025 at 10:54 AM EDT Sign off status: Pending * Provider: Claudine Sweeney M.D. Date: 01/27/2025 Generated for Brock chapman/See/eTransmitting on: 01/28/2025 10:54 AM EDT History and Physical Notes * HPI (History of Present Illness) Category Sub-Category Detail Notes Category Not es Cardiology Blood Pressure Elevated Pt here for 1 mo f/u on hypertension. Pt states she has been checking bp at home but forgot to bring journal. Pt states bp has been 125-140/70's
--- OUTSIDE RECORDS SUMMARY | 2025-01-28 10:54 | XMS_ITS | Encounter Summary ---
Author Organization [facility] [place] [address] Care Team Providers Care Gunner'S Mate G Name Role Phone Tj Sweeney MD Primary Care Provider + [phone] Reason for Visit * Reason Onset Date Comments Results 12/31/2024 UC Encounter Details Date Type Department Care Team (Latest Contact Info) Description 12/31/2024 Results Follow-Up [facility] [place] Urogynecology [address] [phone] Evangelina Cook PA-C [address] [place] [phone] URINE CULTURE (NO STAIN) Social History Tobacco [...] she is unable to sign into her [employer] account but was notified she received a message. I offered to reset pt [employer] account, pt declined. Pt informed of negative UC results documented in this encounter Plan of Treatment Upcoming Encounters Date Type Department Care Team (Late st Contact Info) Description 02/08/2025 8:30 AM EDT Office Visit [facility]ro[facility]ne[facility] [address] [phone] Evangelina Cook PA-C [address] [place] [address] documented as of this encounter Visit Diagnoses Not on filedocumented in this encounter Care Teams Gunner'S Mate G Relationship Specialty Start Date End Date Tj Sweeney MD [address] [place] [phone] PCP - General Family Medicine 12/05/23 documented as of this encounter
--- OUTSIDE RECORDS SUMMARY | 2025-01-28 10:54 | XMS_ITS | Clinical Summary ---
Author Organization [facility] Address [address] [place] [phone] Phone Care Team Providers Care Tower Watchman Name Role Phone Tj Sweeney MD Primary Care Provider [phone] Allergies Active Allergy Reactions Criticality Noted Date [...] Department Care Team Description 12/31/2024 Results Follow-Up [facility] Urogynecology [address] [phone] Evangelina Cook PA-C URINE CULTURE (NO STAIN) 12/29/2024 1:00 PM EDT Office Visit [facility] Urogynecology [address] [phone] Evangelina Cook PA-C Postoperative examination (Primary Dx); Complication of implanted vaginal mesh, initial encounter; Urge urinary incontinence; OAB (overactive bladder); S/P implantation of urinary electronic stimulator device; Urinary frequency 11/18/2024 Telephone [facility] Urogynecology [address] [phone] Mariann Birch LPN Post-op Call 11/16/2024 12:11 PM EDT Anesthesia Event [facility] [address] [place] [address] Omar Davisno MD Salyer, Corey L, AGRICULTURAL PRODUCE SORTER 11/16/2024 12:00 PM EDT - 11/16/2024 1:05 PM EDT Surgery [facility] [address] [place] [address] Shahnaz Hess MD REMOVAL OF VAGINAL SLING OR MESH (TOT-TRANSOBTURATOR TAPE, TVT- TENSION-FREE VAGINAL TAPE, /SECUR/ELEVATE) 11/16/2024 9:38 AM EDT - 11/16/2024 4:08 PM EDT Hospital Encounter [facility] SAME DAY SURGERY [address] [place] [address] Shahnaz Hess MD Complication of implanted vaginal mesh, initial encounter; Exposure of implanted vaginal mesh, subsequent encounter Discharge Disposition: Home or Self Care 11/16/2024 Travel 11/10/2024 Orders Only [facility] [address] [phone] Mariann Birch LPN Complication of implanted vaginal mesh, initial encounter (Primary Dx); Exposure of implanted vaginal mesh, subsequent encounter 11/09/2024 Telephone [facility] [address] [phone] Mariann Birch LPN Pre-op Call 11/06/2024 Travel from Last 3 Months Surgical History Surgery Date Site/Laterality Comments COLONOSCOPY CHOLECYSTECTOMY FOOT SURGERY Bilateral heel spur removal KNEE SURGERY bilateral anthroscopy HYSTERECTOMY ovaries left BREAST SURGERY Left Breast Cyst removal BLADDER SURGERY Bladder tuck and Bladder tumor removal SHOULDER SURGERY Left broken ball joint, Rt- rotator cuff repair TUBAL LIGATION BLADDER SURGERY 12/12/2023 N/A Full Interstim Implant; Surgeon: Shahnaz Hess MD; Location: [facility]; Service: Urogynecology Medical devices from this surgery are in the Medical Devices section. CATARACT REMOVAL Bilateral CYSTOSCOPY 11/16/2024 Urethra/N/A .; Surgeon: Shahnaz Hess MD; Location: [facility]; Service: Urogynecology Medical History Medical [...] 8:30 AM EDT Office Visit [facility] [address] [phone] Evangelina Cook PA-C [address] [place] [address] Health Maintenance Due Date Last [...] this topic Medical Devices Implanted Type Area Sewing Techniques Demonstrator Device Identifier Shelf Expiration Date Model / Serial / Lot Kit Mri Lead Interstim Surescan 28cm - [id number] Implanted:Qty: 1 on 12/12/2023 by Shahnaz Hess MD at [facility] Right: Back [employer]:NEURO 05/27/2025 [id number] / / [id number] Neurstm Intstm Ii 2x1.7in 0.3in Dbl Troc Pnt Prim Cell - [id number] Implanted:Qty: 1 on 12/12/2023 by Shahnaz Hess MD at [facility] Right: Back [employer]:NEURO 08/18/2025 [id number] / [id number] / Envelope Tyrx Absb Anbctrl Mul-Prgm 2.5x2.7in 1x8mm - [id number] Implanted:Qty: 1 on 12/12/2023 by Shahnaz Hess MD at [facility] Right: Back [employer]:NEURO [id number] 07/18/2024 [id number] / / [id number] Procedures Procedure Name Priority Date/Time Associated Diagnosis Comments URINE CULTURE (NO STAIN) Routine 025 1:19 PM EDT Urinary frequency SCANNED RHYTHM STRIPS 11/17/2024 9:05 AM EDT GLUCOSE METER POC Routine 11/16/2024 1:2 5 PM EDT PATHOLOGY TISSUE REQUEST Routine 025 12:48 PM EDT Complication of implanted vaginal mesh, initial encounter INTRAOP AIRWAY PLACEMENT Routine 025 12:20 PM EDT MA CYSTOURETHROSCOPY 11/16/2024 12:07 PM EDT Complication of implanted vaginal mesh, initial encounter Special Needs sk MA RMVL/REVJ SLING STRESS INCONTINENCE 11/16/2024 12:07 PM EDT Complication of implanted vaginal mesh, initial encounter Special Needs sk GLUCOSE METER POC Routine 11/16/2024 10:08 AM EDT from Last 3 Months Results * URINE CULTURE (NO STAIN) (12/29/2024 1:19 PM EDT) Culture No growth at 30 hours. 12/31/2024 5:14 AM EDT [facility] Urine URINARY BLADDER STRUCTURE / Unknown 12/29/2024 1:19 PM EDT 12/29/2024 1:19 PM EDT us Evangelina Cook PA-C MICROBIOLOGY - GENERA L ORDERABLES Final Result [facility] [address] [place] [address] , [address] [place] [id number] * SCANNED RHYTHM STRIPS (11/17/2024 9:05 AM EDT) Anatomical Region Laterality Modality Other 11/17/2024 9:05 AM EDT us Unknown Provider IMG ECG ORDERABLES Final Result * (ABNORMAL) GLUCOSE METER POC (11/16/2024 1:25 PM EDT) Only the most recent of2 resultswithin the time period is included. Glucose Meter POC 134(H) 70 - 100 mg/dL 11/16/2024 1:27 PM EDT [facility] Sample Type Capillary 11/16/2024 1:27 PM EDT [facility] Patient Status Non-Critical Patient 11/16/2024 1:27 PM EDT [facility] Blood BLOOD SPECIMEN / Unknown 11/16/2024 1:25 PM EDT 11/16/2024 1:27 PM EDT Shahnaz Hess MD POINT OF CARE TEST ORDE SCARLETT Final Result [facility] [address] [place] [address] * PATHOLOGY TISSUE REQUEST (11/16/2024 12:48 PM EDT) CASE REPORT Surgical Pathology Case: [id number] Authorizing Provider: Shahnaz Hess MD Collected: 11/16/2024 1248 Ordering Location: [facility] Received: 11/16/2024 1937 Pathologist: Jaqueline Huang MD Specimen: Vagina, mesh 11/17/2024 3:45 PM EDT [facility] FINAL DIAGNOSIS Mesh, removal: - Gross examination only. 11/17/2024 3:45 PM EDT [facility] at 1545 EDT GROSS DESCRIPTION The specimen is received in form, labeled with the patient's name, medical record number, and mesh . It consists of 3 irregular fragments of blue mesh material with adherent, embedded pink-purple tissue, ranging from 0.7 x 0.5 x 0.2 cm to 2.4 x 0.6 x 0.2 cm. No sections are submitted for intraoperative consultation. RENETTA Turner, SONA([facility]) 11/17/2024 11/17/2024 3:45 PM EDT [facility] EMBEDDED IMAGES 11/17/2024 3:45 PM EDT [facility] Communications Electrician Supervisor VAGINAL STRUCTURE / Unknown 11/16/2024 12:48 PM EDT 11/16/2024 7:37 PM EDT us Shahnaz Hess MD PATHOLOGY ORDERABLES Fi nal Result Performing Organization Address [facility] Co de Phone Number [facility] [address] [place] [address] * INTRAOP AIRWAY PLACEMENT (11/16/2024 12:20 PM EDT) Narrative [facility] - 11/16/2024 12:20 PM EDT Mario Vazquez, OPERATIONS ARCHITECT 11/16/2024 12:21 PM Intraop Airway Placement: Date/Time: [...] Insertion attempts: 1 us Omar Davison MD MA ANESTHESIA Final Result Performing Organization Address [facility] Co de Phone Number [facility] [address] [place] [address] from Last 3 Months Insurance MEDICARE [place] PART A AND B MEDICARE [place] PART A AND B Member Subscriber Plan / Payer (Ef fective 2017-Present) Name:Randi Montes Member ID:[id number] Relation to Subscriber:Self Name:Randi Montes Subscriber ID:[id number] Payer ID:Not on file Group ID:Not on file Type:Not on file Address: [address] PPO Care Teams Tower Watchman Relationship Specialty Start Date End Date Tj Sweeney MD [address] [place] [phone] PCP - General Family Medicine 12/05/23
--- OUTSIDE RECORDS SUMMARY | 2025-01-28 10:55 | XMS_ITS | Patient Health Record ---
Author Organization [facility] Address [address] [place] [id number] Care Team Providers Care Business Banking Representative Name Role Phone Tj Sweeney Primary Care Provider Meron Smith Unavailable [phone] Rosa Souza Unavailable [phone] Allergies Allergen (clinical drug ingredient) Drug/Non Drug [...] Notes/Report: glycohemoglobin 6.8% 5 - 6.5 % P-Vitamin B12 Reviewed date:01/28/2025 08:56:39 AM Interpretation:271 Performing Lab: Notes/Report: Test performed by [facility] [place] [address] [place], [place] [address] , [address], [place] [address] Chapincito Branch MD, Varitype Operator CLIA: [id number] Vitamin B12 828 088-4430 pg/mL P-Basic Metabolic Panel (BMP ) Reviewed date:01/28/2025 08:56:39 AM Interpretation:K 6.6, Glu 140, BUN 28, Creat 1.27, eGFR 45 Performing Lab: Notes/Report: Test performed by [facility], [address] , [address], [place] [address] Chapincito Branch MD, Varitype Operator CLIA: [id number] Sodium 138 135-145 mmol/L Potassium 6.6 3.5-5.3 mmol/L ALERT VALUE Results were repeated and confirmed. Chloride 104 97-108 mmol/L CO2 23 20-32 mmol/L Glucose 140 65-99 mg/dL BUN 28 8-23 mg/dL Creatinine 1.27 0.50-1.00 mg/dL Calcium 9.7 8.6-10.4 mg/dL eGFR by Creatinine 45 >59 mL/min/1.73m2 P-T4 Free (thyroxine) Reviewed date:01/28/2025 08:56:39 AM Interpretation:Normal Performing Lab: Notes/Report: Test performed by [facility] [address] , [place] [address] Chapincito Branch MD, Varitype Operator CLIA: [id number] Thyroxine Free (free T4) 1.26 0.86-1.76 ng/dL P-TSH Reviewed date:01/28/2025 08:56:39 AM Interpretation:Normal Performing Lab: Notes/Report: Test performed by [facility] [address] , [address], [place] [address] Chapincito Branch MD, Varitype Operator CLIA: [id number] TSH 1.63 0.43-5.25 mU/L P-Vitamin D 25-Hydroxy Reviewed date:01/28/2025 08:56:39 AM Interpretation:48.6 Performing Lab: Notes/Report: Test performed by [facility] [place] [address] [place] [address] , [address], [place] [address] Chapincito Branch MD, Varitype Operator CLIA: [id number] Vitamin D 25-Hydroxy 48.6 30.0-100.0 ng/mL Interpretation of Vitamin D 25 OH: < 20 ng/mL - Deficiency 20 - 29 ng/mL - Insufficiency 30 - 100 ng/mL - Sufficiency > 100 ng/mL - Super-therapeutic- toxicity may occur above this level. Clinical correlation required. P-Vitamin B12 Reviewed date:08/19/2024 09:25:17 AM Interpretation:293 Performing Lab: Notes/Report: Test performed by [facility] [address] , [place] [address] Chapincito Branch MD, Varitype Operator CLIA: [id number] Vitamin B12 981 715-5614 pg/mL P-Vitamin D 25-Hydroxy Reviewed date:07/01/2024 09:10:45 AM Interpretation:39.6 Performing Lab: Notes/Report: Test performed by [facility] [address] , [address], [place] [address] Chapincito Branch MD, Varitype Operator CLIA: [id number] Vitamin D 25-Hydroxy 39.6 30.0-100.0 ng/mL Interpretation of Vitamin D 25 OH: < 20 ng/mL - Deficiency 20 - 29 ng/mL - Insufficiency 30 - 100 ng/mL - Sufficiency > 100 ng/mL - Super-therapeutic- toxicity may occur above this level. Clinical correlation required. P-TSH reflex to FT4 Reviewed date:07/01/2024 09:10:45 AM Interpretation:Normal Performing Lab: Notes/Report: Test performed by [facility] [address] , [place] [address] Chapincito Branch MD, Varitype Operator CLIA: [id number] TSH reflex to FT4 1.49 0.43-5.25 mU/L P-Lipid Panel Reviewed date:07/01/2024 09:10:45 AM Interpretation:trigs 182 Performing Lab: Notes/Report: Test performed by [facility] [address] , [place] [id number] Chapincito Branch MD, Varitype Operator CLIA: [id number] Cholesterol 116 <200 mg/dL Triglycerides 182 <150 [...] ATPIII guidelines LDL/HDL Ratio 0.7 <3.3 Ratio LDL Cholesterol Patient History Test Date: 07/19/2023 LDL Results: 60 Units: mg/dL % Change: - Test Date: 06/26/2024 LDL Results: 33 Units: mg/dL % Change: -45% P-Comprehensive Metabolic Pa fouzia (CMP) Reviewed date:07/01/2024 09:10:45 AM Interpretation:gluc 150 Performing Lab: Notes/Report: Test performed by [facility] [address] [facility] , [address], [place] [address] Chapincito Branch MD, Varitype Operator CLIA: [id number] Sodium 142 135-145 mmol/L Potassium 3.7 3.5-5.3 [...] Interpretation:<150 Performing Lab: Notes/Report: Test performed by [facility], [address] , [address], [place] [address] Chapincito Branch MD, Varitype Operator CLIA: [id number] Vitamin B12 <885 202-5992 pg/mL Glycohemoglobin A1c (in hous e) Reviewed [...] - 38 platlet 465 100 - 400 MRI : Spine, Lumbosacral, wi thout contrast Reviewed date:05/12/2024 11:04:12 AM Interpretation:Abnormal Performing Lab: Notes/Report: Abnormal TEN-UTI panel Reviewed date:03/19/2024 12:10:39 PM Interpretation:sensitive Performing Lab: Notes/Report: sensitive Glycohemoglobin A1c (in hous e) Reviewed date:03/17/2024 10:05:33 AM Interpretation: Performing Lab: Notes/Report: glycohemoglobin 7.6% 5 - 6.5 % Glucose (In-House) Reviewed date:03/17/2024 10:05:41 AM Interpretation: Performing Lab: Notes/Report: blood glucose 170 74 - 106 mg/dL Urinalysis - Inhouse Reviewed date:03/17/2024 10:05:51 AM Interpretation: Performing Lab: Notes/Report: Color/Clarity yellow/cloudy Leuk 1+ Nitrite Neg Urobili 3.2 Protein Neg pH 5.5 Blood Trace-Intact Sp. Gr. 1.025 Ketone Neg Bili Neg Gluc Neg CBC Venipuncture (in house) Reviewed date:12/16/2024 11:03:54 [...] 44 Performing Lab: Notes/Report: Test performed by [facility] [address] [place] [address] , [address], [place] [address] Chapincito Branch MD, Varitype Operator CLIA: [id number] Sodium 135 135-145 mmol/L Potassium 3.5 3.5-5.3 [...] Interpretation:1.7 Performing Lab: Notes/Report: Test performed by [facility] [place] [address] [place] [address] , [address], [place] [address] Chapincito Branch MD, Varitype Operator CLIA: [id number] Magnesium 1.7 1.6-2.4 mg/dL TEN-UTI panel Reviewed date:12/25/2024 09:52:14 AM Interpretation:Enterococcus faecalis Performing Lab: Notes/Report: Enterococcus faecalis Bone density Reviewed date:01/28/2025 08:56:39 AM Interpretation:osteoporosis, new Dx Performing Lab: Notes/Report: osteoporosis, new Dx Bone density osteoporosis, new diagnosis Mammogram Reviewed date:01/26/2025 11:58:08 AM Interpretation:Negative Performing Lab: Notes/Report: Negative result Negative Urinalysis - Inhouse Reviewed date:05/06/2024 11:21:22 AM Interpretation: Performing Lab: Notes/Report: Color/Clarity yellow/clear Leuk 1+ Nitrite neg Urobili 3.2 Protein 1+ pH 5.5 Blood trace-intact Sp. Gr. >=1.030 Ketone neg Bili 1+ Gluc neg TEN-UTI panel Reviewed date:05/11/2024 01:42:33 PM Interpretation:Negative Performing Lab: Notes/Report: Negative Influenza Screen (in house) Reviewed date:07/09/2024 03:13:02 [...] Interpretation:neg Performing Lab: Notes/Report: neg Result: neg Rapid Strep- Inhouse Reviewed date:10/27/2024 12:15:12 PM [...] - 38 plat 391 100 - 400 Urinalysis - Inhouse Reviewed date:12/23/2024 01:08:58 PM [...] 45 Performing Lab: Notes/Report: Test performed by [facility] [place] [address] [place] [address] , [address], [place] [address] Chapincito Branch MD, Varitype Operator CLIA: [id number] Sodium 143 135-145 mmol/L Potassium 4.8 3.5-5.3 mmol/L Chloride 103 97-108 mmol/L CO2 27 22-32 mmol/L Glucose 120 65-99 mg/dL BUN 13 8-23 mg/dL Creatinine 1.26 0.50-1.00 mg/dL Calcium 9.1 8.6-10.4 mg/dL eGFR by Creatinine 45 >59 mL/min/1.73m2 EKG Reviewed date:11/11/2024 12:59:17 PM Interpretation: Performing Lab: Notes/Report: Reason For Referral Diagnosis 1 DDD (degenerative di sc disease), lumbar (M51.36) Diagnosis 2 Coccydynia (M53.3) Diagnosis 3 Lumbar disc herniati on (M51.26) Referral Organization [facility] Referring Provider First Name Tj Referring Provider Last Name Rosston Referring Provider Speciality [place] Referred Provider Houston Landry Referred Provider Specialty Pain Managem ent General Notes Zita Thornton 024 3:03:00 PM > faxed to [facility] Pain Management Referral Priority Routine Medications Medication SIG (Take, Route, Frequency, Duration) Notes Start Date End Date Status Triamcinolone Acetonide 0.1 % 1 application Externally Twice a day 06/26/2024 Active Metoprolol Succinate ER 200 MG 1 tablet Orally Once a day; Duration: 90 days Active Ozempic (2 MG/DOSE) 8 MG/3ML 2 mg Subcut aneous once weekly 05/18/2024 Active Lisinopril 40 MG 1/2 tab(s) orally on ce a day Active ADVOCATE TEST STRIPS - 02/12/2019 Active Albuterol Sulfate HFA 108 (90 Base) MCG/ACT 2 puff(s) inhaled tid and q2h prn 09/04/2022 Active Voltaren 1 % 2 g applied topicall y 4 times a day, prn Active Ibuprofen 600 MG TAKE 1 TABLET BY ZULEIMA FOUR TIMES DAILY NEEDED; Duration: 15 Active Gemtesa 75 MG 1 tablet Orally Once a day Active ADVOCATE GLUCOSE METER NON-SPEAKING [id number] - 02/12/2019 Active amLODIPine Besylate 5 MG [...] Status Risk Notes Problem Vitamin D deficiency (07159292) Vitamin D deficiency (E55.9) Active confirmed Problem Vitamin B12 deficiency (121439295) Vitamin B12 deficiency (E53.8) Active confirmed Problem Essential hypertension (80015383) Essential hypertension (I10) Active confirmed Problem Abnormal mammogram (725631885) Abnormal mammogram (R92.8) Active confirmed Problem Diverticulitis (25002610) Diverticulitis (K57.92) Active confirmed Problem Obese class I (148839555050402) BMI 33.0-33.9,adult (Z68.33) Active confirmed Problem Environmental allergy (499919879) Environmental allergies (Z91.09) Active confirmed Problem Fibromyalgia (955588198) Fibromyalgia (M79.7) Active confirmed Problem Mixed hyperlipidemia (442623937) Mixed hyperlipidemia (E78.2) Active confirmed Problem Hypomagnesemia (187139961) Hypomagnesemia (E83.42) Active confirmed Problem Urge incontinence of urine (11866069) Urge incontinence (N39.41) Active confirmed Problem Constipation (00506548) Constipation, unspecified constipation type (K59.00) Active confirmed Problem Mammography abnormal (858542145) Abnormal mammogram of left breast (R92.8) Active confirmed Problem Gastroesophageal reflux disease (721833229) Gastroesophageal reflux disease, esophagitis presence not specified (K21.9) Active confirmed Problem Chronic bronchitis (33138316) Chronic bronchitis (J42) Active confirmed Problem Diverticular disease of colon (315418238) Diverticulosis of large intestine without hemorrhage (K57.30) Active confirmed Problem Leukocytosis (472776050) Leukocytosis, unspecified type (D72.829) Active confirmed Problem Chronic vaginitis (94941488) Chronic vaginitis (N76.1) Active confirmed Problem Anemia (072930021) Anemia, unspecified type (D64.9) Active confirmed Problem Subacute vaginitis (72284245239315158) Subacute vaginitis (N76.1) Active confirmed Problem Hypothyroidism (74120977) Hypothyroidism, unspecified type (E03.9) Active confirmed Problem Coccydynia (63687445) Coccydynia (M53.3) Active confirmed Problem Atopic dermatitis (78535845) Atopic dermatitis, unspecified type (L20.9) Active confirmed Problem Diverticulitis of sigmoid colon (118494844) Diverticulitis of sigmoid colon (K57.32) Active confirmed Problem Prolapsed lumbar intervertebral disc (638781378) Lumbar disc herniation (M51.26) Active confirmed Problem Type II diabetes mellitus without complication (378619497) Type 2 diabetes mellitus without complication, without long-term current use of insulin (E11.9) Active confirmed Problem Urinary incontinence (426014575) Urinary incontinence, unspecified type (R32) Active confirmed Problem Degenerative disc disease (15093720) DDD (degenerative disc disease), lumbar (M51.36) Active confirmed Problem Chronic rhinitis (22122694) Rhinitis, unspecified type (J31.0) Active confirmed Problem Skin sensation disturbance (72859787) Burning sensation of feet (R20.8) Active confirmed Problem Mixed incontinence (881015119) Mixed stress and urge urinary incontinence (N39.46) Active confirmed Problem Age-related osteoporosis (845070655) Osteoporosis, unspecified osteoporosis type, unspecified pathological fracture presence (M81.0) Active confirmed Problem Seasonal allergic rhinitis (276405727) Seasonal allergic rhinitis, unspecified trigger (J30.2) Active confirmed Problem Type II diabetes mellitus without complication (812366456) Type 2 diabetes mellitus without complication, 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) Active confirmed Problem Type 2 diabetes mellitus with other specified complication, unspecified whether alf insulin use (E11.69) Active confirmed Vital Signs Heart Rate 72 /min 01/27/2025 Blood pressure diastolic 82 mm Hg 01/27/2025 Height 64 in 01/27/2025 Blood pressure systolic 140 mm Hg 01/27/2025 Weight 207 lbs 01/27/2025 BMI 35.53 kg/m2 01/27/2025 Encounters Encounter Location Date Provider Diagnosis [facility] [address] [facility] [address] [place], [place] [id number] 03/17/2024 Tjmarietta PurcellRosston Type 2 diabetes madeline itus without complication, without long-term current use of insulin E11.9 ; Low back pain, unspecified M54.50 ; Coccydynia M53.3 ; DDD (degenerative disc disease), lumbar M51.36 ; Frequent urination R35.0 and Acute UTI N39.0 [facility] [address] [facility] [address] [place], [place] [id number] 05/06/2024 Tj Rosston UTI symptoms R39.9 a nd Acute vaginitis N76.0 [facility] [address] [place], [place] [id number] 06/26/2024 Rosa Souza Mild eczema L30.9 ; Type 2 diabetes mellitus without complication, without long-term current use of insulin E11.9 ; Essential hypertension I10 ; Mixed hyperlipidemia E78.2 ; Vitamin D deficiency E55.9 ; Hypothyroidism, unspecified type E03.9 ; Vitamin B12 deficiency E53.8 and Numbness of toes R20.0 [facility] [address] [place] [id number] 07/09/2024 Rosa Crowmoose Atopic dermatitis, unspecified type L20.9 and Acute URI J06.9 [facility] [address] [place] [id number] 07/17/2024 Tj Rosston Type 2 diabetes madeline itus without complication, without long-term current use of insulin E11.9 ; Mixed hyperlipidemia E78.2 ; Essential hypertension I10 ; Vitamin B 12 deficiency E53.8 ; Low back pain, unspecified M54.50 and Lumbar disc herniation M51.26 [facility] [address] [place] [id number] 08/17/2024 Tj Rosston Vitamin B12 deficien cy E53.8 and Essential hypertension I10 [facility] [address] [place] [id number] 10/27/2024 Tj Rosston Pre-op exam Z01.818 ; Complication of implanted [...] lumbar region, unspecified whether pain present M51.369 [facility] [address] [place], [place] [id number] 12/08/2024 Meron Smith Chronic bronchitis J 42 [facility] [address] [place], [place] [id number] 12/16/2024 Tj Rosston Acute diarrhea R19.7 ; Hypomagnesemia E83.42 ; Nausea R11.0 ; Type 2 diabetes mellitus with other specified complication, 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 E11.69 ; Lumbar pain M54.50 and BMI 33.0-33.9,adult Z68.33 [facility] [address] [place], [place] [id number] 12/23/2024 Tj Rosston MEGHAN (acute kidney injury) N17.9 ; Anemia, unspecified type D64.9 ; Microscopic hematuria R31.29 ; Essential hypertension I10 and Type 2 diabetes mellitus without complication, without long-term current use of insulin E11.9 [facility] [address] [place], [place] [id number] 01/06/2025 Tj Rosston Type 2 diabetes madeline itus without complication, without long-term current use of insulin E11.9 ; MEGHAN (acute kidney injury) N17.9 and Essential hypertension I10 [facility] [address] [place], [place] [id number] 01/27/2025 Tj Rosston Essential hypertensi on I10 ; Hypothyroidism, unspecified type E03.9 ; Vitamin D deficiency E55.9 ; Vitamin B12 deficiency E53.8 ; Renal insufficiency N28.9 and Postmenopausal osteoporosis M81.0 [facility] [address] [place], [place] [id number] 01/28/2025 Tj Rosston Hyperkalemia E87.5 [facility] [address] [place], [place] [id number] 03/19/2024 Tj Rosston [facility] [address] [place] [id number] 03/31/2024 Tj Rosston [facility] [address] [place] [id number] 04/11/2024 Tj Rosston [facility] [address] [place] [id number] 04/28/2024 Tj Rosston [facility] [address] [place] [id number] 05/11/2024 Tj Rosston Coccydynia M53.3 ; Lumbar disc herniation M51.26 and Degeneration of intervertebral disc of lumbosacral region with discogenic back pain and lower extremity pain M51.372 [facility] [address] [place], [place] [id number] 05/18/2024 Tj Rosston Type 2 diabetes madeline itus without complication, without long-term current use of insulin E11.9 [facility] [address] [place] [id number] 06/26/2024 Rosa Crowdy [facility] [address] [place] [id number] 06/26/2024 Rosa Crowdy [facility] [address] [place] [id number] 07/13/2024 Tj Rosston [facility] [address] [place] [id number] 08/19/2024 Tj Rosston [facility] [address] [place] [id number] 11/02/2024 Tj Rosston [facility] [address] [place] [id number] 11/09/2024 Tj Rosston [facility] [address] [place] [id number] 11/09/2024 Tj Rosston Abnormal EKG R94.31 [facility] [address] [place] [id number] 11/09/2024 Tj Rosston [facility] [address] [place] [id number] 11/16/2024 Tj Rosston [facility] [address] [place] [id number] 11/16/2024 Tj Rosston Essential hypertensi on I10 [facility] [address] [place] [id number] 11/17/2024 Tj Rosston [facility] [address] [place] [id number] 12/17/2024 Tj Rosston [facility] [address] [place] [id number] 12/18/2024 Tj Rosston [facility] [address] [place] [id number] 12/25/2024 Tj Rosston [facility] [address] [place] [id number] 01/04/2025 Tj Rosston Screening for breast cancer Z12.39 ; Screening for colon cancer Z12.11 and Screening for osteoporosis Z13.820 [facility] [address] [place], [place] [id number] 01/20/2025 Tj Rosston Assessments Encounter Date Diagnosis (ICD Code) Assessment Notes Treatment Notes Treatment Clinical Notes Section Notes 03/17/2024 Low back pain, unspecified (ICD-10 - M54.50) 05/11/2024 Coccydynia (ICD-10 - M53.3) 05/11/2024 Lumbar [...] unspecified complication, initial encounter (ICD-10 - T85.9XXA) 11/16/2024 Essential hypertension (ICD-10 - I10) 12/08/2024 Chronic bronchitis (ICD-10 - J42) to start with inhaler tid and prn until cough resolved fluids, rest, supportive measures for fever/symptom relief 12/16/2024 Hypomagnesemia (ICD-10 - E83.42) 12/16/2024 Acute diarrhea (ICD-10 - R19.7) dehydration precautions discussed clear liquids and advance as tolerated 01/04/2025 Screening for breast cancer (ICD-10 - Z12.39) 01/04/2025 Screening for colon cancer (ICD-10 - Z12.11) 01/06/2025 Type 2 diabetes mellitus without complication, without long-term current use of insulin (ICD-10 - E11.9) 01/06/2025 MEGHAN (acute kidney injury) (ICD-10 - N17.9) Resolved 01/27/2025 Essential hypertension (ICD-10 - I10) 01/27/2025 Hypothyroidism, unspecified type (ICD-10 - E03.9) 01/28/2025 Hyperkalemia (ICD-10 - E87.5) 12/23/2024 MEGHAN (acute kidney injury) (ICD-10 - N17.9) 11/09/2024 Abnormal EKG (ICD-10 - R94.31) 12/23/2024 Anemia, unspecified type (ICD-10 - D64.9) 06/26/2024 Mild eczema (ICD-10 - L30.9) Will call and get back into dermatology. 05/06/2024 Acute vaginitis (ICD-10 - N76.0) 05/06/2024 UTI symptoms (ICD-10 - R39.9) 06/26/2024 Type 2 diabetes mellitus without complication, without long-term current use of insulin (ICD-10 - E11.9) 12/23/2024 Microscopic hematuria (ICD-10 - R31.29) 06/26/2024 Essential hypertension (ICD-10 - I10) 01/27/2025 Vitamin D deficiency (ICD-10 - E55.9) 01/06/2025 Essential hypertension (ICD-10 - I10) Blood pressure journal 01/04/2025 Screening for osteoporosis (ICD-10 - Z13.820) 12/16/2024 Nausea (ICD-10 - R11.0) 10/27/2024 Acute URI (ICD-10 - J06.9) 07/17/2024 Essential hypertension (ICD-10 - I10) 05/11/2024 Degeneration of intervertebral disc of lumbosacral region with discogenic back pain and lower extremity pain (ICD-10 - M51.372) 03/17/2024 Coccydynia (ICD-10 - M53.3) 07/17/2024 Vitamin B 12 deficiency (ICD-10 - E53.8) 03/17/2024 DDD (degenerative disc disease), lumbar (ICD-10 - M51.36) 10/27/2024 Type 2 diabetes mellitus without complication, without long-term current use of insulin (ICD-10 - E11.9) 12/16/2024 Type 2 diabetes mellitus with other specified complication, unspecified whether alf insulin use (ICD-10 - E11.69) 01/27/2025 Vitamin B12 deficiency (ICD-10 - E53.8) 12/23/2024 Essential hypertension (ICD-10 - I10) 06/26/2024 Mixed hyperlipidemia (ICD-10 - E78.2) 12/23/2024 Type 2 diabetes mellitus without complication, without long-term current use of insulin (ICD-10 - E11.9) 06/26/2024 Vitamin D deficiency (ICD-10 - E55.9) 01/27/2025 Renal insufficiency (ICD-10 - N28.9) 12/16/2024 Lumbar pain (ICD-10 - M54.50) 10/27/2024 Essential hypertension (ICD-10 - I10) 07/17/2024 Low back pain, unspecified (ICD-10 - M54.50) Patient has L-spine epidural scheduled in 2 weeks at [facility], she will call with any new symptoms 03/17/2024 Frequent urination (ICD-10 - R35.0) 03/17/2024 Acute UTI (ICD-10 - N39.0) 07/17/2024 Lumbar disc herniation (ICD-10 - M51.26) 10/27/2024 Hypothyroidism, unspecified type (ICD-10 - E03.9) 12/16/2024 BMI 33.0-33.9,adult (ICD-10 - Z68.33) 01/27/2025 Postmenopausal osteoporosis (ICD-10 - M81.0) 06/26/2024 Hypothyroidism, unspecified type (ICD-10 - E03.9) 06/26/2024 Vitamin B12 deficiency (ICD-10 - E53.8) [...] Treatment Pending Test Test Name Order Date colonoscopy 01/04/2025 H-Potassium 01/28/2025 Insurance Providers Payer Name Payer Address Payer Phone Subscriber Number Group Number Insured Name Patient Relationship to Insured Coverage Start Date Coverage End Date MEDICARE PART B [address] [address] [place] [address] [id number] Randi Montes Self - patient is the [facility] [address] [place] [address] [phone] [id number] Randi Montes Self - patient is the [...] x 4 LT Shoulder- Broke Ball Joint, [place] RT Shoulder Rotator Cuff Tear Repair Bladder Tumor Removal, Dr. Andrade 014 Colonoscopy 03/2016 Bladder stimulator placement 12/02/22 Lumbar disc injection 06/26/24 bladder sling removed 10/2024 Hospitalization History Reason Date(Month/Year) RT Broken Wrist- [facility] ER 05/09/2013
[2025-01-28 11:52] LABS: Potassium 5.2 mmoL/L (3.5-5.1)
== END 2025-01-28 23:59 | disposition home or self-care (01) ==
LOC: LAB 10:49
PROVIDERS: PCP Family Medicine; Visit Provider Family Medicine
DX: E87.5 Hyperkalemia (principal)
CPT/HCPCS: 36415; 84132

== ENCOUNTER 2025-03-29 10:16 | Day surgery (SDC) | payer MEDICARE, BC, SELFPAY ==
--- NOTE | 2025-03-25 07:24 | EXP.HP ---
History of Present Illness *Admission Date: 03/29/25 *Reason for visit:: Personal history of adenomatous colon polyps *History of present illness: Mrs. Montes is a 74-year-old female who is here for screening/surveillance colonoscopy secondary to a personal history of adenomatous colon polyps. The patient did have a colonoscopy with ar in May 2019 and had 4 polyps (tubular adenomas x 4) removed. The patient does state that her brother had colon cancer in his early to mid 50s. Her colonoscopy in March 2009 with ar had revealed 2 rectal polyps (hyperplastic polyps x 2) which were removed. She does have a personal history of relapsing diverticulitis. She had a colonoscopy with Dr. Andrew Gardner M.D. in March 2016 with severe spasticity and tortuosity identified. She does have a long history of IBS. She had a cholecystectomy more than 10 years ago. The examination is deemed medically necessary for screening/surveillance colonoscopy. The patient has been seen, interviewed and examined prior to the procedure by both myself and the anesthesia provider. [facility] Disclaimer: The information contained in this section may have been updated after the patient was seen, as this information can be updated by other users. Medical History Ganglion cyst Type 2 diabetes mellitus History of gastroesophageal reflux (GERD) Hypothyroid Skin cancer Hyperlipidemia Hypertension Surgical History H/O tubal ligation History of arthroscopy of both knees Hx of shoulder surgery History of hysterectomy History of cholecystectomy Family History Other Family history of cerebral hemorrhage Family history of diabetes mellitus type II Family history of hypertension Family history of myocardial infarction Family hx of colon cancer Lung cancer Social History Smoking Status: Never smoker alcohol intake: never substance use type: denies use current occupational status: other Travel in the last 8 weeks?: None household members: spouse housing: house lives independently: No marital status: education level: high school service: No current occupational exposures/hazards: No caffeine: No special gerson needs: No agree to transfusion: No do you feel safe at home: Yes victim of physical abuse: No victim of emotional abuse: No victim of sexual abuse: No would you like helpful sources: No Have you lived/traveled outside US in past 30 days?: No Contact w/someone who lives/traveled outside US past 30 days?: No Exposure to someone with infectious disease in past 14 days?: No Do you have a fever (greater than 100.4 F or 38 C)?: No Have you tested positive for COVID-19?: No Exposed to someone with COVID-19 in past 14 days?: No Do you have a sore throat?: No Do you have a cough?: No Do you have any weakness?: No Do you have any diarrhea?: No Are you experiencing any unusual bleeding?: No Do you have any muscle aches/pain?: No Do you have any abdominal pain?: No Are you experiencing loss of taste or smell?: No Other Medical History Have you received the Flu Vaccine for this season: No Have you received the Pneumonia Vaccine: Yes Review of Systems Review of Systems Review of systems (narrative): Negative *Cardiovascular Comments: Negative *Gastrointestinal Comments: Negative *Genitourinary Comments: Negative *Musculoskeletal Comments: Negative *Neurologic Comments: Negative Meds Home Medications and Allergies Home Medications ?Medication ?Instructions ?Recorded ?Confirmed ?Type levocetirizine 5 mg tablet (Xyzal) 5 mg PO DAILY ALLERGIES 05/26/19 03/25/25 History levothyroxine 25 mcg tablet 25 mcg PO DAILY HYPOTHYROIDISM 05/26/19 03/25/25 History lisinopril 40 mg tablet 20 mg PO DAILY BLOOD PRESSURE 05/26/19 03/25/25 History montelukast 10 mg tablet 10 mg PO PM ALLERGIES 05/26/19 03/25/25 History (Singulair) amlodipine 5 mg tablet 5 mg PO DAILY bp 02/12/23 03/25/25 History metoprolol succinate 200 mg 200 mg PO DAILY BLOOD PRESSURE 05/29/23 03/25/25 History tablet,extended release 24 hr prasterone (DHEA) 25 mg capsule 25 mg PO DAILY #30 caps 05/29/23 03/25/25 Rx (DHEA) rosuvastatin 5 mg tablet (Crestor) 5 mg PO DAILY Cholesterol 05/29/23 03/25/25 History ondansetron 4 mg disintegrating 4 mg PO Q8H PRN nausea and 12/13/24 03/25/25 Rx tablet vomiting 4 days #12 tabs sodium,potassium,mag sulfates 17.5 See Rx Instructions PO .COMPLEX 03/15/25 Rx gram-3.13 gram-1.6 gram oral soln #354 mL (Suprep Bowel Prep Kit) cefuroxime axetil 125 mg tablet 500 mg PO BID 03/25/25 03/25/25 History polyethylene glycol 3350 17 gram 17 g PO DAILY 03/25/25 03/25/25 History oral powder packet (ClearLax) semaglutide 2 mg/dose (8 mg/3 mL) 2 mg SQ WEEKLY 03/25/25 03/25/25 History subcutaneous pen injector (Ozempic) vibegron 75 mg tablet (Gemtesa) 75 mg PO DAILY 03/25/25 03/25/25 History New Prescriptions to Start Prescriptions: Allergies Allergy/AdvReac Type Severity Reaction Status Date / Time iodine (IODINE) Allergy Unknown Rash Verified 03/29/25 10:40 Penicillins (PENICILLINS) Allergy Unknown Rash Verified 03/29/25 10:40 theophylline (THEOPHYLLINE) Allergy Unknown Anaphylaxis Verified 03/29/25 10:40 valdecoxib (From Bextra) Allergy Anaphylaxis Verified 03/29/25 10:40 Exam *Routine HEENT Exam Head: Present normocephalic Eye: Present EOMI and PERRL ENT: Present mucous membranes moist *Routine Neck Exam Neck: Present supple *Routine Respiratory Exam Respiratory: Present CTA bilaterally *Routine Cardiovascular Exam Cardiovascular: Present RRR *Routine Abdominal Exam Abdominal: Present soft and normoactive bowel sounds; Absent tenderness *Routine Rectal Exam Rectal:: deferred *Routine Genitalia Exam Genitalia:: deferred *Routine Extremities Exam Extremities: Absent cyanosis, clubbing or edema *Routine Skin Exam Skin: Present warm; Absent rash *Routine Neurological Exam Neurological: Present alert and oriented X3 Assessment and Plan *Assessment and plan (1) Personal history of adenomatous and serrated colon polyps: Status: Acute Category: Medical Code(s): Z86.0101 - Personal history of adenomatous and serrated colon polyps (2) Family history of colon cancer: Status: Acute Category: Medical Code(s): Z80.0 - Family history of malignant neoplasm of digestive organs Plan A/P: 1. Personal history of adenomatous colon polyps and family history of colon cancer is the preprocedural diagnosis. The patient will be anesthetized/sedated using MAC sedation. The patient has been seen and examined. Cardiac and lung assessment prior to the examination is stable. Proceed with planned screening/surveillance colonoscopy.
[2025-03-25 15:22] VITALS: BMI 36.0
[2025-03-29] MEDS: LACTATED RINGERS 1000ML 1,000 ML 50 ML IV (10:34)
[2025-03-29 10:42] VITALS: BP 128/64; PULSE 80; RESP 18; TEMP 36.1; O2SAT 98
[2025-03-29 10:55] LABS: POC Glucose,Bedside 177 gm/dL (70-110)
--- NOTE | 2025-03-29 11:00 | P.PNANES_ITS ---
[facility] Disclaimer: The information contained in this section may have been updated after the patient was seen, as this information can be updated by other users. Medical History Ganglion cyst Type 2 diabetes mellitus History of gastroesophageal reflux (GERD) Hypothyroid Skin cancer Hyperlipidemia Hypertension Surgical History H/O tubal ligation History of arthroscopy of both knees Hx of shoulder surgery History of hysterectomy History of cholecystectomy Family History Other Family history of cerebral hemorrhage Family history of diabetes mellitus type II Family history of hypertension Family history of myocardial infarction Family hx of colon cancer Lung cancer Social History Smoking Status: Never smoker alcohol intake: never substance use type: denies use current occupational status: other Travel in the last 8 weeks?: None household members: spouse housing: house lives independently: No marital status: education level: high school service: No current occupational exposures/hazards: No caffeine: No special gerson needs: No agree to transfusion: No do you feel safe at home: Yes victim of physical abuse: No victim of emotional abuse: No victim of sexual abuse: No would you like helpful sources: No Have you lived/traveled outside US in past 30 days?: No Contact w/someone who lives/traveled outside US past 30 days?: No Exposure to someone with infectious disease in past 14 days?: No Do you have a fever (greater than 100.4 F or 38 C)?: No Have you tested positive for COVID-19?: No Exposed to someone with COVID-19 in past 14 days?: No Do you have a sore throat?: No Do you have a cough?: No Do you have any weakness?: No Do you have any diarrhea?: No Are you experiencing any unusual bleeding?: No Do you have any muscle aches/pain?: No Do you have any abdominal pain?: No Are you experiencing loss of taste or smell?: No [facility] Anesthesia Checklist Patient Identification Patient Identification: Arm Band and Verbal (Name & ) Structural Data Admitted From: Home Planned Operative Procedure/s: colonoscopy Consent for Planned Operative Procedure(s) Verified: Yes Verified Documents: Surgical Consent NPO Status Verified Time NPO: 00:00 Additional verifications Anesthesia Reactions: No Hx Blood Transfusions: No Blood Transfusion Reaction: No Airway Assessment Mallampati Score:: Class II C-Spine Mobility Assessed: Yes TMJ Mobility Assessed: Yes Dentition: Good Dentition Neurological Assessment Level of Consciousness: Awake, Alert and Appropriate Hx Seizures: No Numbness or tingling in extremities: No Anesthesia Plan Anesthesia Risk discussed: Yes Anesthesia Plan: Verified ASA Class: II Anesthesia Type: MAC
--- NOTE | 2025-03-29 11:40 | P.PCN_ITS ---
[facility] Procedure Note Date: 03/29/25 Time: 12:21 Procedure Note:: Colonoscopy Procedure Report: Colonoscopy with cold snare polypectomy Endoscopist: Connor Partida II, MD Referring physician: Tj Sweeney MD Date of Procedure: March 29, 2025 Equipment: Olympus [id number] adult colonoscope Sedation: MAC sedation Indication: Mrs. Montes is a 74-year-old female who is here for screening/surveillance colonoscopy secondary to a personal history of adenomatous colon polyps. The patient did have a colonoscopy with me in May 2019 and had 4 polyps (tubular adenomas x 4) removed. The patient does state that her brother had colon cancer in his early to mid 50s. Her maternal grandmother had colon cancer at the age of 74. Her mother had perforated diverticulitis. Her colonoscopy in March 2009 with ks had revealed 2 rectal polyps (hyperplastic polyps x 2) which were removed. She does have a personal history of relapsing diverticulitis. She had a colonoscopy with Dr. Andrew Gardner M.D. in March 2016 with severe spasticity and tortuosity identified. She does have a long history of IBS. She had a cholecystectomy more than 10 years ago. Procedure: Prior to the procedure, a history and physical exam was performed, and patient's medications and allergies were reviewed. The risks, benefits and alternatives of the sedation and procedure were discussed with the patient. All questions were answered and informed consent was obtained. The patient was brought to the procedure room. Patient identification and proposed procedure were verified by the physician and the nurse. The patient was placed in a left lateral decubitus position and the scope was passed under direct vision. Throughout the procedure, the patient's blood pressure, pulse, and oxygen saturations were monitored continuously. The colonoscopy was accomplished without difficulty. The patient tolerated the procedure well. Findings: On digital rectal examination there was normal rectal tone. There were no external hemorrhoids. The colonoscope was introduced through the anal canal to the rectum and advanced to the cecum. The ileocecal valve and appendiceal orifice were identified. The scope was advanced a short distance into the ileum which appeared grossly normal. The scope was then withdrawn into the colon. There were 4 colon polyps (transverse x 2 (4 and 4 mm) and descending x 2 (4 and 5 mm)). All of these were removed via cold snare polypectomy. The remaining cecum, ascending and transverse colon and mucosa were grossly normal. There were scattered diverticuli throughout the descending and sigmoid colon (LEFT colon). There were some pericolonic adhesions adjacent to the sigmoid colon from prior hysterectomy. The rectum itself was normal. Upon retroflexion within the rectum there were grade 1-2 internal hemorrhoids. The preparation was excellent throughout with Crescent Preparation Score of 9. The cecal time was 14 minutes. Impression: 1. Diminutive colonic polyps x 4 2. Left-sided diverticulosis 3. Grade 1-2 internal hemorrhoids Plan: I will follow-up the polyp histology and recommend repeat screening/surveillance colonoscopy again in 5 years.
[2025-03-29 12:24] VITALS: BP 119/63; PULSE 69; RESP 18; TEMP 36.1; O2SAT 93
[2025-03-29 12:34] VITALS: BP 123/77; PULSE 73; RESP 18; TEMP 36.1; O2SAT 97
[2025-03-29 12:44] VITALS: BP 150/72; PULSE 72; RESP 18; TEMP 36.1; O2SAT 99
[2025-03-29 12:54] VITALS: BP 132/74; PULSE 69; RESP 18; TEMP 36.1; O2SAT 99
== END 2025-03-29 13:15 | disposition home or self-care (01) ==
PROVIDERS: PCP Family Medicine; Visit Provider Internal Medicine Gastroenterology
PROC: 0DJD8ZZ Inspection of Lower Intestinal Tract, Via Natural or Artificial Opening Endoscopic (ICD-10-PCS; CPT 45378; principal; 2025-03-29 12:00)
DX: Z12.11 Encounter for screening for malignant neoplasm of colon (principal); D12.3 Benign neoplasm of transverse colon; D12.4 Benign neoplasm of descending colon; K57.30 Diverticulosis of large intestine without perforation or abscess without bleeding; K64.0 First degree hemorrhoids; K64.1 Second degree hemorrhoids; K58.9 Irritable bowel syndrome, unspecified; E11.9 Type 2 diabetes mellitus without complications; K21.9 Gastro-esophageal reflux disease without esophagitis; E03.9 Hypothyroidism, unspecified; E78.5 Hyperlipidemia, unspecified; I10 Essential (primary) hypertension; Z85.828 Personal history of other malignant neoplasm of skin; Z90.49 Acquired absence of other specified parts of digestive tract; Z98.51 Tubal ligation status; Z86.0102 Personal history of hyperplastic colon polyps; Z90.710 Acquired absence of both cervix and uterus; Z79.899 Other long term (current) drug therapy; Z79.85 Long-term (current) use of injectable non-insulin antidiabetic drugs; Z88.0 Allergy status to penicillin; Z88.8 Allergy status to other drugs, medicaments and biological substances
CPT/HCPCS: 45385; 82962; J2003; J2704; J7120

== ENCOUNTER 2025-05-02 11:17 | Outpatient (CLI) | payer MEDICARE, BC, SELFPAY ==
--- OUTSIDE RECORDS SUMMARY | 2025-01-06 11:00 | XMS_ITS ---
Author Organization [facility] Address [address] [place] [id number] Care Team Providers Care Junior Accountant Bookkeeper Name Role Phone Tj Sweeney Primary Care Provider Allergies Allergen (clinical drug ingredient) Drug/Non Drug Allergy documented on EMR Reaction Allergy Type Onset Date Status BEXTRA (uncoded) hyperventilate Allergy Active SLO-BID GYROCAPS (uncoded) Unknown Allergy Active cefdinir Cefdinir skin itching Drug Allergy Acti ve Penicillin Unknown Drug Allergy Active Results Component Value Reference Range Notes Glycohemoglobin A1c (in hous e) Reviewed date:01/07/2025 09:02:50 AM Interpretation: Performing Lab: Notes/Report: glycohemoglobin 6.8% 5 - 6.5 % REASON FOR VISIT 2 week f/u Medications Medication SIG (Take, Route, Frequency, Duration) Notes Start Date End Date Status amLODIPine Besylate 5 MG 1 tab(s) orally once a day; Duration: 90 days Active Metoprolol Succinate ER 200 MG 1 tablet Orally Once a day; Duration: 90 days Active Ozempic (2 MG/DOSE) 8 MG/3ML 2 mg Subcutaneous once weekly 05/18/2024 Active Levothyroxine Sodium 25 MCG 1 tab(s) orally once a day; Duration: 90 days Active Rosuvastatin Calcium 5 MG 1 tab(s) orall y once a day; Duration: 90 days Active Voltaren 1 % 2 g applied topicall y 4 times a day, prn Active Ibuprofen 600 MG TAKE 1 TABLET BY FOUR TIMES DAILY NEEDED; Duration: 15 Active Triamcinolone Acetonide 0.1 % 1 application Externally Twice a day 06/26/2024 Active Levocetirizine Dihydrochloride 5 MG 1 tablet in the evening Orally Once a day; Duration: 90 days Active Montelukast Sodium 10 MG 1 tablet Orally Once a day; Duration: 90 days Active Vitamin B12 1000 MCG 1 tablet Orally Onc e a day 08/17/2024 Not-Taking ADVOCATE GLUCOSE METER NON-SPEAKING [id number] - 02/12/2019 Active ADVOCATE TEST STRIPS - 02/12/2019 Active Albuterol Sulfate HFA 108 (90 Base) MCG/ACT 2 puff(s) inhaled tid and q2h prn 09/04/2022 Active Lisinopril 40 MG 1/2 tab(s) orally on a day Active Vital Signs Weight 205 lbs 01/06/2025 Blood pressure systolic 146 mm Hg 01/07/20 25 Blood pressure diastolic 82 mm Hg 025 Heart Rate 74 /min 01/06/2025 Height 64 in 01/06/2025 BMI 35.18 kg/m2 01/06/2025 Encounters Encounter Location Date Provider Diagnosis [facility] [address] [facility] [address] [place] [address], [place] [id number] 01/06/2025 Tj Sweeney Type 2 diabetes madeline itus without complication, without long-term current use of insulin E11.9 ; MEGHAN (acute kidney injury) N17.9 and Essential hypertension I10 Assessments Encounter Date Diagnosis (ICD Code) Assessment Notes Treatment Notes Treatment Clinical Notes Section Notes 01/06/2025 Type 2 diabetes mellitus without complication, without long-term current use of insulin (ICD-10 - E11.9) 01/06/2025 MEGHAN (acute kidney injury) (ICD-10 - N17.9) Resolved 01/06/2025 Essential hypertension (ICD-10 - I10) Blood pressure journal Plan Of Treatment Treatment Notes Assessment Notes MEGHAN (acute kidney injury) Resolved Next Appt Details Follow Up: 4 Weeks, Reason: Progress Notes * DONPipertheronDOB: [birth year] (74 yo F)Acc No.[id number]:01/06/2025 Patient: Randi TERESA Provider: Claudine Sweeney M.D. :1950 A ge:74 Y S ex:Female Date:01/06/2025 Address:[address] [place], [place] [address], [id number] Subjective: * Chief Complaints: * 1 . 2 week f/u. * HPI: C ardiology: 74 year old female presents with c/o BloodPressure at Home T he pt is here for a follow-up on Hypertension and Renal insufficiency. Pt states she saw nephrology today, and he states her kidney fx is better and Potassium is still a little high. Pt states she does not check her BP at home. * ROS: D ERMATOLOGY: no R aniyah. n o H spencer. G ASTROENTEROLOGY: no N ausea. n o V omiting. n o D iarrhea.? U ROLOGY: no D ifficulty urinating. n [...] 4 , LT Shoulder- Broke Ball Joint, [place] , RT Shoulder Rotator Cuff Tear Repair , Bladder Tumor Removal, Dr. 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 * Hospitalization/Major Diagno stic Procedure: R T Broken Wrist- [facility] ER 05/09/2013. * Family History: F [...] no. Sexually active: yes. * Medications: T allieg ADVOCATE GLUCOSE METER NON-SPEAKING [id number] - , Taking ADVOCATE TEST STRIPS - [...] Pen-injector 2 mg Subcutaneous once weekly , Taking Lisinopril 40 MG Tablet 1/2 tab(s) orally once a day , Not-Taking Vitamin B12 1000 MCG Tablet Extended Release 1 tablet Orally Once a day , Discontinued Nitrofurantoin Monohyd Macro 100 MG Capsule 1 capsule with food Orally every 12 hrs , Discontinued metFORMIN HCl ER 500 MG Tablet Extended Release 24 Hour TAKE 2 TABLETS BY MOUTH TWICE DAILY Orally twice daily , Medication List reviewed and reconciled with the patient * Allergies: P enicillin, SLO-BID GYROCAPS, BEXTRA: hyperventilate - Side Effects, Cefdinir: skin itching. Objective: * Vitals: W t: 205, Temp: 97.9, BP: 146/82, HR: 74, O2 Sat: 97%, Nurse: waldo, Ht: 64, BMI:35.18. * Examination: G eneral Examination: General Appearance: N AD. H eart: R SR. L ungs:?clear to auscultation. E xtremities: n o leg edema. Assessment: * Assessment: 1. T ype 2 diabetes mellitus without complication, without long-term current use of insulin - E11.9 (Primary) 2 . A KI (acute kidney injury) - N17.9 3 . E ssential hypertension - I10 Plan: * Treatment: Value Reference Range g lycohemoglobin 6.8% 5 - 6.5 % * Maricruz Tran 01/06/2025 03 :20:00 PM EDT > Provider reviewed results while patient in office. 2.?MEGHAN (acute kidney injury)? Notes: Resolved??3.?Essential hypertension? Clinical Notes: Blood pressure journal?? * Procedure Codes: G 2211 Complex e/[place], [address] CAPILLARY BLOOD DRAW, 56603 GLYCATED HEMOGLOBIN TEST, Modifiers: QW , 1036F TOBACCO NON-USER, 3044F HG A1C LEVEL LT 7.0%, G8950 PREHTN/HTN BP DOC INDCD F/U DOC, G8753 MOST RECENT SYSTOLIC BP >= 140MM HG, G8754 MOST RECENT DIASTOLIC BP < 90MM HG * Follow Up: 4 Weeks * Images: Billing Information: * Visit Code: 03968 Office Visit, Est Pt., Level 3. * Procedure Codes: G2211 Complex e/[place]. [address] CAPILLARY BLOOD DRAW. 33187 GLYCATED HEMOGLOBIN TEST. Modifiers: QW 1036F TOBACCO NON-USER. 3044F HG A1C LEVEL LT 7.0%. G8950 PREHTN/HTN BP DOC INDCD F/U DOC. G8753 MOST RECENT SYSTOLIC BP >= 140MM HG. G8754 MOST RECENT DIASTOLIC BP < 90MM HG. * Electronic signature of Yamilex Sweeney MD on 05/02/2025 at 11:21 AM EDT Sign off status: Pending * Provider: Claudine Sweeney M.D. Date: 0 01/06/2025 Generated for Brock chapman/See/Omayraitting on: 1 11:21 AM EDT History and Physical Notes * HPI (History of Present Illness) Category Sub-Category Detail Notes Category Not es Cardiology BloodPressure at Home The pt is here for a follow-up on Hypertension and Renal insufficiency. Pt states she saw nephrology today, and he states her kidney fx is better and Potassium is still a little high. Pt states she does not check her BP at home Examination Category Sub-Category Detail Notes Category Not es General Examination Heart: RSR Lungs: clear to auscultatio n Extremities: no leg edema General Appearance: NAD
--- OUTSIDE RECORDS SUMMARY | 2025-01-27 06:00 | XMS_ITS ---
Author Organization [facility] Address [address] [place] [phone] Care Team Providers Care Laborer Heading Name Role Phone Tj Sweeney Primary Care Provider Allergies Allergen (clinical drug ingredient) Drug/Non Drug Allergy documented on EMR Reaction Allergy Type Onset Date Status BEXTRA (uncoded) hyperventilate Allergy Active SLO-BID GYROCAPS (uncoded) Unknown Allergy Active cefdinir Cefdinir skin itching Drug Allergy Acti ve Penicillin Unknown Drug Allergy Active Results Component Value Reference Range Notes P-Vitamin B12 Reviewed date:01/28/2025 08:56:39 AM Interpretation:271 Performing Lab: Notes/Report: Test performed by [facility] [address] [place], [place] [address] [place] , [address], [place] [address] Chapincito Branch MD, Ink Blender CLIA: [id number] Vitamin B12 773 330-7242 pg/mL P-Basic Metabolic Panel (BMP ) Reviewed date:01/28/2025 08:56:39 AM Interpretation:K 6.6, Glu 140, BUN 28, Creat 1.27, eGFR 45 Performing Lab: Notes/Report: Test performed by [facility] [address] [place], [place] [address] [place] , [address], [place] [address] Chapincito Branch MD, Ink Blender CLIA: [id number] Sodium 138 135-145 mmol/L Potassium 6.6 3.5-5.3 mmol/L ALERT VALUE Results were repeated and confirmed. Chloride 104 97-108 mmol/L CO2 23 20-32 mmol/L Glucose 140 65-99 mg/dL BUN 28 8-23 mg/dL Creatinine 1.27 0.50-1.00 mg/dL Calcium 9.7 8.6-10.4 mg/dL eGFR by Creatinine 45 >59 mL/min/1.73m2 P-T4 Free (thyroxine) Reviewed date:01/28/2025 08:56:39 AM Interpretation:Normal Performing Lab: Notes/Report: Test performed by [facility] [address] [place] [address] , [address], [place] [address] Chapincito Branch MD, Ink Blender CLIA: [id number] Thyroxine Free (free T4) 1.26 0.86-1.76 ng/dL P-TSH Reviewed date:01/28/2025 08:56:39 AM Interpretation:Normal Performing Lab: Notes/Report: Test performed by [facility] [address] [place] [address] , [address], [place] [address] Chapincito Branch MD, Ink Blender CLIA: [id number] TSH 1.63 0.43-5.25 mU/L P-Vitamin D 25-Hydroxy Reviewed date:01/28/2025 08:56:39 AM Interpretation:48.6 Performing Lab: Notes/Report: Test performed by [facility] [address] [place] [address] , [address], [place] [address] Chapincito Branch MD, Ink Blender CLIA: [id number] Vitamin D 25-Hydroxy 48.6 30.0-100.0 ng/mL Interpretation of Vitamin D 25 OH: < 20 ng/mL - Deficiency 20 - 29 ng/mL - Insufficiency 30 - 100 ng/mL - Sufficiency > 100 ng/mL - Super-therapeutic- toxicity may occur above this level. Clinical correlation required. REASON FOR VISIT 1 month f/u Medications Medication SIG (Take, Route, Frequency, Duration) Notes Start Date End Date Status Ozempic (2 MG/DOSE) 8 MG/3ML 2 mg Subcut aneous once weekly 05/18/2024 Active Levocetirizine Dihydrochloride 5 MG 1 tablet in the evening Orally Once a day; Duration: 90 days Active Montelukast Sodium 10 MG 1 tablet Orally Once a day; Duration: 90 days Active amLODIPine Besylate 5 MG 1 tab(s) orally once a day Active Rosuvastatin Calcium 5 MG 1 tab(s) orall y once a day; Duration: 90 days Active Triamcinolone Acetonide 0.1 % 1 application Externally Twice a day 06/26/2024 Active Levothyroxine Sodium 25 MCG 1 tab(s) ora lly once a day Active Lisinopril 40 MG 1/2 tab(s) orally on ce a day Active Metoprolol Succinate ER 200 MG 1 tablet Orally Once a day Active Ibuprofen 600 MG TAKE 1 TABLET BY ZULEIMA TH FOUR TIMES DAILY NEEDED; Duration: 15 Active ADVOCATE TEST STRIPS - 02/12/2019 Active Albuterol Sulfate HFA 108 (90 Base) MCG/ACT 2 puff(s) inhaled tid and q2h prn 09/04/2022 Active Voltaren 1 % 2 g applied topicall y 4 times a day, prn Active Gemtesa 75 MG 1 tablet Orally Once a day Active ADVOCATE GLUCOSE METER NON-SPEAKING [id number] - 02/12/2019 Active Vital Signs Weight 207 lbs 01/27/2025 Blood pressure systolic 140 mm Hg 01/28/20 25 Blood pressure diastolic 82 mm Hg 025 Heart Rate 72 /min 01/27/2025 Height 64 in 01/27/2025 BMI 35.53 kg/m2 01/27/2025 Encounters Encounter Location Date Provider Diagnosis [facility] [address] [phone] 01/27/2025 Tj Sweeney Essential hypertensi on I10 ; Hypothyroidism, unspecified type E03.9 ; Vitamin D deficiency E55.9 ; Vitamin B12 deficiency E53.8 ; Renal insufficiency N28.9 and Postmenopausal osteoporosis M81.0 Assessments Encounter Date Diagnosis (ICD Code) Assessment Notes Treatment Notes Treatment Clinical Notes Section Notes 01/27/2025 Essential hypertension (ICD-10 - I10) 01/27/2025 Hypothyroidism, unspecified type (ICD-10 - E03.9) 01/27/2025 Vitamin D deficiency (ICD-10 - E55.9) 01/27/2025 Vitamin B12 deficiency (ICD-10 - E53.8) 01/27/2025 Renal insufficiency (ICD-10 - N28.9) 01/27/2025 Postmenopausal osteoporosis (ICD-10 - M81.0) Plan Of Treatment Medication Medication Name Sig Start Date Stop Date Notes amLODIPine Besylate 5 MG 1 tab(s) orally once a day Levothyroxine Sodium 25 MCG 1 tab(s) orally once a day Lisinopril 40 MG 1/2 tab(s) orally on ce a day Metoprolol Succinate ER 200 MG 1 tablet Orally Once a day Next Appt Details Follow Up: via phone to repo rt test results,6 Months, Reason: Progress Notes * Randi MONTESDOB: [birth year] (74 yo F)Acc No.[id number]:01/27/2025 Progress Notes Patient: Randi TERESA Provider: Claudine Sweeney M.D. :1950 A ge:74 Y S ex:Female Date:01/27/2025 Address:[address] [place], [place] [phone] Subjective: * Chief Complaints: * 1 . 1 month f/u. * HPI: C ardiology: 74 year old female presents with c/o Blood Pressure Elevated?Pt here for 1 mo f/u on hypertension. Pt states she has been checking bp at home but forgot to bring journal. Pt states bp has been 125-140/70's. * ROS: D ERMATOLOGY: no R aniyah. [...] 4 , LT Shoulder- Broke Ball Joint, [place] , RT Shoulder Rotator Cuff Tear Repair , Bladder Tumor Removal, Dr. 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 * Hospitalization/Major Diagno stic Procedure: R T Broken Wrist- [facility] ER 05/09/2013. * Family History: F ather: , hypertension, cerebral aneurysm of brain. M other: alive, Shingles.?Siblings: diabetes, hypertension. 4 brother(s) , 1 sister(s) . 1 son(s) , 2 daughter(s) - healthy. . * Social History: C URRENT TOBACCO USE: No . C affeine: yes, frequency: 32 oz a day. Exercise: no. Marital Status: . Alcohol: no. Sexually active: yes. * Medications: T aking Gemtesa 75 MG Tablet 1 tablet Orally Once a day , Taking ADVOCATE GLUCOSE METER NON-SPEAKING [id number] - , Taking ADVOCATE TEST STRIPS - [...] application Externally Twice a day , Taking Metoprolol Succinate ER 200 MG Tablet Extended Release 24 Hour 1 tablet Orally Once a day , Taking Ozempic (2 MG/DOSE) 8 MG/3ML Solution Pen-injector 2 mg Subcutaneous once weekly , Taking Lisinopril 40 MG Tablet 1/2 tab(s) orally once a day , Taking Levocetirizine Dihydrochloride 5 [...] 1 tab(s) orally once a day , Discontinued Vitamin B12 1000 MCG Tablet Extended Release 1 tablet Orally Once a day , Medication List reviewed and reconciled with the patient * Allergies: P enicillin, SLO-BID GYROCAPS, BEXTRA: hyperventilate - Side Effects, Cefdinir: skin itching. Objective: * Vitals: W t: 207, Temp: 97.9, BP: 140/82, HR: 72, Nurse: jerri, Ht: 64, BMI:35.53. * Examination: G eneral Examination: General Appearance: N AD. H eart: R SR. L ungs:?clear to auscultation. E xtremities: n o leg edema. Assessment: * Assessment: 1. E ssential hypertension - I10 (Primary) 2 . H ypothyroidism, unspecified type - E03.9 3 . V itamin D deficiency - E55.9 4 . V itamin B12 deficiency - E53.8 5 . R enal insufficiency - N28.9 6 .?Postmenopausal osteoporosis - M81.0 Plan: * Treatment: 2. H ypothyroidism, unspecified type Continue Levothyroxine Sodium Tablet, 25 MCG, 1 tab(s), orally, once a day. L AB: P-T4 Free (thyroxine) (Collection Date & Time - 01/27/2025 09:37 AM) N ormal Value Reference Range T hyroxine Free (free T4) 1.26 0.86-1.76 - ng/d L * Erika Thomas 01/28/2025 08: 56:32 AM EDT > See phone encounter ?LAB: P-TSH (Collection Date & Time - 01/27/2025 09:37 AM)?Normal* Value Reference Range T SH 1.63 0.43-5.25 - mU/L * Erika Thomas 01/28/2025 08: 56:32 AM EDT > See phone encounter 3.?Vitamin D deficiency?LAB: P-Vitamin D 25-Hydroxy (Collection Date & Time - 01/27/2025 09:37 AM)? 48.6* Value Reference Range V itamin D 25-Hydroxy 48.6 30.0-100.0 - ng/mL * Erika Thomas 01/28/2025 08: 56:32 AM EDT > See phone encounter 4.?Vitamin B12 deficiency?LAB: P-Vitamin B12 (Collection Date & Time - 01/27/2025 09:37 AM)?271* Value Reference Range V itamin B12 583 773-5702 - pg/mL * Erika Thomas 01/28/2025 08: 56:32 AM EDT > See phone encounter 5.?Renal insufficiency?LAB: P-Basic Metabolic Panel (BMP) (Collection Date & Time - 01/27/2025 09:37 AM)?K 6.6, Glu 140, BUN 28, Creat 1.27, eGFR 45* Value Reference Range B UN 28 H 8-23 - mg/dL * C alcium 9.7 8.6-10.4 - mg/dL * C hloride 104 97-108 - mmol/L * C O2 23 20-32 - mmol/L * C reatinine 1.27 H 0.50-1.00 - mg/dL * G lucose 140 H 65-99 - mg/dL * P otassium 6.6 HH 3.5-5.3 - mmol/L * S odium 138 135-145 - mmol/L * e GFR by Creatinine 45 L >59 - mL/min/1.73m2 * William Erika 01/28/2025 08: 56:32 AM EDT > See phone encounter * Procedure Codes: G 2211 Complex e/m visit [place] on, [address]36F TOBACCO NON-USER * Follow Up: v ia phone to report test results,6 Months * Images: Billing Information: * Visit Code: 66466 Office Visit, Est Pt., Level 4. * Procedure Codes: G2211 Complex e/m visit add on. 1036F TOBACCO NON-USER. * Electronic signature of Yamilex Sweeney MD on 05/02/2025 at 11:22 AM EDT Sign off status: Pending * Provider: Claudine Sweeney M.D. Date: 0 01/27/2025 Generated for Brock chapman/See/Miguel on: 1 11:22 AM EDT History and Physical Notes * HPI (History of Present Illness) Category Sub-Category Detail Notes Category Not es Cardiology Blood Pressure Elevated Pt here for 1 mo f/u on hypertension. Pt states she has been checking bp at home but forgot to bring journal. Pt states bp has been 125-140/70's Examination Category Sub-Category Detail Notes Category Not es General Examination Heart: RSR Lungs: clear to auscultatio n Extremities: no leg edema General Appearance: NAD
--- OUTSIDE RECORDS SUMMARY | 2025-03-16 07:30 | XMS_ITS ---
Author Organization [facility] Address [address] [place] [id number] Care Team Providers Care Frozen Yogurt Maker Name Role Phone Tj Sweeney Primary Care Provider Meron Smith Unavailable [phone] Allergies Allergen (clinical drug ingredient) Drug/Non Drug Allergy documented on EMR Reaction Allergy Type Onset Date Status BEXTRA (uncoded) hyperventilate Allergy Active SLO-BID GYROCAPS (uncoded) Unknown Allergy Active cefdinir Cefdinir skin itching Drug Allergy Acti ve Penicillin Unknown Drug Allergy Active Results Component Value Reference Range Notes Urinalysis - Inhouse Reviewed date:03/17/2025 07:39:19 AM Interpretation: Performing Lab: Notes/Report: Color/Clarity yellow/clear Leuk 1+ Nitrite Neg Urobili 3.2 Protein Neg pH 5.5 Blood Neg Sp. Gr. 1.025 Ketone Neg Bili Neg Gluc Neg P-Culture, Urine Reviewed date:03/24/2025 12:03:13 PM Interpretation: Performing Lab: Notes/Report: Test performed by [facility] [address] [place] [address] , [address], [place] [address] Chapincito Branch MD, Operations Controller CLIA: [id number] Specimen Source Urine - Void Culture, Urine See Below See Microbiol ogy Report Streptococcus agalactiae (Strep. group B) 10,000-15,000 CFU/ml Streptococcus agalactiae (Strep. group B) Susceptibility testing is not routinely performed for Beta-hemolytic streptococci as they are considered universally susceptible to penicillin and other ?-lactam antibiotics. Susceptibility testing may be indicated in the cases of known severe allergy to ?-lactam antibiotics or treatment failure and can be performed upon request. Sensitivity Panel See Below ____ Organism S.agalgb Antibiotic INTERP ____ Cefepime S Cefotaxime S Ceftriaxone S Penicillin S Tetracycline R Vancomycin S ___ S=SUSCEPTIBLE I=INTERMEDIATE R=RESISTANT REASON FOR VISIT possible UTI Medications Medication SIG (Take, Route, Frequency, Duration) Notes Start Date End Date Status Clotrimazole-Betamethasone 1-0.05 % 1 application Externally Twice a day; Duration: 14 days 03/16/2025 Active Fluconazole 150 MG 1 tablet Orally arlette y; Duration: 1 days 03/16/2025 Active Levothyroxine Sodium 25 MCG 1 tab(s) ora lly once a day Active amLODIPine Besylate 5 MG 1 tab(s) orally once a day Active Metoprolol Succinate ER 200 [...] once a day; Duration: 90 days Active Lisinopril 40 MG 1/2 tab(s) orally on ce a day Active Ibuprofen 600 MG TAKE 1 TABLET BY ZULEIMA TH FOUR TIMES DAILY NEEDED; Duration: 15 Active Triamcinolone Acetonide 0.1 % 1 application Externally Twice a day 06/26/2024 Active ADVOCATE TEST STRIPS - 02/12/2019 Active Albuterol Sulfate HFA 108 (90 Base) MCG/ACT 2 puff(s) inhaled tid and q2h prn 09/04/2022 Active Voltaren 1 % 2 g applied topicall y 4 times a day, prn Active Gemtesa 75 MG 1 tablet Orally Once a day Active ADVOCATE GLUCOSE METER NON-SPEAKING DB0322V - 02/12/2019 Active Vital Signs Weight 213.2 lbs 03/16/2025 Blood pressure systolic 130 mm Hg 03/16/20 25 Blood pressure diastolic 72 mm Hg 025 Heart Rate 84 /min 03/16/2025 Height 64 in 03/16/2025 BMI 36.59 kg/m2 03/16/2025 Encounters Encounter Location Date Provider Diagnosis [facility] [address] [id number] 03/16/2025 Meron Smith UTI (lower urinary tract infection) N39.0 ; Increased urinary frequency R35.0 and Vaginal itching N89.8 Assessments Encounter Date Diagnosis (ICD Code) Assessment Notes Treatment Notes Treatment Clinical Notes Section Notes 03/16/2025 UTI (lower urinary tract infection) (ICD-10 - N39.0) 03/16/2025 Increased urinary frequency (ICD-10 - R35.0) 03/16/2025 Vaginal itching (ICD-10 - N89.8) discussed jero care; to keep dry Plan Of Treatment Medication Medication Name Sig Start Date Stop Date Notes Clotrimazole-Betamethasone 1-0.05 % 1 application Externally Twice a day; Duration: 14 days 03/16/2025 Fluconazole 150 MG 1 tablet Orally arlette y; Duration: 1 days 03/16/2025 Treatment Notes Assessment Notes Vaginal itching discussed jero care; to keep dry Next Appt Details Follow Up: 10-14 days with r epeat UA, Reason: Progress Notes * Randi MONTESDOB: [birth year] (74 yo F)Acc No.[id number]:03/16/2025 Progress Notes Patient: Randi TERESA Provider: ALOTN Matute :1950 A ge:74 Y S ex:Female Date:03/16/2025 Address:[address] [place], [place] [address], [id number] Pcp:Tj Sweeney Subjective: * Chief Complaints: * 1 . possible UTI. * HPI: U rology: The pt states she started about 2 weeks agoe with c/o urinary burning and itching after urinating. Pt denies any blood in her urine or fever. 74 year old female presents with c/o burning sensation a fter urination. c/o Vaginal Itching. Denies : suprapubic pain. D enies : hematuria. D enies : fever. * ROS: D ERMATOLOGY: no R aniyah. [...] 4 , LT Shoulder- Broke Ball Joint, [place] , RT Shoulder Rotator Cuff Tear Repair , Bladder Tumor Removal, Dr. 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 * Hospitalization/Major Diagno stic Procedure: R T Broken Wrist- [facility] ER 05/09/2013. * Family History: F [...] day , Taking ADVOCATE GLUCOSE METER NON-SPEAKING [id number] - , Taking ADVOCATE TEST STRIPS - [...] application Externally Twice a day , Taking Ozempic (2 MG/DOSE) 8 MG/3ML Solution Pen-injector 2 mg Subcutaneous once weekly , Taking Levocetirizine Dihydrochloride 5 MG Tablet 1 tablet in the evening Orally Once a day , Taking Montelukast Sodium 10 MG Tablet 1 tablet Orally Once a day , Taking Rosuvastatin Calcium 5 MG Tablet 1 tab(s) orally once a day , Taking Lisinopril 40 MG Tablet 1/2 [...] skin itching. Objective: * Vitals: W t: 213.2, Temp: 97.7, BP: 130/72, HR: 84, Nurse: NAPOLEON, Ht: 64, BMI:36.59. * Examination: G eneral Examination: General Appearance: N AD, appears healthy, alert, pleasant.?Heart: R RR. L ungs: C TAB A&P. p t declines SAMPLE GRINDER exam; will do if syptoms not resolved. Assessment: * Assessment: 1. U TI (lower urinary tract infection) - N39.0 (Primary) 2 . I ncreased urinary frequency - R35.0 3 . V aginal itching - N89.8 Plan: * Treatment: Value Reference Range C ulture, Urine See Below - * S pecimen Source Urine - Void - * S ensitivity Panel See Below - * S treptococcus agalactiae (Strep. group B) 10,000-15,000 CFU/ml Streptococcus agalactiae (Strep. group B) - * Meron Smith 03/18/2025 09:52:12 AM EDT > pt has allergy to PCN and itching with cephalosporins; please see if lab can perform susceptibility testing for + streptococcus on Urine culture; Erika Garcia 03/18/2025 10:28:01 AM EDT > Haylee is contacting client services to see what next steps need to be.Erika Thomas 03/23/2025 10:46:13 AM EDT > see Meron Archuleta 03/23/2025 12:34:22 PM EDT >srtep sensitivities noted; i spoke with pt; will try Ceftin x 5 days; to take benadry if itching; faxed to ?LAB: Urinalysis - Inhouse (Collection Date & Time - 03/16/2025)* Value Reference Range C olor/Clarity yellow/clear * L euk 1+ * N itrite Neg * U robili 3.2 * P rotein Neg * p H 5.5 * B lood Neg * S p. Gr. 1.025 * K etone Neg * B olya Neg * G truong Neg * Maricruz Tran 03/16/2025 11 :53:32 AM EDT > Provider reviewed results while patient in office.Meron Smith 03/17/2025 07:39:16 AM EDT > 2.?Vaginal itching? Start Clotrimazole-Betamethasone Cream, 1-0.05 %, 1 application, Externally, Twice a day, 14 days, 1, Refills 1;?Start Fluconazole Tablet, 150 MG, 1 tablet, Orally, daily, 1 days, 1 Tablet.?? Notes: discussed jero care; to keep dry?? * Procedure Codes: G 2211 Complex e/[place], [address] Urinalysis, no micro * Follow Up: 1 0-14 days with repeat UA * Images: Billing Information: * Visit Code: 85604 Office Visit, Est Pt., Level 3. * Procedure Codes: G2211 Complex e/[place] [address] Urinalysis, no micro. * Electronic signature of Smiley Smith APRN on 05/02/2025 at 11:21 AM EDT Sign off status: Pending * Provider: ALTON Matute Date: 0 03/16/2025 Generated for Brock chapman/See/Miguel on: 1 11:21 AM EDT History and Physical Notes * HPI (History of Present Illness) Category Sub-Category Detail Notes Category Not es Urology burning sensation after urination suprapubic pain hematuria fever Vaginal Itching Examination Category Sub-Category Detail Notes Category Not es General Examination Heart: RRR pt decli promise SAMPLE GRINDER exam; will do if syptoms not resolved Lungs: CTAB A&P General Appearance: NAD, appears healthy , alert, pleasant
--- OUTSIDE RECORDS SUMMARY | 2025-05-02 11:22 | XMS_ITS | Patient Health Record ---
Author Organization [facility] Address [address] [place] [id number] Care Team Providers Care Motorcycle Police Name Role Phone Tj Sweeney Primary Care Provider [phone] Meron Smith Unavailable [phone] Rosa Souza Unavailable [phone] Allergies Allergen (clinical drug ingredient) Drug/Non Drug [...] Notes/Report: glycohemoglobin 6.8% 5 - 6.5 % Urinalysis - Inhouse Reviewed date:03/17/2025 07:39:19 AM Interpretation: Performing Lab: Notes/Report: Color/Clarity yellow/clear Leuk 1+ Nitrite Neg Urobili 3.2 Protein Neg pH 5.5 Blood Neg Sp. Gr. 1.025 Ketone Neg Bili Neg Gluc Neg P-Culture, Urine Reviewed date:03/24/2025 12:03:13 PM Interpretation: Performing Lab: Notes/Report: Test performed by [facility] [address] [place] [address] , [address], [place] [address] Chapincito Branch MD, [employer] [employer] CLIA: [id number] Specimen Source Urine - Void Culture, Urine [...] performed upon request. Sensitivity Panel See Below Organism S.agalgb Antibiotic INTERP Cefepime S Cefotaxime S Ceftriaxone S Penicillin S Tetracycline R Vancomycin S S=SUSCEPTIBLE I=INTERMEDIATE R=RESISTANT Mammogram Reviewed date:01/26/2025 11:58:08 AM Interpretation:Negative Performing Lab: Notes/Report: Negative result Negative Bone density Reviewed date:01/28/2025 08:56:39 AM Interpretation:osteoporosis, new Dx Performing Lab: Notes/Report: osteoporosis, new Dx Bone density osteoporosis, new diagnosis P-Vitamin D 25-Hydroxy Reviewed date:01/28/2025 08:56:39 AM Interpretation:48.6 Performing Lab: Notes/Report: Test performed by [facility], [address] , [place] [address] Chapincito Branch MD, [facility] [employer] CLIA: [id number] Vitamin D 25-Hydroxy 48.6 30.0-100.0 ng/mL Interpretation of Vitamin D 25 OH: < 20 ng/mL - Deficiency 20 - 29 ng/mL - Insufficiency 30 - 100 ng/mL - Sufficiency > 100 ng/mL - Super-therapeutic- toxicity may occur above this level. Clinical correlation required. P-TSH Reviewed date:01/28/2025 08:56:39 AM Interpretation:Normal Performing Lab: Notes/Report: Test performed by [facility] [address] [place] [address] , [address], [place] [address] Chapincito Branch MD, [employer] [employer] CLIA: [id number] TSH 1.63 0.43-5.25 mU/L P-T4 Free (thyroxine) Reviewed date:01/28/2025 08:56:39 AM Interpretation:Normal Performing Lab: Notes/Report: Test performed by [facility] [address] [place] [address] , [address], [place] [address] Chapincito Branch MD, [facility] [employer] CLIA: [id number] Thyroxine Free (free T4) 1.26 0.86-1.76 ng/dL P-Basic Metabolic Panel (BMP ) Reviewed date:01/28/2025 08:56:39 AM Interpretation:K 6.6, Glu 140, BUN 28, Creat 1.27, eGFR 45 Performing Lab: Notes/Report: Test performed by [facility] [address] [place] [address] , [address], [place] [address] Chapincito Branch MD, [employer] [employer] CLIA: [id number] Sodium 138 135-145 mmol/L Potassium 6.6 3.5-5.3 mmol/L ALERT VALUE Results were repeated and confirmed. Chloride 104 97-108 mmol/L CO2 23 20-32 mmol/L Glucose 140 65-99 mg/dL BUN 28 8-23 mg/dL Creatinine 1.27 0.50-1.00 mg/dL Calcium 9.7 8.6-10.4 mg/dL eGFR by Creatinine 45 >59 mL/min/1.73m2 P-Vitamin B12 Reviewed date:01/28/2025 08:56:39 AM Interpretation:271 Performing Lab: Notes/Report: Test performed by [facility] [address] [place] [address] , [address], [place] [address] Chapincito Branch MD, [employer] [employer] CLIA: [id number] Vitamin B12 419 960-8380 pg/mL H-CMP Reviewed date:11/02/2024 01:59:33 PM Interpretation:Glu 125, [...] test Neg CBC Fingerstick (in house) Reviewed date:12/08/2024 04:11:04 [...] - 400 CBC Venipuncture (in house) Reviewed date:07/01/2024 09:10:45 [...] Interpretation:<150 Performing Lab: Notes/Report: Test performed by [facility] [address] [place] [address] , [address], [place] [address] Chapincito Branch MD, [employer] [employer] CLIA: [id number] Vitamin B12 <831 899-3864 pg/mL P-Comprehensive Metabolic Pa fouzia (CMP) Reviewed date:07/01/2024 09:10:45 AM Interpretation:gluc 150 Performing Lab: Notes/Report: Test performed by [facility] [address] [place] [address] , [address], [place] [address] Chapincito Branch MD, [employer] [employer] CLIA: [id number] Sodium 142 135-145 mmol/L Potassium 3.7 3.5-5.3 [...] 182 Performing Lab: Notes/Report: Test performed by [facility], [address] , [facility], [place] [address] Chapincito Branch MD, [employer] [employer] CLIA: [id number] Cholesterol 116 <200 mg/dL Triglycerides 182 <150 [...] Results: 60 Units: mg/dL % Change: - ------- Test Date: 06/26/2024 LDL Results: 33 Units: mg/dL % Change: -45% P-TSH reflex to FT4 Reviewed date:07/01/2024 09:10:45 AM Interpretation:Normal Performing Lab: Notes/Report: Test performed by [facility] [address] [place] [address] , [place] [address] Chapincito Branch MD, [employer] [employer] CLIA: [id number] TSH reflex to FT4 1.49 0.43-5.25 mU/L P-Vitamin D 25-Hydroxy Reviewed date:07/01/2024 09:10:45 AM Interpretation:39.6 Performing Lab: Notes/Report: Test performed by [facility] [address] [place] [address] , [place] [address] Chapincito Branch MD, [employer] [employer] CLIA: [id number] Vitamin D 25-Hydroxy 39.6 30.0-100.0 ng/mL Interpretation [...] Interpretation:neg Performing Lab: Notes/Report: neg Result: neg P-Vitamin B12 Reviewed date:08/19/2024 09:25:17 AM Interpretation:293 Performing Lab: Notes/Report: Test performed by [facility] [address] [place] [address] , [address], [place] [address] Chapincito Branch MD, [employer] [employer] CLIA: [id number] Vitamin B12 735 478-8840 pg/mL Urinalysis - Inhouse Reviewed date:12/23/2024 01:08:58 PM [...] 45 Performing Lab: Notes/Report: Test performed by [facility] [address] [place] [address] , [address], [place] [address] Chapincito Branch MD, [employer] [employer] CLIA: [id number] Sodium 143 135-145 mmol/L Potassium 4.8 3.5-5.3 mmol/L Chloride 103 97-108 mmol/L CO2 27 22-32 mmol/L Glucose 120 65-99 mg/dL BUN 13 8-23 mg/dL Creatinine 1.26 0.50-1.00 mg/dL Calcium 9.1 8.6-10.4 mg/dL eGFR by Creatinine 45 >59 mL/min/1.73m2 TEN-UTI panel Reviewed date:12/25/2024 09:52:14 AM Interpretation:Enterococcus faecalis Performing Lab: Notes/Report: Enterococcus faecalis Urinalysis - Inhouse Reviewed date:05/06/2024 11:21:22 AM Interpretation: Performing Lab: Notes/Report: Color/Clarity yellow/clear Leuk 1+ Nitrite neg Urobili 3.2 Protein 1+ pH 5.5 Blood trace-intact Sp. Gr. >=1.030 Ketone neg Bili 1+ Gluc neg TEN-UTI panel Reviewed date:05/11/2024 01:42:33 PM Interpretation:Negative Performing Lab: Notes/Report: Negative EKG Reviewed date:11/03/2024 04:20:04 PM Interpretation: Performing Lab: Notes/Report: CBC Venipuncture (in house) Reviewed date:12/16/2024 11:03:54 [...] 44 Performing Lab: Notes/Report: Test performed by [facility] , [address], [place] [address] Chapincito Branch MD, Super[facility] [employer] CLIA: [id number] Sodium 135 135-145 mmol/L Potassium 3.5 3.5-5.3 [...] Interpretation:1.7 Performing Lab: Notes/Report: Test performed by [facility] [address] [place] [address] , [address], [place] [address] Chapincito Branch MD, [employer] [employer] CLIA: [id number] Magnesium 1.7 1.6-2.4 mg/dL EKG Reviewed date:11/11/2024 12:59:17 PM Interpretation: Performing Lab: Notes/Report: H-Potassium Reviewed date:02/08/2025 04:48:25 PM Interpretation:5.2 Performing Lab: Notes/Report: K 5.2 3.5-5.1 mmoL/L H-Potassium Reviewed date:02/08/2025 04:48:25 PM Interpretation:5.2 Performing Lab: Notes/Report: K 5.2 3.5-5.1 mmoL/L Reason For Referral Diagnosis 1 DDD (degenerative di sc disease), lumbar (M51.36) Diagnosis 2 Coccydynia (M53.3) Diagnosis 3 Lumbar disc herniati on (M51.26) Referral Organization [facility] Referring Provider First Name Tj Referring Provider Last Name Zahra Referring Provider Speciality Family Pra ctice Referred Provider Houston Landry Referred Provider Specialty Pain Managem ent General Notes Zita Thornton 024 3:03:00 PM > faxed to [facility] Pain Management Referral Priority Routine Medications Medication SIG (Take, Route, Frequency, Duration) Notes Start Date End Date Status Clotrimazole-Betamethasone 1-0.05 % 1 application Externally Twice a day; Duration: 14 days 03/16/2025 Active Ibuprofen 600 MG TAKE 1 TABLET BY ZULEIMA TH FOUR TIMES DAILY NEEDED; Duration: 15 Active Fluconazole 150 MG 1 tablet Orally arlette y; Duration: 1 days 03/16/2025 Active Triamcinolone Acetonide 0.1 % 1 application Externally Twice a day 06/26/2024 Active Cefuroxime Axetil 500 MG 1 tablet Orally every 12 hrs; Duration: 5 day(s) 03/23/2025 Active Ozempic (2 MG/DOSE) 8 MG/3ML 2 mg Subcut aneous once weekly 05/18/2024 Active Levocetirizine Dihydrochloride 5 MG 1 tablet in the evening Orally Once a day; Duration: 90 days Active Montelukast Sodium 10 MG 1 tablet Orally Once a day; Duration: 90 days Active Rosuvastatin Calcium 5 MG 1 tab(s) orall y once a day; Duration: 90 days Active Gemtesa 75 MG 1 tablet Orally Once a day Active Lisinopril 40 MG 1/2 tab(s) orally on ce a day Active ADVOCATE GLUCOSE METER NON-SPEAKING [id number] - 02/12/2019 Active Levothyroxine Sodium 25 MCG 1 tab(s) ora lly once a day Active ADVOCATE TEST STRIPS - 02/12/2019 Active amLODIPine Besylate 5 MG 1 tab(s) orally once a day Active Albuterol Sulfate HFA 108 (90 Base) MCG/ACT 2 puff(s) inhaled tid and q2h prn 09/04/2022 Active Metoprolol Succinate ER 200 MG 1 tablet Orally Once a day; Duration: 90 days Active Voltaren 1 % 2 g applied topicall y 4 times a day, prn Active Immunizations Vaccine Route Administration Date Status Comme nts Prevnar (PCV20) IM Intramuscular 10/18/2022 Administered COVID 19 Moderna Unknown 11/02/2020 Administered COVID 19 Moderna Unknown 11/30/2020 Administered Problems Problem Type SNOMED Code ICD Code Onset Dates Problem Status W/U Status Risk Notes Problem Vitamin D deficiency (01724226) Vitamin D deficiency (E55.9) Active confirmed Problem Vitamin B12 deficiency (109470396) Vitamin B12 deficiency (E53.8) Active confirmed Problem Essential hypertension (39205444) Essential hypertension (I10) Active confirmed Problem Abnormal mammogram (094024590) Abnormal mammogram (R92.8) Active confirmed Problem Diverticulitis (28770228) Diverticulitis (K57.92) Active confirmed Problem Obese class I (849076635133871) BMI 33.0-33.9,adult (Z68.33) Active confirmed Problem Environmental allergy (728948927) Environmental allergies (Z91.09) Active confirmed Problem Fibromyalgia (747178956) Fibromyalgia (M79.7) Active confirmed Problem Mixed hyperlipidemia (893226025) Mixed hyperlipidemia (E78.2) Active confirmed Problem Hypomagnesemia (635112158) Hypomagnesemia (E83.42) Active confirmed Problem Urge incontinence of urine (46765157) Urge incontinence (N39.41) Active confirmed Problem Constipation (50744091) Constipation, unspecified constipation type (K59.00) Active confirmed Problem Mammography abnormal (136257830) Abnormal mammogram of left breast (R92.8) Active confirmed Problem Gastroesophageal reflux disease (918287463) Gastroesophageal reflux disease, esophagitis presence not specified (K21.9) Active confirmed Problem Chronic bronchitis (87147119) Chronic bronchitis (J42) Active confirmed Problem Diverticular disease of colon (821889244) Diverticulosis of large intestine without hemorrhage (K57.30) Active confirmed Problem Leukocytosis (574982794) Leukocytosis, unspecified type (D72.829) Active confirmed Problem Chronic vaginitis (95346426) Chronic vaginitis (N76.1) Active confirmed Problem Anemia (243804710) Anemia, unspecified type (D64.9) Active confirmed Problem Subacute vaginitis (76026385543043021) Subacute vaginitis (N76.1) Active confirmed Problem Hypothyroidism (82788327) Hypothyroidism, unspecified type (E03.9) Active confirmed Problem Coccydynia (51718116) Coccydynia (M53.3) Active confirmed Problem Atopic dermatitis (72871555) Atopic dermatitis, unspecified type (L20.9) Active confirmed Problem Diverticulitis of sigmoid colon (520496754) Diverticulitis of sigmoid colon (K57.32) Active confirmed Problem Prolapsed lumbar intervertebral disc (329093639) Lumbar disc herniation (M51.26) Active confirmed Problem Type II diabetes mellitus without complication (761009828) Type 2 diabetes mellitus without complication, without long-term current use of insulin (E11.9) Active confirmed Problem Urinary incontinence (517610594) Urinary incontinence, unspecified type (R32) Active confirmed Problem Degenerative disc disease (29390533) DDD (degenerative disc disease), lumbar (M51.36) Active confirmed Problem Chronic rhinitis (72895669) Rhinitis, unspecified type (J31.0) Active confirmed Problem Skin sensation disturbance (71562145) Burning sensation of feet (R20.8) Active confirmed Problem Mixed incontinence (215335902) Mixed stress and urge urinary incontinence (N39.46) Active confirmed Problem Age-related osteoporosis (337357989) Osteoporosis, unspecified osteoporosis type, unspecified pathological fracture presence (M81.0) Active confirmed Problem Seasonal allergic rhinitis (984490113) Seasonal allergic rhinitis, unspecified trigger (J30.2) Active confirmed Problem Type II diabetes mellitus without complication (082625042) Type 2 diabetes mellitus without complication, unspecified whether snf insulin use (E11.9) Active confirmed Problem Type 2 diabetes mellitus with other specified complication, unspecified whether snf insulin use (E11.69) Active confirmed Vital Signs Heart Rate 84 /min 03/16/2025 Blood pressure diastolic 72 mm Hg 03/16/2025 Height 64 in 03/16/2025 Blood pressure systolic 130 mm Hg 03/16/2025 Weight 213.2 lbs 03/16/2025 BMI 36.59 kg/m2 03/16/2025 Encounters Encounter Location Date Provider Diagnosis [facility] [address] [place] [id number] 05/06/2024 Tj Sunnyside UTI symptoms R39.9 a nd Acute vaginitis N76.0 [facility] [address] [place], [place] [id number] 06/26/2024 Rosa Crowdy Mild eczema L30.9 ; Type 2 diabetes mellitus without complication, without long-term current use of insulin E11.9 ; Essential hypertension I10 ; Mixed hyperlipidemia E78.2 ; Vitamin D deficiency E55.9 ; Hypothyroidism, unspecified type E03.9 ; Vitamin B12 deficiency E53.8 and Numbness of toes R20.0 [facility] [address] [place], [place] [id number] 07/09/2024 Rosa Souza Atopic dermatitis, unspecified type L20.9 and Acute URI J06.9 [facility] [address] [place] [id number] 07/17/2024 Tj Sunnyside Type 2 diabetes madeline itus without complication, without long-term current use of insulin E11.9 ; Mixed hyperlipidemia E78.2 ; Essential hypertension I10 ; Vitamin B 12 deficiency E53.8 ; Low back pain, unspecified M54.50 and Lumbar disc herniation M51.26 [facility] [address] [place] [id number] 08/17/2024 Jt Sunnyside Vitamin B12 deficien cy E53.8 and Essential hypertension I10 [facility] [address] [facility] [address] [place] [id number] 10/27/2024 Tj Sunnyside Pre-op exam Z01.818 ; Complication of implanted [...] lumbar region, unspecified whether pain present M51.369 [facility] [address] [address] [place] [id number] 12/08/2024 Meron Smith Chronic bronchitis J 42 [facility] [address] [facility] [address] [place] [id number] 12/16/2024 Tj Sunnyside Acute diarrhea R19.7 ; Hypomagnesemia E83.42 ; Nausea R11.0 ; Type 2 diabetes mellitus with other specified complication, unspecified whether snf insulin use E11.69 ; Lumbar pain M54.50 and BMI 33.0-33.9,adult Z68.33 [facility] [address] [place] [id number] 12/23/2024 Tj Sunnyside MEGHAN (acute kidney injury) N17.9 ; Anemia, unspecified type D64.9 ; Microscopic hematuria R31.29 ; Essential hypertension I10 and Type 2 diabetes mellitus without complication, without long-term current use of insulin E11.9 [facility] [address] [place] [id number] 01/06/2025 Tj Sunnyside Type 2 diabetes madeline itus without complication, without long-term current use of insulin E11.9 ; MEGHAN (acute kidney injury) N17.9 and Essential hypertension I10 [facility] [address] [place] [facility] [address] [place] [id number] 01/27/2025 Tj Sunnyside Essential hypertensi on I10 ; Hypothyroidism, unspecified type E03.9 ; Vitamin D deficiency E55.9 ; Vitamin B12 deficiency E53.8 ; Renal insufficiency N28.9 and Postmenopausal osteoporosis M81.0 [facility] [address] [place] [id number] 03/16/2025 Meron Smith UTI (lower urinary t ract infection) N39.0 ; Increased urinary frequency R35.0 and Vaginal itching N89.8 [facility] [address] [place] [id number] 05/11/2024 Tj Sunnyside Coccydynia M53.3 ; Lumbar disc herniation M51.26 and Degeneration of intervertebral disc of lumbosacral region with discogenic back pain and lower extremity pain M51.372 [facility] [address] [place], [place] [id number] 05/18/2024 Tj Sunnyside Type 2 diabetes madeline itus without complication, without long-term current use of insulin E11.9 [facility] [address] [place], [place] [id number] 06/26/2024 Rosa [facility]by [facility] [address] [place], [place] [id number] 06/26/2024 Rosa [facility] [address] [place] [id number] 07/13/2024 Tj Sunnyside [facility] [address] [place] [id number] 08/19/2024 Tj Sunnyside [facility] [address] [place] [id number] 11/02/2024 Tj Sunnyside [facility] [address] [place] [id number] 11/09/2024 Tj Sunnyside [facility] [address] [place] [id number] 11/09/2024 Tj Sunnyside Abnormal EKG R94.31 [facility] [address] [place] [id number] 11/09/2024 Tj Sunnyside [facility] [address] [place] [id number] 11/16/2024 Tj Sunnyside [facility] [address] [place], [place] [id number] 11/16/2024 Tj Sunnyside Essential hypertensi on I10 [facility] [address] [place] [id number] 11/17/2024 Tj Sunnyside [facility] [address] [place] [id number] 12/17/2024 Tj Sunnyside [facility] [address] [place] [id number] 12/18/2024 Tj Sunnyside [facility] [address] [place] [id number] 12/25/2024 Tj Sunnyside [facility] [address] [place] [id number] 01/04/2025 Tj Sunnyside Screening for breast cancer Z12.39 ; Screening for colon cancer Z12.11 and Screening for osteoporosis Z13.820 [facility] [address] [place] [id number] 01/20/2025 Tj Sunnyside [facility] [address] [place] [id number] 01/28/2025 Tj Sunnyside Hyperkalemia E87.5 [facility] [address] [place] [id number] 02/08/2025 Tj Sunnyside [facility] [address] [place] [id number] 02/16/2025 Tj Sunnyside Essential hypertensi on I10 [facility] [address] [place], [place] [id number] 03/23/2025 Meron Smith Assessments Encounter Date Diagnosis (ICD Code) Assessment Notes Treatment Notes Treatment Clinical Notes Section Notes 05/06/2024 Acute vaginitis (ICD-10 - N76.0) 05/06/2024 [...] Screening for breast cancer (ICD-10 - Z12.39) 01/06/2025 Type 2 diabetes mellitus without complication, without long-term current use of insulin (ICD-10 - E11.9) 01/06/2025 MEGHAN (acute kidney injury) (ICD-10 - N17.9) Resolved 01/04/2025 Screening for colon cancer (ICD-10 - Z12.11) 01/27/2025 Essential hypertension (ICD-10 - I10) 01/28/2025 Hyperkalemia (ICD-10 - E87.5) 02/16/2025 Essential hypertension (ICD-10 - I10) 03/16/2025 UTI (lower urinary tract infection) (ICD-10 - N39.0) 03/16/2025 Increased urinary frequency (ICD-10 - R35.0) 01/27/2025 Hypothyroidism, unspecified type (ICD-10 - E03.9) 03/16/2025 Vaginal itching (ICD-10 - N89.8) discussed jero care; to keep dry 01/06/2025 Essential hypertension (ICD-10 - I10) Blood pressure journal 01/27/2025 Vitamin D deficiency (ICD-10 - E55.9) 01/04/2025 Screening for osteoporosis (ICD-10 - Z13.820) 12/23/2024 Microscopic hematuria (ICD-10 - R31.29) 12/16/2024 Nausea (ICD-10 - R11.0) 10/27/2024 Acute URI (ICD-10 - J06.9) 07/17/2024 Essential hypertension (ICD-10 - I10) 06/26/2024 Essential hypertension (ICD-10 - I10) 05/11/2024 Degeneration of intervertebral disc of lumbosacral region with discogenic back pain and lower extremity pain (ICD-10 - M51.372) 06/26/2024 Mixed hyperlipidemia (ICD-10 - E78.2) 07/17/2024 Vitamin B 12 deficiency (ICD-10 - E53.8) 10/27/2024 Type 2 diabetes mellitus without complication, without long-term current use of insulin (ICD-10 - E11.9) 12/23/2024 Essential hypertension (ICD-10 - I10) 12/16/2024 Type 2 diabetes mellitus with other specified complication, 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 (ICD-10 - E11.69) 01/27/2025 Vitamin B12 deficiency (ICD-10 - E53.8) 01/27/2025 Renal insufficiency (ICD-10 - N28.9) 12/16/2024 Lumbar pain (ICD-10 - M54.50) 12/23/2024 Type 2 diabetes mellitus without complication, without long-term current use of insulin (ICD-10 - E11.9) 10/27/2024 Essential hypertension (ICD-10 - I10) 07/17/2024 Low back pain, unspecified (ICD-10 - M54.50) Patient has L-spine epidural scheduled in 2 weeks at [facility], she will call with any new symptoms 06/26/2024 Vitamin D deficiency (ICD-10 - E55.9) 06/26/2024 Hypothyroidism, unspecified type (ICD-10 - E03.9) 07/17/2024 Lumbar disc herniation (ICD-10 - M51.26) 10/27/2024 Hypothyroidism, unspecified type (ICD-10 - E03.9) 12/16/2024 BMI 33.0-33.9,adult (ICD-10 - Z68.33) 01/27/2025 Postmenopausal osteoporosis (ICD-10 - M81.0) 10/27/2024 Mixed hyperlipidemia (ICD-10 - E78.2) 06/26/2024 [...] Test Test Name Order Date colonoscopy 01/04/2025 Insurance Providers Payer Name Payer Address Payer Phone Subscriber Number Group Number Insured Name Patient Relationship to Insured Coverage Start Date Coverage End Date MEDICARE PART B [address] [address] [place] [id number] [id number] Randi Montes Self - patient is the insured [facility] [address] [place] [address] [id number] Randi Montes Self - patient is the [...] x 4 LT Shoulder- Broke Ball Joint, [place] RT Shoulder Rotator Cuff Tear Repair Bladder Tumor Removal, Dr. Andrade 014 Colonoscopy 03/2016 Bladder stimulator placement 12/02/22 Lumbar disc injection 06/26/24 bladder sling removed 10/2024 Hospitalization History Reason Date(Month/Year) RT Broken Wrist- H ER 05/09/2013
--- OUTSIDE RECORDS SUMMARY | 2025-05-02 11:22 | XMS_ITS | Clinical Summary ---
Author Organization [facility] Address [address] [place] [phone] Phone Care Team Providers Care Receptionist Scheduler Name Role Phone Tj Sweeney MD Primary Care Provider [phone] Allergies Active Allergy Reactions Criticality Noted Date [...] to not take the medication, Reported on 02/08/2025 estradioL (ESTRACE) 0.01 % (0.1 mg/gram) Vagl CreamIndicatio ns:Vaginal atrophy Apply pea-sized amount using fingertip into the vagina (or as instructed) nightly x 2 weeks, then use 2-3 x per week. 42.5 g 2 5 Active Additional Information Patient not taking.Reason: Pt electing to not take the medication, Reported on 02/08/2025 clindamycin (CLEOCIN) 2 % Vagl Cream Place 4g intravaginally at night for 3 weeks followed by maintenance therapy twice/week x 6 months. 40 g 5 5 Active Additional Information Patient not taking.Reported on 03/01/2025 OZEMPIC 2 mg/dose (8 mg/3 mL) SubQ [...] needed for Nausea. 30 Tablet 5 Active estradioL (ESTRACE) 0.01 % (0.1 mg/gram) Vagl CreamIndicatio ns:Vaginal atrophy Place 1 g vaginally daily. Do NOT use applicator. Apply pea-sized amount nightly x 2 weeks and then 2-3 times per week after. 42.5 g 1 5 Active vibegron 75 mg Oral TabletIndicati ons:Urge urinary incontinence,O AB (overactive bladder) Take 1 Tablet by mouth daily. 90 Tablet 1 5 Active Active Problems Problem Noted Date Diagnosed Date Complication of implanted vaginal mesh, initial encounter 10/22/2024 Exposure of implanted vaginal mesh 10/14/2024 Urinary frequency 10/15/2023 Urge incontinence of urine 08/28/2023 Incontinence of feces 08/28/2023 Encounters Date Type Department Care Team Description 03/01/2025 9:00 AM EDT Office Visit [facility] Urogynecology [address] [phone] Evangelina Cook PA-C Urge urinary incontinence (Primary Dx); OAB (overactive bladder); S/P implantation of urinary electronic stimulator device 02/08/2025 9:14 AM EDT - 02/08/2025 11:59 PM EDT Hospital Encounter [facility] [address] [address] S/P implantation of urinary electronic stimulator device Discharge Disposition: Home or Self Care 02/08/2025 8:30 AM EDT Office Visit [facility] Urogynecology [address] [phone] Evangelina Cook PA-C Urge urinary incontinence (Primary Dx); OAB (overactive bladder); S/P implantation of urinary electronic stimulator device; Urinary frequency; Dysuria; Vaginal atrophy 02/08/2025 Results Follow-Up [facility] [address] [phone] Evangelina Cook PA-C XR SACRUM AND COCCYX, URINALYSIS, URINE CULTURE (NO STAIN) 02/04/2025 Telephone [facility] [address] [place] [address] Harmony Westbrook RN Information Only from Last 3 Months Surgical History Surgery [...] Urethra/N/A .; Surgeon: Shahnaz Hess MD; Location: [facility] OR; Service: Urogynecology Medical History Medical [...] Cigarettes Smokeless Tobacco: Never Tobacco Cessation:Counseling Given: No Alcohol Use Standard Drinks/Week Comments Not Currently [...] Pressure 167/81 11/16/2024 3:56 PM EDT Pulse 74 03/01/2025 8:49 AM EDT Temperature 36.1 C (96.9 F) 11/16/2024 3:56 PM EDT Respiratory Rate 14 11/16/2024 3:56 PM EDT Oxygen Saturation 98% 03/01/2025 8:49 AM EDT Inhaled Oxygen Concentration - - Weight 95.4 kg (210 lb 6.4 oz) 03/01/2025 8:49 A M EDT Height 162.6 cm (5' 4 ) 02/08/2025 8:05 AM EDT Body Mass Index 36.12 02/08/2025 8:05 AM EDT Plan of Treatment Health Maintenance Due Date Last Done Comments Wellness Exam Medicare 10/30/1953 Hepatitis C Screening 1970 Breast Cancer Screening 1992 Cologuard 1997 Colon Cancer Screening 1997 Colonoscopy 1997 FIT 1997 Sigmoidoscopy 1997 Virtual Colonography 1997 Bone Density Screening 2017 COVID-19 Vaccine (3 - 2024-2 6 season) 2025 11/30/2020, 11/02/2020 Influenza Vaccine (#1) 2025 DTaP/TDaP/Td (2 - Td or Tdap) 04/29/2034 04/29/2024 Pneumococcal Vaccine 50+ Completed 10/18/2022 Zoster Completed 04/29/2024, 02/22/2024 Hepatitis B Vaccine Aged Out No longe r eligible based on patient's age to complete this topic Meningococcal B Vaccine Aged Out No l onger eligible based on patient's age to complete this topic Medical Devices Implanted Type Area Bottom Bleacher Device Identifier Shelf Expiration Date Model / Serial / Lot Kit Mri Lead Interstim Surescan 28cm - [id number] Implanted:Qty: 1 on 12/12/2023 by Shahnaz Hess MD at [facility] Right: Back [employer]:NEURO 05/27/2025 [id number] / / [id number] Neurstm Intstm Ii 2x1.7in 0.3in Dbl Troc Pnt Prim Cell - [id number] Implanted:Qty: 1 on 12/12/2023 by Shahnaz Hess MD at [facility] Right: Back [employer]:NEURO 08/18/2025 [id number] / [id number] / Envelope Tyrx Absb Anbctrl Mul-Prgm 2.5x2.7in 1x8mm - [id number] Implanted:Qty: 1 on 12/12/2023 by Shahnaz Hess MD at [facility] Right: Back [employer]:NEURO [id number] 07/18/2024 [id number] / / [id number] Procedures Procedure Name Priority Date/Time Associated Diagnosis Comments XR SACRUM AND COCCYX Routine 02/08/2025 9:20 AM EDT S/P implantation of urinary electronic stimulator device URINALYSIS Routine 02/08/2025 8:24 AM EDT Urinary frequency Dysuria URINE CULTURE (NO STAIN) Routine 02/08/2025 8:24 AM EDT Urinary frequency Dysuria from Last 3 Months Results * XR SACRUM AND COCCYX (02/08/2025 9:20 AM EDT) Anatomical Region Laterality Modality T-spine Radiographic Sharon ging 02/08/2025 9:20 AM EDT Impressions 02/08/2025 11:02 AM EDT No acute bony abnormality. - Note: Radiology results need to be interpreted within a comprehensive clinical context. If you have questions about the radiology report, please contact the office of the ordering clinician. Narrative 02/08/2025 11:02 AM EDT SACRUM AND COCCYX, 02/08/2025 9:20 AM CLINICAL HISTORY: Z96.0-Presence of urogenital [id number] COMPARISON: None. PROCEDURE COMMENTS: Three views of the sacrum and coccyx, including AP, angled, and lateral views. FINDINGS: No fracture or significant soft tissue abnormality. The visible arcuate lines appear intact The sacroiliac joints appear maintained. Stimulator device noted projecting in the left pelvis. Procedure Note Alexi Jacobson MD - 02/08/2025 SACRUM AND COCCYX, 02/08/2025 9:20 AM CLINICAL HISTORY: Z96.0-Presence of urogenital [id number]-[id number] COMPARISON: None. PROCEDURE COMMENTS: Three views of the sacrum and coccyx, including AP,angled, and lateral views. FINDINGS: No fracture or significant soft tissue abnormality. Thevisible arcuate lines appear intact The sacroiliac joints appear maintained. Stimulator device notedprojecting in the left pelvis. IMPRESSION: No acute bony abnormality. - Note: Radiology results need to be interpreted within a comprehensiveclinical context. If you have questions about the radiology report, please contactthe office of the ordering clinician. Evangelina Cook PA-C IMG DIAGNOSTIC IMAGIN G ORDERABLES Final Result * URINALYSIS (02/08/2025 8:24 AM EDT) UA Color Colorless 02/08/2025 9:23 PM EDT [facility] UA Appear Clear Clear 02/08/2025 9:23 PM EDT [facility] UA Glucose Negative Negative mg/dL 02/08/2025 9:23 PM EDT [facility] UA Ketones Negative Negative mg/dL 02/08/2025 9:23 PM EDT [facility] UA Blood Negative Negative 02/08/2025 9:23 PM EDT [facility] UA pH 6.0 5.0 - 8.0 pH 02/08/2025 9:23 PM EDT [facility] UA Protein Negative Negative mg/dL 02/08/2025 9:23 PM EDT [facility] UA Urobilinogen Normal <=1 mg/dL 9:23 PM EDT [facility] UA Bili Negative Negative 02/08/2025 9:23 PM EDT [facility] UA Nitrite Negative Negative 02/08/2025 9:23 PM EDT [facility] UA Leuk Est Negative Negative 02/08/2025 9:23 PM EDT [facility] UA Spec Grav 1.013 1.001 - 1.035 no units 02/08/2025 9:23 PM EDT [facility] Comment:Reference range zamzam d for random specimens only. Urine URINARY BLADDER STRUCTURE / Unknown 02/08/2025 8:24 AM EDT 02/08/2025 8:24 AM EDT us Evangelina Cook PA-C URINE ORDERABLES Naina l Result Performing Organization Address [facility]/ZIP Co de Phone Number [facility] [employer], [facility] [address] [place] [place] [address] * URINE CULTURE (NO STAIN) (02/08/2025 8:24 AM EDT) Culture No growth at 30 hours. 02/10/2025 6:32 AM EDT [facility] [employer], [facility] Urine URINARY BLADDER STRUCTURE / Unknown 02/08/2025 8:24 AM EDT 02/08/2025 8:24 AM EDT us Evangelina Cook PA-C MICROBIOLOGY - GENERA L ORDERABLES Final Result Performing Organization Address [facility] Co de Phone Number [facility] [address] [facility] , [address] [address] from Last 3 Months Insurance MEDICARE [place] PART A AND B [facility] PPO MEDICARE [place] PART A AND B [facility] PPO Care Teams Receptionist Scheduler Relationship Specialty Start Date End Date Tj Sweeney MD [address] [place] [address] [id number] PCP - General Family Medicine 12/05/23
[2025-05-02 11:34] LABS: Microscopic, Urine URINE MICROSCOPIC (MICROSCOPIC)
[2025-05-02 11:47] LABS: Hematocrit 36.3 % (37.0-47.0); Hemoglobin 11.3 g/dL (12.2-16.2); Immature Granulocytes % 0.4 %; Mean Corpuscular HGB Conc 31.1 g/dL (31.8-35.4); Mean Corpuscular Hemoglobin 28.0 pg (27.0-31.2); Mean Corpuscular Volume 89.9 fl (81-99); Nucleated Red Blood Cells % 0 %; Platelet Count 437 K/mm3 (142-424); Red Blood Count 4.04 M/mm3 (4.20-5.40); Red Cell Distribution Width-SD 43.8 fL; White Blood Count 9.8 K/mm3 (4.8-10.8)
[2025-05-02 12:04] LABS: Bilirubin,Urine Negative (Negative); Color,Urine YELLOW (Yellow); Glucose,Urine (UA) Negative (Negative); Ketones,Urine Negative (Negative); Leukocyte Esterase,Urine Negative (Negative); PH,Urine 5.5 (5.0-8.5); Protein,Urine Negative (Negative); Specific Gravity, Urine >= 1.030 (1.005-1.030); Urobilinogen,Urine 0.2 EU/dl (0.2)
[2025-05-02 12:34] LABS: Chloride 103 mmol/L (98-107); Sodium 138 mmol/L (136-145)
[2025-05-02 12:35] LABS: Albumin Level 3.7 g/dl (3.5-5.0); Potassium 4.8 mmoL/L (3.5-5.1)
[2025-05-02 12:38] LABS: Anion Gap 14.8 mEq/L (5-15); Blood Urea Nitrogen 21 mg/dl (7-17); Calcium 9.5 mg/dl (8.4-10.2); Carbon Dioxide 25 mmol/L (22.0-30.0); Creatinine,Serum 1.10 mg/dl (0.52-1.04); Estimated Glomerular Filt Rate 49 ml/min (>60); GFR (African American) 59 ML/MIN (>60); Glucose 223 mg/dl (74-100); Phosphorous 4.7 mg/dl (2.5-4.5)
[2025-05-02 12:46] LABS: Bacteria,Urine Trace /lpf
== END 2025-05-02 23:59 | disposition home or self-care (01) ==
LOC: LAB 11:19
PROVIDERS: Student in an Organized Health Care Education/Training Program; PCP Family Medicine; Visit Provider Family Medicine
DX: N28.9 Disorder of kidney and ureter, unspecified (principal)
CPT/HCPCS: 36415; 80069; 81001; 82570; 84156; 85025